=== PATIENT | male | born 1965 | race Caucasian/White ===

== ENCOUNTER 2019-06-10 05:48 | Outpatient (RCR) | payer MEDICAID, SELFPAY | END 2019-07-07 00:01 | LOC: ONCMED 05:48 | PROVIDERS: Family Provider Family Medicine; Visit Provider Internal Medicine Hematology & Oncology | DX: C15.5 Malignant neoplasm of lower third of esophagus (principal); Z45.2 Encounter for adjustment and management of vascular access device; G89.29 Other chronic pain; M54.2 Cervicalgia; B19.20 Unspecified viral hepatitis C without hepatic coma; K74.60 Unspecified cirrhosis of liver; R16.1 Splenomegaly, not elsewhere classified; Z92.21 Personal history of antineoplastic chemotherapy; Z92.3 Personal history of irradiation; Z79.891 Long term (current) use of opiate analgesic; Z79.899 Other long term (current) drug therapy | CPT/HCPCS: 36415; 80053; 85025; 96523; 99214; J1642 ==

== ENCOUNTER → 2019-07-14 10:24 | Outpatient (BNVA) | payer MEDICAID, SELFPAY | PROVIDERS: Family Provider Family Medicine; PCP Family Medicine; Referring Provider Anesthesiology; Visit Provider Anesthesiology | DX: G89.29 Other chronic pain (principal); M51.36 Other intervertebral disc degeneration, lumbar region; M54.2 Cervicalgia; E13.40 Other specified diabetes mellitus with diabetic neuropathy, unspecified; Z79.891 Long term (current) use of opiate analgesic | CPT/HCPCS: 99214 ==

== ENCOUNTER 2019-08-04 05:44 | Outpatient (RCR) | payer MEDICAID, SELFPAY ==
[2019-07-21 18:19] LABS: Basophils % 0.3 %; Eosinophils # 0.1 10^3/uL (0.0-0.8); Eosinophils % 3.3 %; Hematocrit 38.4 % (42.0-52.0); Hemoglobin 12.5 g/dL (11.7-16.6); Lymphocytes # 0.9 10^3/uL (0.8-4.8); Lymphocytes % 22.4 %; Mean Corpuscular HGB Conc 32.6 g/dL (30.0-36.0); Mean Corpuscular Hemoglobin 30.9 pg (28.0-34.0); Mean Platelet Volume 12.9 fL (7.4-10.4); Monocytes # 0.5 10^3/uL (0.2-0.9); Monocytes % 13.3 %; Neutrophils # 2.4 10^3/uL (1.8-7.7); Neutrophils % 60.7 %; Nucleated Red Blood Cells % 0 %; Platelet Count 93 10^3/cmm (130-400); Red Blood Count 4.04 10^6/uL (4.1-5.3); Red Cell Distribution Width 14.3 % (12.1-15.1)
[2019-07-21 18:59] LABS: Alanine Aminotransferase 125 U/L (0-41); Albumin Level 2.9 g/dL (3.5-5.2); Alkaline Phosphatase 280 IU/L (40-130); Anion Gap 17.1 (5-19); Aspartate Amino Transferase 148 U/L (0-40); Blood Urea Nitrogen 9 mg/dL (6-20); Calcium 8.9 mg/Dl (8.6-10.0); Carbon Dioxide 25 mmol/L (22-29); Chloride 97 mmol/L (98-107); Globulin 3.4 g/dL (1.3-4.6); Glomerular Filtration Rate 224.2 mL/min (90-130); Glucose 309 mg/dL (74-109); Potassium 4.1 mmol/L (3.5-5.1); Sodium 135 mmol/L (136-145); Total Bilirubin 0.8 mg/dL (0.15-1.2); Total Protein 6.3 g/dL (6.6-8.7)
== END 2019-08-07 23:59 | disposition home or self-care (01) ==
LOC: ONCMED 05:44
PROVIDERS: Radiology Radiation Oncology; Family Provider Family Medicine; PCP Family Medicine; Visit Provider Internal Medicine Hematology & Oncology
DX: Z08 Encounter for follow-up examination after completed treatment for malignant neoplasm (principal); Z85.01 Personal history of malignant neoplasm of esophagus; Z45.2 Encounter for adjustment and management of vascular access device; D69.6 Thrombocytopenia, unspecified; B19.20 Unspecified viral hepatitis C without hepatic coma; K74.60 Unspecified cirrhosis of liver; R16.1 Splenomegaly, not elsewhere classified; Z79.891 Long term (current) use of opiate analgesic; Z92.3 Personal history of irradiation; Z92.21 Personal history of antineoplastic chemotherapy
CPT/HCPCS: 36415; 80053; 85025; 96523; G0463

== ENCOUNTER 2019-09-04 05:49 | Outpatient (RCR) | payer MEDICAID, SELFPAY | END 2019-09-05 23:59 | disposition home or self-care (01) | LOC: ONCMED 05:49 | PROVIDERS: Family Provider Family Medicine; PCP Family Medicine; Visit Provider Internal Medicine Hematology & Oncology | DX: Z45.2 Encounter for adjustment and management of vascular access device (principal) | CPT/HCPCS: 96523 ==

== ENCOUNTER 2019-10-09 11:09 | Outpatient (CLI) | payer MEDICAID, SELFPAY | END 2019-10-09 11:10 | disposition home or self-care (01) | LOC: ONCMED 11:10 | PROVIDERS: Family Provider Family Medicine; PCP Family Medicine; Visit Provider Internal Medicine Hematology & Oncology | DX: Z45.2 Encounter for adjustment and management of vascular access device (principal) | CPT/HCPCS: 96523 ==

== ENCOUNTER 2019-11-05 09:20 | Outpatient (CLI) | payer MEDICAID, SELFPAY ==
[2019-11-05 15:07] LABS: Eosinophils # 0.1 10^3/uL (0.0-0.8); Eosinophils % 1.8 %; Hematocrit 40.3 % (42.0-52.0); Hemoglobin 13.1 g/dL (11.7-16.6); Lymphocytes # 0.6 10^3/uL (0.8-4.8); Lymphocytes % 20.2 %; Mean Corpuscular HGB Conc 32.5 g/dL (30.0-36.0); Mean Corpuscular Volume 92.4 fL (80-94); Mean Platelet Volume 12.5 fL (7.4-10.4); Monocytes # 0.3 10^3/uL (0.2-0.9); Monocytes % 11.8 %; Neutrophils # 1.8 10^3/uL (1.8-7.7); Neutrophils % 65.8 %; Nucleated Red Blood Cells % 0 %; Platelet Count 88 10^3/cmm (130-400); Red Blood Count 4.36 10^6/uL (4.1-5.3); Red Cell Distribution Width 13.6 % (12.1-15.1); White Blood Count 2.7 10^3/uL (4.0-10.0)
[2019-11-05 16:30] LABS: Alanine Aminotransferase 54 U/L (0-41); Albumin Level 3.1 g/dL (3.5-5.2); Alkaline Phosphatase 224 IU/L (40-130); Anion Gap 12.5 (5-19); Aspartate Amino Transferase 85 U/L (0-40); Blood Urea Nitrogen 11 mg/dL (6-20); Calcium 9.3 mg/dL (8.5-10.5); Carbon Dioxide 27 mmol/L (22-29); Chloride 95 mmol/L (98-107); Globulin 4.5 g/dL (1.3-4.6); Glomerular Filtration Rate 139.9 mL/min (90-130); Glucose 305 mg/dL (65-115); Osmolality Calculated 278 mOsm/kg (285-295); Potassium 4.5 mmol/L (3.5-5.1); Sodium 130 mmol/L (136-145); Total Bilirubin 0.4 mg/dL (0.15-1.2); Total Protein 7.6 g/dL (6.6-8.7)
== END 2019-11-05 09:21 | disposition home or self-care (01) ==
LOC: ONCMED 11-06 09:57
PROVIDERS: Internal Medicine Medical Oncology; Family Provider Family Medicine; PCP Family Medicine; Visit Provider Internal Medicine Hematology & Oncology
DX: C15.5 Malignant neoplasm of lower third of esophagus (principal)
CPT/HCPCS: 80053; 85025

== ENCOUNTER 2019-11-06 08:01 | Outpatient (CLI) | payer MEDICAID, SELFPAY ==
--- NOTE | 2019-11-06 14:16 | ONC FU_ITS ---
Dr. Ocampo follow up note Patient: Loida Juares Unit #: [id number]: [id number] Dicatated By: Pablo Ocampo M.D.Date of Visit:November 06, 2019 Telehealth Progress Note The patient has been informed that the visit may not be secure and acknowledged the information. I have explained the option of participating in a telephone or video visit during the COVID-19 public health emergency to the patient. After being given an opportunity to ask questions about and discuss this type of visit, the patient verbally consented to proceeding with the telephone/video visit. the patient understands that this service replaces an office visit and they may be billed and /or responsible for any applicable copayments History of Present Illness: Mr. Loida Juares is a 54-year-old gentleman with history of abdominal pain recently underwent EGD and colonoscopy on 01/19/2019 which showed in the lower third esophagus, a partially obstructing, large sized, friable, fungating, submucosal, ulcerated mass and there was evidence of gastritis biopsy was obtained and came back moderately differentiated infiltrating adenocarcinoma. Colonoscopy was normal and follow-up CT scan of chest abdomen pelvis done on 01/29/2019 showed indeterminate but numerous celiac axis/upper mesenteric and retroperitoneal shoddy lymph nodes. No metastatic disease to lungs adrenal gland or liver Patient denies any history of weight loss in fact weight gain. No hemoptysis or hematemesis, no nausea or vomiting, no diarrhea constipation, no dysphagia. Or odynophagia. Patient has history of hepatitis C, as per patient he was treated by Dr. Canales about 2-3 years ago and was dormant and now active. History of cirrhosis and splenomegaly. No alcohol use but smoke. CT PET scan done on 02/21/2019 showed 1.3 cm segment of distal esophageal with SUV of 2.9 consistent with a primary esophageal carcinoma there is a no local or distance metastases Started on combined chemoradiation on 03/10/2019 with modified dose of weekly carboplatin and Taxol concurrent with radiation Was referred to bell staff in [place], [place] and he was seen on 04/03/2019. Impression and recommendation was to repeat hepatitis profile including hepatitis B core antigen, if is positive may require prophylaxis. And Dr. Manrique will also do further workup regarding hepatic cirrhosis and with PT/INR less than 1.7, patient has child tracy A and hepatitis C is a low risk for acute liver injury andsuggested to proceed with chemoradiation . May consider radiological transjugular liver biopsy and measurement of portal pressures, if esophageal surgery is under consideration. And medical management of portal hypertension if needed Patient completed combined chemoradiation with weekly carboplatin and Taxol on 05/10/2019patient was referred to Cardiothoracic surgery at [facility] for evaluation for possible esophagectomy patient was seen and admitted on 06/25/2019 and esophagectomy was attempted during procedure, patient is liver appeared severely cirrhotic esophagectomy was canceled but during procedure underwent EGD and biopsy was obtained which showed no evidence of disease. Due to advanced stage hepatic cirrhosis, no further treatment was offered but observation and follow with bell staff. Evaluated via telephone, patient denies any specific complaints except off and on nausea in the morning, responding very well to lorazepam. Patient denies coffee and also cutting down on spicy foods. No dysphagia, no jaundice, no abdominal pain or fullness, denies fever chills, denies any hemoptysis or hematemesis, denies any melena hematochezia, appetite is good. No nosebleed or gum bleed. Medications: CeleXA 1 Tablet (of 10 mg) Oral daily, Dronabinol 1 Capsule (of 10 mg) Oral b.i.d. PRN, Levemir 30 Units (of 100 Units/mL) Subcutaneous daily, LORazepam 0.5 - 1 Tablet (of 1 mg) Oral t.i.d. PRN, oxyCODONE HCl 1 Tablet (of 15 mg) Oral pc (tid), Protonix 1 Tablet (of 20 mg) Tablet, enteric coated Oral daily Allergies: No Known Allergies. Review of Systems: Review of Systems is not available for this patient. Vital Signs: Vitals are not available for this patient. Performance Status: 1 - No physically strenuous activity, but ambulatory and able to carry out light or sedentary work (e.g. office work, light house work). (ECOG) Physical Examination: ENMT - denies any mouth sores, Respiratory - denies any shortness of breath or wheezing, Cardiovascular - denies any palpitation or tachycardia, Abdomen - denies any abdominal pain or fullness, Extremities - denies any visible edema. Lab/Imaging: Test performed on Jul 21, 2019 07:50 Glucose 309 mg/dL BUN 9 mg/dL Creatinine 0.4 mg/dL Cr Clearance (Est) 272.53 mL/min Sodium 135 mmol/L Potassium 4.1 mmol/L Chloride 97 mmol/L CO2 25 mmol/L Calcium 8.9 mg/dL Protein, Total 6.3 g/dL Albumin 2.9 g/dL Globulin 3.4 g/dL Bilirubin, Total 0.8 mg/dL Alkaline Phosphatase 280 IU/L AST (SGOT) 148 IU/L ALT (SGPT) 125 IU/L WBC 4.0 10^9/L RBC 4.04 10^12/L HGB 12.5 g/dL HCT 38.4 % MCV 95.0 fl MCH 30.9 pg MCHC 32.6 g/dL RDW 14.3 % Platelet Count 93 10^9/L MPV 12.9 fL Neutrophils (Gran) 2.4 10^9/L Lymphocytes 0.9 10^9/L Monocytes 0.5 10^9/L Eosinophils 0.1 10^9/L Basophils 0.0 10^9/L Manual Lymphocytes 22.4 % Manual Monocytes 13.3 % Manual Eosinophils 3.3 % Manual Basophils 0.3 % NRBCs 0.0 /100 WBC Test performed on Jun 09, 2019 09:00 Anion Gap 11.9 eGFR 173.3 mL/min Neutrophil % 54.9 % Lymphocyte % 31.6 % Monocyte % 10.8 % Eosinophil % 2.1 % Basophils % 0.3 % Impression: Moderately differentiated adenocarcinoma of distal esophagus per EGD/biopsy done on 01/19/2019 CT scan of chest abdomen pelvis done on 01/29/2019 showed mild thickening of right distal esophagus No metastatic disease to lungs, adrenal glands or liver Moderate cirrhosis with splenomegaly Indeterminate but numerous celiac axis/upper mesenteric and retroperitoneal shoddy lymph nodes CT PET scan done on 02/21/2019 showed there is a 1.3 cm segment of distal esophagus with SUV of 3.9 consistent with a primary esophageal carcinoma. No findings for local or distant metastatic disease seen. ? T1-T2,Nx,Mx Orthopedic fixation of left hip fracture Subacute to acute L5 compression fracture Colonoscopy done on 01/19/2019 showed normal exam. Started on combined chemoradiation with modified weekly carboplatin/Taxol concurrent with radiation therapy on 03/19/2019 last weekly chemotherapy with carbo/Taxol was given on 05/05/2019 Plan: Discussed with patient on telephone, regarding his labs white blood count 2.7 hemoglobin 13.1 crit 40.3 platelets 88,000 CMP within normal limits except glucose 305 and aortic 54 and AST 85 compared to a already 125 and AST 148 on 07/21/2019 Clinically, patient is doing reasonably well except off and on nausea in the morning, could be due to acid reflux, he is on acid reduction therapy, patient said lorazepam does help him, we will give him prescription for that and patient was advised to avoid spicy food or citrus like fruits and if there is worsening of nausea or dysphagia, we will consider EGD. In the meantime we will continue monitor and he will return to clinic in 3 months with CBC CMP and follow-up CT PET scan to assess disease status. In the meantime he will continue monthly port maintenance. Signed By: Pablo Ocampo M.D. <<Signature on File>>
== END 2019-11-06 08:02 | disposition home or self-care (01) ==
LOC: ONCMED 08:04
PROVIDERS: Family Provider Family Medicine; PCP Family Medicine; Visit Provider Internal Medicine Hematology & Oncology
DX: C15.5 Malignant neoplasm of lower third of esophagus (principal); R11.0 Nausea; K21.9 Gastro-esophageal reflux disease without esophagitis

== ENCOUNTER 2019-11-19 15:07 | Outpatient (CLI) | payer MEDICAID, SELFPAY | END 2019-11-19 15:08 | disposition home or self-care (01) | PROVIDERS: PCP Family Medicine; Visit Provider Internal Medicine Hematology & Oncology | DX: Z45.2 Encounter for adjustment and management of vascular access device (principal); C15.5 Malignant neoplasm of lower third of esophagus | CPT/HCPCS: 96523 ==

== ENCOUNTER 2019-12-18 10:51 | Outpatient (CLI) | payer MEDICAID, SELFPAY | END 2019-12-18 10:52 | disposition home or self-care (01) | LOC: ONCMED 10:51 | PROVIDERS: PCP Family Medicine; Visit Provider Internal Medicine Hematology & Oncology | DX: Z45.2 Encounter for adjustment and management of vascular access device (principal); C15.5 Malignant neoplasm of lower third of esophagus | CPT/HCPCS: 96523 ==

== ENCOUNTER 2020-01-12 11:01 | Emergency (ER) | payer MEDICAID, SELFPAY ==
--- NOTE | 2020-01-12 11:13 | ED_ITS ---
HPI - Skin/Abscess/Foreign Bdy General: Chief complaint: Skin/Abscess/Foreign Body Stated complaint: ABSCESS Time Seen by Provider: 01/12/20 11:13 Source: patient Mode of arrival: ambulatory Limitations: no limitations History of Present Illness: HPI narrative: Patient is a 54-year-old male who presents to ED today with an abscess to his rectal region that he began noticing 2 to 3 days ago. Patient tells me area has been draining. He has been putting cornstarch on area to help. Patient states he has not been running fevers. Patient is a known diabetic but states he has not been taking his medications over the past 3 days for unknown reason (he does state he has these medications and is not out). complaint: abscess/boil Onset (ago): day(s) Tetanus up to date: yes Location: buttocks Severity: moderate Relieving factors: none Exacerbating factors: none Context: none Associated symptoms: Deny chills, fever(s), nausea or vomiting Review of Systems Const: Denies: fever(s), chills or body aches GI: Denies: abdominal pain, nausea, vomiting, diarrhea, constipation, change in bowel habits, pain on defecation, rectal swelling, hematochezia or melena : Denies: flank pain, difficulty urinating, dysuria, urinary frequency, urinary urgency or urinary hesitancy Musc: Denies: neck pain or back pain Skin/Breast: Reports: other (abscess) [facility] ED PFSH: Medical History (Updated 01/12/20 @ 12:22 by BEV Ruvalcaba) Chronic neck pain DDD (degenerative disc disease), lumbar Encounter for long-term use of opiate analgesic Lumbar pain Neuropathy due to secondary diabetes Port-A-Cath in place S/p left hip fracture November 2018 Spinal stenosis of lumbar region Spondylosis of lumbar spine with myelopathy Surgical History (Updated 07/14/19 @ 11:09 by Abebe Aj MD) 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 Family History Mother Diabetes Father Diabetes Social History (Updated 07/14/19 @ 11:11 by Ruby Benoit LPN) Smoking and tobacco status: former smoker Quit status (tobacco): has quit using tobacco Year quit tobacco: 06/2019 Alcohol intake: former Physical Exam Const: COMMON NORMALS: no acute distress, patient oriented x3, no limitations and alert Resp: COMMON NORMALS: normal respiratory effort and clear to auscultation bilaterally AUSCULTATION: clear to auscultation bilaterally Cardio: COMMON NORMALS: regular rate and regular rhythm RATE: regular rate RHYTHM: regular rhythm GI: COMMON NORMALS: Normal to inspection, nondistended, normoactive bowel sounds present, Soft to palpation, non-tender, No hepatosplenomegaly present and no masses AUSCULTATION: Yes normoactive bowel sounds PALPATION: Yes Soft to palpation and Yes No hepatosplenomegaly present RECTAL EXAM: Yes other (no LILLY performed; perianal abscess present-see below) OTHER: pt has 1cm opening with purulent material coming from R superior anus; there is no diffuse induration or cellulitis Neuro: COMMON NORMALS: patient oriented x3 SENSORIUM/ORIENTATION: Yes alert Skin: OTHER: see GI assessment Procedures Abscess I/D Site: iván-rectal (perianal) Local Anesthetic: lidocaine 2% Amount of anesthesia used (mL): 3.0 Technique: other (area already draining; broke up loculations with hemostat- fully drained) Amount of fluid expressed (mL): 1.0 Packing used?: plain Complications: pain Course Vital Signs: Vital signs: Vital Signs Temperature 97.6 F 01/12/20 11:16 Pulse Rate 87 01/12/20 11:16 Respiratory Rate 15 01/12/20 11:47 Blood Pressure 123/84 01/12/20 11:16 Pulse Oximetry 97 01/12/20 11:16 MDM - Skin/Abscess/Foreign Bdy MDM Narrative: Medical decision making narrative: Discussed being diligent about diabetes medication regimen for better control of his sugars (he states he is normally controlled when he remembers to take his meds-again pt reports not taking them over the past three days). CM will get patient set up with general surgery this week for evaluation. Return to ED precautions given. Lab Data: Labs: Lab Results 01/12/20 01/12/20 Range/Units 11:30 11:30 WBC 10.6 H (4.0-10.0) 10^3/ uL RBC 4.45 (4.1-5.3) 10^6/u L Hgb 13.4 (11.7-16.6) g/dL Hct 39.8 L (42.0-52.0) % MCV 89.4 (80-94) fL MCH 30.1 (28.0-34.0) pg MCHC 33.7 (30.0-36.0) g/dL RDW 13.2 (12.1-15.1) % Plt Count 105 L (130-400) 10^3/c mm MPV 12.1 H (7.4-10.4) fL Neut % (Auto) 82.7 % Lymph % (Auto) 6.7 % Donley % (Auto) 9.3 % Eos % (Auto) 0.5 % Baso % (Auto) 0.2 % Neut # (Auto) 8.8 H (1.8-7.7) 10^3/u L Lymph # (Auto) 0.7 L (0.8-4.8) 10^3/u L Donley # (Auto) 1.0 H (0.2-0.9) 10^3/u L Eos # (Auto) 0.1 (0.0-0.8) 10^3/u L Baso # (Auto) 0.0 (0.0-0.1) 10^3/u L Nucleated RBC % (a uto) 0 % Nucleated RBCs # 0.0 /100WBC Sodium 125 L (136-145) mmol/L Potassium 4.4 (3.5-5.1) mmol/L Chloride 92 L (98-107) mmol/L Carbon Dioxide 25 (22-29) mmol/L Anion Gap 12.4 (5-19) BUN 12 (6-20) mg/dL Creatinine 0.5 L (0.7-1.2) mg/dL GFR Calculation 172.6 H (90-130) mL/min Glucose 388 H (65-115) mg/dL Calculated Osmolal ity 272 L (285-295) mOsm/k g Calcium 9.3 (8.5-10.5) mg/dL Total Bilirubin 0.7 (0.15-1.2) mg/dL AST 30 (0-40) U/L ALT 33 (0-41) U/L Alkaline Phosphata se 164 H (40-130) IU/L Total Protein 6.7 (6.6-8.7) g/dL Albumin 2.5 L (3.5-5.2) g/dL Globulin 4.2 (1.3-4.6) g/dL Discharge Plan Discharge Patient Disposition: Home, Self-Care Clinical Impression: Abscess, perianal Condition: Stable Prescriptions: New Augmentin 875-125 mg tablet 1 tab PO Q12H 7 Days Qty: 14 RF: 0 hydrocodone-ibuprofen 5-200 mg tablet 1 tab PO Q4H PRN (Reason: pain) Qty: 14 RF: 0 No Action (DME) blood-glucose meter Kit See Rx Instructions .ROUTE .MEDSUPPLY Qty: 1 RF: 0 Levemir U-100 Insulin 100 unit/mL solution 100 unit SUBCUT ONCE RF: 0 (DME) pen needle, diabetic, safety 29 gauge x 1/2 needle See Rx Instructions .ROUTE .MEDSUPPLY Qty: 100 RF: 0 citalopram [Celexa] 20 mg tablet 20 mg PO ONCE RF: 0 dronabinol [Marinol] 10 mg capsule 5 mg PO BID RF: 0 lorazepam 1 mg tablet 1 mg PO TID PRNRF: 0 pantoprazole [Protonix] 40 mg tablet,delayed release (DR/EC) 40 mg PO ONCE RF: 0 loperamide [Anti-Diarrheal (loperamide)] 2 mg capsule 2 mg PO Q4H RF: 0 oxycodone [Roxicodone] 15 mg tablet 15 mg PO QID PRN (Reason: pain) 30 Days Qty: 120 RF: 0 oxycodone 15 mg tablet 15 mg PO QID PRN (Reason: pain) 30 Days Qty: 120 RF: 0 Discharge Orders: Discharge Order (Routine); Ordered 01/12/20 Ordered By: Kourtney Alcazar Referrals: Casimiro Sommers [Primary Care Provider] - Activity Restrictions/Additional Instructions: Leave packing in place until seen by general surgeon. Case management will contact you shortly to set you up with this appointment. It is imperative that you begin taking your diabetes medication as prescribed as an elevation in your sugars will make healing this abscess incredibly difficult. Keep wound clean doing warm sits baths several times a day making sure that you do not accidentally pull the packing out. Return to the emergency department for worsening pain, fevers, inability to hold down your antibiotics, or any other concerns you may have. Coding Level of Care Code ED [employer] for [facility] Fwd Exam Expanded Problem Focused
[2020-01-12 11:14] VITALS: BMI 27.6
[2020-01-12 11:16] VITALS: BP 123/84; PULSE 87; RESP 18; TEMP 36.4; O2SAT 97
[2020-01-12 11:42] LABS: Basophils % 0.2 %; Eosinophils # 0.1 10^3/uL (0.0-0.8); Eosinophils % 0.5 %; Hematocrit 39.8 % (42.0-52.0); Hemoglobin 13.4 g/dL (11.7-16.6); Lymphocytes # 0.7 10^3/uL (0.8-4.8); Lymphocytes % 6.7 %; Mean Corpuscular HGB Conc 33.7 g/dL (30.0-36.0); Mean Corpuscular Hemoglobin 30.1 pg (28.0-34.0); Mean Corpuscular Volume 89.4 fL (80-94); Mean Platelet Volume 12.1 fL (7.4-10.4); Monocytes % 9.3 %; Neutrophils # 8.8 10^3/uL (1.8-7.7); Neutrophils % 82.7 %; Nucleated Red Blood Cells % 0 %; Platelet Count 105 10^3/cmm (130-400); Red Blood Count 4.45 10^6/uL (4.1-5.3); Red Cell Distribution Width 13.2 % (12.1-15.1); White Blood Count 10.6 10^3/uL (4.0-10.0)
[2020-01-12] MEDS: ceFAZolin 1,000 MG in sodium chloride 0.9% (plus) 50 ML 100 MG IV (11:45)
[2020-01-12 11:47] VITALS: RESP 15
[2020-01-12] MEDS: ondansetron 2 mg/ML SDV 2 mL 4 MG IVP (11:47)
[2020-01-12] MEDS: morphine 4 mg/mL SDV 1 mL IVP (11:47)
[2020-01-12 11:56] LABS: Alanine Aminotransferase 33 U/L (0-41); Albumin Level 2.5 g/dL (3.5-5.2); Alkaline Phosphatase 164 IU/L (40-130); Anion Gap 12.4 (5-19); Aspartate Amino Transferase 30 U/L (0-40); Blood Urea Nitrogen 12 mg/dL (6-20); Calcium 9.3 mg/dL (8.5-10.5); Carbon Dioxide 25 mmol/L (22-29); Chloride 92 mmol/L (98-107); Globulin 4.2 g/dL (1.3-4.6); Glomerular Filtration Rate 172.6 mL/min (90-130); Glucose 388 mg/dL (65-115); Osmolality Calculated 272 mOsm/kg (285-295); Potassium 4.4 mmol/L (3.5-5.1); Sodium 125 mmol/L (136-145); Total Bilirubin 0.7 mg/dL (0.15-1.2); Total Protein 6.7 g/dL (6.6-8.7)
[2020-01-12] MEDS: metroNIDAZOLE IV 500 MG/100 ML PREMIX 100 MG IV (12:15)
[2020-01-12 13:11] VITALS: BP 149/88; PULSE 97; RESP 16; O2SAT 98
--- NOTE | 2020-01-12 13:45 | DCPLANNER ---
Patient was asked to schedule a followup appointment for patient with general surgery. deputy manager called [facility], spoke with [facility], gave clinic patients information. deputy manager was told that patients information would be printed and reviewed. Clinic will call patient with appointment information.
--- NOTE | 2020-01-14 08:38 | DCPLANNER ---
Patient has a follow up appointment scheduled for , January 14, 2020 at 9:[address] Bowden. Clinic will call patient with appointment information.
--- NOTE | 2020-01-19 11:42 | DCPLANNER ---
Patient did attend follow up appointment scheduled for 01.14.20 with [facility].
== END 2020-01-12 13:12 | disposition home or self-care (01) ==
PROVIDERS: Emergency Provider Physician Assistant; PCP Family Medicine
DX: K61.0 Anal abscess (principal); Z79.4 Long term (current) use of insulin; Z87.891 Personal history of nicotine dependence
CPT/HCPCS: 12345; 36415; 46040; 80053; 85025; 87070; 87077; 87186; 87205; 96361; 96365; 96375; 99283; J0690; J2270; J2405; S0030

== ENCOUNTER 2020-01-14 10:41 | Emergency (ER) | payer MEDICAID, SELFPAY | END 2020-01-14 12:26 | disposition admitted as inpatient to this hospital (09) | LOC: ER 01-18 16:47 | PROVIDERS: Emergency Provider Family Medicine; PCP Family Medicine | DX: K61.0 Anal abscess (principal); Z86.19 Personal history of other infectious and parasitic diseases; E11.40 Type 2 diabetes mellitus with diabetic neuropathy, unspecified; Z87.891 Personal history of nicotine dependence | CPT/HCPCS: 85025; 96365; 96367; 96375; 96376; 99282; 99285 ==

== ENCOUNTER 2020-01-14 10:41 | Inpatient (IN) | payer MEDICAID, SELFPAY ==
[2020-01-14] VITALS (26 sets, daily range): BP systolic 91–142; BP diastolic 56–83; PULSE 68–102; RESP 12–22; TEMP 36.3–36.9; O2SAT 94–100; BMI 27.6
--- NOTE | 2020-01-14 10:47 | CT_ITS ---
WS: [id number] CT PELVIS WITH CONTRAST HISTORY: Perianal abscess TECHNIQUE: Contiguous imaging is performed of the pelvis with contrast. Coronal and sagittal reformat s are reviewed. All CT scans at [facility] use at least one of these dose optimization te chniques: automated exposure control; mA and/or kV adjustment per patient size (includes targeted exa ms where dose is matched to clinical indication); or iterative reconstruction. DLP: 899.57 mGy.cm Contrast: Omnipaque 300; 95 cc. COMPARISON: 01/29/2019 Significant inflammatory process in the perianal region. There is soft tissue collection containing a ir and extends in a curvilinear manner along the posterior anus and perineal region extending over le ngth of several centimeters. Incompletely visualized on this examination. Transverse diameter of 4.1 cm and anterior posterior by 1.8 cm. Inflammatory process extends into the presacral space and circum ferentially encases the rectum with narrowing of the distal rectum and anus. Thickening of the presac ral soft tissues and mild infiltration of the posterior perirectal fat. Small benign retroperitoneal and RIGHT groin lymph nodes are identified. Urinary bladder is markedly distended. Atherosclerosis aorta. Normal appendix. Prior ORIF LEFT hip. Chronic soft tissue thickening around the LEFT hip. CT/CT pelvis w con* [id number] IMPRESSION: 1. Significant inflammatory process in a perirectal, perianal and perineal dis tribution extending over length of several centimeters. Transverse diameter 4.1 x 1.8 cm. Perianal abscess contains air which could be due to recent instrume ntation or gas producing organisms. 2. Marked distention of the urinary bladder.
--- NOTE | 2020-01-14 11:00 | W.ED.GENADLT ---
HPI - General Adult General: Chief complaint: Urogenital-Male Stated complaint: SORE ON BOTTOM Time Seen by Provider: 01/14/20 10:47 History of Present Illness: HPI narrative: Patient was recently seen in the emergency department and treated for a perianal abscess. Patient followed up with general surgery today and was sent to the ER for admission. Patient has failed outpatient treatment as the size of the abscess and amount of pain the patient is experiencing is increasing. Onset (ago): unknown Location: buttocks Radiation: non-radiation Severity: severe Quality: burning, stabbing, sharp and constant Pain Consistency: constant Relieving factors: none Exacerbating factors: movement Review of Systems General: Reports: 10 or more systems reviewed and unremarkable except in HPI and below PFSH ED PFSH: Medical History Chronic hepatitis C Chronic neck pain DDD (degenerative disc disease), lumbar Diabetes mellitus Encounter for long-term use of opiate analgesic Leukopenia Lumbar pain Neuropathy due to secondary diabetes Port-A-Cath in place S/p left hip fracture November 2018 Spinal stenosis of lumbar region Spondylosis of lumbar spine with myelopathy Surgical History H/O circumcision H/O colonoscopy 2019 H/O esophagogastroduodenoscopy 2019 History of knee surgery 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 Family History Mother Diabetes Father Diabetes Denies family history of Anesthesia complication Bleeding disorder Cancer Social History Smoking and tobacco status: former smoker Quit status (tobacco): has quit using tobacco Year quit tobacco: 06/2019 Alcohol intake: former Lives independently: Yes Marital status: Single Current occupational status: disabled History of recent travel: Yes ([facility]) Out of state: No Out of country: No Physical Exam Const: COMMON NORMALS: no acute distress, healthy appearing and well nourished GENERAL APPEARANCE: cooperative and well developed HENMT: COMMON NORMALS: normocephalic and atraumatic HEAD & SCALP: normal to inspection, normocephalic and atraumatic Eye: GENERAL EYE: appearance normal, both eyes and all related structures Neck/C-Spine: COMMON NORMALS: full ROM, no lymphadenopathy and no meningeal signs GENERAL: Yes normal visual inspection CERVICAL SPINE: Yes cervical ROM normal and Yes normal cervical lordosis Chest: COMMONS NORMALS: normal inspection of the chest and normal palpation of entire chest wall Resp: COMMON NORMALS: normal respiratory effort, clear to auscultation bilaterally and percussion normal AUSCULTATION: clear to auscultation bilaterally PERCUSSION: percussion normal Cardio: COMMON NORMALS: regular rate, regular rhythm, S1 normal heart sound present and S2 normal heart sound present JUGULAR VENOUS DISTENTION: no JVD PALPATION: normal PMI RATE: regular rate RHYTHM: regular rhythm HEART SOUNDS: S1 normal heart sound present and S2 normal heart sound present GI: COMMON NORMALS: Soft to palpation and No hepatosplenomegaly present INSPECTION: Yes normal to inspection PALPATION: Yes Soft to palpation and Yes No hepatosplenomegaly present PERCUSSION: normal to percussion : COMMON NORMALS: Yes no CVA tenderness BLADDER/KIDNEY EXAM: Yes no CVA tenderness Back/Pelvis: COMMON NORMALS: no CVA tenderness, thoracic and lumbar spine normal to inspection and thoraco-lumbar ROM normal Extremity: COMMON NORMALS: normal to inspection, full ROM and capillary refill normal Neuro: MENINGEAL SIGNS: Yes no meningeal signs Skin: COMMON NORMALS: no rashes or lesions noted, no wounds and turgor normal GENERAL SKIN EXAM: no rashes or lesions noted, elasticity normal and turgor normal LESIONS: no lesions RASHES: no rashes TRAUMA: no lacerations or abrasions HAIR: normal NAILS: normal Course Vital Signs: Vital signs: Vital Signs Temperature 97.7 F 01/14/20 10:55 Pulse Rate 81 01/14/20 10:55 Respiratory Rate 18 01/14/20 10:55 Blood Pressure 133/83 01/14/20 10:55 Pulse Oximetry 99 01/14/20 10:55 Discharge Plan Discharge Patient Disposition: Admitted As Inpatient Clinical Impression: Abscess, perianal Condition: Stable Referrals: Casimiro Sommers [Primary Care Provider] - Coding Level of Care Code ED [employer] for [facility] Fwd Exam Comprehensive
[2020-01-14] MEDS: morphine 4 mg/mL SDV 1 mL IVP ×2 (11:24→20:46)
[2020-01-14] MEDS: ondansetron 2 mg/ML SDV 2 mL 4 MG IVP (11:24)
[2020-01-14] MEDS: sodium chloride 0.9% 1,000 ML 100 ML IV ×2 (11:27→18:28)
[2020-01-14 11:39] LABS: Basophils % 0.2 %; Eosinophils % 0.6 %; Hematocrit 37.3 % (42.0-52.0); Hemoglobin 12.6 g/dL (11.7-16.6); Lymphocytes # 0.6 10^3/uL (0.8-4.8); Lymphocytes % 10.1 %; Mean Corpuscular HGB Conc 33.8 g/dL (30.0-36.0); Mean Corpuscular Hemoglobin 30.1 pg (28.0-34.0); Mean Platelet Volume 11.9 fL (7.4-10.4); Monocytes # 0.7 10^3/uL (0.2-0.9); Neutrophils # 4.82 10^3/uL (1.8-7.7); Neutrophils % 77.6 %; Nucleated Red Blood Cells % 0 %; Platelet Count 106 10^3/cmm (130-400); Red Blood Count 4.19 10^6/uL (4.1-5.3); Red Cell Distribution Width 13.4 % (12.1-15.1); White Blood Count 6.2 10^3/uL (4.0-10.0)
[2020-01-14 12:00] LABS: Alanine Aminotransferase 31 U/L (0-41); Albumin Level 2.6 g/dL (3.5-5.2); Alkaline Phosphatase 168 IU/L (40-130); Aspartate Amino Transferase 47 U/L (0-40); Blood Urea Nitrogen 11 mg/dL (6-20); Calcium 8.9 mg/dL (8.5-10.5); Carbon Dioxide 27 mmol/L (22-29); Chloride 95 mmol/L (98-107); Glomerular Filtration Rate 223.3 mL/min (90-130); Glucose 210 mg/dL (65-115); Osmolality Calculated 270 mOsm/kg (285-295); Sodium 129 mmol/L (136-145); Total Bilirubin 0.6 mg/dL (0.15-1.2); Total Protein 6.6 g/dL (6.6-8.7)
[2020-01-14 12:03] LABS: INR 1.31 (0.8-1.2); Partial Thromboplastin Time 31.5 SECONDS (23.9-36.7)
[2020-01-14 12:15] LABS: Anion Gap 11.6 (5-19)
[2020-01-14 12:16] LABS: Potassium 4.6 mmol/L (3.5-5.1)
[2020-01-14] MEDS: piperacillin-tazobactam 3.375 GM in sodium chloride 0.9% (plus) 50 ML IV ×2 (13:41→22:31)
[2020-01-14] MEDS: morphine 4 mg/mL SDV 1 mL 2 MG IVP ×2 (13:43→19:46)
[2020-01-14] MEDS: sodium chloride 0.9% 1,000 ML 125 ML IV (13:44)
[2020-01-14] MEDS: iohexol 300 mg/mL 100 mL Btl IV (14:34)
--- NOTE | 2020-01-14 15:08 | P.CONIM_ITS ---
Providers/Reason For Consult Consulting Physican/Specialty*: Isabelle Castellon MD/Internal Medicine Reason for Consult*: Diabetes management Attending Physician: Marcos Silver MD Primary Care Provider: Casimiro Sommers History of Present Illness History of Present Illness Lodia Juares is a 54 year old male history of hepatitis C, treated, cirrhosis, distal esophageal malignancy s/p combined chemoradiation with carboplatin/Taxol until 05/2019, planned for esophagectomy which was eventually cancelled due to severe cirrhosis. Currently he is PREET. Follows with hepatology in [place]. 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 He presented today as a direct admission from Dr. Silver office for right perianal abscess, for which he had undergone I&D in the ER. Cx showed E.coli treated with Augmentin. On follow up today he complained of perianal pain and was admitted for CT and possible further drainage. pelvis CT has been obtained which shows Significant inflammatory process in a perirectal, perianal and perineal distribution extending over length of several centimeters. Transverse diameter 4.1 x 1.8 cm. Perianal abscess contains air which could be due to recent instrumentation or gas producing organisms. Denies any fever, chills. WBC on 01/11 10.6, today 6.2. Plt 106, stable at baseline. Na 129, baseline appears to be 125-130. T. Bili 0.6, Ast 7, ALT-31, ALP 168 (baseline). Hospitalist services consulted to assist with diabetes management alongside. Review of Systems General: Reports: 10 or more systems reviewed and unremarkable except in HPI and below Const: Denies: fever(s), chills or body aches Eyes: Denies: change in vision, blurry vision or photophobia ENMT: Reports: hoarseness; Denies: throat pain, enlarged tonsils, odynophagia or nasal congestion Card: Denies: chest pain, palpitations, irregular heart rhythm, edema, swelling of feet/ankles, lightheadedness, pre-syncope, dyspnea on exertion or orthopnea Resp: Denies: dyspnea, productive cough, non-productive cough, wheezing, strid or, pain on inspiration, change in phlegm color, hemoptysis or chest congestion GI: Denies: abdominal pain, nausea, vomiting, hematemesis, coffee ground emesis, dysphagia, heartburn, diarrhea, constipation, GI cramping, change in stool character, hematochezia or melena : Denies: flank pain, dysuria, urinary frequency, urinary urgency, urinary hesitancy or hematuria Musc: Denies: neck pain, back pain, extremity pain, joint swelling, joint warmth or deformity Neuro: Denies: headache(s), numbness in extremities, weakness in extremities, sensory changes, difficulty walking, frequent falls, dizziness, vertigo, behavioral changes, Slurred speech present or seizure-like activity Psych: Denies: anxiety, depression, suicidal ideation or homicidal ideation Endo: Denies: polyuria, polydipsia, tired all the time, cold intolerance or hot flashes Huan/Lymph: Denies: easy bruising or easy bleeding Meds/Allergies Home Medications and Allergies Home Medications Medication Instructions Recorded Confirmed Last Taken Type citalopram 20 mg tablet 20 mg PO DAILY 07/03/19 01/14/20 01/13/20 History insulin detemir U-100 100 unit/mL See Rx Instructions .ROUTE .COMPLEX 07/03/19 01/14/20 01/13/20 History subcutaneous solution dronabinol 10 mg capsule 5 mg PO BID PRN cap 07/14/19 01/14/20 Unknown History lorazepam 1 mg tablet 1 mg PO TID PRN 07/14/19 01/14/20 Unknown History pantoprazole 40 mg tablet,delayed 40 mg PO DAILY 07/14/19 01/14/20 01/14/20 History release amoxicillin-pot clavulanate 1 tab PO Q12H 7 Days #14 tab 01/12/20 01/14/20 01/14/20 Rx [Augmentin] oxycodone 5 mg PO Q6H PRN 01/14/20 01/14/20 01/14/20 History Allergies Allergy/AdvReac Type Severity Reaction Status Date / Time No Known Allergies Allergy Verified 01/14/20 10:18 Current Medications Current Medications Generic Name Dose Route Start Last Admin Trade Name Freq PRN Reason Stop Dose Admin Sodium Chloride 1,000 mls @ 100 mls/hr 01/14/20 11:00 01/14/20 13:44 Sodium Chloride 0.9% IV Infused .Q10H MAHNAZ Infusion Sodium Chloride 1,000 mls @ 125 mls/hr 01/14/20 11:15 01/14/20 13:44 Sodium Chloride 0.9% IV 125 mls/hr .Q8H MAHNAZ Administration Morphine Sulfate 2 mg 01/14/20 13:31 01/14/20 13:43 Morphine IVP 2 mg Q2H PRN Administration SEVERE PAIN PFSH Acute PFSH: Medical History Chronic hepatitis C Chronic neck pain DDD (degenerative disc disease), lumbar Diabetes mellitus Encounter for long-term use of opiate analgesic Leukopenia Lumbar pain Neuropathy due to secondary diabetes Port-A-Cath in place S/p left hip fracture November 2018 Spinal stenosis of lumbar region Spondylosis of lumbar spine with myelopathy Surgical History H/O circumcision H/O colonoscopy 2019 H/O esophagogastroduodenoscopy 2018 History of knee surgery 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 Family History Mother Diabetes Father Diabetes Denies family history of Anesthesia complication Bleeding disorder Cancer Social History Smoking and tobacco status: former smoker Quit status (tobacco): has quit using tobacco Year quit tobacco: 06/2019 Alcohol intake: former Lives independently: Yes Marital status: Single Current occupational status: disabled History of recent travel: Yes ([place]) Out of state: No Out of country: No Vitals/I&O/Wt Last Vital Signs Temp 97.4 F L 01/14/20 13:04 Pulse 91 01/14/20 13:38 Resp 17 01/14/20 13:43 BP 126/82 01/14/20 13:04 Pulse Ox 96 01/14/20 13:38 01/14/20 01/14/20 01/14/20 06:59 14:59 22:59 Intake Total 228.333 / 228.333 Balance 228.333 / 228.333 Weight last 48 hrs Weight 92.533 kg Physical Exam Narrative: EXAM NARRATIVE: GEN: Awake, alert and oriented, no acute distress CVS: S1S2 N RS: CTA B/L Abd: Soft, nt/nd , bs+ 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: no focal neuro deficits A&P Assessment and plan (1) Abscess, perianal: Status: Acute (2) Diabetes mellitus: Status: Acute Qualifiers: Diabetes mellitus type: type 2 Diabetes mellitus custodial insulin use: with extermination supervisor use Diabetes mellitus complication status: with other specified complication Qualified Code(s): E11.69 - Type 2 diabetes mellitus with other specified complication; Z79.4 - termite treater helper (current) use of insulin (3) Chronic hepatitis C: Status: Acute Qualifiers: Hepatic coma status: without hepatic coma Qualified Code(s): B18.2 - Chronic viral hepatitis C (4) Cirrhosis of liver: Status: Acute Qualifiers: Hepatic cirrhosis type: other cirrhosis Qualified Code(s): K74.69 - Other cirrhosis of liver (5) Thrombocytopenia: Status: Acute (6) Portal hypertension: Status: Acute Additional A&P Information Patient admitted currently for management of perianal abscess. CT of the pelvis showing inflammatory changes in the perianal area. Management as per surgical/admitting team. Started on piperacillin tazobactam empirically Diabetes mellitus: Start on high-dose insulin sliding scale. Will calculate 24- hour requirements after which he may be started on long and short-acting insulin with meals. Check HbA1c Chronic hepatitis C: Currently liver enzymes are moderately elevated. 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 Has history of being previously treated. No further work-up required at this time for the same. Thrombocytopenia, which appears to be chronic. May be related to underlying cirrhosis and portal hypertension with splenomegaly. Per review of past numbers, he has been in the 80s without any overt signs of bleeding. Esophageal malignancy, status post chemoradiation under May 2019. Per review of oncology notes, this appears to be currently PREET. Patient follows and gets serial Pet scans. Coding Level of Care Code Acute Compensation Consultant for [facility] Fwd Diagnoses Abscess, perianal K61.0 Diabetes mellitus E11.69; Z79.4 Diabetes mellitus type: type 2 Diabetes mellitus custodial insulin use: with custodial use Diabetes mellitus complication status: with other specified complication Chronic hepatitis C B18.2 Hepatic coma status: without hepatic coma Cirrhosis of liver K74.69 Hepatic cirrhosis type: other cirrhosis Thrombocytopenia D69.6 Portal hypertension K76.6
--- NOTE | 2020-01-14 15:52 | ANES.PREANE2 ---
Pre-Anesthetic Assessment Pre-Anesthetic Assessment: Height/Weight: Height 1.83 m Weight 92.533 kg Temp Pulse Resp BP Pulse Ox 97.4 F L 91 17 126/82 96 01/14/20 13:04 01/14/20 13:38 01/14/20 13:43 01/14/20 13:04 01/14/20 13:38 Proposed Procedure: Operation Date: 01/14/20 16:00 Proposed Procedures p Incision And Drainage Perianal Abscess(Not Applicable) - Marcos Silver MD Social: Social History: Tobacco (quit 06/2019) and No alcohol Exam: Pre-Anes Outpt Exam: alert, oriented x 3, clear to auscultation bilaterally and regular rate & rhythm Airway: Submandibular: WNL Cervical ROM: WNL MP: 2 Dentition: False (upper and lower) History/ROS: No significant history except as noted Pulmonary: Pulmonary: None reported CV/HEM: CV/HEM: None reported : : None reported Hepatic: Hepatic: Cirrohsis and Hepatitis (C) GI: GI: GERD Comments: esophageal CA Metabolic: Metabolic: DM Musc/skel: Musc/skel: Lower Back Pain Neuropsych: Neuropsych: Anxiety and Depression Anesthetic Plan: ASA status: 4 Anesthesia: Anesthesia Evaluation, General and MAC Risk of > 500 ml blood loss (7ml/kg in children): No Meds/Allergies Current Medications: Current Medications Generic Name Dose Route Start Last Admin Trade Name Freq PRN Reason Stop Dose Admin Sodium Chloride 1,000 mls @ 100 m ls/hr 01/14/20 11:00 01/14/20 13:44 Sodium Chloride 0.9% IV Infused .Q10H MAHNAZ Infusion Sodium Chloride 1,000 mls @ 125 m ls/hr 01/14/20 11:15 01/14/20 13:44 Sodium Chloride 0.9% IV 125 mls/hr .Q8H MAHNAZ Administration Morphine Sulfate 2 mg 01/14/20 13:31 01/14/20 13:43 Morphine IVP 2 mg Q2H PRN Administration SEVERE PAIN PFSH Anesthesia PFSH: Medical History (Updated 01/14/20 @ 15:29 by Isabelle Castellon MD) Chronic hepatitis C Chronic hepatitis C Chronic neck pain Cirrhosis of liver DDD (degenerative disc disease), lumbar Diabetes mellitus Diabetes mellitus Encounter for long-term use of opiate analgesic Leukopenia Lumbar pain Neuropathy due to secondary diabetes Port-A-Cath in place S/p left hip fracture November 2018 Spinal stenosis of lumbar region Spondylosis of lumbar spine with myelopathy Surgical History H/O circumcision H/O colonoscopy 2018 H/O esophagogastroduodenoscopy 2019 History of knee surgery 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19 Hgb 12.6 Hct 37.3 L MCV 89.0 MCH 30.1 MCHC 33.8 RDW 13.4 Plt Count 106 L MPV 11.9 H Neut % (Auto) 77.6 Lymph % (Auto) 10.1 [place] % (Auto) 11.0 Eos % (Auto) 0.6 Baso % (Auto) 0.2 Neut # (Auto) 4.82 Lymph # (Auto) 0.6 L [place] # (Auto) 0.7 Eos # (Auto) 0.0 Baso # (Auto) 0.0 Nucleated RBC % (auto) 0 Nucleated RBCs # 0.0 PT 16.70 H INR 1.31 H APTT 31.5 Sodium 129 L Potassium 4.6 Chloride 95 L Carbon Dioxide 27 Anion Gap 11.6 BUN 11 Creatinine 0.4 L GFR Calculation 223.3 H Glucose 210 H Calculated Osmolality 270 L Calcium 8.9 Total Bilirubin 0.6 AST 47 H ALT 31 Alkaline Phosphatase 168 H Total Protein 6.6 Albumin 2.6 L Globulin 4.0 Cardiac Studies: No Data to Display
--- NOTE | 2020-01-14 16:13 | PM.PN ---
Subjective Subjective: Interval history: Patient was kept nothing by mouth and he is hungry Seen and evaluated by Dr. Mcallister is a consultation prior to take the patient for surgery CT scan of the pelvis with IV contrast was done and showed: Significant inflammatory process in the perianal region. There is soft tissue collection containing air and extends in a curvilinear manner along the posterior anus and perineal region extending over length of several centimeters. Incompletely visualized on this examination. Transverse diameter of 4.1 cm and anterior posterior by 1.8 cm. Inflammatory process extends into the presacral space and circumferentially encases the rectum with narrowing of the distal rectum and anus. Thickening of the presacral soft tissues and mild infiltration of the posterior perirectal fat. Small benign retroperitoneal and RIGHT groin lymph nodes are identified. Urinary bladder is markedly distended. Atherosclerosis aorta. Normal appendix. Prior ORIF LEFT hip. Chronic soft tissue thickening around the LEFT hip. CT/CT pelvis w con* [id number] IMPRESSION: 1. Significant inflammatory process in a perirectal, perianal and perineal distribution extending over length of several centimeters. Transverse diameter 4.1 x 1.8 cm. Perianal abscess contains air which could be due to recent instrumentation or gas producing organisms. 2. Marked distention of the urinary bladder. Vitals/I&O/Wt Last Vital Signs Temp 97.4 F L 01/14/20 16:05 Pulse 86 01/14/20 16:05 Resp 16 01/14/20 16:05 BP 118/77 01/14/20 16:05 Pulse Ox 96 01/14/20 16:05 01/14/20 01/14/20 01/14/20 06:59 14:59 22:59 Intake Total 228.333 / 228.333 Output Total 300 / 300 Balance 228.333 / 228.333 -300 / -71.667 Weight last 48 hrs Weight 204 lb Physical Exam Narrative: EXAM NARRATIVE: Patient is conscious alert oriented X3 BMI 28 Head and neck examination PERRLA no masses no cervical lymphadenopathy no jaundice Abdomen nontender nondistended soft no organomegaly guarding or rigidity/no signs of peritonitis Perianal examination shows tenderness on the right side and liver towards the right side of the perineum as well as the left perianal area Data : 01/14/20 11:22 07/09/20 11:22 A&P Assessment and plan (1) Abscess, perianal: We will plan to perform examination under anesthesia and drainage of perianal abscess and I did explain for the patient I may need to place Vesseloops for future flossing due to the extent of the swelling. Patient understands that he is at high risk of complications due to his advanced liver condition and his associated thrombocytopenia and history of esophageal malignancy. We will plan to obtain cultures and sensitivities Informed consent per chart I appreciate 'sinput Status: Acute Attestations Medical Necessity Statement*: Medical necessity care is expected to cross 2 midnights Time Spent in Patient Care: (>than 50% of time spent in counselling and/or direct pt care on unit). Coding Level of Care Code Acute Sales Representative [employer] for Alex Robles Diagnoses Abscess, perianal K61.0
[2020-01-14] MEDS: fentaNYL 50 mcg/mL INJ 2mL IVP ×3 (16:16→17:37)
--- NOTE | 2020-01-14 17:13 | PM.OP ---
Operative Report Date of procedure: January 14, 2020 Pre-op Diagnosis: Perianal abscess Post-op diagnosis: other (Bilateral perianal abscesses) Post-op Findings: Right Perianal abscess pre I&D measuremnts 2x3x2 cm Post I&D measurments 3x3x[address] the fatty layer Left Perianal induration measurements after I&D 3 x 3 x 2 indurated subcutaneous layer Procedure Done: Examination under anesthesia Patient and drainage of right and left perianal abscess Implants: Surgicel followed by packing with half inch Nu Gauze impregnated and lidocaine 1% Specimens removed/disposition: Right perianal abscess tissues for cultures Right perianal abscess swabs for cultures Left perianal abscess skin and subcutaneous for pathology Surgeon: Marcos Silver Coal Grader: Surgical luis Waldron Circulating nurse Stella Anesthesia: MAC (Estela Rapp) Estimated blood loss (mL): 15 Urine output (mL): 1,200 Urine output: Patient had urinary retention and after he has been put to sleep he had overflow incontinence and he started dribbling urine and thus a Blake catheter was inserted. Complications: No immediate complication Condition: stable Disposition: floor Brief History: This is a 54 years old gentleman presents to my office as a referral with a draining right perianal abscess, apparently the patient was seen and evaluated in the ER couple of days ago and undergone I&D of right perianal abscess and was placed on antibiotics with the plan to have him follow-up at the surgery office, patient comes today denies any fever chills nausea or vomiting yet he has been hurting at the site of the abscess, does not seem that his diabetes is appropriately controlled, in addition to other medical comorbidities including chronic hepatitis C. Patient feels that he is not getting any better I did senior vice president & general counsel the patient for direct admission to start parenteral antimicrobial therapy and to take him for surgery for examination under anesthesia and I&D of perianal abscesses Informed consent per Procedure: Patient was identified in the holding area and was taken back to the operating room, which was first placed in supine position got propofol infusion by anesthesia, patient was already on theraputic IV antibiotics,Time-out was done verifying the patient's name/date of /planned procedure and destination after the procedure, all were in agreement. Patient was placed in lithotomy position were all pressure points were padded, prep and drape of the perianal area was done after insertion of a Blake catheter that revealed clear urine. Digital rectal examination was done shows no masses or blood,Anoscope was introduced and showed no evidence of fistulae or communication between the perianal abscess and the anal canal. I placed a wet 4 x 4 inside the anal canal to prevent stools from encroaching on the wound site, that was taken out at the end of the procedure. There was already an opening demonstrates the previous I&D of the right perianal abscess that was extended and there were necrotic tissues and pus they were sent for cultures, and the abscess cavity was sharply debrided to the healthier tissues, followed by that there was left perianal induration tissues were excised and sent separately for pathology. After appropriate hemostasis using Bovie cauterization, there was no communication between the abscess cavities and the anal canal, and the external anal sphincter maintained to be intact, large piece of Surgicel was placed and the right perianal abscess cavity as well as the left perianal wound Followed by application and ABD,a surgical pants was then placed to hold the dressing in place. Blake catheter was left in place. Count was completed at the end of the procedure, patient tolerated the procedure well and was taken to the recovery room in stable condition. I was present for the whole entire procedure
[2020-01-14] MEDS: lidocaine 2% INJ 20 mL INJECTION (17:25)
[2020-01-14 18:21] LABS: Glucose Point of Care 88 mg/dL (70-110)
[2020-01-14] MEDS: oxyCODONE 5 mg IR Tab/Cap PO (18:29)
[2020-01-14 20:43] LABS: Estmated Average Glucose 220; Hemoglobin A1C 9.3 % (4.0-6.0)
[2020-01-14] MEDS: LORazepam 2 mg/mL INJ 1 mL 1 MG IVP (20:48)
[2020-01-14 21:26] LABS: Glucose Point of Care 186 mg/dL (70-110)
[2020-01-14] MEDS: sodium chloride 0.9% 1,000 ML 75 ML IV (22:31)
[2020-01-14] MEDS: oxyCODONE 5 mg IR Tab/Cap 10 MG PO (22:39)
[2020-01-15] VITALS (11 sets, daily range): BP systolic 95–108; BP diastolic 62–70; PULSE 76–90; RESP 16–18; TEMP 36.7–37.1; O2SAT 94–97
[2020-01-15] MEDS: morphine 4 mg/mL SDV 1 mL IVP (02:10)
[2020-01-15] MEDS: piperacillin-tazobactam 3.375 GM in sodium chloride 0.9% (plus) 50 ML IV (05:35)
[2020-01-15] MEDS: oxyCODONE 5 mg IR Tab/Cap 10 MG PO ×2 (05:36→09:56)
--- NOTE | 2020-01-15 06:41 | PM.PN ---
Subjective Subjective: Interval history: Patient overall feels better yet is sore Was quite challenging to keep his pain under better control Good urine output Vitals/I&O/Wt Last Vital Signs Temp 98.4 F 01/15/20 05:00 Pulse 82 01/15/20 05:00 Resp 18 01/15/20 05:36 BP 108/70 01/15/20 05:00 Pulse Ox 96 01/15/20 05:36 01/14/20 01/14/20 01/15/20 14:59 22:59 06:59 Intake Total 228.333 / 228.333 50 / 278.333 410 / 688.333 Output Total 4030 / 4030 700 / 4730 Balance 228.333 / 228.333 -3980 / -3751.667 -290 / -4041.667 Weight last 48 hrs Weight 204 lb Physical Exam Narrative: EXAM NARRATIVE: Patient is conscious alert oriented X3 BMI 28 Head and neck examination PERRLA no masses no cervical lymphadenopathy no jaundice Abdomen nontender nondistended soft no organomegaly guarding or rigidity/no signs of peritonitis Extremities no cyanosis no clubbing no edema Perianal examination shows janitor cleaner abscess cavities with no pus or cellulitis, packing and Surgicel were removed Packing was done by me bedside using wet-to-dry half inch Nu Gauze followed by ABDs Mild induration surrounding abscess cavities Soft perineum and no evidence of crepitus Urinary Catheter Management^: Blake: Cath Placed During This Visit: yes, but has since been removed by the nurse Reason for Continuing Indwelling Catheter: Decision to DC Catheter Urinary Catheter Date of Insertion: 01/14/20 Urinary Catheter Time of Insertion: 16:45 Date Urinary Catheter Removed: 01/15/20 Time Urinary Catheter Discontinued: 06:35 Data : 01/15/20 06:44 01/15/20 06:44 Micro: Microbiology 01/14/20 16:48 Gram Stain - Final Anus A&P Assessment and plan (1) Abscess, perianal: Patient will require home health set up Daily dressing change at least once a day using half inch wet-to-dry packing followed by ABDs Sitz bath's 2-3 times a day in warm water adding to it Epsom salt From surgical standpoint of view patient can be discharged home today and Return to surgery office in 1 week. Optimize patient's nutrition to optimize wound healing with respect to diabetes and liver condition Protein shakes in the form of Glucerna with each meal may help initiatly I will provide the patient with some pain medications for pain control postoperatively yet he will need to establish a longer-term plan for his chronic pain management. DC Blake catheter and will Make sure that the patient void urine prior to discharge Will follow on CBC and CMP this morning Will defer antimicrobial therapy and diabetes education to Dr. Castellon Assurance and education All questions have been answered and all concerns have been addressed to patient's satisfaction. Status: Resolved Attestations Medical Necessity Statement*: We will plan to discharge patient home today Time Spent in Patient Care: 16 - 35 minutes (>than 50% of time spent in counselling and/or direct pt care on unit). Coding Level of Care Code Acute Inclusion Manager for Alex Robles Diagnoses Abscess, perianal K61.0
[2020-01-15 07:10] LABS: Glucose Point of Care 248 mg/dL (70-110)
[2020-01-15 07:36] LABS: Basophils % 0.2 %; Eosinophils # 0.1 10^3/uL (0.0-0.8); Hematocrit 36.5 % (42.0-52.0); Lymphocytes # 0.5 10^3/uL (0.8-4.8); Lymphocytes % 9.3 %; Mean Corpuscular HGB Conc 32.9 g/dL (30.0-36.0); Mean Corpuscular Volume 91.3 fL (80-94); Mean Platelet Volume 11.3 fL (7.4-10.4); Monocytes # 0.5 10^3/uL (0.2-0.9); Monocytes % 8.4 %; Neutrophils # 4.68 10^3/uL (1.8-7.7); Neutrophils % 80.6 %; Nucleated Red Blood Cells % 0 %; Platelet Count 111 10^3/cmm (130-400); Red Cell Distribution Width 13.6 % (12.1-15.1); White Blood Count 5.8 10^3/uL (4.0-10.0)
[2020-01-15 07:55] LABS: Alanine Aminotransferase 27 U/L (0-41); Albumin Level 2.3 g/dL (3.5-5.2); Alkaline Phosphatase 148 IU/L (40-130); Anion Gap 9.4 (5-19); Aspartate Amino Transferase 48 U/L (0-40); Blood Urea Nitrogen 8 mg/dL (6-20); Calcium 8.3 mg/dL (8.5-10.5); Carbon Dioxide 27 mmol/L (22-29); Chloride 97 mmol/L (98-107); Globulin 3.5 g/dL (1.3-4.6); Glomerular Filtration Rate 139.9 mL/min (90-130); Glucose 277 mg/dL (65-115); Osmolality Calculated 274 mOsm/kg (285-295); Potassium 4.4 mmol/L (3.5-5.1); Sodium 129 mmol/L (136-145); Total Bilirubin 0.6 mg/dL (0.15-1.2); Total Protein 5.8 g/dL (6.6-8.7)
--- NOTE | 2020-01-15 09:22 | PC.CHAP ---
Pastoral Care Encounter/Spiritual Assessment Type of Contact [] Declined spare fixer visit [] Patient/Family/Request visit [] Outpatient visit [] Follow-up visit [] Physician referral [] Code/Alert [x] Routine visit [] Staff referral [] Actively dying [] Patient sleeping [] Family support [] [] Out of room [] Palliative care [] [] Receiving care in room [] Pre-surgical visit [] Trauma [] Long length of stay [] ICU visit [] Other: Relational/Emotional Strength [] Patient feels connected with others/family/visitors/staff [] Distress [] Loneliness/isolation [] Abandonment Spirituality of Patient [] Person of Ernestine [] Attends Restoration of their Ernestine [] Believes in Prayer [] Reads Bible or Baptism materials [] There are Spiritual issues to be addressed Storekeeper Engineering Interventions [x] Prayer [x] Active listening [x] Non-anxious presence [x] Spiritual/emotional support [] Crisis/trauma care [] Spiritual counseling [] Bereavement support [] Provided bereavement packet [] Provided Bible/devotional materials [] Provided toy/stuffed animal, coloring book to patient or family member [] Provided Communion [] Anointing/[place] [] Salvation [x] Completed spiritual assessment [] Other: Impact on Illness or Injury [] Angry [] Fearful [] Anxious [] Often cries [] Exhaustion [] Unable to work [] Unable to attend hindu [] Unable to walk/stand [] Unable to read [] Unable to drive [] Unable to eat/drink [] Unable to sleep [] Unable to be with family [] Patient intubated [] Other: Summary Patient resting. Prayed over breakfast Time spent with patient 5 min
[2020-01-15] MEDS: citalopram 20 mg Tablet PO (09:56)
[2020-01-15] MEDS: pantoprazole DR 40 mg Tablet PO (09:56)
--- NOTE | 2020-01-15 10:13 | P.DS_ITS ---
Discharge Providers Date of Admission: 01/14/20 11:04 Date of Discharge: January 15, 2020 Attending Provider at Admission: Marcos Silver MD Attending Provider at Discharge: Marcos Silver MD Primary Care Provider: Casimiro Sommers Diagnoses at Discharge Discharge Diagnosis (1) Abscess, perianal: Status: Resolved Reason for Visit Reason for Visit: SORE ON BOTTOM Hospital Course Discharge Summary: This is a pleasant 54 years old gentleman with multiple medical comorbidities including history of esophageal cancer, chronic hepatitis C and advanced liver disease, referred to my office yesterday with history of perianal abscess that undergone I&D in the ER 2 days before, patient's reports worsening symptoms, I did advise the patient that he will need to be hospitalized to start IV antimicrobial therapy and to have surgical intervention in the form of I&D with examination under anesthesia. Patient undergone the procedure yesterday evening and he tolerated it well yet his postoperative pain control was quite challenging finally it was taken care of and had the Blake catheter taken out today on professor of early childhood education rounds and through the day patient was able to void on his own, packing was done by me bedside we will plan to discharge patient home today with coordination with the hospitalist service with regard to his antimicrobial therapy. Patient is tolerating well p.o. intake and having bowel movement Pain is well under control. We will plan to have home health vs outpatient wound care on board to help the patient with daily packing and he will follow-up with me at the surgery office. Physical Exam Narrative: EXAM NARRATIVE: Refer to my progress note earlier Urinary Catheter Management^: Blake: Cath Placed During This Visit: yes, but has since been removed by the nurse Reason for Continuing Indwelling Catheter: Decision to DC Catheter Urinary Catheter Date of Insertion: 01/14/20 Urinary Catheter Time of Insertion: 16:45 Date Urinary Catheter Removed: 01/15/20 Time Urinary Catheter Discontinued: 06:35 Discharge Data Data Completed and Pending: Completed Studies During Hospitalization Category Date Time Status CT pelvis w con* [id number] Urgent Cat Scan 01/14/20 10:47 Completed Pending at discharge Category Date Time Status Abscess Culture R outine Lab 01/14/20 16:48 Received Anaerobic Culture Routine Lab 01/14/20 16:48 Received CBC Auto Diff [Co mplete Blood Count w/Auto] AM LABS Lab 01/16/20 04:00 Ordered CMP [Comprehensiv e Metabolic Panel] AM LABS Lab 01/16/20 04:00 Ordered Tissue [facility]/14/20 16:48 Results Pathology: Surgic al [PTH] Routine Pth 01/14/20 17:55 Received Labs from last 24 hours 01/15/20 01/15/20 01/15/20 06:56 06:44 06:44 WBC 5.8 RBC 4.00 L Hgb 12.0 Hct 36.5 L MCV 91.3 MCH 30.0 MCHC 32.9 RDW 13.6 Plt Count 111 L MPV 11.3 H Neut % (Auto) 80.6 Lymph % (Auto) 9.3 Bartholomew % (Auto) 8.4 Eos % (Auto) 1.0 Baso % (Auto) 0.2 Neut # (Auto) 4.68 Lymph # (Auto) 0.5 L Bartholomew # (Auto) 0.5 Eos # (Auto) 0.1 Baso # (Auto) 0.0 Nucleated RBC % (a uto) 0 Nucleated RBCs # 0.0 PT INR APTT Sodium 129 L Potassium 4.4 Chloride 97 L Carbon Dioxide 27 Anion Gap 9.4 BUN 8 Creatinine 0.6 L GFR Calculation 139.9 H Glucose 277 H POC Glucose 248 Estimat Average Gl ucose Hemoglobin A1c Calculated Osmolal ity 274 L Calcium 8.3 L Total Bilirubin 0.6 AST 48 H ALT 27 Alkaline Phosphata se 148 H Total Protein 5.8 L Albumin 2.3 L Globulin 3.5 01/14/20 01/14/20 01/14/20 21:14 18:17 11:22 WBC RBC Hgb Hct MCV MCH MCHC RDW Plt Count MPV Neut % (Auto) Lymph % (Auto) Bartholomew % (Auto) Eos % (Auto) Baso % (Auto) Neut # (Auto) Lymph # (Auto) Bartholomew # (Auto) Eos # (Auto) Baso # (Auto) Nucleated RBC % (a uto) Nucleated RBCs # PT INR APTT Sodium Potassium Chloride Carbon Dioxide Anion Gap BUN Creatinine GFR Calculation Glucose POC Glucose 186 88 Estimat Average Gl ucose 220 Hemoglobin A1c 9.3 H Calculated Osmolal ity Calcium Total Bilirubin AST ALT Alkaline Phosphata se Total Protein Albumin Globulin 01/14/20 01/14/20 01/14/20 11:22 11:22 11:22 WBC 6.2 RBC 4.19 Hgb 12.6 Hct 37.3 L MCV 89.0 MCH 30.1 MCHC 33.8 RDW 13.4 Plt Count 106 L MPV 11.9 H Neut % (Auto) 77.6 Lymph % (Auto) 10.1 Bartholomew % (Auto) 11.0 Eos % (Auto) 0.6 Baso % (Auto) 0.2 Neut # (Auto) 4.82 Lymph # (Auto) 0.6 L Bartholomew # (Auto) 0.7 Eos # (Auto) 0.0 Baso # (Auto) 0.0 Nucleated RBC % (a uto) 0 Nucleated RBCs # 0.0 PT 16.70 H INR 1.31 H APTT 31.5 Sodium 129 L Potassium 4.6 Chloride 95 L Carbon Dioxide 27 Anion Gap 11.6 BUN 11 Creatinine 0.4 L GFR Calculation 223.3 H Glucose 210 H POC Glucose Estimat Average Gl ucose Hemoglobin A1c Calculated Osmolal ity 270 L Calcium 8.9 Total Bilirubin 0.6 AST 47 H ALT 31 Alkaline Phosphata se 168 H Total Protein 6.6 Albumin 2.6 L Globulin 4.0 Vitals: Last Vital Signs Temp 98.5 F 01/15/20 07:04 Pulse 80 01/15/20 07:04 Resp 18 01/15/20 09:56 BP 104/62 01/15/20 07:04 Pulse Ox 97 01/15/20 07:04 Discharge Plan Discharge Patient Disposition: Home, Self-Care Condition: Stable Prescriptions: New oxycodone 10 mg tablet 10 mg PO Q6H PRN (Reason: pain) Qty: 28 RF: 0 Continued Levemir U-100 Insulin 100 unit/mL solution See Rx Instructions .ROUTE .COMPLEX RF: 0 citalopram [Celexa] 20 mg tablet 20 mg PO DAILY RF: 0 dronabinol [Marinol] 10 mg capsule 5 mg PO BID PRN (Reason: appetite/nausea) RF: 0 lorazepam 1 mg tablet 1 mg PO TID PRN (Reason: Nausea) RF: 0 pantoprazole [Protonix] 40 mg tablet,delayed release (DR/EC) 40 mg PO DAILY RF: 0 amoxicillin-pot clavulanate [Augmentin] 875-125 mg tablet 1 tab PO Q12H 7 Days Qty: 14 RF: 0 oxycodone 5 mg Tablet 5 mg PO Q6H PRN (Reason: Pain) RF: 0 Discharge Orders: Discharge Order (Routine); Ordered 01/15/20 Ordered By: Marcos Silver Referrals: [facility] [Other] (Please arrive daily at 0900 to [facility] for outpatient daily dressing changes. When you arrive tell admissions you were scheduled as outpatient by Med-Surg floor inspector Razia. You will need to do this until Dr Silver gives further orders.) Marcos Silver MD [Physician] - 01/22/20 8:30 am (Return to surgery office in 1 week for wound check. [facility] at 8:30. [phone]) Casimiro Sommers [Primary Care Provider] - (Follow-up with Dr. Sommers first available to maintain diabetes management and control. Office will call you with an appointment. It is closed today.) Discharge Diet: Advance as tolerated Patient Instructions: Anorectal Abscess, Oxycodone/Acetaminophen (By mouth), Sitz Bath (DC) Activity Restrictions/Additional Instructions: 1. Patient can shower after 48 hours from surgery 2. Packing at least once a day using wet-to-dry half inch Nu Gauze followed by ABDs, patient's local wound care can be done as an outpatient setting for the bilateral perianal abscesses cavities. 3. Sitz bath's 2-3 times a day using warm water and Epsom salt 4.Up and walking as tolerated 5. Avoid lifting heavy 5. Do not operate heavy machinery or drive while using pain medications. 6.Contact the office or return to the ER for worsening nausea vomiting fevers or chills, or noticing any redness around incision sites or discharge. 7. Avoid constipation Discharge Date/Time: 01/15/20 12:15 Discharge Attestations Time Spent in Discharge Care*: less than 30 min Status at Discharge: Cognitive status at discharge: cognitively intact , Behavioral status at discharge: cooperative , Functional status at discharge: independent ambulation Overall status at discharge: patient is progressing back to baseline Quality Metrics Clinical Quality Measures During this hospital stay, did patient experience: None Coding Level of Care Code Acute [facility] Machine Operator for [facility] F[facility] Diagnoses Abscess, perianal K61.0
[2020-01-15 11:04] LABS: Glucose Point of Care 292 mg/dL (70-110)
== END 2020-01-15 12:15 | disposition home or self-care (01) | DRG 358 ==
LOC: ER 11:03 → MEDSURG 13:03
PROVIDERS: Family Medicine; Admitting Provider Surgery; Family Provider Student in an Organized Health Care Education/Training Program; PCP Family Medicine; Visit Provider Surgery
PROC: 0JBC0ZZ Excision of Pelvic Region Subcutaneous Tissue and Fascia, Open Approach (ICD-10-PCS; principal; 2020-01-14 16:00)
DX: K61.0 Anal abscess (principal); Z85.01 Personal history of malignant neoplasm of esophagus; B18.2 Chronic viral hepatitis C; K76.9 Liver disease, unspecified
CPT/HCPCS: 12345; 36415; 36416; 72193; 80053; 82962; 83036; 85025; 85610; 85730; 87070; 87075; 87077; 87176; 87186; 87205; 88304; 94762; 96372; 96375; 99282; J1815; J2060; J2250; J2270; J2405; J2543; J2704; J3010; J3490; J7030; Q9967

== ENCOUNTER 2020-01-22 08:14 | Outpatient (CLI) | payer MEDICAID, SELFPAY | END 2020-01-22 08:15 | disposition home or self-care (01) | LOC: WOUND 08:14 | PROVIDERS: PCP Family Medicine; Visit Provider Surgery | DX: L02.31 Cutaneous abscess of buttock (principal) | CPT/HCPCS: 11042; G0463 ==

== ENCOUNTER 2020-01-29 09:20 | Outpatient (CLI) | payer MEDICAID, SELFPAY | END 2020-01-29 09:21 | disposition home or self-care (01) | LOC: WOUND 09:21 | PROVIDERS: PCP Family Medicine; Visit Provider Surgery | DX: T81.89XA Other complications of procedures, not elsewhere classified, initial encounter (principal) | CPT/HCPCS: 11042 ==

== ENCOUNTER 2020-02-05 15:46 | Outpatient (CLI) | payer MEDICAID, SELFPAY | END 2020-02-05 15:47 | disposition home or self-care (01) | LOC: WOUND 15:47 | PROVIDERS: PCP Family Medicine; Visit Provider Surgery | DX: T81.89XA Other complications of procedures, not elsewhere classified, initial encounter (principal) | CPT/HCPCS: 11042 ==

== ENCOUNTER 2020-02-08 10:20 | Outpatient (CLI) | payer MEDICAID, SELFPAY ==
[2020-02-08 11:26] LABS: Basophils % 0.2 %; Eosinophils # 0.1 10^3/uL (0.0-0.8); Eosinophils % 1.2 %; Hematocrit 37.9 % (42.0-52.0); Hemoglobin 12.4 g/dL (11.7-16.6); Lymphocytes # 0.9 10^3/uL (0.8-4.8); Lymphocytes % 19.1 %; Mean Corpuscular HGB Conc 32.7 g/dL (30.0-36.0); Mean Corpuscular Volume 91.5 fL (80-94); Mean Platelet Volume 11.7 fL (7.4-10.4); Monocytes # 0.7 10^3/uL (0.2-0.9); Monocytes % 14.5 %; Neutrophils # 3.16 10^3/uL (1.8-7.7); Neutrophils % 64.8 %; Nucleated Red Blood Cells % 0 %; Platelet Count 128 10^3/cmm (130-400); Red Blood Count 4.14 10^6/uL (4.1-5.3); Red Cell Distribution Width 14.5 % (12.1-15.1); White Blood Count 4.9 10^3/uL (4.0-10.0)
[2020-02-08 11:50] LABS: Alanine Aminotransferase 70 U/L (0-41); Albumin Level 2.9 g/dL (3.5-5.2); Alkaline Phosphatase 278 IU/L (40-130); Anion Gap 11.6 (5-19); Aspartate Amino Transferase 97 U/L (0-40); Blood Urea Nitrogen 10 mg/dL (6-20); Calcium 8.8 mg/dL (8.5-10.5); Carbon Dioxide 26 mmol/L (22-29); Chloride 95 mmol/L (98-107); Globulin 4.5 g/dL (1.3-4.6); Glomerular Filtration Rate 172.6 mL/min (90-130); Glucose 255 mg/dL (65-115); Osmolality Calculated 271 mOsm/kg (285-295); Potassium 4.6 mmol/L (3.5-5.1); Sodium 128 mmol/L (136-145); Total Bilirubin 1.1 mg/dL (0.15-1.2); Total Protein 7.4 g/dL (6.6-8.7)
== END 2020-02-08 10:21 | disposition home or self-care (01) ==
LOC: ONCMED 13:13
PROVIDERS: PCP Family Medicine; Visit Provider Internal Medicine Hematology & Oncology
DX: C15.5 Malignant neoplasm of lower third of esophagus (principal)
CPT/HCPCS: 80053; 85025

== ENCOUNTER 2020-02-09 15:13 | Outpatient (CLI) | payer MEDICAID, SELFPAY | END 2020-02-09 15:14 | disposition home or self-care (01) | LOC: ONCMED 15:16 | PROVIDERS: PCP Family Medicine; Visit Provider Internal Medicine Hematology & Oncology | DX: Z45.2 Encounter for adjustment and management of vascular access device (principal) | CPT/HCPCS: 96523 ==

== ENCOUNTER 2020-02-12 15:17 | Outpatient (CLI) | payer MEDICAID, SELFPAY | END 2020-02-12 15:18 | disposition home or self-care (01) | LOC: WOUND 15:18 | PROVIDERS: PCP Family Medicine; Visit Provider Thoracic Surgery (Cardiothoracic Vascular Surgery) | DX: E11.622 Type 2 diabetes mellitus with other skin ulcer (principal); L98.492 Non-pressure chronic ulcer of skin of other sites with fat layer exposed | CPT/HCPCS: G0463 ==

== ENCOUNTER 2020-02-16 15:33 | Outpatient (CLI) | payer MEDICAID, SELFPAY ==
--- NOTE | 2020-02-16 17:08 | ONC FU_ITS ---
Dr. Ocampo follow up note Patient: Loida Juares Unit #: [id number]: 1965 Dicatated By: Pablo Ocampo M.D.Date of Visit:Feb 16, 2020 Onc Med Follow-up/Prog Note History of Present Illness: Mr. Loida Juares is a 54-year-old gentleman with history of abdominal pain recently underwent EGD and colonoscopy on 01/19/2019 which showed in the lower third esophagus, a partially obstructing, large sized, friable, fungating, submucosal, ulcerated mass and there was evidence of gastritis biopsy was obtained and came back moderately differentiated infiltrating adenocarcinoma. Colonoscopy was normal and follow-up CT scan of chest abdomen pelvis done on 01/29/2019 showed indeterminate but numerous celiac axis/upper mesenteric and retroperitoneal shoddy lymph nodes. No metastatic disease to lungs adrenal gland or liver Patient denies any history of weight loss in fact weight gain. No hemoptysis or hematemesis, no nausea or vomiting, no diarrhea constipation, no dysphagia. Or odynophagia. Patient has history of hepatitis C, as per patient he was treated by Dr. Canales about 2-3 years ago and was dormant and now active. History of cirrhosis and splenomegaly. No alcohol use but smoke. CT PET scan done on 02/21/2019 showed 1.3 cm segment of distal esophageal with SUV of 2.9 consistent with a primary esophageal carcinoma there is a no local or distance metastases Started on combined chemoradiation on 03/10/2019 with modified dose of weekly carboplatin and Taxol concurrent with radiation Was referred to cad designer drafter in [place], [place] and he was seen on 04/03/2019. Impression and recommendation was to repeat hepatitis profile including hepatitis B core antigen, if is positive may require prophylaxis. And Dr. Manrique will also do further workup regarding hepatic cirrhosis and with PT/INR less than 1.7, patient has child tracy A and hepatitis C is a low risk for acute liver injury andsuggested to proceed with chemoradiation . May consider radiological transjugular liver biopsy and measurement of portal pressures, if esophageal surgery is under consideration. And medical management of portal hypertension if needed Patient completed combined chemoradiation with weekly carboplatin and Taxol on 05/10/2019patient was referred to Cardiothoracic surgery at [facility] for evaluation for possible esophagectomy patient was seen and admitted on 06/25/2019 and esophagectomy was attempted during procedure, patient is liver appeared severely cirrhotic esophagectomy was canceled but during procedure underwent EGD and biopsy was obtained which showed no evidence of disease. Due to advanced stage hepatic cirrhosis, no further treatment was offered but observation and follow with cad designer drafter. Follow-up CT PET scan done on February 13, 2020, showed resolution of abnormal esophageal activity, consistent with complete response to the therapy. Negative for local or distant metastatic disease. Came for follow-up, denies any specific complaints, no nausea or vomiting no fever chills, no diarrhea constipation, no dysphagia, no jaundice, no abdominal pain. Appetite is good Medications: CeleXA 1 Tablet (of 10 mg) Oral daily, Dronabinol 1 Capsule (of 10 mg) Oral b.i.d. PRN, Levemir 30 Units (of 100 Units/mL) Subcutaneous daily, LORazepam 0.5 - 1 Tablet (of 1 mg) Oral t.i.d. PRN, oxyCODONE HCl 1 Tablet (of 15 mg) Oral pc (tid), Protonix 1 Tablet (of 20 mg) Tablet, enteric coated Oral daily Allergies: No Known Allergies. Review of Systems: Review of Systems is not available for this patient. Vital Signs: Performed on Feb 16, 2020 15:38 Height - 72.00 in Weight - 198.4 lbs BSA - 2.12 sq.m BMI - 26.91 Temperature - 97.6 F (LOW) Pulse - 72 /min Respiration - 20 /min BP - 140/91 mm(hg) O2 Sat - 98 % Pain - 6 Performance Status: 0 - Fully active, able to carry on all predisease activities without restrictions. (ECOG) Physical Examination: ENMT - No mouth sores, no thrush, no jaundice, Respiratory - Lungs are clear, Cardiovascular - Regular rate and rhythm of heart, Abdomen - Soft, bowel sounds present, Extremities - No visible edema. Lab/Imaging: Test performed on Feb 08, 2020 10:20 Sodium 128 mmol/L Potassium 4.6 mmol/L Chloride 95 mmol/L CO2 26 mmol/L Anion Gap 11.6 BUN 10 mg/dL Creatinine 0.5 mg/dL Cr Clearance (Est) 215.4900 mL/min eGFR 172.6 mL/min Glucose 255 mg/dL Calcium 8.8 mg/dL Protein, Total 7.4 g/dL Albumin 2.9 g/dL Globulin 4.5 g/dL Bilirubin, Total 1.1 mg/dL ALT (SGPT) 70 U/L AST (SGOT) 97 U/L Alkaline Phosphatase 278 IU/L WBC 4.9 10 3/uL RBC 4.14 10 6/uL HGB 12.4 g/dL HCT 37.9 % MCV 91.5 fL MCH 30.0 pg MCHC 32.7 g/dL RDW 14.5 % Platelet Count 128 10 3/cmm MPV 11.7 fL Neutrophils 3.16 10 3/uL Lymphocytes 0.9 10 3/uL Monocytes 0.7 10 3/uL Eosinophils 0.1 10 3/uL Basophils 0.0 10 3/uL Neutrophil % 64.8 % Lymphocyte % 19.1 % Monocyte % 14.5 % Eosinophil % 1.2 % Basophils % 0.2 % NRBC % 0 % Impression: Moderately differentiated adenocarcinoma of distal esophagus per EGD/biopsy done on 01/19/2019 CT scan of chest abdomen pelvis done on 01/29/2019 showed mild thickening of right distal esophagus No metastatic disease to lungs, adrenal glands or liver Moderate cirrhosis with splenomegaly Indeterminate but numerous celiac axis/upper mesenteric and retroperitoneal shoddy lymph nodes CT PET scan done on 02/21/2019 showed there is a 1.3 cm segment of distal esophagus with SUV of 3.9 consistent with a primary esophageal carcinoma. No findings for local or distant metastatic disease seen. ? T1-T2,Nx,Mx Orthopedic fixation of left hip fracture Subacute to acute L5 compression fracture Colonoscopy done on 01/19/2019 showed normal exam. Started on combined chemoradiation with modified weekly carboplatin/Taxol concurrent with radiation therapy on 03/19/2019 last weekly chemotherapy with carbo/Taxol was given on 05/05/2019 Follow-up CT PET scan done on February 13, 2020 showed resolution of abnormal esophageal activity, consistent with complete response to therapy, no evidence of local or distant mets Plan: Discussed with patient regarding his follow-up labs white blood count 4.9 hemoglobin 12.4 hematocrit 37.9 platelets 128,000 CMP within normal limit except glucose 255 and sodium 128 and ALT 70 AST 97 And follow-up CT PET scan done on February 13, 2020 which showed no evidence of recurrence of disease. Clinically, patient is doing well with no signs symptom suggestive of recurrence of disease, follow-up CT PET scan showed no evidence of recurrence of disease lab work-up is stable e.g. mild persistent but improving thrombocytopenia with resolution of leukopenia persistent abnormal LFTs now being followed by cad designer drafter We will continue to monitor patient will continue monthly Port-A-Cath maintenance I will see him back in 3 months with CBC CMP Signed By: Pablo Ocampo M.D. <<Signature on File>>
== END 2020-02-16 15:34 | disposition home or self-care (01) ==
LOC: ONCMED 15:35
PROVIDERS: PCP Family Medicine; Visit Provider Internal Medicine Hematology & Oncology
DX: Z08 Encounter for follow-up examination after completed treatment for malignant neoplasm (principal); Z85.01 Personal history of malignant neoplasm of esophagus; M47.892 Other spondylosis, cervical region; M50.30 Other cervical disc degeneration, unspecified cervical region; Z86.19 Personal history of other infectious and parasitic diseases; B35.1 Tinea unguium; M48.02 Spinal stenosis, cervical region; E11.9 Type 2 diabetes mellitus without complications; D69.6 Thrombocytopenia, unspecified
CPT/HCPCS: G0463

== ENCOUNTER 2020-02-19 15:24 | Outpatient (CLI) | payer MEDICAID, SELFPAY | END 2020-02-19 15:25 | disposition home or self-care (01) | LOC: WOUND 15:24 | PROVIDERS: PCP Family Medicine; Visit Provider Surgery | DX: T81.89XA Other complications of procedures, not elsewhere classified, initial encounter (principal) | CPT/HCPCS: 11042 ==

== ENCOUNTER 2020-02-26 15:52 | Outpatient (CLI) | payer MEDICAID, SELFPAY | END 2020-02-26 15:53 | disposition home or self-care (01) | LOC: WOUND 15:53 | PROVIDERS: PCP Family Medicine; Visit Provider Surgery | DX: T81.89XA Other complications of procedures, not elsewhere classified, initial encounter (principal) | CPT/HCPCS: 11042 ==

== ENCOUNTER 2020-03-04 15:03 | Outpatient (CLI) | payer MEDICAID, SELFPAY | END 2020-03-04 15:04 | disposition home or self-care (01) | LOC: WOUND 15:04 | PROVIDERS: PCP Family Medicine; Visit Provider Surgery | DX: T81.89XA Other complications of procedures, not elsewhere classified, initial encounter (principal) | CPT/HCPCS: 11042 ==

== ENCOUNTER 2020-03-25 13:48 | Outpatient (RCR) | payer MEDICAID, SELFPAY | END 2020-04-06 23:59 | disposition home or self-care (01) | LOC: WOUND 13:48 | PROVIDERS: PCP Family Medicine; Visit Provider Nurse Practitioner Family | DX: T81.89XA Other complications of procedures, not elsewhere classified, initial encounter (principal) | CPT/HCPCS: 11042 ==

== ENCOUNTER 2020-04-01 14:55 | Outpatient (CLI) | payer MEDICAID, SELFPAY | END 2020-04-01 14:56 | disposition home or self-care (01) | LOC: WOUND 14:56 | PROVIDERS: PCP Family Medicine; Visit Provider Surgery | DX: T81.89XA Other complications of procedures, not elsewhere classified, initial encounter (principal) | CPT/HCPCS: 11042 ==

== ENCOUNTER 2020-04-08 14:51 | Outpatient (CLI) | payer MEDICAID, SELFPAY | END 2020-04-08 14:52 | disposition home or self-care (01) | LOC: WOUND 14:52 | PROVIDERS: PCP Family Medicine; Visit Provider Surgery | DX: L98.412 Non-pressure chronic ulcer of buttock with fat layer exposed (principal) | CPT/HCPCS: 11042 ==

== ENCOUNTER 2020-04-11 15:09 | Outpatient (CLI) | payer MEDICAID, SELFPAY | END 2020-04-11 15:10 | disposition home or self-care (01) | LOC: ONCMED 15:13 | PROVIDERS: PCP Family Medicine; Visit Provider Internal Medicine Hematology & Oncology | DX: Z45.2 Encounter for adjustment and management of vascular access device (principal) | CPT/HCPCS: 96523 ==

== ENCOUNTER 2020-04-15 15:02 | Outpatient (CLI) | payer MEDICAID, SELFPAY | END 2020-04-15 15:03 | disposition home or self-care (01) | LOC: WOUND 15:02 | PROVIDERS: PCP Family Medicine; Visit Provider Surgery | DX: E11.622 Type 2 diabetes mellitus with other skin ulcer (principal); L98.412 Non-pressure chronic ulcer of buttock with fat layer exposed | CPT/HCPCS: 11042 ==

== ENCOUNTER 2020-04-22 14:57 | Outpatient (CLI) | payer MEDICAID, SELFPAY | END 2020-04-22 14:58 | disposition home or self-care (01) | LOC: WOUND 14:57 | PROVIDERS: PCP Family Medicine; Visit Provider Surgery | DX: E11.622 Type 2 diabetes mellitus with other skin ulcer (principal); L98.412 Non-pressure chronic ulcer of buttock with fat layer exposed | CPT/HCPCS: 97597 ==

== ENCOUNTER 2020-04-29 15:04 | Outpatient (CLI) | payer MEDICAID, SELFPAY | END 2020-04-29 15:05 | disposition home or self-care (01) | LOC: WOUND 15:04 | PROVIDERS: PCP Family Medicine; Visit Provider Surgery | DX: L98.412 Non-pressure chronic ulcer of buttock with fat layer exposed (principal) | CPT/HCPCS: 99212 ==

== ENCOUNTER 2020-05-11 07:45 | Outpatient (CLI) | payer MEDICAID, SELFPAY ==
[2020-05-11 14:04] LABS: Basophils % 0.3 %; Eosinophils # 0.1 10^3/uL (0.0-0.8); Eosinophils % 3.1 %; Hematocrit 37.2 % (42.0-52.0); Hemoglobin 11.9 g/dL (11.7-16.6); Lymphocytes # 0.7 10^3/uL (0.8-4.8); Lymphocytes % 25.1 %; Mean Corpuscular Hemoglobin 29.1 pg (28.0-34.0); Mean Platelet Volume 13.4 fL (7.4-10.4); Monocytes # 0.4 10^3/uL (0.2-0.9); Monocytes % 11.9 %; Neutrophils # 1.76 10^3/uL (1.8-7.7); Neutrophils % 59.6 %; Nucleated Red Blood Cells % 0 %; Platelet Count 80 10^3/cmm (130-400); Red Blood Count 4.09 10^6/uL (4.1-5.3); Red Cell Distribution Width 14.5 % (12.1-15.1)
[2020-05-11 14:12] LABS: Alanine Aminotransferase 36 U/L (0-41); Albumin Level 2.8 g/dL (3.5-5.2); Alkaline Phosphatase 212 IU/L (40-130); Anion Gap 11.9 (5-19); Aspartate Amino Transferase 38 U/L (0-40); Blood Urea Nitrogen 10 mg/dL (6-20); Calcium 8.9 mg/dL (8.5-10.5); Carbon Dioxide 27 mmol/L (22-29); Chloride 102 mmol/L (98-107); Globulin 4.2 g/dL (1.3-4.6); Glomerular Filtration Rate 223.3 mL/min (90-130); Glucose 162 mg/dL (65-115); Osmolality Calculated 287 mOsm/kg (285-295); Potassium 3.9 mmol/L (3.5-5.1); Sodium 137 mmol/L (136-145); Total Bilirubin 0.5 mg/dL (0.15-1.2)
[2020-05-11 15:43] LABS: Slide Review Slide Review Perform
== END 2020-05-11 07:46 | disposition home or self-care (01) ==
LOC: ONCMED 16:50
PROVIDERS: PCP Family Medicine; Visit Provider Internal Medicine Hematology & Oncology
DX: C15.5 Malignant neoplasm of lower third of esophagus (principal)
CPT/HCPCS: 80053; 85025

== ENCOUNTER 2020-05-12 05:46 | Outpatient (CLI) | payer MEDICAID, SELFPAY ==
--- NOTE | 2020-05-12 16:11 | ONC FU_ITS ---
Dr. Ocampo follow up note Patient: Loida Juares Unit #: [id number]: 1965 Dicatated By: Pablo Ocampo M.D.Date of Visit:May 12, 2020 Onc Med Follow-up/Prog Note History of Present Illness: Mr. Loida Juares is a 54-year-old gentleman with history of abdominal pain recently underwent EGD and colonoscopy on 01/19/2019 which showed in the lower third esophagus, a partially obstructing, large sized, friable, fungating, submucosal, ulcerated mass and there was evidence of gastritis biopsy was obtained and came back moderately differentiated infiltrating adenocarcinoma. Colonoscopy was normal and follow-up CT scan of chest abdomen pelvis done on 01/29/2019 showed indeterminate but numerous celiac axis/upper mesenteric and retroperitoneal shoddy lymph nodes. No metastatic disease to lungs adrenal gland or liver Patient denies any history of weight loss in fact weight gain. No hemoptysis or hematemesis, no nausea or vomiting, no diarrhea constipation, no dysphagia. Or odynophagia. Patient has history of hepatitis C, as per patient he was treated by Dr. Canales about 2-3 years ago and was dormant and now active. History of cirrhosis and splenomegaly. No alcohol use but smoke. CT PET scan done on 02/21/2019 showed 1.3 cm segment of distal esophageal with SUV of 2.9 consistent with a primary esophageal carcinoma there is a no local or distance metastases Started on combined chemoradiation on 03/10/2019 with modified dose of weekly carboplatin and Taxol concurrent with radiation Was referred to store mgr in [place], [place] and he was seen on 04/03/2019. Impression and recommendation was to repeat hepatitis profile including hepatitis B core antigen, if is positive may require prophylaxis. And Dr. Manrique will also do further workup regarding hepatic cirrhosis and with PT/INR less than 1.7, patient has child tracy A and hepatitis C is a low risk for acute liver injury andsuggested to proceed with chemoradiation . May consider radiological transjugular liver biopsy and measurement of portal pressures, if esophageal surgery is under consideration. And medical management of portal hypertension if needed Patient completed combined chemoradiation with weekly carboplatin and Taxol on 05/10/2019patient was referred to Cardiothoracic surgery at [facility] for evaluation for possible esophagectomy patient was seen and admitted on 06/25/2019 and esophagectomy was attempted during procedure, patient is liver appeared severely cirrhotic esophagectomy was canceled but during procedure underwent EGD and biopsy was obtained which showed no evidence of disease. Due to advanced stage hepatic cirrhosis, no further treatment was offered but observation and follow with store mgr. Follow-up CT PET scan done on February 13, 2020, showed resolution of abnormal esophageal activity, consistent with complete response to the therapy. Negative for local or distant metastatic disease. As per patient he underwent hemorrhoid surgery for infected hemorrhoids on January 15, 2020 and did develop postop complication requiring wound care till last week of April 2020. As Per patient he has seen store mgr in [place] and in December 2019 he was given prescription for Mavyret but patient said he got sick with his hemorrhoid so he did not get his prescription refilled until last week when he started taking his Mavyret for hepatitis C, now tolerating reasonably well. Came for follow-up, denies any specific complaint except off and on progressive dysphagia and nausea but no vomiting, no hematemesis or hemoptysis, no jaundice, no abdominal pain, no weight loss. Medications: CeleXA 1 Tablet (of 10 mg) Oral daily, Dronabinol 1 Capsule (of 10 mg) Oral b.i.d. PRN, Levemir 30 Units (of 100 Units/mL) Subcutaneous daily, LORazepam 0.5 - 1 Tablet (of 1 mg) Oral t.i.d. PRN, oxyCODONE HCl 1 Tablet (of 15 mg) Oral pc (tid), Protonix 1 Tablet (of 20 mg) Tablet, enteric coated Oral daily Allergies: No Known Allergies. Review of Systems: Constitutional - Appetite is fair and weight is stable. No fever, chills, hot flashes, or night sweats. Energy level is poor, ENMT - Positive for sinus congestion/drainage. No mouth sores. No sore throat or difficulty swallowing, Hematologic/Lymphatic - No abnormal bruising or bleeding, Respiratory - No shortness of breath. No cough. No pleuritic pain or hemoptysis, Cardiovascular - No angina pain. No palpitations, Gastrointestinal - No nausea, vomiting, heartburn, acid reflux, diarrhea. No constipation. No blood in the stool or black stools, Genitourinary (M) - No dysuria or hematuria. No urinary frequency. No urgency or incontinence, Musculoskeletal - Positive for generalized joint pain, Neurologic - Positive for headache and dizziness. Positive for numbness/tingling in both hands and feet, Psychiatric - Positive for anxiety and depression, and occasional insomnia. Vital Signs: Performed on May 12, 2020 15:38 Height - 72.00 in Weight - 202.4 lbs (HIGH) BSA - 2.14 sq.m BMI - 27.45 Temperature - 98.2 F (LOW) Pulse - 74 /min Respiration - 18 /min BP - 148/91 mm(hg) (HIGH) O2 Sat - 98 % Pain - 8 Performance Status: 1 - No physically strenuous activity, but ambulatory and able to carry out light or sedentary work (e.g. office work, light house work). (ECOG) Physical Examination: ENMT - No mouth sores, no thrush, no jaundice, Respiratory - Lungs are clear to auscultation, Cardiovascular - Regular rate and rhythm of heart, Abdomen - Soft, bowel sounds present, Extremities - No visible edema. Lab/Imaging: Test performed on May 11, 2020 07:45 Sodium 137 mmol/L Potassium 3.9 mmol/L Chloride 102 mmol/L CO2 27 mmol/L Anion Gap 11.9 BUN 10 mg/dL Creatinine 0.4 mg/dL Cr Clearance (Est) 269.3600 mL/min eGFR 223.3 mL/min Glucose 162 mg/dL Osmolality - Calculated 287 mOsm/kg Calcium 8.9 mg/dL Protein, Total 7.0 g/dL Albumin 2.8 g/dL Globulin 4.2 g/dL Bilirubin, Total 0.5 mg/dL ALT (SGPT) 36 U/L AST (SGOT) 38 U/L Alkaline Phosphatase 212 IU/L WBC 3.0 10 3/uL RBC 4.09 10 6/uL HGB 11.9 g/dL HCT 37.2 % MCV 91.0 fL MCH 29.1 pg MCHC 32.0 g/dL RDW 14.5 % Platelet Count 80 10 3/cmm MPV 13.4 fL Neutrophils 1.76 10 3/uL Lymphocytes 0.7 10 3/uL Monocytes 0.4 10 3/uL Eosinophils 0.1 10 3/uL Basophils 0.0 10 3/uL Neutrophil % 59.6 % Lymphocyte % 25.1 % Monocyte % 11.9 % Eosinophil % 3.1 % Basophils % 0.3 % NRBC % 0 % CBC Slide Review Slide Review Perform SLIDE REVIEW AGREES WITH AUTOMATED RESULTS Impression: Moderately differentiated adenocarcinoma of distal esophagus per EGD/biopsy done on 01/19/2019 CT scan of chest abdomen pelvis done on 01/29/2019 showed mild thickening of right distal esophagus No metastatic disease to lungs, adrenal glands or liver Moderate cirrhosis with splenomegaly Indeterminate but numerous celiac axis/upper mesenteric and retroperitoneal shoddy lymph nodes CT PET scan done on 02/21/2019 showed there is a 1.3 cm segment of distal esophagus with SUV of 3.9 consistent with a primary esophageal carcinoma. No findings for local or distant metastatic disease seen. ? T1-T2,Nx,Mx Orthopedic fixation of left hip fracture Subacute to acute L5 compression fracture Colonoscopy done on 01/19/2019 showed normal exam. Started on combined chemoradiation with modified weekly carboplatin/Taxol concurrent with radiation therapy on 03/19/2019 last weekly chemotherapy with carbo/Taxol was given on 05/05/2019 Follow-up CT PET scan done on February 13, 2020 showed resolution of abnormal esophageal activity, consistent with complete response to therapy, no evidence of local or distant mets Plan: Discussed with patient regarding his labs white blood count 3 hemoglobin 11.9 hematocrit 37.2 platelets 80,000 CMP within normal limit except glucose 162 and alk phos 212 Clinically, patient is doing reasonably well now with off and on progressive dysphagia etiology unclear but could be due to post chemoradiation esophageal stricture or recurrence of disease, we will refer him to Dr. Canales for EGD and also consider CT scan of chest with special attention to esophagus. Pancytopenia, multifactorial including due to splenomegaly and hepatitis C and related treatment Mavyret, will monitor his blood counts. Return to clinic in 1 month with CBC CMP and follow-up CT scan of chest Signed By: Pablo Ocampo M.D. <<Signature on File>>
== END 2020-05-12 05:47 | disposition home or self-care (01) ==
LOC: ONCMED 05:46
PROVIDERS: PCP Family Medicine; Visit Provider Internal Medicine Hematology & Oncology
DX: C15.5 Malignant neoplasm of lower third of esophagus (principal); D61.818 Other pancytopenia; R13.10 Dysphagia, unspecified; K74.60 Unspecified cirrhosis of liver; B19.20 Unspecified viral hepatitis C without hepatic coma; R16.1 Splenomegaly, not elsewhere classified; Z92.21 Personal history of antineoplastic chemotherapy; Z92.3 Personal history of irradiation
CPT/HCPCS: 96523; 99214

== ENCOUNTER 2020-05-15 16:05 | Inpatient (IN) | payer MEDICAID, SELFPAY ==
[2020-05-15] VITALS (29 sets, daily range): BP systolic 63–161; BP diastolic 42–136; PULSE 99–117; RESP 12–24; TEMP 35.7–36.7; O2SAT 96–100; BMI 27.2
--- NOTE | 2020-05-15 16:11 | W.ED.GIBLEED ---
HPI - GI Bleed General: Chief complaint: GI Bleed Stated complaint: VOMITING BLOOD Time Seen by Provider: 05/15/20 16:07 Source: patient and EMS Mode of arrival: EMS Limitations: no limitations History of Present Illness: HPI Narrative: 54-year-old male who had a history of esophageal cancer 1 year ago. He states that today he started vomiting and had episodes of hematemesis was mainly coffee-ground. He states he also has had diarrhea with blood in the stool. Patient per EMS is hypotensive and his blood pressure here is 80/48 as well. Patient does look pale. He denies any abdominal pain. He denies any worsening or improving factors. Associated symptoms: Reports abdominal pain, nausea and vomiting; Denies chills, easy bruising, fever(s), headache(s) or rash Review of Systems Const: Denies: fever(s), chills, body aches or change in appetite Eyes: Denies: blurry vision or eye discomfort ENMT: Denies: throat pain or dental pain Card: Denies: chest pain Resp: Denies: dyspnea GI: Reports: abdominal pain, nausea, vomiting and hematemesis : Denies: dysuria Musc: Denies: neck pain or back pain Skin/Breast: Denies: rash Neuro: Denies: headache(s) Psych: Denies: depression Huan/Lymph: Denies: easy bruising All/Imm: Denies: urticaria PFSH ED PFSH: Medical History (Updated 05/15/20 @ 17:34 by Devon Pena MD) Chronic hepatitis C Chronic hepatitis C Chronic neck pain Cirrhosis of liver DDD (degenerative disc disease), lumbar Diabetes mellitus Diabetes mellitus Encounter for long-term use of opiate analgesic Leukopenia Lumbar pain Neuropathy due to secondary diabetes Port-A-Cath in place S/p left hip fracture November 2018 Spinal stenosis of lumbar region Spondylosis of lumbar spine with myelopathy Surgical History H/O circumcision H/O colonoscopy 2019 H/O esophagogastroduodenoscopy 2018 History of knee surgery 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 Family History Mother Diabetes Father Diabetes Denies family history of Anesthesia complication Bleeding disorder Cancer Social History Smoking and tobacco status: former smoker Quit status (tobacco): has quit using tobacco Year quit tobacco: 06/2019 Alcohol intake: former Lives independently: Yes Marital status: Single Current occupational status: disabled History of recent travel: Yes ([place]) Out of state: No Out of country: No Physical Exam Const: COMMON NORMALS: patient oriented x3 GENERAL APPEARANCE: in distress and ill appearing OTHER: Patient is very ill-appearing and hypotensive HENMT: COMMON NORMALS: normocephalic and atraumatic HEAD & SCALP: normocephalic and atraumatic Eye: COMMON NORMALS: Equal, round and reactive pupils present and EOMs intact bilaterally PUPIL: Yes Equal, round and reactive pupils present Neck/C-Spine: COMMON NORMALS: full ROM and supple Chest: COMMONS NORMALS: normal inspection of the chest and normal palpation of entire chest wall Resp: COMMON NORMALS: normal respiratory effort, No retractions, No use of accessory muscles and clear to auscultation bilaterally AUSCULTATION: clear to auscultation bilaterally Cardio: COMMON NORMALS: regular rhythm and No murmurs present (Cardio) RATE: tachycardic RHYTHM: regular rhythm GI: COMMON NORMALS: Normal to inspection, nondistended, normoactive bowel sounds present, Soft to palpation, non-tender and no masses PALPATION: Yes Soft to palpation OTHER: Coffee-ground emesis along with Hemoccult positive stool Extremity: COMMON NORMALS: normal to inspection and full ROM Neuro: COMMON NORMALS: patient oriented x3, moves all extremities and no focal motor deficits Psych: COMMON NORMALS: mental status grossly normal, Normal thought process present and cooperative THOUGHT PROCESS: Normal thought process present Skin: COMMON NORMALS: no rashes or lesions noted and no wounds NARRATIVE SKIN EXAM: Pale skin GENERAL SKIN EXAM: no rashes or lesions noted Course Vital Signs: Vital signs: Vital Signs Temperature 97.6 F 05/15/20 16:12 Pulse Rate 99 05/15/20 17:40 Respiratory Rate 19 H 05/15/20 17:40 Blood Pressure 86/46 05/15/20 17:40 Pulse Oximetry 100 05/15/20 17:40 MDM - GI Bleed MDM Narrative: Medical decision making narrative: Patient presents here with an upper GI bleed. He had coffee-ground emesis and is anemic. Did give him 2 units of uncrossed blood as he was quite hypotensive. Patient also has 2 units of uncrossed blood pending. Patient was also found to be hyperglycemic and in slight DKA with an anion gap. Patient started on insulin drip and given IV fluids as well. Patient's blood pressure is improving. I spoke to the hospitalist and will admit to the ICU. Also spoke to general surgeon on-call Dr. Christensen who is consulted. Lab Data: Labs: Lab Results 05/15/20 05/15/20 05/15/20 Range/Units 16:18 16:30 16:38 WBC 7.3 (4.0-10.0) 10^3/ uL RBC 2.42 L (4.1-5.3) 10^6/u L Hgb 7.1 L (11.7-16.6) g/dL Hct 23.4 L (42.0-52.0) % MCV 96.7 H (80-94) fL MCH 29.3 (28.0-34.0) pg MCHC 30.3 (30.0-36.0) g/dL RDW 14.6 (12.1-15.1) % Plt Count 92 L (130-400) 10^3/c mm MPV 14.5 H (7.4-10.4) fL Neut % (Auto) 84.7 % Lymph % (Auto) 9.2 % Orange % (Auto) 5.6 % Eos % (Auto) 0.0 % Baso % (Auto) 0.1 % Neut # (Auto) 6.19 (1.8-7.7) 10^3/u L Lymph # (Auto) 0.7 L (0.8-4.8) 10^3/u L Orange # (Auto) 0.4 (0.2-0.9) 10^3/u L Eos # (Auto) 0.0 (0.0-0.8) 10^3/u L Baso # (Auto) 0.0 (0.0-0.1) 10^3/u L Nucleated RBC % (a uto) 0 % Nucleated RBCs # 0.0 /100WBC PT (12.1-14.9) SECO NDS INR (0.8-1.2) Specimen Type Sample Site ABG pH (7.35-7.45) ABG pCO2 (35-45) mmHg ABG pO2 (80.0-100.0) mmH g ABG HCO3 (22-26) mmol/L ABG Base Excess (-2.0-2.0) mmol/ L Blaise Test Hematocrit (42-52) % O2 Delivery Device Eligibility Technician ID Sodium (136-145) mmol/L Potassium (3.5-5.1) mmol/L Chloride (98-107) mmol/L Carbon Dioxide (22-29) mmol/L Anion Gap (5-19) BUN (6-20) mg/dL Creatinine (0.7-1.2) mg/dL GFR Calculation (90-130) mL/min Glucose (65-115) mg/dL POC Glucose 514 (70-110) mg/dL Calculated Osmolal ity (285-295) mOsm/k g Calcium (8.5-10.5) mg/dL Total Bilirubin (0.15-1.2) mg/dL AST (0-40) U/L ALT (0-41) U/L Alkaline Phosphata se (40-130) IU/L Total Protein (6.6-8.7) g/dL Albumin (3.5-5.2) g/dL Globulin (1.3-4.6) g/dL Lipase (13-60) U/L Serum Ketones (Negative) Blood Type O Positive Rho(D) Type Positive Antibody Screen Negative Crossmatch See Detail 05/15/20 05/15/20 05/15/20 Range/Units 16:38 16:38 16:38 WBC (4.0-10.0) 10^3/ uL RBC (4.1-5.3) 10^6/u L Hgb (11.7-16.6) g/dL Hct (42.0-52.0) % MCV (80-94) fL MCH (28.0-34.0) pg MCHC (30.0-36.0) g/dL RDW (12.1-15.1) % Plt Count (130-400) 10^3/c mm MPV (7.4-10.4) fL Neut % (Auto) % Lymph % (Auto) % Orange % (Auto) % Eos % (Auto) % Baso % (Auto) % Neut # (Auto) (1.8-7.7) 10^3/u L Lymph # (Auto) (0.8-4.8) 10^3/u L Orange # (Auto) (0.2-0.9) 10^3/u L Eos # (Auto) (0.0-0.8) 10^3/u L Baso # (Auto) (0.0-0.1) 10^3/u L Nucleated RBC % (a uto) % Nucleated RBCs # /100WBC PT 22.90 H (12.1-14.9) SECO NDS INR 1.94 H (0.8-1.2) Specimen Type Sample Site ABG pH (7.35-7.45) ABG pCO2 (35-45) mmHg ABG pO2 (80.0-100.0) mmH g ABG HCO3 (22-26) mmol/L ABG Base Excess (-2.0-2.0) mmol/ L Blaise Test Hematocrit (42-52) % O2 Delivery Device Eligibility Technician ID Sodium 140 (136-145) mmol/L Potassium 4.2 (3.5-5.1) mmol/L Chloride 97 L (98-107) mmol/L Carbon Dioxide 13 L (22-29) mmol/L Anion Gap 34.2 H (5-19) BUN 55 H (6-20) mg/dL Creatinine 1.2 (0.7-1.2) mg/dL GFR Calculation 62.9 L (90-130) mL/min Glucose 522 H* (65-115) mg/dL POC Glucose (70-110) mg/dL Calculated Osmolal ity 329 H (285-295) mOsm/k g Calcium 8.4 L (8.5-10.5) mg/dL Total Bilirubin 0.7 (0.15-1.2) mg/dL AST 29 (0-40) U/L ALT 27 (0-41) U/L Alkaline Phosphata se 121 (40-130) IU/L Total Protein 5.4 L (6.6-8.7) g/dL Albumin 2.4 L (3.5-5.2) g/dL Globulin 3.0 (1.3-4.6) g/dL Lipase 8 L (13-60) U/L Serum Ketones Negative (Negative) Blood Type Rho(D) Type Antibody Screen Crossmatch 05/15/20 Range/Units 17:11 WBC (4.0-10.0) 10^3/ uL RBC (4.1-5.3) 10^6/u L Hgb (11.7-16.6) g/dL Hct (42.0-52.0) % MCV (80-94) fL MCH (28.0-34.0) pg MCHC (30.0-36.0) g/dL RDW (12.1-15.1) % Plt Count (130-400) 10^3/c mm MPV (7.4-10.4) fL Neut % (Auto) % Lymph % (Auto) % Orange % (Auto) % Eos % (Auto) % Baso % (Auto) % Neut # (Auto) (1.8-7.7) 10^3/u L Lymph # (Auto) (0.8-4.8) 10^3/u L Orange # (Auto) (0.2-0.9) 10^3/u L Eos # (Auto) (0.0-0.8) 10^3/u L Baso # (Auto) (0.0-0.1) 10^3/u L Nucleated RBC % (a uto) % Nucleated RBCs # /100WBC PT (12.1-14.9) SECO NDS INR (0.8-1.2) Specimen Type Arterial Sample Site Radial, left ABG pH 7.31 L (7.35-7.45) ABG pCO2 20.5 L (35-45) mmHg ABG pO2 121.0 H (80.0-100.0) mmH g ABG HCO3 10.2 L (22-26) mmol/L ABG Base Excess -14.7 L (-2.0-2.0) mmol/ L Blaise Test Pos Hematocrit 22.5 L (42-52) % O2 Delivery Device Room air Eligibility Technician ID Gd Sodium (136-145) mmol/L Potassium (3.5-5.1) mmol/L Chloride (98-107) mmol/L Carbon Dioxide (22-29) mmol/L Anion Gap (5-19) BUN (6-20) mg/dL Creatinine (0.7-1.2) mg/dL GFR Calculation (90-130) mL/min Glucose (65-115) mg/dL POC Glucose (70-110) mg/dL Calculated Osmolal ity (285-295) mOsm/k g Calcium (8.5-10.5) mg/dL Total Bilirubin (0.15-1.2) mg/dL AST (0-40) U/L ALT (0-41) U/L Alkaline Phosphata se (40-130) IU/L Total Protein (6.6-8.7) g/dL Albumin (3.5-5.2) g/dL Globulin (1.3-4.6) g/dL Lipase (13-60) U/L Serum Ketones (Negative) Blood Type Rho(D) Type Antibody Screen Crossmatch EKG Data^: EKG 1: Attestation: I personally reviewed and interpreted this EKG as follows: EKG interpretation date: 05/15/20 EKG interpretation time: 16:34 Interpretation: sinus tach hr [address] or t wave abnormalities qrs 86 qtc 439 Critical Care Time Critical Care Time: Critical Care Time: Yes Total Critical Care Time: 36 Attestation: This case had a high probability of a clinically significant, sudden, or life threatening deterioration of this patient's condition which required my full and direct attention, intervention and personal management. Discharge Plan Discharge Patient Disposition: Admitted As Inpatient Clinical Impression: Acute upper GI bleed, Hemorrhagic shock, DKA (diabetic ketoacidoses) Condition: Stable Referrals: Casimiro Sommers [Primary Care Provider] - Coding Level of Care Code ED Lunchroom Food Service Supervisor for Chg Fwd Exam Comprehensive
[2020-05-15 16:27] LABS: Glucose Point of Care 514 mg/dL (70-110)
[2020-05-15] MEDS: sodium chloride 0.9% 1,000 ML 999 ML IV (16:36)
[2020-05-15] MEDS: pantoprazole 40 mg SDV 80 MG IVP (16:37)
[2020-05-15 16:42] LABS: Basophils % 0.1 %; Hematocrit 23.4 % (42.0-52.0); Hemoglobin 7.1 g/dL (11.7-16.6); Lymphocytes # 0.7 10^3/uL (0.8-4.8); Lymphocytes % 9.2 %; Mean Corpuscular HGB Conc 30.3 g/dL (30.0-36.0); Mean Corpuscular Hemoglobin 29.3 pg (28.0-34.0); Mean Corpuscular Volume 96.7 fL (80-94); Mean Platelet Volume 14.5 fL (7.4-10.4); Monocytes # 0.4 10^3/uL (0.2-0.9); Monocytes % 5.6 %; Neutrophils # 6.19 10^3/uL (1.8-7.7); Neutrophils % 84.7 %; Nucleated Red Blood Cells % 0 %; Platelet Count 92 10^3/cmm (130-400); Red Blood Count 2.42 10^6/uL (4.1-5.3); Red Cell Distribution Width 14.6 % (12.1-15.1); White Blood Count 7.3 10^3/uL (4.0-10.0)
[2020-05-15 16:55] LABS: INR 1.94 (0.8-1.2)
[2020-05-15] MEDS: ondansetron 2 mg/ML SDV 2 mL 4 MG IVP ×2 (16:58→21:05)
[2020-05-15] MEDS: pantoprazole 40 MG in sodium chloride 0.9% (plus) 100 ML 20 MG IV ×2 (16:58→20:53)
[2020-05-15 17:03] LABS: Alanine Aminotransferase 27 U/L (0-41); Albumin Level 2.4 g/dL (3.5-5.2); Alkaline Phosphatase 121 IU/L (40-130); Anion Gap 34.2 (5-19); Aspartate Amino Transferase 29 U/L (0-40); Blood Urea Nitrogen 55 mg/dL (6-20); Calcium 8.4 mg/dL (8.5-10.5); Carbon Dioxide 13 mmol/L (22-29); Chloride 97 mmol/L (98-107); Glomerular Filtration Rate 62.9 mL/min (90-130); Lipase 8 U/L (13-60); Osmolality Calculated 329 mOsm/kg (285-295); Potassium 4.2 mmol/L (3.5-5.1); Sodium 140 mmol/L (136-145); Total Bilirubin 0.7 mg/dL (0.15-1.2); Total Protein 5.4 g/dL (6.6-8.7)
[2020-05-15 17:07] LABS: Slide Review Slide Review Perform
[2020-05-15 17:08] LABS: Glucose 522 mg/dL (65-115)
[2020-05-15] MEDS: insulin regular-human 100 units/1 mL 10 UNIT IVP (17:08)
[2020-05-15 17:13] LABS: Ketone (Acetest) Serum Negative (Negative)
[2020-05-15 17:28] LABS: ABG PCO2 20.5 mmHg (35-45); ABG PH Result 7.31 (7.35-7.45); Arterial Blood Gas Hematocrit 22.5 % (42-52); Base Excess ABG -14.7 mmol/L (-2.0-2.0); Blood Gas Allen Test Pos; Blood Gas Operator Identificat GD; Blood Gas Sample Site Radial, left; Blood Gas Sample Type Arterial; HCO3 ABG 10.2 mmol/L (22-26)
[2020-05-15 17:29] LABS: Oxygen Device ROOM AIR
[2020-05-15] MEDS: insulin regular-human 250 UNIT in sodium chloride 0.9% 250 ML IV (17:33)
--- NOTE | 2020-05-15 17:52 | PM.HP ---
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 He is status post combined chemoradiation with modified carboplatin Taxol with concurrent radiation therapy, completed in April 2019. Follow-up PET from February 2020 showed resolution of abnormal esophageal activity consistent with complete response to therapy, no evidence of local or distant mets. Patient has been complaining of progressive dysphagia, as noted on his last oncology note etiology of which was unclear but thought could be related to post chemoradiation esophageal stricture. He was scheduled to have a CT of the chest as an outpatient, however it does not appear that this has been performed. He was also being considered for referral for repeat EGD.. He also is noted to have multifactorial pancytopenia thought to be related to splenomegaly and hepatitis C, treated with Mavyret. He presents today to the ER complaining of multiple episodes of hematemesis which appeared to be coffee-ground emesis per description since yesterday. Last bowel movement was yesterday, states it may have been melanotic but he cannot be sure. On presentation to the ER he was noted to be extremely pale, hypotensive with systolic blood pressure of 75, improved somewhat after fluid resuscitation. He is running 2 units of packed red blood cell transfusion at this present time. Blood pressure is currently improved to 86 systolic. He is mildly tachycardic with heart rate between 100-1 20. Labs are additionally notable for hemoglobin of 7.41, last check on May for this was at 11.9. Platelets at 92. He has missed his insulin over the last several days due to feeling ill and blood sugar today is at 522 with an anion gap of 34. Denies any current chest pain dyspnea or palpitations. Review of Systems General: Reports: 10 or more systems reviewed and unremarkable except in HPI and below Const: Denies: fever(s), chills or body aches Eyes: Denies: change in vision, blurry vision or photophobia ENMT: Reports: hoarseness; Denies: throat pain, enlarged tonsils, odynophagia or nasal congestion Card: Denies: chest pain, palpitations, irregular heart rhythm, edema, swelling of feet/ankles, lightheadedness, pre-syncope, dyspnea on exertion or orthopnea Resp: Denies: dyspnea, productive cough, non-productive cough, wheezing, stridor, pain on inspiration, change in phlegm color, hemoptysis or chest congestion GI: Denies: abdominal pain, nausea, vomiting, hematemesis, coffee ground emesis, dysphagia, heartburn, diarrhea, constipation, GI cramping, change in stool character, hematochezia or melena : Denies: flank pain, dysuria, urinary frequency, urinary urgency, urinary hesitancy or hematuria Musc: Denies: neck pain, back pain, extremity pain, joint swelling, joint warmth or deformity Neuro: Denies: headache(s), numbness in extremities, weakness in extremities, sensory changes, difficulty walking, frequent falls, dizziness, vertigo, behavioral changes, Slurred speech present or seizure-like activity Psych: Denies: anxiety, depression, suicidal ideation or homicidal ideation Endo: Denies: polyuria, polydipsia, tired all the time, cold intolerance or hot flashes Huan/Lymph: Denies: easy bruising or easy bleeding Medications/Allergies Home Medications Medication Instructions Recorded Confirmed Last Taken Type citalopram 20 mg tablet 20 mg PO DAILY 07/03/19 05/15/20 05/14/20 History insulin detemir U-100 100 unit/mL See Rx Instructions .ROUTE .COMPLEX 07/03/19 05/15/20 05/14/20 History subcutaneous solution dronabinol 10 mg capsule 5 mg PO BID PRN cap 07/14/19 05/15/20 Unknown History pantoprazole 40 mg tablet,delayed 40 mg PO DAILY 07/14/19 05/15/20 05/14/20 History release oxycodone 10 mg PO Q6H PRN #28 tab 01/15/20 05/15/20 05/14/20 Rx glecaprevir-pibrentasvir [Mavyret] 1 tab PO DAILY 05/15/20 05/15/20 05/15/20 History Allergies Allergy/AdvReac Type Severity Reaction Status Date / Time No Known Allergies Allergy Verified 01/14/20 10:18 PFSH Acute PFSH: Medical History Chronic hepatitis C Chronic hepatitis C Chronic neck pain Cirrhosis of liver DDD (degenerative disc disease), lumbar Diabetes mellitus Diabetes mellitus Encounter for long-term use of opiate analgesic Leukopenia Lumbar pain Neuropathy due to secondary diabetes Port-A-Cath in place S/p left hip fracture November 2018 Spinal stenosis of lumbar region Spondylosis of lumbar spine with myelopathy Surgical History H/O circumcision H/O colonoscopy 2019 H/O esophagogastroduodenoscopy 2019 History of knee surgery 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 Family History Mother Diabetes Father Diabetes Denies family history of Anesthesia complication Bleeding disorder Cancer Social History Smoking and tobacco status: former smoker Quit status (tobacco): has quit using tobacco Year quit tobacco: 06/2019 Alcohol intake: former Lives independently: Yes Marital status: Single Current occupational status: disabled History of recent travel: Yes ([place]) Out of state: No Out of country: No Vitals/I&O/Wt Last Vital Signs Temp 97.6 F 05/15/20 16:12 Pulse 99 05/15/20 17:40 Resp 19 H 05/15/20 17:40 BP 86/46 05/15/20 17:40 Pulse Ox 100 05/15/20 17:40 05/15/20 05/15/20 05/15/20 06:59 14:59 22:59 Intake Total 0 / 0 Balance 0 / 0 Weight last 48 hrs Weight 91.172 kg Physical Exam Narrative: EXAM NARRATIVE: GENERAL: Awake, alert, extremely pale appearing, in mild distress, coated blood over lips internally. Ill-appearing [] HEENT: Normocephalic, atraumatic, PERRLA. [] CHEST: Clear to auscultation bilaterally. [] CVS: S1, S2 normal. No murmur, rubs, gallops. Peripheral pulses palpable. [] ABDOMEN: Soft, nontender. Nondistended. Bowel sounds heard. [] NEUROVASCULAR: Awake, alert. Power 5/5 all extremities. DTR+ [] EXTREMITIES: No edema. [] Data : 05/15/20 16:38 05/15/20 16:38 A&P Assessment and plan (1) Acute upper GI bleed: Status: Acute (2) Hemorrhagic shock: Status: Acute (3) DKA (diabetic ketoacidoses): Status: Acute Qualifiers: Diabetes mellitus type: type 2 Diabetes mellitus complication detail: without coma Qualified Code(s): E11.10 - Type 2 diabetes mellitus with ketoacidosis without coma (4) Adenocarcinoma of esophagus: Status: Acute (5) Dysphagia: Status: Acute Qualifiers: Dysphagia type: unspecified Qualified Code(s): R13.10 - Dysphagia, unspecified Additional A&P Information Admit to ICU in view of acute upper GI bleed and hemorrhagic shock #Acute upper GI bleed Hemoglobin today at 7.1, dropped from 11 on May 11. Associated with concomitant hemodynamic instability as evidenced by hypotension, he has received 1 L fluid bolus thus far and is currently getting 2 units of packed red blood cell transfusion. Will recheck hemoglobin after 2 units. Cause of upper GI bleed may be related to possible recurrence of malignancy versus esophageal strictures or erosions given past history of chemoradiation. Has a history of hepatitis C and splenomegaly noted, however no past history of variceal bleeding. Dr. Christensen has been consulted from the ER for endoscopy. We will start Levophed if blood pressure fails to improve with fluid resuscitation and blood transfusion. Monitor H&H every 4 hours. #Diabetic ketoacidosis: Blood sugar elevated to greater than 500, anion gap of 34, start insulin drip for now per DKA protocol. Patient to remain n.p.o. for now. #Adenocarcinoma of esophagus, last known to be PREET, however has been complaining of progressive dysphagia for which she was planning to get CT chest and endoscopy. Full code DVt ppx: scds only Attestations Medical Necessity Statement*: Greater than 2 midnight admission anticipated for GI bleeding, endoscopy,hemorrhagic shock Coding Level of Care Code Acute Business Objects Consultant for [facility] Fwd Diagnoses Acute upper GI bleed K92.2 Hemorrhagic shock R57.8 DKA (diabetic ketoacidoses) E11.10 Diabetes mellitus type: type 2 Diabetes mellitus complication detail: without coma Adenocarcinoma of esophagus C15.9 Dysphagia R13.10 Dysphagia type: unspecified
[2020-05-15 18:20] LABS: Glucose Point of Care 422 mg/dL (70-110)
--- NOTE | 2020-05-15 18:21 | ECG_ITS ---
[facility] Test Date: 2020-05-15 Pat Name: Loida Juares Department: Room: [facility] Gender: Male Body Maker: : [id number] Requested By: Devon Pena Order Number: [id number] Molina MD: Faye Ya M.D. Measurements Intervals [place] Rate: 103 P: 52 MI: 124 QRS: 54 QRSD: 86 T: 57 QT: 379 QTc: 498 Interpretive Statements SINUS TACHYCARDIA LOW QRS VOLTAGE IN PRECORDIAL LEADS [QRS DEFLECTION < 1.0 mV IN CHEST LEADS] Compared to ECG 05/14/2019 10:53:38 Low QRS voltage now present Sinus rhythm no longer present Electronically Signed On 05-16-2020 8:02:26 ELECTRONIC ENGRAVER by Faye Ya M.D. https://[employer].[facility].Cuídate/store/NU/[id number] f
--- NOTE | 2020-05-15 19:15 | PC.NURSE ---
Pt received from ED at 1835. Pt c/o of pain in his back my sciatic is killing me . He is rolling around in the bed asking for pain meds. He has Protonix infusing into right wrist without difficulty.Insulin gtt off, per ED nurse pump turned it's self off on the way over. Per Ed nurse , blood sugar just checked prior to transport, 422mg/dl. Insulin gtt restarted on fresh pump at 5unit/hour, per ED nurse the appropriate rate. He has blood infusing into left AC. This nurse noted 2 units of PRBC hanging on the blood tubing, one completed ([id number]) and one infusing ([id number]). Switched out emptied PRBC bag with 100ml of NS. Pt hypotensive SBP 75, the rate was increased to 200ml/hr. Giving report to [place] nurse, upon reviewing TAR noted that the PRBC infusing had not been verified and the unit completed infusing had not been completed on TAR. Called ED and spoke with Razia,as pt's previous nurse unable to come to phone, she stated the blood had been kept in a cooler until spiking and it was ordered and started as emergent. So this nurse completed off [id number] and verified and began [id number]. No s/s of transfusion reaction at this time.
--- NOTE | 2020-05-15 19:44 | PC.NURSE ---
FIRST BAG OF BLOOD STARTED AT 1650. MADE MULTIPLE ATTEMPTS TO SCAN BLOOD, HAD ANOTHER NURSE ATTEMPT TO SCAN WELL, WOULD NOT SCAN. BLOOD WAS ADMINISTERED USING BLOOD TUBING, INITIALLY HAD ON PUMP AT 125ML/HR. WAS PIGGYBACKED TO NORMAL SALINE. AFTER APPROX 1/2 OF BAG BEING ADMINISTERED, REMOVED FROM THE PUMP PER DOCTOR MARVA SO THAT BLOOD WOULD GO IN FASTER DUE TO PATIENTS 70/40 BLOOD PRESSURE. SECOND UNIT STARTED RIGHT AFTER FIRST ONE FINISHED, APPROX 15 MINUTES PRIOR TO GOING TO ICU, STILL PIGGYBACKED TO NORMAL SALINE.
[2020-05-15] MEDS: octreotide 500 MCG in sodium chloride 0.9% (100 ml) 100 ML 10.1 MCG IV (20:56)
[2020-05-15] MEDS: HYDROmorphone 1 mg/mL INJ 1 mL IVP (21:04)
[2020-05-15 21:35] LABS: Hemoglobin 9.1 g/dL (11.7-16.6)
[2020-05-15 21:48] LABS: Anion Gap 21.1 (5-19); Blood Urea Nitrogen 59 mg/dL (6-20); Calcium 8.2 mg/dL (8.5-10.5); Carbon Dioxide 20 mmol/L (22-29); Chloride 102 mmol/L (98-107); Glomerular Filtration Rate 57.3 mL/min (90-130); Glucose 360 mg/dL (65-115); Osmolality Calculated 319 mOsm/kg (285-295); Potassium 4.1 mmol/L (3.5-5.1); Sodium 139 mmol/L (136-145)
[2020-05-16] VITALS (92 sets, daily range): BP systolic 82–150; BP diastolic 49–90; PULSE 98–119; RESP 1–28; TEMP 36.6–36.9; O2SAT 94–100; BMI 27.3
[2020-05-16] MEDS: dextrose 5%-sod chloride 0.45% 1,000 ML 100 ML IV (00:35)
[2020-05-16 00:42] LABS: Glucose Point of Care 212 mg/dL (70-110)
[2020-05-16] MEDS: metoclopramide 5 mg/mL SDV 2 mL 10 MG IVP ×4 (00:49→20:46)
[2020-05-16] MEDS: HYDROmorphone 1 mg/mL INJ 1 mL IVP ×6 (01:22→23:05)
[2020-05-16] MEDS: pantoprazole 40 MG in sodium chloride 0.9% (plus) 100 ML 20 MG IV ×4 (01:23→17:33)
[2020-05-16 01:38] LABS: Glucose Point of Care 150 mg/dL (70-110)
[2020-05-16 02:31] LABS: Hemoglobin 8.1 g/dL (11.7-16.6)
--- NOTE | 2020-05-16 02:41 | PC.NURSE ---
CHANGE OF SHIFT Patient brought to unit and settled by day shift RN. Patient on 5 units/hour of insulin upon arriving from ER with reported blood sugar of 422 from ER. Insulin drip titrated according to blood sugar and protocol. Patient also had 2nd unit of PRBC still running from ER, see previous note from CYNTHIA Camarena. Patient in pain and requesting pain medication. Patient educated on low blood pressure and that we would get him pain medication as soon as his BP increased. See hypotension note.
--- NOTE | 2020-05-16 02:45 | PC.NURSE ---
HYPOTENSION After 2nd unit of PRBC patient continued to stay hypotensive. Levophed started at 2 mcg/min when MAP decreased below 65. Levophed currently paused at this time for BP trend of 100s over 60s. Will continue to monitor.
--- NOTE | 2020-05-16 02:47 | PC.NURSE ---
PAIN GOAL Patient stated that he was in pain. Dilaudid given twice tonight so far per patient request. Patient stated that goal for him is a 7 because that is what he lives at. Upon pain medication administration patient stated pain at a 9.
--- NOTE | 2020-05-16 02:48 | PC.NURSE ---
GTTS Day shift RN called physician to discuss BP. Physician gave order to start levophed (currently on hold, see previous note) and octreotide at 50 mcg/hour. Patient also has protonix at 8 mg/hour. Titrating insulin drip per protocol.
[2020-05-16 02:49] LABS: Alanine Aminotransferase 29 U/L (0-41); Albumin Level 2.4 g/dL (3.5-5.2); Alkaline Phosphatase 104 IU/L (40-130); Anion Gap 10.8 (5-19); Aspartate Amino Transferase 37 U/L (0-40); Blood Urea Nitrogen 68 mg/dL (6-20); Calcium 7.7 mg/dL (8.5-10.5); Carbon Dioxide 26 mmol/L (22-29); Chloride 106 mmol/L (98-107); Globulin 2.6 g/dL (1.3-4.6); Glomerular Filtration Rate 48.6 mL/min (90-130); Glucose 117 mg/dL (65-115); Osmolality Calculated 309 mOsm/kg (285-295); Potassium 3.8 mmol/L (3.5-5.1); Sodium 139 mmol/L (136-145); Total Bilirubin 0.6 mg/dL (0.15-1.2)
--- NOTE | 2020-05-16 02:51 | PC.NURSE ---
BLOOD SUGAR Patients blood sugar was 326 at 2230 and dropped to 210 at 2330. Physician called to notify of large decrease. Physician ordered D5 1/2 NS at 100 mL/hour. Once started, BP has began to improve so levophed is paused at this time.
[2020-05-16] MEDS: ondansetron 2 mg/ML SDV 2 mL 4 MG IVP ×4 (04:35→22:56)
[2020-05-16 04:45] LABS: Glucose Point of Care 120 mg/dL (70-110)
[2020-05-16 04:45] LABS: Glucose Point of Care 120 mg/dL (70-110)
[2020-05-16 04:45] LABS: Glucose Point of Care 121 mg/dL (70-110)
[2020-05-16 05:29] LABS: Glucose Point of Care 126 mg/dL (70-110)
[2020-05-16] MEDS: octreotide 500 MCG in sodium chloride 0.9% (100 ml) 100 ML 10.1 MCG IV (06:35)
[2020-05-16 06:46] LABS: Hemoglobin 7.5 g/dL (11.7-16.6)
[2020-05-16 07:01] LABS: Glucose Point of Care 210 mg/dL (70-110)
[2020-05-16 07:01] LABS: Glucose Point of Care 326 mg/dL (70-110)
[2020-05-16 07:01] LABS: Glucose Point of Care 371 mg/dL (70-110)
--- NOTE | 2020-05-16 07:05 | PC.NURSE ---
INSULIN/LEVO GTT Patients insulin gtt shut off around [address] Whyte and anion gap closing. Levophed drip shut off around 0045 due to steady trend in patients BP with MAP above 65.
[2020-05-16 08:14] LABS: Glucose Point of Care 213 mg/dL (70-110)
--- NOTE | 2020-05-16 08:56 | P.PN_ITS ---
Subjective Subjective: Interval history: Overnight patient's blood pressure dropped to 60/40 for which Levophed was started and then discontinued at midnight after improvement in blood pressure. This morning he is back on 2 mics of Levophed since 8 AM. Overnight he has had 2 episodes of tarry stools and 4 episodes of coffee-ground emesis. Currently running octreotide and Protonix infusion. Remains NPO. Plan for EGD this morning. Hemoglobin this morning at 7.5, received total 2 units of packed red blood cells. Anion gap closed, titrated off insulin drip this morning and now on sliding scale. 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: no focal neuro deficits Data : 05/16/20 06:30 05/16/20 02:20 A&P Assessment and plan (1) Acute upper GI bleed: Status: Acute (2) Hemorrhagic shock: Status: Acute (3) DKA (diabetic ketoacidoses): Status: Acute Qualifiers: Diabetes mellitus complication detail: without coma Diabetes mellitus type: type 2 Qualified Code(s): E11.10 - Type 2 diabetes mellitus with k etoacidosis without coma (4) Adenocarcinoma of esophagus: Status: Acute (5) Dysphagia: Status: Acute Qualifiers: Dysphagia type: unspecified Qualified Code(s): R13.10 - Dysphagia, unspecified Additional A&P Information Continued monitoring in ICU #Acute upper GI bleed Hemoglobin this morning at 7.5. Overnight Levophed was able to be titrated off, needs to be resumed again this morning. Blood pressure 88/50. Ordered an additional unit of transfusion now. Cause of upper GI bleed may be related to possible recurrence of malignancy versus esophageal strictures or erosions given past history of chemoradiation. Has a history of hepatitis C and splenomegaly noted, however no past history of variceal bleeding. EGD is planned for this morning. In the interim continue Protonix and octreotide infusions. Monitor H&H every 4 hours. #hemorrhagic shock due to above #Diabetic ketoacidosis: Blood sugar elevated to greater than 500, anion gap of 34 upon admission. Anion gap is now closed. Titrated off insulin drip, on subacute insulin at this present time. Low-dose insulin regimen for now given that patient is still n.p.o. for his planned EGD and GI bleed #Acute kidney injury: Likely as a result of volume loss and dehydration #Adenocarcinoma of esophagus, last known to be PREET, however has been complaining of progressive dysphagia for which she was planning to get CT chest and endoscopy. Full code DVt ppx: scds only Attestations Medical Necessity Statement*: Needs ongoing admission and monitoring for GI bleed with hemorrhagic shock, close monitoring of hemoglobin, EGD today Coding Level of Care Code Acute Flower Planter for Chg Fwd Diagnoses Acute upper GI bleed K92.2 Hemorrhagic shock R57.8 DKA (diabetic ketoacidoses) E11.10 Diabetes mellitus complication detail: without coma Diabetes mellitus type: type 2 Adenocarcinoma of esophagus C15.9 Dysphagia R13.10 Dysphagia type: unspecified
[2020-05-16] MEDS: sodium chloride 0.9% 1,000 ML 125 ML IV ×2 (09:21→18:06)
[2020-05-16 09:44] LABS: Basophils % 0.1 %; Hematocrit 23.7 % (42.0-52.0); Lymphocytes # 0.9 10^3/uL (0.8-4.8); Lymphocytes % 6.1 %; Mean Corpuscular HGB Conc 33.8 g/dL (30.0-36.0); Mean Corpuscular Hemoglobin 29.9 pg (28.0-34.0); Mean Corpuscular Volume 88.4 fL (80-94); Mean Platelet Volume 13.5 fL (7.4-10.4); Monocytes # 0.8 10^3/uL (0.2-0.9); Monocytes % 5.2 %; Neutrophils # 13.38 10^3/uL (1.8-7.7); Neutrophils % 88.1 %; Nucleated Red Blood Cells % 0 %; Platelet Count 90 10^3/cmm (130-400); Red Blood Count 2.68 10^6/uL (4.1-5.3); Red Cell Distribution Width 14.7 % (12.1-15.1); White Blood Count 15.2 10^3/uL (4.0-10.0)
--- NOTE | 2020-05-16 10:11 | PM.CONSULT ---
Providers/Reason For Consult Consulting Physican/Specialty*: Isabelle Castellon, Reason for Consult*: Gi bleed Attending Physician: Isabelle Castellon MD Primary Care Provider: Casimiro Sommers History of Present Illness History of Present Illness Loida Juares is a 54 year old male who presented to the ER hypotensive with pressure in the systolic after he had coffee-ground emesis since the day before. Patient is status post chemoradiation for distal esophageal cancer with complete resolution with no evidence of metastatic disease. Since admission patient has been hemodynamically stable, no evidence of peritonitis. He denies any abdominal pain, had 1 small dark bowel movement with blood. No nausea or vomiting Review of Systems General: Reports: 10 or more systems reviewed and unremarkable except in HPI and below Meds/Allergies Home Medications and Allergies Home Medications Medication Instructions Recorded Confirmed Last Taken Type citalopram 20 mg tablet 20 mg PO DAILY 07/03/19 05/15/20 05/14/20 History insulin detemir U-100 100 unit/mL See Rx Instructions .ROUTE .COMPLEX 07/03/19 05/15/20 05/14/20 History subcutaneous solution dronabinol 10 mg capsule 5 mg PO BID PRN cap 07/14/19 05/15/20 Unknown History pantoprazole 40 mg tablet,delayed 40 mg PO DAILY 07/14/19 05/15/20 05/14/20 History release oxycodone 10 mg PO Q6H PRN #28 tab 01/15/20 05/15/20 05/14/20 Rx glecaprevir-pibrentasvir [Mavyret] 1 tab PO DAILY 05/15/20 05/15/20 05/15/20 History Allergies Allergy/AdvReac Type Severity Reaction Status Date / Time No Known Allergies Allergy Verified 01/14/20 10:18 Current Medications Current Medications Generic Name Dose Route Start Last Admin Trade Name Freq PRN Reason Stop Dose Admin Hydromorphone HCl 1 mg 05/15/20 18:47 05/16/20 06:02 Hydromorphone 1 Mg/Ml Inj 1 Ml IVP 1 mg Q4H PRN Administration pain Pantoprazole Sodium 40 mg/ 100 mls @ 20 mls/hr 05/15/20 18:15 05/16/20 06:35 Sodium Chloride IV 8 mg/hr .Q5H MAHNAZ 20 mls/hr Administration 8 MG/HR Norepinephrine Bitartrate 4 mg 254 mls @ 0 mls/hr 05/15/20 20:00 05/16/20 07:10 / Dextrose IV 2 mcg/min .Q0M MAHNAZ 7.6 mls/hr Titration Protocol Per Protocol Octreotide Acetate 500 mcg/ 101 mls @ 10.1 mls/hr 05/15/20 20:00 05/16/20 06:35 Sodium Chloride IV 50 mcg/hr .Q10H MAHNAZ 10.1 mls/hr Administration 50 MCG/HR Sodium Chloride 1,000 mls @ 125 mls/hr 05/16/20 09:15 05/16/20 09:21 Sodium Chloride 0.9% IV 125 mls/hr .Q8H MAHNAZ Administration Insulin Aspart 0 unit 05/16/20 08:00 05/16/20 08:17 Insulin Aspart 100 Unit/1 Ml SUBCUT 4 unit WM&BEDTIME MAHNAZ Administration Protocol Ondansetron HCl 4 mg 05/15/20 18:08 05/16/20 04:35 Zofran IVP 4 mg Q6H PRN Administration NAUSEA AND VOMITING PFSH Acute PFSH: Medical History Chronic hepatitis C Cirrhosis of liver DDD (degenerative disc disease), lumbar Diabetes mellitus Neuropathy due to secondary diabetes S/p left hip fracture November 2018 Spinal stenosis of lumbar region Spondylosis of lumbar spine with myelopathy Surgical History H/O circumcision H/O colonoscopy 2018 H/O esophagogastroduodenoscopy 2018 History of knee surgery Port-A-Cath in place 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 Family History Mother Diabetes Father Diabetes Denies family history of Anesthesia complication Bleeding disorder Cancer Social History Smoking and tobacco status: former smoker Quit status (tobacco): has quit using tobacco Year quit tobacco: 06/2019 Alcohol intake: former Lives independently: Yes Marital status: Single Current occupational status: disabled History of recent travel: Yes ([place]) Out of state: No Out of country: No Vitals/I&O/Wt Last Vital Signs Temp 98.0 F 05/16/20 07:11 Pulse 104 H 05/16/20 07:15 Resp 15 05/16/20 07:15 BP 88/50 05/16/20 07:15 Pulse Ox 98 05/16/20 07:15 05/15/20 05/16/20 05/16/20 22:59 06:59 14:59 Intake Total 738.993 / 1095.791 356.798 / 1095.791 876.667 / 876.667 Output Total 300 / 300 Balance 738.993 / 795.791 56.798 / 795.791 876.667 / 876.667 Weight last 48 hrs Weight 201 lb 14.4 oz Weight 201 lb Physical Exam Narrative: EXAM NARRATIVE: HEENT: Normocephalic Eye: Sclera /conjunctiva normal Cardiovascular: Normal S1 and S2 heart sounds Abdomen: Soft to palpation Neurological: Oriented to place person and time Skin: Intact, no lesions appreciated on gross exam A&P Assessment and plan (1) Acute upper GI bleed: 53-year-old gentleman status post chemoradiation for distal esophageal cancer diagnosed in January 2019. Recent imaging from February 2020 showed complete resolution. Patient now presents with anemia secondary to upper GI bleed Plan for EGD under MAC Procedure, risks, benefits and alternatives have been discussed with the patient who wishes to proceed with surgery. Status: Acute Coding Level of Care Code Acute Principal Data Architect for g Fwd Diagnoses Acute upper GI bleed K92.2
--- NOTE | 2020-05-16 11:33 | P.ANESASSM_ITS ---
Pre-Anesthetic Assessment Pre-Anesthetic Assessment: Height/Weight: Height 1.83 m Weight 91.58 kg Temp Pulse Resp BP Pulse Ox 97.9 F 108 H 13 138/79 99 05/16/20 11:30 05/16/20 11:30 05/16/20 11:30 05/16/20 11:30 05/16/20 11:30 Preop Diagnosis: Upper GI bleed Proposed Procedure: Operation Date: 05/16/20 11:45 Proposed Procedures p EGD(Not Applicable) - Kostas Christensen MD Was Beta Lexie taken within 24 hours: N/A Social: Social History: Tobacco (quit in ) Exam: Pre-Anes Outpt Exam: alert, oriented x 3, clear to auscultation neno aterally and regular rate & rhythm Airway: Submandibular: WNL Cervical ROM: WNL MP: 1 Dentition: False Pulmonary: Pulmonary: COPD CV/HEM: CV/HEM: None reported Comments: denies cp/sob : : None reported Hepatic: Hepatic: Cirrohsis and Hepatitis GI: Comments: hx esophageal cancer, undergone chemo/radiation GI bleed. hgb 8. getting 1 unit PRBC at time of exam Metabolic: Metabolic: DM and Morbid obesity Musc/skel: Musc/skel: Lower Back Pain (back and neck pain) Neuropsych: Neuropsych: Anxiety and Depression Anesthetic Plan: ASA status: 4 Anesthesia: MAC Other: on norepi 2mcg/min. SBP 134. Meds/Allergies Current Medications: Current Medications Generic Name Dose Route Start Last Admin Trade Name Freq PRN Reason Stop Dose Admin Hydromorphone HCl 1 mg 05/15/20 18:47 05/16/20 10:40 Hydromorphone 1 Mg/Ml Inj 1 Ml IVP 1 mg Q4H PRN Administration pain Pantoprazole Sodiu m 40 mg/ 100 mls @ 20 mls/ hr 05/15/20 18:15 05/16/20 06:35 Sodium Chloride IV 8 mg/hr .Q5H MAHNAZ 20 mls/hr Administration 8 MG/HR Norepinephrine Bit artrate 4 mg 254 mls @ 0 mls/h r 05/15/20 20:00 05/16/20 10:52 / Dextrose IV 0 mcg/min .Q0M MAHNAZ 0 mls/hr Titration Protocol Per Protocol Octreotide Acetate 500 mcg/ 101 mls @ 10.1 ml s/hr 05/15/20 20:00 05/16/20 06:35 Sodium Chloride IV 50 mcg/hr .Q10H MAHNAZ 10.1 mls/hr Administration 50 MCG/HR Sodium Chloride 1,000 mls @ 125 m ls/hr 05/16/20 09:15 05/16/20 09:21 Sodium Chloride 0.9% IV 125 mls/hr .Q8H MAHNAZ Administration Insulin Aspart 0 unit 05/16/20 08:00 05/16/20 08:17 Insulin Aspart 1 00 Unit/1 Ml SUBCUT 4 unit WM&BEDTIME MAHNAZ Administration Protocol Ondansetron HCl 4 mg 05/15/20 18:08 05/16/20 10:41 Zofran IVP 4 mg Q6H PRN Administration NAUSEA AND VOMITI NG PFSH Anesthesia PFSH: Medical History (Updated 05/16/20 @ 07:22 by Kostas Christensen MD) Chronic hepatitis C Chronic neck pain Cirrhosis of liver DDD (degenerative disc disease), lumbar Diabetes mellitus Diabetes mellitus Encounter for long-term use of opiate analgesic Leukopenia Lumbar pain Neuropathy due to secondary diabetes Port-A-Cath in place S/p left hip fracture November 2018 Spinal stenosis of lumbar region Spondylosis of lumbar spine with myelopathy Surgical History H/O circumcision H/O colonoscopy 2019 H/O esophagogastroduodenoscopy 2018 History of knee surgery 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 Family History Mother Diabetes Father Diabetes Denies family history of Anesthesia complication Bleeding disorder Cancer Social History Smoking and tobacco status: former smoker Quit status (tobacco): has quit using tobacco Year quit tobacco: 06/2019 Alcohol intake: former Lives independently: Yes Marital status: Single Current occupational status: disabled History of recent travel: Yes ([place]) Out of state: No Out of country: No Data Anesthesia CBC & Chem 7: 05/16/20 09:27 05/16/20 02:20 Other Labs: Laboratory Results - last 48 hr 11/08/20 11/08/20 11/08/20 16:18 16:30 16:38 WBC 7.3 RBC 2.42 L Hgb 7.1 L Hct 23.4 L MCV 96.7 H MCH 29.3 MCHC 30.3 RDW 14.6 Plt Count 92 L MPV 14.5 H Neut % (Auto) 84.7 Lymph % (Auto) 9.2 Armstrong % (Auto) 5.6 Eos % (Auto) 0.0 Baso % (Auto) 0.1 Neut # (Auto) 6.19 Lymph # (Auto) 0.7 L Armstrong # (Auto) 0.4 Eos # (Auto) 0.0 Baso # (Auto) 0.0 Nucleated RBC % (auto) 0 Nucleated RBCs # 0.0 PT INR Specimen Type Sample Site ABG pH ABG pCO2 ABG pO2 ABG HCO3 ABG Base Excess Blaise Test Hematocrit O2 Delivery Device Buffing Wheel Presser ID Sodium Potassium Chloride Carbon Dioxide Anion Gap BUN Creatinine GFR Calculation Glucose POC Glucose 514 Calculated Osmolality Calcium Total Bilirubin AST ALT Alkaline Phosphatase Total Protein Albumin Globulin Lipase Serum Ketones Blood Type O Positive Rho(D) Type Positive Antibody Screen Negative Crossmatch See Detail 05/15/20 05/15/20 05/15/20 16:38 16:38 16:38 WBC RBC Hgb Hct MCV MCH MCHC RDW Plt Count MPV Neut % (Auto) Lymph % (Auto) Armstrong % (Auto) Eos % (Auto) Baso % (Auto) Neut # (Auto) Lymph # (Auto) Armstrong # (Auto) Eos # (Auto) Baso # (Auto) Nucleated RBC % (auto) Nucleated RBCs # PT 22.90 H INR 1.94 H Specimen Type Sample Site ABG pH ABG pCO2 ABG pO2 ABG HCO3 ABG Base Excess Blaise Test Hematocrit O2 Delivery Device Buffing Wheel Presser ID Sodium 140 Potassium 4.2 Chloride 97 L Carbon Dioxide 13 L Anion Gap 34.2 H BUN 55 H Creatinine 1.2 GFR Calculation 62.9 L Glucose 522 H* POC Glucose Calculated Osmolality 329 H Calcium 8.4 L Total Bilirubin 0.7 AST 29 ALT 27 Alkaline Phosphatase 121 Total Protein 5.4 L Albumin 2.4 L Globulin 3.0 Lipase 8 L Serum Ketones Negative Blood Type Rho(D) Type Antibody Screen Crossmatch 05/15/20 05/15/20 05/15/20 17:11 18:16 20:45 WBC RBC Hgb Hct MCV MCH MCHC RDW Plt Count MPV Neut % (Auto) Lymph % (Auto) Armstrong % (Auto) Eos % (Auto) Baso % (Auto) Neut # (Auto) Lymph # (Auto) Armstrong # (Auto) Eos # (Auto) Baso # (Auto) Nucleated RBC % (auto) Nucleated RBCs # PT INR Specimen Type Arterial Sample Site Radial, left ABG pH 7.31 L ABG pCO2 20.5 L ABG pO2 121.0 H ABG HCO3 10.2 L ABG Base Excess -14.7 L Blaise Test Pos Hematocrit 22.5 L O2 Delivery Device Room air Buffing Wheel Presser ID Gd Sodium Potassium Chloride Carbon Dioxide Anion Gap BUN Creatinine GFR Calculation Glucose POC Glucose 422 371 Calculated Osmolality Calcium Total Bilirubin AST ALT Alkaline Phosphatase Total Protein Albumin Globulin Lipase Serum Ketones Blood Type Rho(D) Type Antibody Screen Crossmatch 05/15/20 05/15/20 05/15/20 21:26 21:26 22:09 WBC RBC Hgb 9.1 L Hct 28.0 L MCV MCH MCHC RDW Plt Count MPV Neut % (Auto) Lymph % (Auto) Armstrong % (Auto) Eos % (Auto) Baso % (Auto) Neut # (Auto) Lymph # (Auto) Armstrong # (Auto) Eos # (Auto) Baso # (Auto) Nucleated RBC % (auto) Nucleated RBCs # PT INR Specimen Type Sample Site ABG pH ABG pCO2 ABG pO2 ABG HCO3 ABG Base Excess Blaise Test Hematocrit O2 Delivery Device Buffing Wheel Presser ID Sodium 139 Potassium 4.1 Chloride 102 Carbon Dioxide 20 L Anion Gap 21.1 H BUN 59 H Creatinine 1.3 H GFR Calculation 57.3 L Glucose 360 H POC Glucose 326 Calculated Osmolality 319 H Calcium 8.2 L Total Bilirubin AST ALT Alkaline Phosphatase Total Protein Albumin Globulin Lipase Serum Ketones Blood Type Rho(D) Type Antibody Screen Crossmatch 05/16/20 05/16/20 05/16/20 00:01 00:40 01:30 WBC RBC Hgb Hct MCV MCH MCHC RDW Plt Count MPV Neut % (Auto) Lymph % (Auto) Armstrong % (Auto) Eos % (Auto) Baso % (Auto) Neut # (Auto) Lymph # (Auto) Armstrong # (Auto) Eos # (Auto) Baso # (Auto) Nucleated RBC % (auto) Nucleated RBCs # PT INR Specimen Type Sample Site ABG pH ABG pCO2 ABG pO2 ABG HCO3 ABG Base Excess Blaise Test Hematocrit O2 Delivery Device Buffing Wheel Presser ID Sodium Potassium Chloride Carbon Dioxide Anion Gap BUN Creatinine GFR Calculation Glucose POC Glucose 210 212 150 Calculated Osmolality Calcium Total Bilirubin AST ALT Alkaline Phosphatase Total Protein Albumin Globulin Lipase Serum Ketones Blood Type Rho(D) Type Antibody Screen Crossmatch 05/16/20 05/16/20 05/16/20 02:20 02:20 03:04 WBC RBC Hgb 8.1 L Hct 24.0 L MCV MCH MCHC RDW Plt Count MPV Neut % (Auto) Lymph % (Auto) Armstrong % (Auto) Eos % (Auto) Baso % (Auto) Neut # (Auto) Lymph # (Auto) Armstrong # (Auto) Eos # (Auto) Baso # (Auto) Nucleated RBC % (auto) Nucleated RBCs # PT INR Specimen Type Sample Site ABG pH ABG pCO2 ABG pO2 ABG HCO3 ABG Base Excess Blaise Test Hematocrit O2 Delivery Device Buffing Wheel Presser ID Sodium 139 Potassium 3.8 Chloride 106 Carbon Dioxide 26 Anion Gap 10.8 BUN 68 H Creatinine 1.5 H GFR Calculation 48.6 L Glucose 117 H POC Glucose 121 Calculated Osmolality 309 H Calcium 7.7 L Total Bilirubin 0.6 AST 37 ALT 29 Alkaline Phosphatase 104 Total Protein 5.0 L Albumin 2.4 L Globulin 2.6 Lipase Serum Ketones Blood Type Rho(D) Type Antibody Screen Crossmatch 05/16/20 05/16/20 05/16/20 03:38 04:39 05:22 WBC RBC Hgb Hct MCV MCH MCHC RDW Plt Count MPV Neut % (Auto) Lymph % (Auto) Armstrong % (Auto) Eos % (Auto) Baso % (Auto) Neut # (Auto) Lymph # (Auto) Armstrong # (Auto) Eos # (Auto) Baso # (Auto) Nucleated RBC % (auto) Nucleated RBCs # PT INR Specimen Type Sample Site ABG pH ABG pCO2 ABG pO2 ABG HCO3 ABG Base Excess Blaise Test Hematocrit O2 Delivery Device Buffing Wheel Presser ID Sodium Potassium Chloride Carbon Dioxide Anion Gap BUN Creatinine GFR Calculation Glucose POC Glucose 120 120 126 Calculated Osmolality Calcium Total Bilirubin AST ALT Alkaline Phosphatase Total Protein Albumin Globulin Lipase Serum Ketones Blood Type Rho(D) Type Antibody Screen Crossmatch 05/16/20 05/16/20 05/16/20 06:30 08:11 09:27 WBC 15.2 H RBC 2.68 L Hgb 7.5 L 8.0 L Hct 23.0 L 23.7 L MCV 88.4 D MCH 29.9 MCHC 33.8 D RDW 14.7 Plt Count 90 L MPV 13.5 H Neut % (Auto) 88.1 Lymph % (Auto) 6.1 Armstrong % (Auto) 5.2 Eos % (Auto) 0.0 Baso % (Auto) 0.1 Neut # (Auto) 13.38 H Lymph # (Auto) 0.9 Armstrong # (Auto) 0.8 Eos # (Auto) 0.0 Baso # (Auto) 0.0 Nucleated RBC % (auto) 0 Nucleated RBCs # 0.0 PT INR Specimen Type Sample Site ABG pH ABG pCO2 ABG pO2 ABG HCO3 ABG Base Excess Blaise Test Hematocrit O2 Delivery Device Buffing Wheel Presser ID Sodium Potassium Chloride Carbon Dioxide Anion Gap BUN Creatinine GFR Calculation Glucose POC Glucose 213 Calculated Osmolality Calcium Total Bilirubin AST ALT Alkaline Phosphatase Total Protein Albumin Globulin Lipase Serum Ketones Blood Type Rho(D) Type Antibody Screen Crossmatch Cardiac Studies: No Data to Display
[2020-05-16 12:02] LABS: Glucose Point of Care 256 mg/dL (70-110)
[2020-05-16] MEDS: sodium chloride 0.9% (100 ml) 100 ML 240 ML (12:18)
[2020-05-16 14:07] LABS: Hematocrit 24.5 % (42.0-52.0); Hemoglobin 8.2 g/dL (11.7-16.6)
--- NOTE | 2020-05-16 14:11 | ANE.PACU2 ---
Inpatient post-anesthesia follow up: Airway intact: Yes Vital signs: Temperature 98.1 F Pulse Rate [Monito r] 101 Pulse Rate 100 Respiratory Rate 12 Blood Pressure [Ri ght Arm] 80/48 Blood Pressure 100/73 Pulse Oximetry 98 Oxygen Delivery Me thod [ Room Air Current Rate & Del lashawn] Oxygen Delivery Me thod BiPAP Oxygen Flow Rate 2 Fraction of Inspir ed Oxygen 30 Hydration adequate: Yes Nausea and vomiting: No Pain level: 1 Mental status: Baseline
[2020-05-16 16:53] LABS: Hematocrit 24.2 % (42.0-52.0); Hemoglobin 8.1 g/dL (11.7-16.6)
--- NOTE | 2020-05-16 18:08 | CTR_ITS ---
PROCEDURE INFORMATION: Exam: CT Chest Without Contrast Exam date and time: 05/16/2020 3:00 PM Age: 54 years old Clinical indication: Other: Vomiting blood; Additional info: Concern for recurrent esophageal cancer, vomiting blood TECHNIQUE: Imaging protocol: Computed tomography of the chest without contrast. Radiation optimization: All CT scans at this facility use at least one of these dose optimization techniques: automated exposure control; mA and/or kV adjustment per patient size (includes targeted exams where dose is matched to clinical indication); or iterative reconstruction. COMPARISON: CT pelvis w con* [id number] 01/14/2020 2:17 PM RADIATION DOSE METRICS: Total DLP (mGy-cm): 2025.96 FINDINGS: Tubes, catheters and devices: Right Infusaport catheter. Lungs: No visible active interstitial or alveolar airspace disease. Pleural space: Unremarkable. No pneumothorax. No pleural effusion. Heart: Advanced coronary artery disease. No visible pericardial effusion. No cardiomegaly. Mediastinal space: Diffuse mucosal thickening of the distal 1/3 of the esophagus without visible mass. Aorta: The thoracic aorta is nonaneurysmal. Arteriosclerosis. Lymph nodes: No visible active mediastinal or hilar lymphadenopathy. Bones/joints: Degenerative disease and degenerative disc disease of the spine. Old mild compression deformity T9. Spondylosis deformans. No visible osteolytic or osteoblastic destructive process. Soft tissues: Anasarca. IMPRESSION: 1. Diffuse mucosal thickening of the distal 1/3 of the esophagus without visible focal mass. 2. Advanced coronary artery disease. 3. Other nonurgent, nonemergent, chronic, and age related findings as detailed in text above. PROCEDURE INFORMATION: Exam: CT Abdomen And Pelvis Without Contrast Exam date and time: 05/16/2020 3:00 PM Age: 54 years old Clinical indication: Other: Vomiting blood; Additional info: Concern for recurrent esophageal cancer, vomiting blood TECHNIQUE: Imaging protocol: Computed tomography of the abdomen and pelvis without contrast. Radiation optimization: All CT scans at this facility use at least one of these dose optimization techniques: automated exposure control; mA and/or kV adjustment per patient size (includes targeted exams where dose is matched to clinical indication); or iterative reconstruction. COMPARISON: CT pelvis w con* [id number] 01/14/2020 2:17 PM RADIATION DOSE METRICS: Total DLP (mGy-cm): FINDINGS: Liver: Cirrhosis of the liver. Gallbladder and bile ducts: Cholelithiasis. Findings raising suspicion for acute calculus cholecystitis. No visible intra or extrahepatic biliary ectasia. No visible choledocholithiasis. Pancreas: Advanced atrophy of the pancreas. No visible pancreatic ductal ectasia. Partial fatty replacement of pancreas. Spleen: Splenomegaly. Adrenal glands: Normal. No mass. Kidneys and ureters: Normal. No hydronephrosis. Stomach and bowel: Nonobstructive bowel pattern. No visible evidence for diverticulitis or significant diverticulosis coli. No visible evidence of significant adynamic or reactive ileus. Appendix: The appendix is visualized and appears noninflamed. Intraperitoneal space: No visible intraperitoneal ascites. Evidence of mild diffuse mesenteric edema. Vasculature: The abdominal aorta is nonaneurysmal. Mild arteriosclerosis. Evidence of portal venous hypertension. Lymph nodes: Few marginally prominent periaortic and pericaval retroperitoneal lymph nodes that appear to remain stable since 01/29/2019. Few prominent cori hepatis lymph nodes also stable since last evaluation. Urinary bladder: Unremarkable as visualized. Reproductive: Mild prostate hypertrophy. Bones/joints: Compression screw and intramedullary sree fixation left hip. No visible osteolytic or osteoblastic destructive process. Degenerative disease and degenerative disc disease of the spine most advanced L1/L2, L2/L3, and L5/S1 with vacuum disc phenomenon. Spondylosis deformans. Facet arthrosis. Old mild superior endplate deformity L5. Soft tissues: Bilateral small inguinal hernias containing fat only. Anasarca. CT/CT chest abd pel wo con IMPRESSION: 1. Cholelithiasis. Findings raising suspicion for acute calculus cholecystitis. 2. Cirrhosis of the liver. 3. Splenomegaly. 4. Evidence of portal venous hypertension. 5. Few marginally prominent periaortic and pericaval retroperitoneal as well as cori hepatis lymph nodes that appear reasonably stable since 01/29/2019. 6. Other nonurgent, nonemergent, chronic, and age related findings as detailed in text above. Radiation Dose CTDIVOL = (mGy): DLP = 2025.~ (mGy-cm)
[2020-05-16 18:13] LABS: Glucose Point of Care 238 mg/dL (70-110)
[2020-05-16 20:40] LABS: Glucose Point of Care 237 mg/dL (70-110)
[2020-05-16 21:07] LABS: Hematocrit 22.1 % (42.0-52.0); Hemoglobin 7.4 g/dL (11.7-16.6)
[2020-05-16 23:18] LABS: Hematocrit 21.6 % (42.0-52.0); Hemoglobin 7.1 g/dL (11.7-16.6)
[2020-05-17] VITALS (54 sets, daily range): BP systolic 73–136; BP diastolic 44–77; PULSE 86–105; RESP 8–26; TEMP 36.4–36.9; O2SAT 94–99
[2020-05-17] MEDS: sodium chloride 0.9% (100 ml) 100 ML 50 ML (00:39)
--- NOTE | 2020-05-17 01:47 | PC.NURSE ---
BLOOD Patients hemoglobin came back at 7.1 and hematocrit at 21.6. Per Dr. Hutchinson, transfuse with one unit or PRBC. Patient currently infusing with no issues at this time.
[2020-05-17] MEDS: pantoprazole 40 MG in sodium chloride 0.9% (plus) 100 ML 20 MG IV ×2 (03:15→09:19)
[2020-05-17] MEDS: HYDROmorphone 1 mg/mL INJ 1 mL IVP ×5 (04:08→20:59)
[2020-05-17] MEDS: ondansetron 2 mg/ML SDV 2 mL 4 MG IVP ×3 (04:08→19:11)
[2020-05-17 05:52] LABS: Hematocrit 25.1 % (42.0-52.0); Hemoglobin 8.2 g/dL (11.7-16.6)
[2020-05-17 06:13] LABS: Alanine Aminotransferase 32 U/L (0-41); Albumin Level 2.4 g/dL (3.5-5.2); Alkaline Phosphatase 100 IU/L (40-130); Anion Gap 14.3 (5-19); Aspartate Amino Transferase 49 U/L (0-40); Calcium 7.5 mg/dL (8.5-10.5); Carbon Dioxide 23 mmol/L (22-29); Chloride 101 mmol/L (98-107); Globulin 2.8 g/dL (1.3-4.6); Glucose 117 mg/dL (65-115); Osmolality Calculated 304 mOsm/kg (285-295); Potassium 4.3 mmol/L (3.5-5.1); Sodium 134 mmol/L (136-145); Total Bilirubin 0.9 mg/dL (0.15-1.2); Total Protein 5.2 g/dL (6.6-8.7)
[2020-05-17 06:19] LABS: Blood Urea Nitrogen 83 mg/dL (6-20)
--- NOTE | 2020-05-17 06:37 | PC.NURSE ---
SHIFT SUMMARY Patient has had uneventful night this shift. Patient had 1 unit of PRBC for a hemoglobin of 7.1, now 8.2 post infusion. Patient has had 550 mL urine output. Dilaudid, reglan and zofran given intermittently throughout the night. Patient has slept well most of night. Patient had 1 tarry stool and 4 instances of clear emesis.
[2020-05-17 07:38] LABS: Glucose Point of Care 150 mg/dL (70-110)
[2020-05-17] MEDS: sodium chloride 0.9% 1,000 ML 125 ML IV ×2 (09:16→16:52)
[2020-05-17] MEDS: metoclopramide 5 mg/mL SDV 2 mL 10 MG IVP ×2 (09:19→20:30)
[2020-05-17] MEDS: prochlorperazine 10 mg Tablet PO ×3 (09:27→22:31)
--- NOTE | 2020-05-17 10:00 | PM.PN ---
Subjective Subjective: Interval history: overnight received one unit transfusion, Hb stable at 7.4, remains off levophed. CT CAP done last evening, non specific thickening lower esophagus, incidental cholecytistis, patient denies pain RUQ but with significant nausea and ry heaves Medications: Reviewed: Yes Vitals/I&O/Wt Last Vital Signs Temp 98.1 F 05/17/20 07:00 Pulse 89 05/17/20 14:00 Resp 16 05/17/20 14:00 BP 108/61 05/17/20 14:00 Pulse Ox 97 05/17/20 14:00 05/17/20 05/17/20 05/17/20 06:59 14:59 22:59 Intake Total 810 / 3965.787 2680 / 2680 Output Total 550 / 700 800 / 800 Balance 260 / 3265.787 1880 / 1880 Weight last 48 hrs Weight 91.308 kg Weight 91.58 kg Physical Exam Narrative: EXAM NARRATIVE: GEN: Awake, alert and oriented, no acute distress CVS: S1S2 N RS: CTA B/L Abd: Soft, nt/nd , bs+ 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 Data : 05/17/20 15:07 05/17/20 04:00 A&P Assessment and plan (1) Acute upper GI bleed: Status: Acute (2) Hemorrhagic shock: Status: Acute (3) DKA (diabetic ketoacidoses): Status: Acute Qualifiers: Diabetes mellitus complication detail: without coma Diabetes mellitus type: type 2 Qualified Code(s): E11.10 - Type 2 diabetes mellitus with ketoacidosis without coma (4) Adenocarcinoma of esophagus: Status: Acute (5) Dysphagia: Status: Acute Qualifiers: Dysphagia type: unspecified Qualified Code(s): R13.10 - Dysphagia, unspecified Additional A&P Information #Acute upper GI bleed Hemoglobin stable at 7.4. One unit transfused overnight, overall 4 since admission remains off levophed UGIE with esophagitis, no overt bleeding hematemesis resolved, but continues with nausea and vomiting, however wishes to try liquid diet today Octreotide discontinued, change protonix to 40 iv q12h # Incidental cholecytitis, NO RUQ pain, ordered HIDA scan for further eval #hemorrhagic shock due to above #Diabetic ketoacidosis: resolved, currently FS well controlled #Acute kidney injury: Likely as a result of volume loss and dehydration, Cr increasing to 1.9, however urine output 1.3L, continue to monitor #Adenocarcinoma of esophagus, last known to be PREET Full code DVt ppx: scds only Attestations Medical Necessity Statement*: close monitoring HB, rising cr, cholecystitis on CT, needs HIDA for further eval Coding Level of Care Code Acute Phd Internship for Chg Fwd Diagnoses Acute upper GI bleed K92.2 Hemorrhagic shock R57.8 DKA (diabetic ketoacidoses) E11.10 Diabetes mellitus complication detail: without coma Diabetes mellitus type: type 2 Adenocarcinoma of esophagus C15.9 Dysphagia R13.10 Dysphagia type: unspecified
[2020-05-17 10:36] LABS: Basophils % 0.2 %; Hemoglobin 7.8 g/dL (11.7-16.6); Lymphocytes # 0.6 10^3/uL (0.8-4.8); Lymphocytes % 11.9 %; Mean Corpuscular HGB Conc 32.5 g/dL (30.0-36.0); Mean Corpuscular Hemoglobin 29.1 pg (28.0-34.0); Mean Corpuscular Volume 89.6 fL (80-94); Mean Platelet Volume 12.9 fL (7.4-10.4); Monocytes # 0.4 10^3/uL (0.2-0.9); Neutrophils # 3.76 10^3/uL (1.8-7.7); Neutrophils % 78.7 %; Nucleated Red Blood Cells % 0 %; Platelet Count 57 10^3/cmm (130-400); Red Blood Count 2.68 10^6/uL (4.1-5.3); Red Cell Distribution Width 15.8 % (12.1-15.1); White Blood Count 4.8 10^3/uL (4.0-10.0)
[2020-05-17 12:48] LABS: Glucose Point of Care 157 mg/dL (70-110)
--- NOTE | 2020-05-17 13:47 | ANE.PACU2 ---
Inpatient post-anesthesia follow up: Airway intact: Yes Vital signs: Temperature 98.1 F Pulse Rate [Monito r] 101 Pulse Rate 100 Respiratory Rate 22 Blood Pressure [Ri ght Arm] 80/48 Blood Pressure 100/73 Pulse Oximetry 98 Oxygen Delivery Me thod [ Room Air Current Rate & Del lashawn] Oxygen Delivery Me thod BiPAP Oxygen Flow Rate 2 Fraction of Inspir ed Oxygen 30 Hydration adequate: Yes Nausea and vomiting: No Pain level: 2 Mental status: Baseline
[2020-05-17 15:32] LABS: Hematocrit 22.8 % (42.0-52.0); Hemoglobin 7.4 g/dL (11.7-16.6)
[2020-05-17] MEDS: pantoprazole 40 mg SDV IVP (17:02)
[2020-05-17 19:20] LABS: Hematocrit 23.6 % (42.0-52.0); Hemoglobin 7.7 g/dL (11.7-16.6)
[2020-05-17 20:19] LABS: Glucose Point of Care 156 mg/dL (70-110)
[2020-05-17 20:53] LABS: Glucose Point of Care 134 mg/dL (70-110)
[2020-05-17 23:16] LABS: Hematocrit 22.1 % (42.0-52.0); Hemoglobin 7.3 g/dL (11.7-16.6)
[2020-05-18] VITALS (30 sets, daily range): BP systolic 82–149; BP diastolic 60–94; PULSE 77–93; RESP 12–24; TEMP 36.4–37.1; O2SAT 96–100
--- NOTE | 2020-05-18 | PC.NURSE ---
NPO pt made NPO at this time. Educated on status, verbalized understanding.
[2020-05-18] MEDS: sodium chloride 0.9% 1,000 ML 125 ML IV ×2 (00:45→13:46)
[2020-05-18] MEDS: ondansetron 2 mg/ML SDV 2 mL 4 MG IVP ×3 (01:15→15:21)
[2020-05-18 03:44] LABS: Eosinophils % 0.9 %; Hematocrit 21.9 % (42.0-52.0); Hemoglobin 7.1 g/dL (11.7-16.6); Lymphocytes # 0.5 10^3/uL (0.8-4.8); Lymphocytes % 23.3 %; Mean Corpuscular HGB Conc 32.4 g/dL (30.0-36.0); Mean Corpuscular Hemoglobin 28.9 pg (28.0-34.0); Mean Platelet Volume 12.7 fL (7.4-10.4); Monocytes # 0.3 10^3/uL (0.2-0.9); Monocytes % 14.3 %; Neutrophils # 1.36 10^3/uL (1.8-7.7); Neutrophils % 61.1 %; Nucleated Red Blood Cells % 0 %; Platelet Count 56 10^3/cmm (130-400); Red Blood Count 2.46 10^6/uL (4.1-5.3); Red Cell Distribution Width 15.4 % (12.1-15.1); White Blood Count 2.2 10^3/uL (4.0-10.0)
[2020-05-18 04:07] LABS: Alanine Aminotransferase 29 U/L (0-41); Albumin Level 2.3 g/dL (3.5-5.2); Alkaline Phosphatase 98 IU/L (40-130); Anion Gap 9.2 (5-19); Aspartate Amino Transferase 51 U/L (0-40); Blood Urea Nitrogen 45 mg/dL (6-20); Calcium 7.4 mg/dL (8.5-10.5); Carbon Dioxide 26 mmol/L (22-29); Chloride 107 mmol/L (98-107); Globulin 2.4 g/dL (1.3-4.6); Glomerular Filtration Rate 62.9 mL/min (90-130); Glucose 176 mg/dL (65-115); Osmolality Calculated 302 mOsm/kg (285-295); Potassium 4.2 mmol/L (3.5-5.1); Sodium 138 mmol/L (136-145); Total Bilirubin 0.6 mg/dL (0.15-1.2); Total Protein 4.7 g/dL (6.6-8.7)
[2020-05-18] MEDS: pantoprazole 40 mg SDV IVP ×2 (04:48→17:32)
--- NOTE | 2020-05-18 06:53 | PC.NURSE ---
Pt transported to [facility] by wheelchair at this time.
--- NOTE | 2020-05-18 07:00 | NM_ITS ---
WS: [id number] NUCLEAR MEDICINE HIDA SCAN CLINICAL INFORMATION: cholecystitis TECHNIQUE: Following intravenous administration of 8.3 mCi of technetium 99m mebrofenin, images of th e abdomen were obtained over the course of 60 minutes. Next, gallbladder ejection fraction was determ ined by obtaining preprandial and one-hour postprandial images of the gallbladder following oral barbara stion of Ensure. COMPARISON: None. FINDINGS: Hepatomegaly. Cirrhosis. Normal hepatic uptake at 5 minutes. Delayed hepatic excretion likely due to hepatocellular disease. H epatic retention at 60 minutes. Hepatic excretion 120 minutes with common bile duct visualization. Ga llbladder is visualized by approximately 60 minutes. No evidence of acute cholecystitis. Gallbladder ejection fraction 90% within normal limits. No evidence of chronic cholecystitis. Normal small bowel activity. NM/NM hepatobiliary w phar* [id number] IMPRESSION: 1. No evidence of acute or chronic cholecystitis. 2. Normal gallbladder ejection fraction 90% within normal limits. 3. Hepatic retention with delayed excretion presumably due to hepatocellular d isease. Hepatic excretion is normal at 2 hours. 4. Normal small bowel and common bile duct activity visualized.
[2020-05-18 09:13] LABS: Glucose Point of Care 179 mg/dL (70-110)
[2020-05-18] MEDS: metoclopramide 5 mg/mL SDV 2 mL 10 MG IVP ×2 (11:02→17:33)
[2020-05-18] MEDS: HYDROmorphone 1 mg/mL INJ 1 mL IVP ×3 (11:02→19:59)
[2020-05-18] MEDS: citalopram 20 mg Tablet PO (11:05)
[2020-05-18 11:40] LABS: Glucose Point of Care 318 mg/dL (70-110)
--- NOTE | 2020-05-18 13:27 | P.PN_ITS ---
Subjective Subjective: Interval history: Today he is having multiple episodes of diarrhea. Denies abdominal pain at rest. No vomiting. Denies any shortness of breath. No chest pain. Vitals/I&O/Wt Last Vital Signs Temp 97.8 F 05/18/20 08:57 Pulse 90 05/18/20 12:02 Resp 17 05/18/20 12:02 BP 102/70 05/18/20 10:00 Pulse Ox 98 05/18/20 12:02 05/17/20 05/18/20 05/18/20 22:59 06:59 14:59 Intake Total 2050 / 4730 1225.417 / 5955.417 1000 / 1000 Output Total 750 / 1550 1575 / 3125 Balance 1300 / 3180 -349.583 / 2830.417 1000 / 1000 Weight last 48 hrs Weight 91.308 kg Physical Exam Const: COMMON NORMALS: no acute distress, patient oriented x3 and alert GENERAL APPEARANCE: cooperative ORIENTATION/CONSCIOUSNESS: Yes awake HENMT: COMMON NORMALS: oropharynx normal Neck/C-Spine: COMMON NORMALS: no JVD Resp: COMMON NORMALS: normal respiratory effort and clear to auscultation bilaterally AUSCULTATION: clear to auscultation bilaterally Cardio: COMMON NORMALS: no JVD, regular rhythm, S1 normal heart sound present, S2 normal heart sound present and No murmurs present (Cardio) RHYTHM: regular rhythm HEART SOUNDS: S1 normal heart sound present and S2 normal heart sound present GI: COMMON NORMALS: Normal to inspection, nondistended, normoactive bowel sounds present and Soft to palpation PALPATION: Yes Soft to palpation and Yes Tenderness to palpation present (GI) (Mild tenderness upper abdomen) Extremity: COMMON NORMALS: no joint enlargement GENERAL: Yes edema (Minimal edema, 1+) Neuro: COMMON NORMALS: patient oriented x3 and moves all extremities SENSORIUM/ORIENTATION: Yes alert Skin: COMMON NORMALS: no rashes or lesions noted GENERAL SKIN EXAM: no rashes or lesions noted Data : 05/18/20 03:20 05/18/20 03:20 A&P Assessment and plan (1) Acute upper GI bleed: This appears to of subsided. Hemoglobin fairly stable, but with slow downtrend. Today down to 7.1. Discussed with surgery. Requested for additional 2 units PRBC. Per discussion appears did not respond optimally previously been given only 1 unit. Monitor cell counts. Cont PPI. Add sucralfate. Severe esophagitis on EGD. Status: Acute (2) Hemorrhagic shock: Resolved. He has not been needing any further pressor support. Has been pending transfer to general medical floor, staying in ICU for now as overflow. Status: Acute (3) Pancytopenia: Noted pancytopenia, platelet down to 56,000. Absolute neutrophil count 1360. Not on any heparin products. Today is having diarrhea. Stool studies requested. Peripheral smear. Discussed with pharmacy, will review medication list for any obvious culprits. Status: Acute (4) DKA (diabetic ketoacidoses): Resolved. BG coulf be better. Will confirm how much detemir he takes. Start Lantus. Monitor glucose. Cont sliding scale. Start Lantus. At home takes detemir 60 units twice daily. Will decrease for no w, Lantus 40 units twice a day. Status: Acute Qualifiers: Diabetes mellitus complication detail: without coma Diabetes mellitus type: type 2 Qualified Code(s): E11.10 - Type 2 diabetes mellitus with ketoacid osis without coma (5) Adenocarcinoma of esophagus: Status: Acute (6) Dysphagia: Status: Acute Qualifiers: Dysphagia type: unspecified Qualified Code(s): R13.10 - Dysphagia, unspecified (7) Diarrhea: Multiple bowel meds today. Check C. difficile, check bacterial culture. Parasites less likely, but will check as well. With thrombocytopenia/pancytopenia. Will check peripheral smear. Status: Acute Additional A&P Information # Incidental cholecytitis on CT. No cholecystitis on HIDA scan. Trial of diet. Low-cholesterol. #Acute kidney injury: Better. Cr 1.2. Likely as a result of volume loss and dehydration. #Adenocarcinoma of esophagus, last known to be PREET Full code DVt ppx: scds only Attestations Medical Necessity Statement*: Continue admission for assessment and management of acute blood loss anemia, GI bleeding, pancytopenia, diarrhea, optimization of management diabetes. 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
[2020-05-18] MEDS: sodium chloride 0.9% (100 ml) 100 ML 10 ML (16:14)
[2020-05-18 17:18] LABS: Glucose Point of Care 293 mg/dL (70-110)
[2020-05-18 17:18] LABS: Glucose Point of Care 159 mg/dL (70-110)
[2020-05-18] MEDS: sucralfate 1 gm/10 mL Oral Liq UDC PO ×2 (17:32→22:15)
[2020-05-18 18:13] LABS: LAB Peripheral Smear Sent for Review
[2020-05-18 21:30] LABS: Glucose Point of Care 122 mg/dL (70-110)
[2020-05-18] MEDS: insulin glargine 100 units/1 mL 40 UNIT SUBCUT (22:16)
[2020-05-18] MEDS: ondansetron 4 MG Tablet 2 MG PO (22:38)
[2020-05-19] VITALS (13 sets, daily range): BP systolic 97–122; BP diastolic 58–76; PULSE 77–89; RESP 16–20; TEMP 36.3–36.7; O2SAT 98–100
[2020-05-19] MEDS: HYDROmorphone 1 mg/mL INJ 1 mL IVP ×6 (00:15→21:45)
[2020-05-19] MEDS: sodium chloride 0.9% (100 ml) 100 ML (00:16)
[2020-05-19] MEDS: ondansetron 2 mg/ML SDV 2 mL 4 MG IVP ×4 (02:16→21:46)
[2020-05-19] MEDS: sodium chloride 0.9% 1,000 ML 125 ML IV ×2 (03:11→08:25)
[2020-05-19] MEDS: pantoprazole 40 mg SDV IVP ×2 (05:06→17:29)
[2020-05-19 05:24] LABS: Basophils % 0.4 %; Eosinophils % 1.5 %; Hematocrit 27.6 % (42.0-52.0); Hemoglobin 8.9 g/dL (11.7-16.6); Lymphocytes # 0.5 10^3/uL (0.8-4.8); Lymphocytes % 20.1 %; Mean Corpuscular HGB Conc 32.2 g/dL (30.0-36.0); Mean Corpuscular Volume 89.9 fL (80-94); Mean Platelet Volume 12.4 fL (7.4-10.4); Monocytes # 0.4 10^3/uL (0.2-0.9); Monocytes % 14.1 %; Neutrophils # 1.71 10^3/uL (1.8-7.7); Neutrophils % 63.5 %; Nucleated Red Blood Cells % 0 %; Platelet Count 62 10^3/cmm (130-400); Red Blood Count 3.07 10^6/uL (4.1-5.3); Red Cell Distribution Width 15.4 % (12.1-15.1); White Blood Count 2.7 10^3/uL (4.0-10.0)
[2020-05-19 05:55] LABS: Alanine Aminotransferase 31 U/L (0-41); Albumin Level 2.4 g/dL (3.5-5.2); Alkaline Phosphatase 114 IU/L (40-130); Aspartate Amino Transferase 44 U/L (0-40); Blood Urea Nitrogen 28 mg/dL (6-20); Calcium 7.6 mg/dL (8.5-10.5); Carbon Dioxide 24 mmol/L (22-29); Chloride 109 mmol/L (98-107); Globulin 2.5 g/dL (1.3-4.6); Glomerular Filtration Rate 87.6 mL/min (90-130); Glucose 85 mg/dL (65-115); Osmolality Calculated 289 mOsm/kg (285-295); Sodium 137 mmol/L (136-145); Total Bilirubin 1.3 mg/dL (0.15-1.2); Total Protein 4.9 g/dL (6.6-8.7)
[2020-05-19 07:09] LABS: Glucose Point of Care 123 mg/dL (70-110)
[2020-05-19] MEDS: sucralfate 1 gm/10 mL Oral Liq UDC PO ×4 (08:20→21:16)
[2020-05-19] MEDS: citalopram 20 mg Tablet PO (08:23)
[2020-05-19 10:53] LABS: Glucose Point of Care 159 mg/dL (70-110)
--- NOTE | 2020-05-19 14:24 | PM.DCS ---
Discharge Providers Date of Admission: 05/15/20 17:33 Date of Discharge: May 20, 2020 Attending Provider at Admission: Iasbelle Castellon MD Attending Provider at Discharge: Sandy Shannon MD Consults: General surgery Primary Care Provider: Casimiro Sommers Diagnoses at Discharge Discharge Diagnosis (1) Acute upper GI bleed: Status: Acute Permanent problem details: -s/p 4 units PRBCs -no active bleeding currently -Hg appears to be stable -s/p endoscopy with noted severe esophagitis -on PPI and carafate (2) Hemorrhagic shock: Status: Resolved Permanent problem details: -VSS -off pressor support, IVF (3) Pancytopenia: Status: Chronic Permanent problem details: -has been noted in the past -peripheral smear pending (4) DKA (diabetic ketoacidoses): Status: Resolved Permanent problem details: -A1c-9.3 (01/2020) -off insulin drip, on SC insulin -BG appropriate Qualifiers: Diabetes mellitus complication detail: without coma Diabetes mellitus type: type 2 Qualified Code(s): E11.10 - Type 2 diabetes mellitus with ketoacidosis without coma (5) Adenocarcinoma of esophagus: Status: Chronic Permanent problem details: -s/p chemoradiation (04/2019) -continue to follow up with oncology Dr. 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 No evidence of disease occurrence on endoscopy and no focal mass on CT Qualifiers: Dysphagia type: unspecified Qualified Code(s): R13.10 - Dysphagia, unspecified (7) Diarrhea: Status: Acute Permanent problem details: -negative stool studies -tolerating oral intake without difficulty Qualifiers: Diarrhea type: unspecified type Qualified Code(s): R19.7 - Diarrhea, unspecified Other Information Additional DC diagnoses/information: -concern for cholecystitis on CT, no acute or chronic cholecystitis per HIDA scan. Tolerating diet without difficulty -LISA resolved; Cr wnl Reason for Visit Reason for Visit: VOMITING BLOOD Hospital Course Hospital Course Patient was initially admitted to ICU due to noted hematemesis and concern for further acute upper GI bleeding as well as hypotension indicating hemorrhagic shock requiring close monitoring of hemodynamic status and aggressive IV fluid hydration. He received 2 units of PRBCs initially and general surgery was consulted for endoscopic evaluation. He was also found to have DKA with close monitoring of his blood glucose and insulin drip was initiated. He was noted to have severe esophagitis on endoscopy and did require transfusion of further blood products due to noted acutely worsening anemia. Hemoglobin seems to be at his current baseline between 8-9. He is pancytopenic, with need for continued monitoring of platelet count as well as hemoglobin is already mentioned. He did require Levophed support though this was quickly weaned off. Following closure of his anion gap he was bridged to subcutaneous insulin and blood glucose has remained stable. His insulin regimen has been titrated accordingly by his blood glucose levels. He was noted to have diffuse mucosal thickening of the distal one third of his esophagus though no focal mass. He follows up with Dr. Ocampo and is currently off chemotherapy and radiation as of April 2019. He does have noted moderate cirrhosis and splenomegaly. He did have a HIDA scan done due to some concern for possible cholecystitis; this was negative for acute or chronic cholecystitis. He is tolerating oral intake without difficulty, hemodynamically stable even following discontinuation of IV fluids. He has been on Protonix and Carafate was added following endoscopic evaluation; both of which he will need to continue on discharge. He has had multiple episodes of loose stool, stool studies have been negative. He will require close follow-up with his primary care provider including continued monitoring of his cell lines. He is to continue to monitor himself for further bleeding episodes and counseled on need to seek medical attention immediately. Given his underlying comorbidities he is at risk for further bleeding episodes and may require readmission in the future. He will need continued appropriate follow-up with oncology. Physical Exam Const: COMMON NORMALS: no acute distress and patient oriented x3 GENERAL APPEARANCE: cooperative and comfortable ORIENTATION/CONSCIOUSNESS: Yes awake HENMT: COMMON NORMALS: normocephalic, atraumatic, hearing grossly normal bilaterally and moist oral mucous membranes HEAD & SCALP: normocephalic and atraumatic Eye: COMMON NORMALS: Equal, round and reactive pupils present, EOMs intact bilaterally and conjunctivae normal CONJUNCTIVA: Yes conjunctivae normal PUPIL: Yes Equal, round and reactive pupils present Neck/C-Spine: COMMON NORMALS: full ROM GENERAL: Yes normal visual inspection and Yes trachea midline Resp: COMMON NORMALS: normal respiratory effort, No retractions, No use of accessory muscles and clear to auscultation bilaterally EFFORT & INSPECTION: Yes able to speak in complete sentences, Yes symmetric chest movement and No tachypneic AUSCULTATION: clear to auscultation bilaterally Cardio: COMMON NORMALS: regular rate, regular rhythm, S1 normal heart sound present, S2 normal heart sound present and No murmurs present (Cardio) RATE: regular rate RHYTHM: regular rhythm HEART SOUNDS: S1 normal heart sound present and S2 normal heart sound present GI: COMMON NORMALS: Normal to inspection, nondistended, normoactive bowel sounds present, Soft to palpation and non-tender PALPATION: Yes Soft to palpation Extremity: COMMON NORMALS: normal to inspection, full ROM and no clubbing, cyanosis or edema; negative for no pedal edema Neuro: COMMON NORMALS: patient oriented x3, moves all extremities, no focal motor deficits, no sensory deficits noted and gait normal Psych: COMMON NORMALS: mental status grossly normal, Normal thought process present, cooperative, normal affect and speech normal SPEECH: Yes normal speech THOUGHT PROCESS: Normal thought process present Skin: COMMON NORMALS: no rashes or lesions noted, no jaundice, no petechiae and no mottling GENERAL SKIN EXAM: no rashes or lesions noted Discharge Data Data Completed and Pending: Completed Studies During Hospitalization Category Date Time Status CT chest abd pel wo con Routine Cat Scan 05/16/20 18:08 Completed NM hepatobiliary w phar* [id number] Urge nt Nuc Med 05/18/20 07:00 Completed Pending at discharge Category Date Time Status Complete Blood Co unt w/Auto AM LABS Lab 05/20/20 04:00 Ordered Complete Blood Co unt w/Auto AM LABS Lab 05/21/20 04:00 Ordered Comprehensive Met abolic Panel AM LA BS Lab 05/20/20 04:00 Ordered Comprehensive Met abolic Panel AM LA BS Lab 05/21/20 04:00 Ordered Labs from last 24 hours 05/19/20 05/19/20 05/19/20 10:43 06:53 04:59 WBC RBC Hgb Hct MCV MCH MCHC RDW Plt Count MPV Neut % (Auto) Lymph % (Auto) Rowan % (Auto) Eos % (Auto) Baso % (Auto) Neut # (Auto) Lymph # (Auto) Rowan # (Auto) Eos # (Auto) Baso # (Auto) Nucleated RBC % (a uto) Nucleated RBCs # Sodium 137 Potassium 4.0 Chloride 109 H Carbon Dioxide 24 Anion Gap 8.0 BUN 28 H Creatinine 0.9 GFR Calculation 87.6 L Glucose 85 POC Glucose 159 123 Calculated Osmolal ity 289 Calcium 7.6 L Total Bilirubin 1.3 H AST 44 H ALT 31 Alkaline Phosphata se 114 Total Protein 4.9 L Albumin 2.4 L Globulin 2.5 Blood Type Rho(D) Type Antibody Screen Crossmatch 05/19/20 05/18/20 05/18/20 04:59 21:14 17:13 WBC 2.7 L RBC 3.07 L Hgb 8.9 L Hct 27.6 L MCV 89.9 MCH 29.0 MCHC 32.2 RDW 15.4 H Plt Count 62 L MPV 12.4 H Neut % (Auto) 63.5 Lymph % (Auto) 20.1 Rowan % (Auto) 14.1 Eos % (Auto) 1.5 Baso % (Auto) 0.4 Neut # (Auto) 1.71 L Lymph # (Auto) 0.5 L Rowan # (Auto) 0.4 Eos # (Auto) 0.0 Baso # (Auto) 0.0 Nucleated RBC % (a uto) 0 Nucleated RBCs # 0.0 Sodium Potassium Chloride Carbon Dioxide Anion Gap BUN Creatinine GFR Calculation Glucose POC Glucose 122 159 Calculated Osmolal ity Calcium Total Bilirubin AST ALT Alkaline Phosphata se Total Protein Albumin Globulin Blood Type Rho(D) Type Antibody Screen Crossmatch 05/18/20 05/15/20 12:33 16:30 WBC RBC Hgb Hct MCV MCH MCHC RDW Plt Count MPV Neut % (Auto) Lymph % (Auto) Rowan % (Auto) Eos % (Auto) Baso % (Auto) Neut # (Auto) Lymph # (Auto) Rowan # (Auto) Eos # (Auto) Baso # (Auto) Nucleated RBC % (a uto) Nucleated RBCs # Sodium Potassium Chloride Carbon Dioxide Anion Gap BUN Creatinine GFR Calculation Glucose POC Glucose 293 Calculated Osmolal ity Calcium Total Bilirubin AST ALT Alkaline Phosphata se Total Protein Albumin Globulin Blood Type O Positive Rho(D) Type Positive Antibody Screen Negative Crossmatch See Detail Vitals: Last Vital Signs Temp 97.6 F 05/19/20 11:17 Pulse 77 05/19/20 11:17 Resp 16 05/19/20 13:00 BP 106/67 05/19/20 11:17 Pulse Ox 99 05/19/20 11:17 Discharge Plan Discharge Patient Disposition: Home Condition: Stable Prescriptions: New Carafate 1 gram tablet 1 g PO BID 28 Days Qty: 56 RF: 0 Zofran 4 mg tablet 4 mg PO Q8H PRN (Reason: nausea and vomiting) 5 Days Qty: 15 RF: 0 Anti-Diarrheal (loperamide) 2 mg tablet 2 mg PO Q4H PRN (Reason: loose stool) Qty: 30 RF: 0 Continued citalopram [Celexa] 20 mg tablet 20 mg PO DAILY RF: 0 dronabinol [Marinol] 10 mg capsule 5 mg PO BID PRN (Reason: appetite/nausea) RF: 0 Mavyret 100-40 mg Tablet 1 tab PO DAILY RF: 0 oxycodone 10 mg tablet 10 mg PO Q6H PRN (Reason: pain) Qty: 28 RF: 0 Changed Protonix 40 mg tablet,delayed release (DR/EC) 40 mg PO BID Qty: 60 RF: 0 Levemir U-100 Insulin 100 unit/mL solution 40 unit SUBCUT BID Qty: 10 RF: 0 Discharge Orders: Discharge Order (Routine); Ordered 05/20/20 Ordered By: Sandy Shannon Referrals: Casimiro Sommers [Primary Care Provider] - 4-7 days (Will need follow up labs to continue to monitor cell lines with noted pancytopenia) Discharge Diet: Diabetic Discharge Activity: Increase activity as tolerated Patient Instructions: Diarrhea - Adult, Sucralfate (By mouth), Gastrointestinal Bleeding (DC) Activity Restrictions/Additional Instructions: -Please continue to follow up with Dr. Ocampo as scheduled For information on in-home services for a caregiver, please contact [facility] at [phone]/ Discharge Attestations Time Spent in Discharge Care*: greater than 30 min Specific Discharge Activities: educating patient, discussing with clinical case manager/social workers/dc planners, documenting/other paperwork and evaluating patient/reviewing data Status at Discharge: Cognitive status at discharge: cognitively intact, Behavioral status at discharge: cooperative, Overall status at discharge: patient is progressing back to baseline Quality Metrics Clinical Quality Measures During this hospital stay, did patient experience: None Coding Level of Care Code 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
--- NOTE | 2020-05-19 14:52 | PM.PN ---
Subjective Subjective: Interval history: Patient seen in the hallway, seems to be in good spirits, no complaints, states that he continues to have multiple bowel movements still seem to be softer and not quite as loose as yesterday. Is tolerating oral intake without difficulty. Has had some dizziness particularly when changing position but was able to take a shower earlier this afternoon. Vital signs stable. Hemoglobin stable as well and noted improvement in renal function. Discussed possibility of discharge home tomorrow which he is agreeable to. Medications: Reviewed: Yes Medication Review Details: Active Medications Generic Name Dose Route Start Last Admin Trade Name Freq PRN Reason Stop Dose Admin Citalopram Hydrobr omide 20 mg 05/18/20 09:00 05/19/20 08:23 Citalopram 20 Mg Tablet PO 20 mg DAILY MAHNZA Administration Dextrose 25 ml 05/15/20 17:17 D50w IVP ONCE PRN hypoglycemia prot ocol Protocol Dextrose 50 ml 05/15/20 17:17 D50w IVP PRN PRN hypoglycemia prot ocol Protocol Dextrose 25 ml 05/16/20 05:54 Dextrose 50% Syr barbara 50 Ml IVP ONCE PRN hypoglycemia prot ocol Protocol Dextrose 50 ml 05/16/20 05:54 Dextrose 50% Syr barbara 50 Ml IVP PRN PRN hypoglycemia prot ocol Protocol Glucagon 1 mg 05/15/20 17:17 Glucagen IM ONCE PRN Adult Acute Hypog lycemia Prot Protocol Glucagon 1 mg 05/16/20 05:54 Glucagon 1 Mg/Ml Inj 1 Ml IM ONCE PRN Adult Acute Hypog lycemia Prot. Protocol Hydromorphone HCl 1 mg 05/15/20 18:47 05/19/20 13:00 Hydromorphone 1 Mg/Ml Inj 1 Ml IVP 1 mg Q4H PRN Administration pain Dextrose 500 mls @ 100 mls /hr 05/15/20 17:17 D5w IV ONCE PRN Adult Acute Hypog lycemia Prot Protocol Dextrose 500 mls @ 100 mls /hr 05/16/20 05:54 D5w IV ONCE PRN Adult Acute Hypog lycemia Prot Protocol Sodium Chloride 1,000 mls @ 125 m ls/hr 05/16/20 09:15 05/19/20 08:25 Sodium Chloride 0.9% IV 125 mls/hr .Q8H MAHNAZ Administration Insulin Aspart 0 unit 05/16/20 08:00 05/19/20 11:05 Insulin Aspart 1 00 Unit/1 Ml SUBCUT 2 unit WM&BEDTIME MAHNAZ Administration Protocol Insulin Glargine 40 unit 05/18/20 21:00 05/19/20 08:23 Insulin Glargine 100 Units/1 Ml SUBCUT Not Given Q12H MAHNAZ Metoclopramide HCl 10 mg 05/16/20 08:47 05/18/20 17:33 Metoclopramide 5 Mg/Ml Sdv 2 Ml IVP 10 mg Q6H PRN Administration NAUSEA AND VOMITI NG Ondansetron HCl 4 mg 05/15/20 18:08 05/19/20 09:29 Zofran IVP 4 mg Q6H PRN Administration NAUSEA AND VOMITI NG Pantoprazole Sodiu m 40 mg 05/17/20 17:00 05/19/20 05:06 Pantoprazole 40 Mg Sdv IVP 40 mg Q12H MAHNAZ Administration Sucralfate 1 gm 05/18/20 17:00 05/19/20 10:59 Sucralfate 1 Gm/ 10 Ml Oral Liq Udc PO 1 gm AC&BEDTIME MAHNAZ Administration No Known Allergies Allergy (Verified 01/14/20 10:18) Vitals/I&O/Wt Last Vital Signs Temp 97.6 F 05/19/20 11:17 Pulse 77 05/19/20 11:17 Resp 16 05/19/20 13:00 BP 106/67 05/19/20 11:17 Pulse Ox 99 05/19/20 11:17 05/18/20 05/19/20 05/19/20 22:59 06:59 14:59 Intake Total 1590 / 2590 350 / 2940 1014.167 / 1014.167 Output Total 550 / 550 Balance 1590 / 2387 350 / 2737 464.167 / 464.167 Weight last 48 hrs Weight 97.239 kg Physical Exam Const: COMMON NORMALS: no acute distress and patient oriented x3 GENERAL APPEARANCE: cooperative and comfortable ORIENTATION/CONSCIOUSNESS: Yes awake HENMT: COMMON NORMALS: normocephalic, atraumatic, hearing grossly normal bilaterally and moist oral mucous membranes HEAD & SCALP: normocephalic and atraumatic Eye: COMMON NORMALS: Equal, round and reactive pupils present, EOMs intact bilaterally and conjunctivae normal CONJUNCTIVA: Yes conjunctivae normal PUPIL: Yes Equal, round and reactive pupils present Neck/C-Spine: COMMON NORMALS: full ROM GENERAL: Yes normal visual inspection and Yes trachea midline Chest: CHEST: Yes Vascular access present (Port-A-Cath in place) Resp: COMMON NORMALS: normal respiratory effort, No retractions, No use of accessory muscles and clear to auscultation bilaterally EFFORT & INSPECTION: Yes able to speak in complete sentences, Yes symmetric chest movement and No tachypneic AUSCULTATION: clear to auscultation bilaterally OTHER: -on RA Cardio: COMMON NORMALS: regular rate, regular rhythm, S1 normal heart sound present, S2 normal heart sound present and No murmurs present (Cardio) RATE: regular rate RHYTHM: regular rhythm HEART SOUNDS: S1 normal heart sound present and S2 normal heart sound present GI: COMMON NORMALS: Normal to inspection, nondistended, normoactive bowel sounds present, Soft to palpation and non-tender INSPECTION: Yes central obesity PALPATION: Yes Soft to palpation Extremity: COMMON NORMALS: normal to inspection, full ROM and no clubbing, cyanosis or edema; negative for no pedal edema Neuro: COMMON NORMALS: patient oriented x3, moves all extremities, no focal motor deficits, no sensory deficits noted and gait normal Psych: COMMON NORMALS: mental status grossly normal, Normal thought process present, cooperative, normal affect and speech normal SPEECH: Yes normal speech THOUGHT PROCESS: Normal thought process present Skin: COMMON NORMALS: no rashes or lesions noted, no jaundice, no petechiae and no mottling GENERAL SKIN EXAM: no rashes or lesions noted Data : 05/19/20 04:59 05/19/20 04:59 Micro: Microbiology 05/18/20 11:10 Parasite Antigen Panel - Final Stool - Stool Aspirate 05/18/20 11:10 Enteric Pathogens (PCR) - Final Stool 05/18/20 11:10 C.difficile Toxin B Gene (PCR) - Final Stool A&P Assessment and plan (1) Esophagitis determined by endoscopy: -Severe by endoscopic evaluation -On Carafate and PPI Status: Acute (2) Diarrhea: -negative stool studies -tolerating oral intake without difficulty -stool seems to be solidifying Status: Acute Qualifiers: Diarrhea type: unspecified type Qualified Code(s): R19.7 - Diarrhea, unspecified (3) Pancytopenia: -has been noted in the past; likely multifactorial given liver cirrhosis, splenomegaly, chronic hepatitis C -peripheral smear pending Status: Chronic (4) Dysphagia: -appears to be an intermittent issue 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 No evidence of disease occurrence on endoscopy and no focal mass on CT Status: Acute Qualifiers: Dysphagia type: unspecified Qualified Code(s): R13.10 - Dysphagia, unspecified (5) Adenocarcinoma of esophagus: -s/p chemoradiation (04/2019) -continue to follow up with oncology Dr. Ocampo Status: Chronic (6) Acute upper GI bleed: -s/p 4 units PRBCs -no active bleeding currently -Hg appears to be stable -s/p endoscopy with noted severe esophagitis -on PPI and carafate Status: Acute (7) Hemorrhagic shock: -VSS -off pressor support, IVF Status: Resolved (8) DKA (diabetic ketoacidoses): -A1c-9.3 (01/2020) -off insulin drip, on SC insulin -BG appropriate Status: Resolved Qualifiers: Diabetes mellitus complication detail: without coma Diabetes mellitus type: type 2 Qualified Code(s): E11.10 - Type 2 diabetes mellitus with ketoacidosis without coma (9) Portal hypertension: -noted evidence of this on imaging Status: Acute (10) Cirrhosis of liver: Status: Chronic Qualifiers: Hepatic cirrhosis type: other cirrhosis Qualified Code(s): K74.69 - Other cirrhosis of liver (11) Chronic hepatitis C: -on treatment Status: Chronic Qualifiers: Hepatic coma status: without hepatic coma Qualified Code(s): B18.2 - Chronic viral hepatitis C Additional A&P Information -LISA resolved; Cr wnl -GI soft diet as tolerated -GI ppx with PPI -DVT ppx with SCDs, no AC due to bleeding risk -Dispo: home -Code status: FULL code -Anticipate discharge home tomorrow if continued stability in cell lines particularly hemoglobin, hemodynamic stability, no further bleeding Attestations Medical Necessity Statement*: Patient requires hospitalization for continued hemodynamic status monitoring, monitoring of cell lines particularly hemoglobin and monitoring for any further bleeding episodes in light of acute upper GI bleed. Time Spent in Patient Care: 16 - 35 minutes (>than 50% of time spent in counselling and/or direct pt care on unit). Coding Level of Care Code Acute Administrative And Program Specialist for [facility] Diagnoses Esophagitis determined by endoscopy K20.90 Diarrhea R19.7 Diarrhea type: unspecified type Pancytopenia D61.818 Dysphagia R13.10 Dysphagia type: unspecified Adenocarcinoma of esophagus C15.9 Acute upper GI bleed K92.2 Hemorrhagic shock R57.8 DKA (diabetic ketoacidoses) E11.10 Diabetes mellitus complication detail: without coma Diabetes mellitus type: type 2 Portal hypertension K76.6 Cirrhosis of liver K74.69 Hepatic cirrhosis type: other cirrhosis Chronic hepatitis C B18.2 Hepatic coma status: without hepatic coma
[2020-05-19 16:55] LABS: Glucose Point of Care 113 mg/dL (70-110)
--- NOTE | 2020-05-19 17:35 | PC.NURSE ---
Patient refusing IVF at this time due to having to use the restroom for diarrhea frequently. physician notified.
[2020-05-19 20:40] LABS: Glucose Point of Care 109 mg/dL (70-110)
[2020-05-19] MEDS: loperamide 2 mg Capsule 4 MG PO (21:16)
[2020-05-20] VITALS (8 sets, daily range): BP systolic 91–110; BP diastolic 52–72; PULSE 79–88; RESP 16–20; TEMP 36.6–36.8; O2SAT 97–99
[2020-05-20] MEDS: HYDROmorphone 1 mg/mL INJ 1 mL IVP ×2 (03:54→08:39)
[2020-05-20] MEDS: ondansetron 2 mg/ML SDV 2 mL 4 MG IVP ×2 (03:58→08:39)
[2020-05-20 05:23] LABS: Basophils % 0.4 %; Eosinophils # 0.1 10^3/uL (0.0-0.8); Hemoglobin 9.7 g/dL (11.7-16.6); Lymphocytes # 0.6 10^3/uL (0.8-4.8); Lymphocytes % 20.7 %; Mean Corpuscular HGB Conc 32.3 g/dL (30.0-36.0); Mean Corpuscular Hemoglobin 29.6 pg (28.0-34.0); Mean Corpuscular Volume 91.5 fL (80-94); Mean Platelet Volume 12.9 fL (7.4-10.4); Monocytes # 0.4 10^3/uL (0.2-0.9); Monocytes % 14.3 %; Neutrophils # 1.63 10^3/uL (1.8-7.7); Neutrophils % 61.2 %; Nucleated Red Blood Cells % 0 %; Platelet Count 67 10^3/cmm (130-400); Red Blood Count 3.28 10^6/uL (4.1-5.3); Red Cell Distribution Width 15.6 % (12.1-15.1); White Blood Count 2.7 10^3/uL (4.0-10.0)
[2020-05-20 06:05] LABS: Alanine Aminotransferase 34 U/L (0-41); Albumin Level 2.7 g/dL (3.5-5.2); Alkaline Phosphatase 143 IU/L (40-130); Anion Gap 8.8 (5-19); Aspartate Amino Transferase 46 U/L (0-40); Blood Urea Nitrogen 21 mg/dL (6-20); Calcium 7.8 mg/dL (8.5-10.5); Carbon Dioxide 24 mmol/L (22-29); Chloride 108 mmol/L (98-107); Globulin 2.5 g/dL (1.3-4.6); Glomerular Filtration Rate 100.4 mL/min (90-130); Glucose 108 mg/dL (65-115); Osmolality Calculated 288 mOsm/kg (285-295); Potassium 3.8 mmol/L (3.5-5.1); Sodium 137 mmol/L (136-145); Total Protein 5.2 g/dL (6.6-8.7)
[2020-05-20 06:25] LABS: Glucose Point of Care 129 mg/dL (70-110)
[2020-05-20] MEDS: sucralfate 1 gm/10 mL Oral Liq UDC PO ×2 (07:28→10:26)
--- NOTE | 2020-05-20 07:35 | PC.NURSE ---
Patient continues to refuse IV fluids, Lantus scheduled dose this morning and use the urinal for accurate I&O measurement, states, I am going home today and I am ready. Reports stools do not have further blood noted per patient, and reports they are more formed than previously.
[2020-05-20] MEDS: citalopram 20 mg Tablet PO (08:39)
--- NOTE | 2020-05-20 09:51 | PC.NURSE ---
patient reports large diarrhea episode and requesting something to stop the diarrhea, Dr. Shannon notified.
--- NOTE | 2020-05-20 10:19 | PM.PN ---
Subjective Subjective: Interval history: No acute overnight events reported, has had some additional bowel movements though seem to be solidifying. Hemodynamically stable, afebrile and has remained on room air. CBC shows stability today with hemoglobin of 9.7, platelet count of 67. Feels ready to go home today. Medications: Reviewed: Yes Medication Review Details: Active Medications Generic Name Dose Route Start Last Admin Trade Name Carlos Manuelq PRN Reason Stop Dose Admin Citalopram Hydrobr omide 20 mg 05/18/20 09:00 05/20/20 08:39 Citalopram 20 Mg Tablet PO 20 mg DAILY MAHNAZ Administration Dextrose 25 ml 05/15/20 17:17 D50w IVP ONCE PRN hypoglycemia prot ocol Protocol Dextrose 50 ml 05/15/20 17:17 D50w IVP PRN PRN hypoglycemia prot ocol Protocol Dextrose 25 ml 05/16/20 05:54 Dextrose 50% Syr barbara 50 Ml IVP ONCE PRN hypoglycemia prot ocol Protocol Dextrose 50 ml 05/16/20 05:54 Dextrose 50% Syr barbara 50 Ml IVP PRN PRN hypoglycemia prot ocol Protocol Glucagon 1 mg 05/15/20 17:17 Glucagen IM ONCE PRN Adult Acute Hypog lycemia Prot Protocol Glucagon 1 mg 05/16/20 05:54 Glucagon 1 Mg/Ml Inj 1 Ml IM ONCE PRN Adult Acute Hypog lycemia Prot. Protocol Hydromorphone HCl 1 mg 05/15/20 18:47 05/20/20 08:39 Hydromorphone 1 Mg/Ml Inj 1 Ml IVP 1 mg Q4H PRN Administration pain Dextrose 500 mls @ 100 mls /hr 05/15/20 17:17 D5w IV ONCE PRN Adult Acute Hypog lycemia Prot Protocol Dextrose 500 mls @ 100 mls /hr 05/16/20 05:54 D5w IV ONCE PRN Adult Acute Hypog lycemia Prot Protocol Insulin Aspart 0 unit 05/16/20 08:00 05/20/20 07:17 Insulin Aspart 1 00 Unit/1 Ml SUBCUT Not Given WM&BEDTIME MAHNAZ Protocol Insulin Glargine 40 unit 05/18/20 21:00 05/20/20 07:28 Insulin Glargine 100 Units/1 Ml SUBCUT Not Given Q12H [facility] Loperamide HCl 2 mg 05/20/20 10:15 Loperamide 2 Mg Capsule PO QID PRN DIARRHEA Metoclopramide HCl 10 mg 05/16/20 08:47 05/18/20 17:33 Metoclopramide 5 Mg/Ml Sdv 2 Ml IVP 10 mg Q6H PRN Administration NAUSEA AND VOMITI NG Ondansetron HCl 4 mg 05/15/20 18:08 05/20/20 08:39 Zofran IVP 4 mg Q6H PRN Administration NAUSEA AND VOMITI NG Pantoprazole Sodiu m 40 mg 05/17/20 17:00 05/20/20 06:07 Pantoprazole 40 Mg Sdv IVP Not Given Q12H MAHNAZ Sucralfate 1 gm 05/18/20 17:00 05/20/20 07:28 Sucralfate 1 Gm/ 10 Ml Oral Liq Udc PO 1 gm AC&BEDTIME MAHNAZ Administration No Known Allergies Allergy (Verified 01/14/20 10:18) Vitals/I&O/Wt Last Vital Signs Temp 98.1 F 05/20/20 07:22 Pulse 83 05/20/20 07:22 Resp 16 05/20/20 08:39 BP 99/64 05/20/20 07:22 Pulse Ox 98 05/20/20 07:22 05/19/20 05/20/20 05/20/20 22:59 06:59 14:59 Intake Total 120 / 1134.167 120 / 120 Balance 120 / 1134.167 120 / 120 Weight last 48 hrs Weight 105.324 kg Physical Exam Const: COMMON NORMALS: no acute distress and patient oriented x3 GENERAL APPEARANCE: cooperative and comfortable ORIENTATION/CONSCIOUSNESS: Yes awake HENMT: COMMON NORMALS: normocephalic, atraumatic, hearing grossly normal bilaterally and moist oral mucous membranes HEAD & SCALP: normocephalic and atraumatic Eye: COMMON NORMALS: Equal, round and reactive pupils present, EOMs intact bilaterally and conjunctivae normal CONJUNCTIVA: Yes conjunctivae normal PUPIL: Yes Equal, round and reactive pupils present Neck/C-Spine: COMMON NORMALS: full ROM GENERAL: Yes normal visual inspection and Yes trachea midline Chest: CHEST: Yes Vascular access present (Port-A-Cath in place) Resp: COMMON NORMALS: normal respiratory effort, No retractions, No use of accessory muscles and clear to auscultation bilaterally EFFORT & INSPECTION: Yes able to speak in complete sentences, Yes symmetric chest movement and No tachypneic AUSCULTATION: clear to auscultation bilaterally OTHER: -on RA Cardio: COMMON NORMALS: regular rate, regular rhythm, S1 normal heart sound present, S2 normal heart sound present and No murmurs present (Cardio) RATE: regular rate RHYTHM: regular rhythm HEART SOUNDS: S1 normal heart sound present and S2 normal heart sound present GI: COMMON NORMALS: Normal to inspection, nondistended, normoactive bowel sounds present, Soft to palpation and non-tender INSPECTION: Yes central obesity PALPATION: Yes Soft to palpation Extremity: COMMON NORMALS: normal to inspection, full ROM and no clubbing, cyanosis or edema; negative for no pedal edema Neuro: COMMON NORMALS: patient oriented x3, moves all extremities, no focal motor deficits, no sensory deficits noted and gait normal Psych: COMMON NORMALS: mental status grossly normal, Normal thought process present, cooperative, normal affect and speech normal SPEECH: Yes normal speech THOUGHT PROCESS: Normal thought process present Skin: COMMON NORMALS: no rashes or lesions noted, no jaundice, no petechiae and no mottling GENERAL SKIN EXAM: no rashes or lesions noted Data : 05/20/20 04:20 05/20/20 04:20 Micro: Microbiology 05/18/20 11:10 Parasite Antigen Panel - Final Stool - Stool Aspirate 05/18/20 11:10 Enteric Pathogens (PCR) - Final Stool A&P Assessment and plan (1) Acute upper GI bleed: -s/p 4 units PRBCs -no active bleeding currently -Hg appears to be stable -s/p endoscopy with noted severe esophagitis -on PPI and carafate Status: Acute (2) Hemorrhagic shock: -VSS -off pressor support, IVF Status: Resolved (3) Pancytopenia: -has been noted in the past; likely multifactorial given liver cirrhosis, splenomegaly, chronic hepatitis C -peripheral smear pending Status: Chronic (4) DKA (diabetic ketoacidoses): -A1c-9.3 (01/2020) -off insulin drip, on SC insulin -BG appropriate Status: Resolved Qualifiers: Diabetes mellitus complication detail: without coma Diabetes mellitus type: type 2 Qualified Code(s): E11.10 - Type 2 diabetes mellitus with ketoacidosis without coma (5) Adenocarcinoma of esophagus: -s/p chemoradiation (04/2019) -continue to follow up with oncology Dr. 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 No evidence of disease occurrence on endoscopy and no focal mass on CT Status: Acute Qualifiers: Dysphagia type: unspecified Qualified Code(s): R13.10 - Dysphagia, unspecified (7) Diarrhea: -negative stool studies -tolerating oral intake without difficulty -stool seems to be solidifying Status: Acute Qualifiers: Diarrhea type: unspecified type Qualified Code(s): R19.7 - Diarrhea, unspecified Additional A&P Information -LISA resolved; Cr wnl -GI soft diet as tolerated -GI ppx with PPI -DVT ppx with SCDs, no AC due to bleeding risk -Dispo: home -Code status: FULL code Attestations Medical Necessity Statement*: Discharge home today Time Spent in Patient Care: 16 - 35 minutes (>than 50% of time spent in counselling and/or direct pt care on unit). Coding Level of Care Code Acute Draw Bench Operator Helper for [facility] Fwd Exam Comprehensive Diagnoses Acute upper GI bleed K92.2 Hemorrhagic shock R57.8 Pancytopenia D61.818 DKA (diabetic ketoacidoses) E11.10 Diabetes mellitus complication detail: without coma Diabetes mellitus type: type 2 Adenocarcinoma of esophagus C15.9 Dysphagia R13.10 Dysphagia type: unspecified Diarrhea R19.7 Diarrhea type: unspecified type
[2020-05-20] MEDS: loperamide 2 mg Capsule PO (10:26)
--- NOTE | 2020-05-20 10:42 | PC.NURSE ---
Deaccessed port to right upper chest, no bleeding noted, tolerated well.
[2020-05-20 11:04] LABS: Glucose Point of Care 174 mg/dL (70-110)
--- NOTE | 2020-05-20 11:56 | PC.NURSE ---
discharge instructions reviewed denies further questions or concerns. patient belongings sent with patient including a cell phone and clothes.
== END 2020-05-20 11:57 | disposition home or self-care (01) | DRG 377 ==
LOC: ER 17:34 → ICU 17:52 → MEDSURG 05-18 18:01
PROVIDERS: Family Medicine; Internal Medicine; Surgery; Admitting Provider Student in an Organized Health Care Education/Training Program; Emergency Provider Emergency Medicine; PCP Family Medicine; Visit Provider Family Medicine
PROC: 0DJ08ZZ Inspection of Upper Intestinal Tract, Via Natural or Artificial Opening Endoscopic (ICD-10-PCS; CPT 43235; principal; 2020-05-16 11:45)
DX: K92.2 Gastrointestinal hemorrhage, unspecified (principal); E11.10 Type 2 diabetes mellitus with ketoacidosis without coma; R57.8 Other shock; C15.5 Malignant neoplasm of lower third of esophagus; D61.818 Other pancytopenia; Z92.21 Personal history of antineoplastic chemotherapy; Z92.3 Personal history of irradiation; R16.1 Splenomegaly, not elsewhere classified; B18.2 Chronic viral hepatitis C; M54.2 Cervicalgia; K70.30 Alcoholic cirrhosis of liver without ascites; M48.061 Spinal stenosis, lumbar region without neurogenic claudication; E11.42 Type 2 diabetes mellitus with diabetic polyneuropathy; Z79.891 Long term (current) use of opiate analgesic; Z87.891 Personal history of nicotine dependence; F10.21 Alcohol dependence, in remission; R13.10 Dysphagia, unspecified; I95.9 Hypotension, unspecified; E66.01 Morbid (severe) obesity due to excess calories; Z68.31 Body mass index [BMI] 31.0-31.9, adult; F41.8 Other specified anxiety disorders; R19.7 Diarrhea, unspecified; K20.90 Esophagitis, unspecified without bleeding
CPT/HCPCS: 12345; 36416; 36430; 36591; 36592; 36600; 43235; 71250; 74176; 78227; 80048; 80053; 80500; 82009; 82803; 82962; 83690; 85014; 85018; 85025; 85610; 86850; 86900; 86920; 87493; 87506; 93005; 96372; 96375; 99283; A9537; C9113; J1170; J1815 ×2; J2354; J2405; J2704; J2765; J3490; J7030; J7050; J7799; P9016; Q0162; Q0164

== ENCOUNTER 2020-06-14 10:48 | Outpatient (CLI) | payer MEDICAID, SELFPAY ==
[2020-06-14 14:55] LABS: Basophils % 0.3 %; Eosinophils # 0.1 10^3/uL (0.0-0.8); Hematocrit 30.5 % (42.0-52.0); Hemoglobin 9.6 g/dL (11.7-16.6); Lymphocytes # 0.7 10^3/uL (0.8-4.8); Lymphocytes % 23.7 %; Mean Corpuscular HGB Conc 31.5 g/dL (30.0-36.0); Mean Corpuscular Hemoglobin 27.7 pg (28.0-34.0); Mean Corpuscular Volume 87.9 fL (80-94); Mean Platelet Volume 12.6 fL (7.4-10.4); Monocytes # 0.4 10^3/uL (0.2-0.9); Neutrophils # 1.78 10^3/uL (1.8-7.7); Neutrophils % 59.7 %; Nucleated Red Blood Cells % 0 %; Platelet Count 116 10^3/cmm (130-400); Red Blood Count 3.47 10^6/uL (4.1-5.3); Red Cell Distribution Width 14.2 % (12.1-15.1)
[2020-06-14 16:03] LABS: Alanine Aminotransferase 25 U/L (0-41); Albumin Level 2.9 g/dL (3.5-5.2); Alkaline Phosphatase 185 IU/L (40-130); Aspartate Amino Transferase 41 U/L (0-40); Blood Urea Nitrogen 14 mg/dL (6-20); Calcium 8.6 mg/dL (8.5-10.5); Carbon Dioxide 28 mmol/L (22-29); Chloride 104 mmol/L (98-107); Globulin 3.4 g/dL (1.3-4.6); Glomerular Filtration Rate 139.9 mL/min (90-130); Glucose 104 mg/dL (65-115); Osmolality Calculated 289 mOsm/kg (285-295); Sodium 139 mmol/L (136-145); Total Bilirubin 0.3 mg/dL (0.15-1.2); Total Protein 6.3 g/dL (6.6-8.7)
== END 2020-06-14 10:49 | disposition home or self-care (01) ==
LOC: ONCMED 16:22
PROVIDERS: PCP Family Medicine; Visit Provider Internal Medicine Hematology & Oncology
DX: C15.5 Malignant neoplasm of lower third of esophagus (principal)
CPT/HCPCS: 80053; 85025

== ENCOUNTER 2020-06-20 05:41 | Outpatient (CLI) | payer MEDICAID, SELFPAY ==
--- NOTE | 2020-06-20 14:34 | ONC FU_ITS ---
Dr. Ocampo follow up note Patient: Lodia Juares Unit #: [id number]: 1965 Dicatated By: Pablo Ocampo M.D.Date of Visit:Jun 20, 2020 Onc Med Follow-up/Prog Note History of Present Illness: Mr. Loida Juares is a 54-year-old gentleman with history of abdominal pain recently underwent EGD and colonoscopy on 01/19/2019 which showed in the lower third esophagus, a partially obstructing, large sized, friable, fungating, submucosal, ulcerated mass and there was evidence of gastritis biopsy was obtained and came back moderately differentiated infiltrating adenocarcinoma. Colonoscopy was normal and follow-up CT scan of chest abdomen pelvis done on 01/29/2019 showed indeterminate but numerous celiac axis/upper mesenteric and retroperitoneal shoddy lymph nodes. No metastatic disease to lungs adrenal gland or liver Patient denies any history of weight loss in fact weight gain. No hemoptysis or hematemesis, no nausea or vomiting, no diarrhea constipation, no dysphagia. Or odynophagia. Patient has history of hepatitis C, as per patient he was treated by Dr. Canales about 2-3 years ago and was dormant and now active. History of cirrhosis and splenomegaly. No alcohol use but smoke. CT PET scan done on 02/21/2019 showed 1.3 cm segment of distal esophageal with SUV of 2.9 consistent with a primary esophageal carcinoma there is a no local or distance metastases Started on combined chemoradiation on 03/10/2019 with modified dose of weekly carboplatin and Taxol concurrent with radiation Was referred to extrusion process operator in [place], [place] and he was seen on 04/03/2019. Impression and recommendation was to repeat hepatitis profile including hepatitis B core antigen, if is positive may require prophylaxis. And Dr. Manrique will also do further workup regarding hepatic cirrhosis and with PT/INR less than 1.7, patient has child tracy A and hepatitis C is a low risk for acute liver injury andsuggested to proceed with chemoradiation . May consider radiological transjugular liver biopsy and measurement of portal pressures, if esophageal surgery is under consideration. And medical management of portal hypertension if needed Patient completed combined chemoradiation with weekly carboplatin and Taxol on 05/10/2019patient was referred to Cardiothoracic surgery at [facility] for evaluation for possible esophagectomy patient was seen and admitted on 06/25/2019 and esophagectomy was attempted during procedure, patient is liver appeared severely cirrhotic esophagectomy was canceled but during procedure underwent EGD and biopsy was obtained which showed no evidence of disease. Due to advanced stage hepatic cirrhosis, no further treatment was offered but observation and follow with extrusion process operator. Follow-up CT PET scan done on February 13, 2020, showed resolution of abnormal esophageal activity, consistent with complete response to the therapy. Negative for local or distant metastatic disease. As per patient he underwent hemorrhoid surgery for infected hemorrhoids on January 15, 2020 and did develop postop complication requiring wound care till last week of April 2020. As Per patient he has seen extrusion process operator in [place] and in December 2019 he was given prescription for Mavyret but patient said he got sick with his hemorrhoid so he did not get his prescription refilled until last week when he started taking his Mavyret for hepatitis C, now tolerating reasonably well. As per patient he was admitted to hospital on May 15, 2020 with hematemesis and melena hematochezia he was treated with supportive care and received blood transfusion and also underwent EGD which showed severe gastritis/esophagitis and also had CT scan chest done on May 15, 2020 which showed diffuse mucosal thickening of distal one third of esophagus without visible focal mass. And splenomegaly and cirrhosis of the liver Patient was discharged home on May 20, 2020 Came for follow-up, denies any specific complaints except persistent mild to moderate dysphagia and nausea especially in the morning and responsive to Zofran. No more hematemesis or melena or hematochezia, no jaundice. No abdominal pain. Medications: CeleXA 1 Tablet (of 10 mg) Oral daily, Dronabinol 1 Capsule (of 10 mg) Oral b.i.d. PRN, Levemir 30 Units (of 100 Units/mL) Subcutaneous daily, LORazepam 0.5 - 1 Tablet (of 1 mg) Oral t.i.d. PRN, oxyCODONE HCl 1 Tablet (of 15 mg) Oral pc (tid), Protonix 1 Tablet (of 20 mg) Tablet, enteric coated Oral b.i.d., Zofran ODT 1 Tablet (of 8 mg) Tablet Dispersable Oral q 8 hours PRN Allergies: No Known Allergies. Review of Systems: Constitutional - Appetite is fair and weight is stable. No fever, chills, hot flashes, or night sweats. Energy level is poor, ENMT - Positive for sinus congestion/drainage. No mouth sores. No sore throat or difficulty swallowing, Hematologic/Lymphatic - Posivite for abnormal bruising or bleeding, Respiratory - No shortness of breath. No cough. No pleuritic pain or hemoptysis, Cardiovascular - No angina pain. No palpitations, Gastrointestinal - Positive for nausea, vomiting, heartburn, acid reflux, diarrhea. No constipation. No blood in the stool or black stools, Genitourinary (M) - No dysuria or hematuria. No urinary frequency. No urgency or incontinence, Musculoskeletal - Positive for generalized joint pain, Neurologic - Positive for headache and dizziness. Positive for numbness/tingling in both hands and feet, Psychiatric - Positive for anxiety and depression, and occasional insomnia. Vital Signs: Performed on Jun 20, 2020 13:54 Height - 72.00 in Weight - 190.6 lbs (LOW) BSA - 2.09 sq.m BMI - 25.85 Temperature - 97.6 F (LOW) Pulse - 85 /min Respiration - 16 /min BP - 109/72 mm(hg) O2 Sat - 100 % Pain - 7 Performance Status: 2 - Ambulatory/capable of all self-care, unable to perform any work activities. Up and about more than 50% of waking hours. (ECOG) Physical Examination: ENMT - No mouth sores, no thrush, no jaundice, Respiratory - Lungs are clear to auscultation, Cardiovascular - Regular rate and rhythm of heart, Abdomen - Soft, bowel sounds present, Extremities - No visible edema. Lab/Imaging: Test performed on Jun 14, 2020 10:48 Sodium 139 mmol/L Potassium 4.0 mmol/L Chloride 104 mmol/L CO2 28 mmol/L Anion Gap 11.0 BUN 14 mg/dL Creatinine 0.6 mg/dL Cr Clearance (Est) 179.5700 mL/min eGFR 139.9 mL/min Glucose 104 mg/dL Osmolality - Calculated 289 mOsm/kg Calcium 8.6 mg/dL Protein, Total 6.3 g/dL Albumin 2.9 g/dL Globulin 3.4 g/dL Bilirubin, Total 0.3 mg/dL ALT (SGPT) 25 U/L AST (SGOT) 41 U/L Alkaline Phosphatase 185 IU/L WBC 3.0 10 3/uL RBC 3.47 10 6/uL HGB 9.6 g/dL HCT 30.5 % MCV 87.9 fL MCH 27.7 pg MCHC 31.5 g/dL RDW 14.2 % Platelet Count 116 10 3/cmm MPV 12.6 fL Neutrophils 1.78 10 3/uL Lymphocytes 0.7 10 3/uL Monocytes 0.4 10 3/uL Eosinophils 0.1 10 3/uL Basophils 0.0 10 3/uL Neutrophil % 59.7 % Lymphocyte % 23.7 % Monocyte % 13.0 % Eosinophil % 3.0 % Basophils % 0.3 % NRBC % 0 % Test performed on May 11, 2020 07:45 CBC Slide Review Slide Review Perform SLIDE REVIEW AGREES WITH AUTOMATED RESULTS Impression: Moderately differentiated adenocarcinoma of distal esophagus per EGD/biopsy done on 01/19/2019 CT scan of chest abdomen pelvis done on 01/29/2019 showed mild thickening of right distal esophagus No metastatic disease to lungs, adrenal glands or liver Moderate cirrhosis with splenomegaly Indeterminate but numerous celiac axis/upper mesenteric and retroperitoneal shoddy lymph nodes CT PET scan done on 02/21/2019 showed there is a 1.3 cm segment of distal esophagus with SUV of 3.9 consistent with a primary esophageal carcinoma. No findings for local or distant metastatic disease seen. ? T1-T2,Nx,Mx Orthopedic fixation of left hip fracture Subacute to acute L5 compression fracture Colonoscopy done on 01/19/2019 showed normal exam. Started on combined chemoradiation with modified weekly carboplatin/Taxol concurrent with radiation therapy on 03/19/2019 last weekly chemotherapy with carbo/Taxol was given on 05/05/2019 Follow-up CT PET scan done on February 13, 2020 showed resolution of abnormal esophageal activity, consistent with complete response to therapy, no evidence of local or distant mets Plan: Discussed with patient regarding his labs white blood count 3 hemoglobin 9.6 hematocrit 30.5 platelets 116,000 CMP within normal limits Clinically, patient is doing reasonably well, he was recently admitted to hospital with with severe anemia due to hematemesis/melena/hematochezia and underwent EGD which confirmed esophagitis/gastritis, also had CT scan of chest done which shows diffuse mucosal thickening involving distal one third of esophagus where he had his primary esophageal cancer. And patient is symptomatic due to this thickening, which is causing moderate dysphagia and, may benefit from esophageal dilatation but will consider CT PET scan to rule out local recurrence in that case we will consider biopsy and if it confirm disease then will plan accordingly. As far as pancytopenia is concerned, patient has splenomegaly, which may be causing leukopenia and thrombocytopenia but his anemia could be multifactorial, will consider iron studies, B12 folic acid reticulocyte count now and then patient return to clinic after CT PET scan for further discussion and if anemia work-up shows iron deficiency, will consider supplement. Signed By: Pablo Ocampo M.D. <<Signature on File>>
== END 2020-06-20 05:42 | disposition home or self-care (01) ==
LOC: ONCMED 05:43
PROVIDERS: PCP Family Medicine; Visit Provider Internal Medicine Hematology & Oncology
DX: Z08 Encounter for follow-up examination after completed treatment for malignant neoplasm (principal); Z85.01 Personal history of malignant neoplasm of esophagus; D64.9 Anemia, unspecified; D61.818 Other pancytopenia; R16.1 Splenomegaly, not elsewhere classified; K74.60 Unspecified cirrhosis of liver; K29.60 Other gastritis without bleeding; Z92.21 Personal history of antineoplastic chemotherapy; Z92.3 Personal history of irradiation; Z86.19 Personal history of other infectious and parasitic diseases
CPT/HCPCS: 96523; 99214

== ENCOUNTER 2020-07-14 08:48 | Outpatient (CLI) | payer MEDICAID, SELFPAY ==
[2020-07-14 12:20] LABS: Basophils % 0.4 %; Eosinophils # 0.1 10^3/uL (0.0-0.8); Eosinophils % 1.8 %; Hematocrit 31.6 % (42.0-52.0); Lymphocytes # 0.6 10^3/uL (0.8-4.8); Lymphocytes % 21.8 %; Mean Corpuscular HGB Conc 31.6 g/dL (30.0-36.0); Mean Corpuscular Volume 85.2 fL (80-94); Monocytes # 0.5 10^3/uL (0.2-0.9); Monocytes % 15.8 %; Neutrophils # 1.72 10^3/uL (1.8-7.7); Neutrophils % 60.2 %; Nucleated Red Blood Cells % 0 %; Platelet Count 61 10^3/cmm (130-400); Red Blood Count 3.71 10^6/uL (4.1-5.3); Red Cell Distribution Width 14.3 % (12.1-15.1); White Blood Count 2.9 10^3/uL (4.0-10.0)
[2020-07-14 12:45] LABS: Iron 34 ug/dL (59-158); Percent Saturation 10.6 % (20-50); Total Iron Binding Capacity 319 mcg/dl; Unsaturated Iron Binding 285 ug/dL (112-347)
[2020-07-14 12:50] LABS: Slide Review Slide Review Perform
== END 2020-07-14 08:49 | disposition home or self-care (01) ==
LOC: ONCMED 16:38
PROVIDERS: PCP Family Medicine; Visit Provider Internal Medicine Hematology & Oncology
DX: C15.5 Malignant neoplasm of lower third of esophagus (principal)
CPT/HCPCS: 83540; 83550; 85025

== ENCOUNTER 2020-07-20 05:37 | Outpatient (CLI) | payer MEDICAID, SELFPAY ==
--- NOTE | 2020-07-20 09:14 | ONC FU_ITS ---
Dr. Ocampo follow up note Patient: Loida Juares Unit #: [id number]: 1965 Dicatated By: Pablo Ocampo M.D.Date of Visit:Jul 20, 2020 Onc Med Follow-up/Prog Note History of Present Illness: Mr. Loida Juares is a 54-year-old gentleman with history of abdominal pain recently underwent EGD and colonoscopy on 01/19/2019 which showed in the lower third esophagus, a partially obstructing, large sized, friable, fungating, submucosal, ulcerated mass and there was evidence of gastritis biopsy was obtained and came back moderately differentiated infiltrating adenocarcinoma. Colonoscopy was normal and follow-up CT scan of chest abdomen pelvis done on 01/29/2019 showed indeterminate but numerous celiac axis/upper mesenteric and retroperitoneal shoddy lymph nodes. No metastatic disease to lungs adrenal gland or liver Patient denies any history of weight loss in fact weight gain. No hemoptysis or hematemesis, no nausea or vomiting, no diarrhea constipation, no dysphagia. Or odynophagia. Patient has history of hepatitis C, as per patient he was treated by Dr. Canales about 2-3 years ago and was dormant and now active. History of cirrhosis and splenomegaly. No alcohol use but smoke. CT PET scan done on 02/21/2019 showed 1.3 cm segment of distal esophageal with SUV of 2.9 consistent with a primary esophageal carcinoma there is a no local or distance metastases Started on combined chemoradiation on 03/10/2019 with modified dose of weekly carboplatin and Taxol concurrent with radiation Was referred to motor driver in [place], [place] and he was seen on 04/03/2019. Impression and recommendation was to repeat hepatitis profile including hepatitis B core antigen, if is positive may require prophylaxis. And Dr. Manrique will also do further workup regarding hepatic cirrhosis and with PT/INR less than 1.7, patient has child tracy A and hepatitis C is a low risk for acute liver injury andsuggested to proceed with chemoradiation . May consider radiological transjugular liver biopsy and measurement of portal pressures, if esophageal surgery is under consideration. And medical management of portal hypertension if needed Patient completed combined chemoradiation with weekly carboplatin and Taxol on 05/10/2019patient was referred to Cardiothoracic surgery at [facility] for evaluation for possible esophagectomy patient was seen and admitted on 06/25/2019 and esophagectomy was attempted during procedure, patient is liver appeared severely cirrhotic esophagectomy was canceled but during procedure underwent EGD and biopsy was obtained which showed no evidence of disease. Due to advanced stage hepatic cirrhosis, no further treatment was offered but observation and follow with motor driver. Follow-up CT PET scan done on February 13, 2020, showed resolution of abnormal esophageal activity, consistent with complete response to the therapy. Negative for local or distant metastatic disease. As per patient he underwent hemorrhoid surgery for infected hemorrhoids on January 15, 2020 and did develop postop complication requiring wound care till last week of April 2020. As Per patient he has seen motor driver in [place] and in December 2019 he was given prescription for Mavyret but patient said he got sick with his hemorrhoid so he did not get his prescription refilled until last week when he started taking his Mavyret for hepatitis C, now tolerating reasonably well. As per patient he was admitted to hospital on May 15, 2020 with hematemesis and melena hematochezia he was treated with supportive care and received blood transfusion and also underwent EGD which showed severe gastritis/esophagitis and also had CT scan chest done on May 15, 2020 which showed diffuse mucosal thickening of distal one third of esophagus without visible focal mass. And splenomegaly and cirrhosis of the liver Patient was discharged home on May 20, 2020 Follow-up CT PET scan done on July 16, 2020 showed no evidence of recurrent malignancy Came for follow-up, complaining of generalized weakness and fatigue but no nausea or vomiting, no diarrhea constipation, no dysphagia, no melena or hematochezia, no shortness of breath or palpitation at rest but dyspnea on exertion. Medications: CeleXA 1 Tablet (of 10 mg) Oral daily, Dronabinol 1 Capsule (of 10 mg) Oral b.i.d. PRN, Levemir 30 Units (of 100 Units/mL) Subcutaneous daily, LORazepam 0.5 - 1 Tablet (of 1 mg) Oral t.i.d. PRN, oxyCODONE HCl 1 Tablet (of 15 mg) Oral pc (tid), Protonix 1 Tablet (of 20 mg) Tablet, enteric coated Oral b.i.d., Zofran ODT 1 Tablet (of 8 mg) Tablet Dispersable Oral q 8 hours PRN Allergies: No Known Allergies. Review of Systems: Review of Systems is not available for this patient. Vital Signs: Performed on Jul 20, 2020 08:41 Height - 72.00 in Weight - 199.0 lbs (HIGH) BSA - 2.13 sq.m BMI - 26.99 Temperature - 97.4 F (LOW) Pulse - 96 /min Respiration - 16 /min BP - 117/74 mm(hg) O2 Sat - 99 % Pain - 8 Performance Status: 1 - No physically strenuous activity, but ambulatory and able to carry out light or sedentary work (e.g. office work, light house work). (ECOG) Physical Examination: ENMT - No mouth sores, no thrush, no jaundice, Respiratory - Lungs are clear to auscultation, Cardiovascular - Regular rate and rhythm of heart, Abdomen - Soft, bowel sounds present, Extremities - No visible edema. Lab/Imaging: Test performed on Jun 14, 2020 10:48 Sodium 139 mmol/L Potassium 4.0 mmol/L Chloride 104 mmol/L CO2 28 mmol/L Anion Gap 11.0 BUN 14 mg/dL Creatinine 0.6 mg/dL Cr Clearance (Est) 179.5700 mL/min eGFR 139.9 mL/min Glucose 104 mg/dL Osmolality - Calculated 289 mOsm/kg Calcium 8.6 mg/dL Protein, Total 6.3 g/dL Albumin 2.9 g/dL Globulin 3.4 g/dL Bilirubin, Total 0.3 mg/dL ALT (SGPT) 25 U/L AST (SGOT) 41 U/L Alkaline Phosphatase 185 IU/L WBC 3.0 10 3/uL RBC 3.47 10 6/uL HGB 9.6 g/dL HCT 30.5 % MCV 87.9 fL MCH 27.7 pg MCHC 31.5 g/dL RDW 14.2 % Platelet Count 116 10 3/cmm MPV 12.6 fL Neutrophils 1.78 10 3/uL Lymphocytes 0.7 10 3/uL Monocytes 0.4 10 3/uL Eosinophils 0.1 10 3/uL Basophils 0.0 10 3/uL Neutrophil % 59.7 % Lymphocyte % 23.7 % Monocyte % 13.0 % Eosinophil % 3.0 % Basophils % 0.3 % NRBC % 0 % Test performed on May 11, 2020 07:45 CBC Slide Review Slide Review Perform SLIDE REVIEW AGREES WITH AUTOMATED RESULTS Impression: Moderately differentiated adenocarcinoma of distal esophagus per EGD/biopsy done on 01/19/2019 CT scan of chest abdomen pelvis done on 01/29/2019 showed mild thickening of right distal esophagus No metastatic disease to lungs, adrenal glands or liver Moderate cirrhosis with splenomegaly Indeterminate but numerous celiac axis/upper mesenteric and retroperitoneal shoddy lymph nodes CT PET scan done on 02/21/2019 showed there is a 1.3 cm segment of distal esophagus with SUV of 3.9 consistent with a primary esophageal carcinoma. No findings for local or distant metastatic disease seen. ? T1-T2,Nx,Mx Orthopedic fixation of left hip fracture Subacute to acute L5 compression fracture Colonoscopy done on 01/19/2019 showed normal exam. Started on combined chemoradiation with modified weekly carboplatin/Taxol concurrent with radiation therapy on 03/19/2019 last weekly chemotherapy with carbo/Taxol was given on 05/05/2019 Follow-up CT PET scan done on February 13, 2020 showed resolution of abnormal esophageal activity, consistent with complete response to therapy, no evidence of local or distant mets Follow-up CT PET scan done on July 16, 2020 showed no evidence of recurrence of disease Pancytopenia, etiology unclear but appears multifactorial including splenic sequestration as patient has hepatic cirrhosis and splenomegaly and his anemia could be due to chronic GI blood loss or malabsorption Plan: Discussed with patient regarding his labs white blood count 2.9 hemoglobin 10 hematocrit 31.6 platelets 61,000 iron studies shows iron saturation 10.6% iron 34 TIBC 319 Clinically, patient doing well with no new signs symptom suggestive of disease recurrence and his follow-up CT PET scan done recently showed no evidence of disease. As far as anemia is concerned, iron studies shows iron deficiency, which could be due to chronic GI blood loss or malabsorption. So we will try oral iron supplement, ferrous sulfate 1 tablet p.o. daily twice a day and then repeat his CBC and iron studies in 1 month, if tolerated and improve then will continue same otherwise may consider parenteral iron. As far as leukopenia/thrombocytopenia is concerned, probably due to his splenic sequestration as patient has splenomegaly, we will continue to monitor patient was advised to avoid any kind of trauma to minimize risk of bleeding. As far as cirrhosis of the liver is concerned, patient is being followed by motor driver in [place], patient said he missed the last couple of appointments, he will call and reschedule. We will proceed with port flush and then he will return to clinic in 1 month for monthly port maintenance and also with CBC and iron studies. Signed By: Pablo Ocampo M.D. <<Signature on File>>
== END 2020-07-20 05:38 | disposition home or self-care (01) ==
LOC: ONCMED 05:39
PROVIDERS: PCP Family Medicine; Visit Provider Internal Medicine Hematology & Oncology
DX: C15.5 Malignant neoplasm of lower third of esophagus (principal); K74.60 Unspecified cirrhosis of liver; R16.1 Splenomegaly, not elsewhere classified; D61.818 Other pancytopenia; S72.002A Fracture of unspecified part of neck of left femur, initial encounter for closed fracture; M48.56XA Collapsed vertebra, not elsewhere classified, lumbar region, initial encounter for fracture; Z45.2 Encounter for adjustment and management of vascular access device; Z79.899 Other long term (current) drug therapy
CPT/HCPCS: 96523; 99214

== ENCOUNTER 2020-08-25 14:23 | Emergency (ER) | payer MEDICAID, SELFPAY ==
[2020-08-25 14:49] VITALS: BP 92/60; PULSE 72; RESP 14; TEMP 36.6; O2SAT 100; BMI 26.8
--- NOTE | 2020-08-25 16:07 | XRR_ITS ---
PROCEDURE INFORMATION: Exam: XR Left Hip with Pelvis when Performed Exam date and time: 08/25/2020 4:13 PM Age: 55 years old Clinical indication: Pain and injury or trauma; Blunt trauma (contusions or hematomas); Hip pain; Left hip; Injury details: Fall on ice; Prior surgery; Additional info: Fall, left hip pain TECHNIQUE: Imaging protocol: XR Left hip with pelvis when performed. Views: 2 or 3 views. COMPARISON: CT chest abd pel wo con 05/16/2020 3:19 PM FINDINGS: Bones/joints: Compression screw and intramedullary sree fixation of the left hip. No acute fracture or dislocation. Soft tissues: Unremarkable. XR/XR hip LT 2-3V wo/w pel* [id number] IMPRESSION: No acute fracture or dislocation.
--- NOTE | 2020-08-25 16:07 | XRR_ITS ---
PROCEDURE INFORMATION: Exam: XR Left Elbow Exam date and time: 08/25/2020 4:13 PM Age: 55 years old Clinical indication: Pain and injury or trauma; Blunt trauma (contusions or hematomas); Elbow; Left; Injury details: Fall on ice; Additional info: Fall elbow pain TECHNIQUE: Imaging protocol: XR Left elbow. Views: 3 or more views. COMPARISON: None. FINDINGS: Bones/joints: Mild degenerative changes noted. No dislocation. Well corticated osteophytic density seen on the lateral view probably represents an area of degenerative change rather than fracture. Soft tissues: Minimal medial elbow soft tissue edema. XR/XR elbow LT min 3V* [id number] IMPRESSION: Well corticated osteophytic density seen on the lateral view probably represents an area of degenerative change rather than fracture. Correlation with prior elbow radiographs may be helpful if available. If symptoms persist follow-up evaluation with CT of the elbow, as clinically warranted.
--- NOTE | 2020-08-25 16:14 | ED_ITS ---
Documented by User: HAILEY Hopson 08/25/20 16:20 HPI - Fall General: Chief Complaint: Fall Stated Complaint: fall, injury to left leg and elbow Time Seen by Provider: 08/25/20 15:27 History of Present Illness: HPI Narrative: Pleasant 55-year-old male patient presents to the emergency department with complaints of left elbow pain and left hip pain. He has history of left hip fracture with ORIF 2 years ago. He states today at approximately 1 PM, he slipped on the ice fell on his left elbow and left hip. States was able to stand but not apply pressure or weight to the left hip. He also complains of pain and swelling to the left elbow. Denies further injury such as head injury, neck pain, rib pain or worsening back pain. He does suffer from chronic low back pain. MD complaint: fall Fall from: standing Fall witnessed: yes, by family Place fall occurred: home Loss of consciousness: None Prolonged down time: no Symptoms prior to fall: none Context: tripped/slipped Location of injury - extremities: Left: elbow Severity: moderate Severity scale (1-10): 7 Quality: sharp and dull Associated symptoms-after fall: Reports no associated symptoms; Denies abdominal pain, chest pain or headache(s) Review of Systems General: Reports: 10 or more systems reviewed and unremarkable except in HPI and below Const: Denies: fever(s), chills or diaphoresis Eyes: Denies: blurry vision or eye redness ENMT: Denies: throat pain, dental pain or disequilibrium Card: Denies: chest pain, palpitations or irregular heart rhythm Resp: Denies: dyspnea, productive cough, non-productive cough or wheezing GI: Denies: abdominal pain, nausea or vomiting : Denies: flank pain, dysuria or urinary urgency Musc: Reports: back pain (chronic lower back), extremity swelling (left elbow) and joint pain (left elbow and left hip) Skin/Breast: Denies: rash or pruritus Neuro: Denies: headache(s), weakness in extremities or behavioral changes Psych: Denies: anxiety or depression Huan/Lymph: Denies: easy bruising PFS ED PFSH: Medical History Acute upper GI bleed -s/p 4 units PRBCs -no active bleeding currently -Hg appears to be stable -s/p endoscopy with noted severe esophagitis -on PPI and carafate Adenocarcinoma of esophagus -s/p chemoradiation (04/2019) -continue to follow up with oncology Dr. 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 No evidence of disease occurrence on endoscopy and no focal mass on CT Esophagitis determined by endoscopy Neuropathy due to secondary diabetes Portal hypertension S/p left hip fracture November 2018 Spinal stenosis of lumbar region Spondylosis of lumbar spine with myelopathy Surgical History H/O circumcision H/O colonoscopy 2018 H/O esophagogastroduodenoscopy 2018 History of knee surgery Port-A-Cath in place 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 Family History Mother Diabetes Father Diabetes Denies family history of Anesthesia complication Bleeding disorder Cancer Social History Smoking and tobacco status: former smoker Quit status (tobacco): has quit using tobacco Year quit tobacco: 06/2019 Alcohol intake: former Substance/Drug Use: never Lives independently: Yes Marital status: Single Current occupational status: disabled History of recent travel: Yes ([place]) Out of state: No Out of country: No Physical Exam Const: COMMON NORMALS: no acute distress, average body habitus, patient oriented x3, healthy appearing, alert and well nourished GENERAL APPEARANCE: cooperative, well kempt, well developed and well hydrated ORIENTATION/CONSCIOUSNESS: Yes awake, Yes oriented to person, Yes oriented to place and Yes oriented to time HENMT: COMMON NORMALS: normocephalic, atraumatic, Normal external nose present and moist oral mucous membranes HEAD & SCALP: normal to inspection, normocephalic and atraumatic FACE & SINUS: normal facial exam and face symmetric NOSE: Normal external nose present MOUTH: Normal oral and palatal mucosa present and lip normal Eye: COMMON NORMALS: Equal, round and reactive pupils present and EOMs intact bilaterally GENERAL EYE: appearance normal, both eyes and all related structures PUPIL: Yes Equal, round and reactive pupils present Neck/C-Spine: COMMON NORMALS: full ROM and no lymphadenopathy GENERAL: Yes normal visual inspection and Yes trachea midline CERVICAL SPINE: Yes cervical ROM normal, No pain with cervical ROM, No Cervical spine tenderness and No Paracervical muscle tenderness Lymph: LYMPHATIC: no lymphadenopathy noted Chest: COMMONS NORMALS: normal inspection of the chest and normal palpation of entire chest wall CHEST: No localized rib tenderness with anteroposterior compression Resp: COMMON NORMALS: normal respiratory effort, No retractions, No use of accessory muscles and clear to auscultation bilaterally EFFORT & INSPECTION: Yes able to speak in complete sentences, No abnormal respiratory pattern and No audible wheezes AUSCULTATION: clear to auscultation bilaterally Cardio: COMMON NORMALS: regular rate, regular rhythm, S1 normal heart sound present, S2 normal heart sound present and Peripheral pulses 2+ throughout RATE: regular rate RHYTHM: regular rhythm HEART SOUNDS: S1 normal heart sound present and S2 normal heart sound present PERIPHERAL PULSES: Peripheral pulses 2+ throughout GI: COMMON NORMALS: Normal to inspection, nondistended, normoactive bowel sounds present, Soft to palpation and non-tender INSPECTION: Yes normal to inspection, No abdominal wall ecchymosis, No abdominal distension, No central obesity and No visible herniation PALPATION: Yes Soft to palpation : COMMON NORMALS: Yes no CVA tenderness BLADDER/KIDNEY EXAM: Yes no CVA tenderness Back/Pelvis: COMMON NORMALS: no CVA tenderness and thoracic and lumbar spine normal to inspection Extremity: COMMON NORMALS: normal to inspection, capillary refill normal, no clubbing, cyanosis or edema, no calf tenderness and no pedal edema NARRATIVE EXTREMITY EXAM: all extremities were examined for abnormalities, none appreciated GENERAL: Yes normal exam except as noted LEFT LOWER EXTREMITY: Yes hip joint (normal) Left hip: Yes inspection, Yes palpation (pain with palpation lateral, posterior and anterior), Yes ROM (limited secondary to pain) and Yes neurovascular exam (distally intact) Neuro: COMMON NORMALS: patient oriented x3 and no focal motor deficits SENSORIUM/ORIENTATION: Yes alert, Yes oriented to person, Yes oriented to place and Yes oriented to time Psych: COMMON NORMALS: mental status grossly normal, Normal thought process present and cooperative APPEARANCE: Yes well kempt ACTIVITY/MOTOR BEHAVIOR: Yes appropriate eye contact THOUGHT PROCESS: Normal thought process present Skin: COMMON NORMALS: no rashes or lesions noted and turgor normal GENERAL SKIN EXAM: no rashes or lesions noted and turgor normal Course Vital Signs: Vital signs: Vital Signs Temperature 98 F 08/25/20 14:49 Pulse Rate 82 08/25/20 16:56 Respiratory Rate 16 08/25/20 16:56 Blood Pressure 127/93 08/25/20 16:56 Pulse Oximetry 100 08/25/20 16:56 Discharge Plan Discharge Patient Disposition: Home Clinical Impression: Contusion Qualifiers: Encounter type: initial encounter Contusion area: hip Laterality: left Qualified Code(s): S70.02XA - Contusion of left hip, initial encounter Contusion of elbow, left Qualifiers: Encounter type: initial encounter Qualified Code(s): S50.02XA - Contusion of left elbow, initial encounter Fall Qualifiers: Encounter type: initial encounter Qualified Code(s): W19.XXXA - Unspecified fall, initial encounter Condition: Stable Prescriptions: No Action dronabinol [Marinol] 10 mg capsule 5 mg PO BID PRN (Reason: appetite/nausea) RF: 0 lorazepam 0.5 mg tablet 0.5 mg PO TID PRNRF: 0 oxycodone 15 mg tablet 15 mg PO TID PRNRF: 0 Mavyret 100-40 mg Tablet 1 tab PO DAILY RF: 0 Protonix 40 mg tablet,delayed release (DR/EC) 40 mg PO BID Qty: 60 RF: 0 Levemir U-100 Insulin 100 unit/mL solution 40 unit SUBCUT BID Qty: 10 RF: 0 Anti-Diarrheal (loperamide) 2 mg tablet 2 mg PO Q4H PRN (Reason: loose stool) Qty: 30 RF: 0 oxycodone 10 mg tablet 10 mg PO Q6H PRN (Reason: pain) Qty: 28 RF: 0 Discharge Orders: Discharge ED (Routine); Ordered 08/25/20 Ordered By: Chriss iSmon Referrals: Casimiro Sommers [Primary Care Provider] - Discharge Diet: Usual diet Discharge Activity: Increase activity as tolerated Patient Instructions: Contusion in Adults (ED), Opioid Safety Activity Restrictions/Additional Instructions: Apply ice to areas that are tender. Take home medication as directed. He also over read the x-rays tomorrow if there is any change in report we will notify you. Follow-up your family medical provider in next few days if no significant provement. Coding Level of Care Code ED Customer Account Coordinator for Chg Fwd Exam Comprehensive Documented by User: VLAD Back 08/25/20 17:20 HPI - Fall General: Chief Complaint: Fall Stated Complaint: fall, injury to left leg and elbow Time Seen by Provider: 08/25/20 15:27 PFSH ED PFSH: Medical History Acute upper GI bleed -s/p 4 units PRBCs -no active bleeding currently -Hg appears to be stable -s/p endoscopy with noted severe esophagitis -on PPI and carafate Adenocarcinoma of esophagus -s/p chemoradiation (04/2019) -continue to follow up with oncology Dr. 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 No evidence of disease occurrence on endoscopy and no focal mass on CT Esophagitis determined by endoscopy Neuropathy due to secondary diabetes Portal hypertension S/p left hip fracture November 2018 Spinal stenosis of lumbar region Spondylosis of lumbar spine with myelopathy Surgical History H/O circumcision H/O colonoscopy 2018 H/O esophagogastroduodenoscopy 2018 History of knee surgery Port-A-Cath in place 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 Family History Mother Diabetes Father Diabetes Denies family history of Anesthesia complication Bleeding disorder Cancer Social History Smoking and tobacco status: former smoker Quit status (tobacco): has quit using tobacco Year quit tobacco: 06/2019 Alcohol intake: former Substance/Drug Use: never Lives independently: Yes Marital status: Single Current occupational status: disabled History of recent travel: Yes ([place]) Out of state: No Out of country: No Course Vital Signs: Vital signs: Vital Signs Temperature 98 F 08/25/20 14:49 Pulse Rate 82 08/25/20 16:56 Respiratory Rate 16 08/25/20 16:56 Blood Pressure 127/93 08/25/20 16:56 Pulse Oximetry 100 08/25/20 16:56 MDM - Fall MDM Narrative: Medical decision making narrative: Reviewed x-ray images with Dr. Ferreira. Patient states he is out of pain medication he is unable to get it today due to the weather. Patient is on pain contract with In [place]. Discharge Plan Discharge Patient Disposition: Home Clinical Impression: Contusion Qualifiers: Encounter type: initial encounter Contusion area: hip Laterality: left Qualified Code(s): S70.02XA - Contusion of left hip, initial encounter Contusion of elbow, left Qualifiers: Encounter type: initial encounter Qualified Code(s): S50.02XA - Contusion of left elbow, initial encounter Fall Qualifiers: Encounter type: initial encounter Qualified Code(s): W19.XXXA - Unspecified fall, initial encounter Condition: Stable Prescriptions: No Action dronabinol [Marinol] 10 mg capsule 5 mg PO BID PRN (Reason: appetite/nausea) RF: 0 lorazepam 0.5 mg tablet 0.5 mg PO TID PRNRF: 0 oxycodone 15 mg tablet 15 mg PO TID PRNRF: 0 Mavyret 100-40 mg Tablet 1 tab PO DAILY RF: 0 Protonix 40 mg tablet,delayed release (DR/EC) 40 mg PO BID Qty: 60 RF: 0 Levemir U-100 Insulin 100 unit/mL solution 40 unit SUBCUT BID Qty: 10 RF: 0 Anti-Diarrheal (loperamide) 2 mg tablet 2 mg PO Q4H PRN (Reason: loose stool) Qty: 30 RF: 0 oxycodone 10 mg tablet 10 mg PO Q6H PRN (Reason: pain) Qty: 28 RF: 0 Discharge Orders: Discharge ED (Routine); Ordered 08/25/20 Ordered By: Chriss Simon Referrals: Casimiro Sommers [Primary Care Provider] - Discharge Diet: Usual diet Discharge Activity: Increase activity as tolerated Patient Instructions: Contusion in Adults (ED), Opioid Safety Activity Restrictions/Additional Instructions: Apply ice to areas that are tender. Take home medication as directed. He also over read the x-rays tomorrow if there is any change in report we will notify you. Follow-up your family medical provider in next few days if no significant provement. Coding Level of Care Code ED Customer Account Coordinator for Alex Fwd Exam Comprehensive
[2020-08-25 16:54] VITALS: BP 145/81; PULSE 83; RESP 16; O2SAT 98
[2020-08-25 16:56] VITALS: BP 127/93; PULSE 82; RESP 16; O2SAT 100
== END 2020-08-25 17:29 | disposition home or self-care (01) ==
PROVIDERS: Emergency Provider Nurse Practitioner Family; PCP Family Medicine
DX: S50.02XA Contusion of left elbow, initial encounter (principal); S70.02XA Contusion of left hip, initial encounter; Z79.4 Long term (current) use of insulin; Z86.19 Personal history of other infectious and parasitic diseases; Z85.01 Personal history of malignant neoplasm of esophagus; E11.40 Type 2 diabetes mellitus with diabetic neuropathy, unspecified; Z87.891 Personal history of nicotine dependence; W00.0XXA Fall on same level due to ice and snow, initial encounter
CPT/HCPCS: 73080; 73502; 99283

== ENCOUNTER 2020-08-30 13:32 | Outpatient (CLI) | payer MEDICAID, SELFPAY ==
[2020-08-30 19:00] LABS: Basophils % 0.4 %; Eosinophils # 0.1 10^3/uL (0.0-0.8); Eosinophils % 2.9 %; Hematocrit 36.7 % (42.0-52.0); Hemoglobin 11.3 g/dL (11.7-16.6); Lymphocytes # 0.6 10^3/uL (0.8-4.8); Lymphocytes % 12.3 %; Mean Corpuscular HGB Conc 30.8 g/dL (30.0-36.0); Mean Corpuscular Hemoglobin 27.4 pg (28.0-34.0); Mean Corpuscular Volume 88.9 fL (80-94); Monocytes # 0.4 10^3/uL (0.2-0.9); Monocytes % 9.8 %; Neutrophils # 3.32 10^3/uL (1.8-7.7); Neutrophils % 74.4 %; Nucleated Red Blood Cells % 0 %; Platelet Count 95 10^3/cmm (130-400); Red Blood Count 4.13 10^6/uL (4.1-5.3); White Blood Count 4.5 10^3/uL (4.0-10.0)
[2020-08-30 20:36] LABS: Ferritin 68 ng/mL (30-400); Iron 65 ug/dL (59-158); Percent Saturation 20.8 % (20-50); Total Iron Binding Capacity 312 mcg/dl; Unsaturated Iron Binding 247 ug/dL (112-347)
== END 2020-08-30 23:59 | disposition home or self-care (01) ==
LOC: ONCMED 08-31 07:24
PROVIDERS: PCP Family Medicine; Visit Provider Internal Medicine Hematology & Oncology
DX: C15.5 Malignant neoplasm of lower third of esophagus (principal); D50.9 Iron deficiency anemia, unspecified
CPT/HCPCS: 82728; 83540; 83550; 85025

== ENCOUNTER 2020-09-01 05:46 | Outpatient (CLI) | payer MEDICAID, SELFPAY ==
--- NOTE | 2020-09-01 11:02 | ONC FU_ITS ---
Dr. Ocampo follow up note Patient: Loida Juares Unit #: [id number]: 1965 Dicatated By: Pablo Ocampo M.D.Date of Visit:Sep 01, 2020 Onc Med Follow-up/Prog Note History of Present Illness: Mr. Loida Juares is a 54-year-old gentleman with history of abdominal pain recently underwent EGD and colonoscopy on 01/19/2019 which showed in the lower third esophagus, a partially obstructing, large sized, friable, fungating, submucosal, ulcerated mass and there was evidence of gastritis biopsy was obtained and came back moderately differentiated infiltrating adenocarcinoma. Colonoscopy was normal and follow-up CT scan of chest abdomen pelvis done on 01/29/2019 showed indeterminate but numerous celiac axis/upper mesenteric and retroperitoneal shoddy lymph nodes. No metastatic disease to lungs adrenal gland or liver Patient denies any history of weight loss in fact weight gain. No hemoptysis or hematemesis, no nausea or vomiting, no diarrhea constipation, no dysphagia. Or odynophagia. Patient has history of hepatitis C, as per patient he was treated by Dr. Canales about 2-3 years ago and was dormant and now active. History of cirrhosis and splenomegaly. No alcohol use but smoke. CT PET scan done on 02/21/2019 showed 1.3 cm segment of distal esophageal with SUV of 2.9 consistent with a primary esophageal carcinoma there is a no local or distance metastases Started on combined chemoradiation on 03/10/2019 with modified dose of weekly carboplatin and Taxol concurrent with radiation Patient completed combined chemoradiation with weekly carboplatin and Taxol on 05/10/2019 Was referred to [facility] chopper hand in [place], [place] and he was seen on 04/03/2019. Impression and recommendation was to repeat hepatitis profile including hepatitis B core antigen, if is positive may require prophylaxis. And Dr. Manrique will also do further workup regarding hepatic cirrhosis and with PT/INR less than 1.7, patient has child tracy A and hepatitis C is a low risk for acute liver injury andsuggested to proceed with chemoradiation . May consider radiological transjugular liver biopsy and measurement of portal pressures, if esophageal surgery is under consideration. And medical management of portal hypertension if needed patient was referred to Cardiothoracic surgery at [facility] for evaluation for possible esophagectomy patient was seen and admitted on 06/25/2019 and esophagectomy was attempted during procedure, patient is liver appeared severely cirrhotic esophagectomy was canceled but during procedure underwent EGD and biopsy was obtained which showed no evidence of disease. Due to advanced stage hepatic cirrhosis, no further treatment was offered but observation and follow with block chopper hand. Follow-up CT PET scan done on February 13, 2020, showed resolution of abnormal esophageal activity, consistent with complete response to the therapy. Negative for local or distant metastatic disease. As per patient he underwent hemorrhoid surgery for infected hemorrhoids on January 15, 2020 and did develop postop complication requiring wound care till last week of April 2020. As Per patient he has seen block chopper hand in [place] and in December 2019 he was given prescription for Mavyret but patient said he got sick with his hemorrhoid so he did not get his prescription refilled until last week when he started taking his Mavyret for hepatitis C, now tolerating reasonably well. As per patient he was admitted to hospital on May 15, 2020 with hematemesis and melena hematochezia he was treated with supportive care and received blood transfusion and also underwent EGD which showed severe gastritis/esophagitis and also had CT scan chest done on May 15, 2020 which showed diffuse mucosal thickening of distal one third of esophagus without visible focal mass. And splenomegaly and cirrhosis of the liver Patient was discharged home on May 20, 2020 Follow-up CT PET scan done on July 16, 2020 showed no evidence of recurrent malignancy Came for follow-up, denies any specific complaint except episode of fall on ice on last and injured his left arm/left body, patient was evaluated by his PMD and now improving with the left arm in the sling. No fever chills, no nausea or vomiting, no diarrhea constipation, no dysphagia, no jaundice, no melena or hematochezia or hemoptysis or hematemesis or nosebleed. Medications: CeleXA 1 Tablet (of 10 mg) Oral daily, Dronabinol 1 Capsule (of 10 mg) Oral b.i.d. PRN, Levemir 30 Units (of 100 Units/mL) Subcutaneous daily, LORazepam 0.5 - 1 Tablet (of 1 mg) Oral t.i.d. PRN, oxyCODONE HCl 1 Tablet (of 15 mg) Oral pc (tid), Protonix 1 Tablet (of 20 mg) Tablet, enteric coated Oral b.i.d., Zofran ODT 1 Tablet (of 8 mg) Tablet Dispersable Oral q 8 hours PRN Allergies: This patient has no documented allergies. Review of Systems: Review of Systems is not available for this patient. Vital Signs: Performed on Sep 01, 2020 10:06 Height - 72.00 in Weight - 198 lbs (LOW) BSA - 2.12 sq.m BMI - 26.85 Temperature - 96.8 F (LOW) Pulse - 87 /min Respiration - 18 /min BP - 99/64 mm(hg) O2 Sat - 99 % Pain - 9 Fatigue - 0 Performance Status: 2 - Ambulatory/capable of all self-care, unable to perform any work activities. Up and about more than 50% of waking hours. (ECOG) Physical Examination: ENMT - No mouth sores, no thrush, no jaundice, Respiratory - Lungs are clear to auscultation, Cardiovascular - Regular rate and rhythm of heart, Abdomen - Soft, bowel sounds present, Extremities - Mild ecchymosis and swelling involving left upper arm due to recent injury due to fall on ice. Lab/Imaging: Test performed on Jul 14, 2020 08:48 Iron 34 mcg/dL Iron Binding Capacity (TIBC) 319 mcg/dl % Iron Saturation 10.6 % UIBC 285 mcg/dL WBC 2.9 10 3/uL RBC 3.71 10 6/uL HGB 10.0 g/dL HCT 31.6 % MCV 85.2 fL MCH 27.0 pg MCHC 31.6 g/dL RDW 14.3 % Platelet Count 61 10 3/cmm Neutrophils 1.72 10 3/uL Lymphocytes 0.6 10 3/uL Monocytes 0.5 10 3/uL Eosinophils 0.1 10 3/uL Basophils 0.0 10 3/uL Neutrophil % 60.2 % Lymphocyte % 21.8 % Monocyte % 15.8 % Eosinophil % 1.8 % Basophils % 0.4 % NRBC % 0 % CBC Slide Review Slide Review Perform SLIDE REVIEW AGREES WITH AUTOMATED RESULT Test performed on Jun 14, 2020 10:48 Sodium 139 mmol/L Potassium 4.0 mmol/L Chloride 104 mmol/L CO2 28 mmol/L Anion Gap 11.0 BUN 14 mg/dL Creatinine 0.6 mg/dL Cr Clearance (Est) 179.5700 mL/min eGFR 139.9 mL/min Glucose 104 mg/dL Osmolality - Calculated 289 mOsm/kg Calcium 8.6 mg/dL Protein, Total 6.3 g/dL Albumin 2.9 g/dL Globulin 3.4 g/dL Bilirubin, Total 0.3 mg/dL ALT (SGPT) 25 U/L AST (SGOT) 41 U/L Alkaline Phosphatase 185 IU/L MPV 12.6 fL Impression: Moderately differentiated adenocarcinoma of distal esophagus per EGD/biopsy done on 01/19/2019 CT scan of chest abdomen pelvis done on 01/29/2019 showed mild thickening of right distal esophagus No metastatic disease to lungs, adrenal glands or liver Moderate cirrhosis with splenomegaly Indeterminate but numerous celiac axis/upper mesenteric and retroperitoneal shoddy lymph nodes CT PET scan done on 02/21/2019 showed there is a 1.3 cm segment of distal esophagus with SUV of 3.9 consistent with a primary esophageal carcinoma. No findings for local or distant metastatic disease seen. ? T1-T2,Nx,Mx Orthopedic fixation of left hip fracture Subacute to acute L5 compression fracture Colonoscopy done on 01/19/2019 showed normal exam. Started on combined chemoradiation with modified weekly carboplatin/Taxol concurrent with radiation therapy on 03/19/2019 last weekly chemotherapy with carbo/Taxol was given on 05/05/2019 Follow-up CT PET scan done on February 13, 2020 showed resolution of abnormal esophageal activity, consistent with complete response to therapy, no evidence of local or distant mets Follow-up CT PET scan done on July 16, 2020 showed no evidence of recurrence of disease Pancytopenia, etiology unclear but appears multifactorial including splenic sequestration as patient has hepatic cirrhosis and splenomegaly and his anemia could be due to chronic GI blood loss or malabsorption Plan: Discussed with patient regarding his labs white blood count 4.5 hemoglobin 11.3 hematocrit 36.7 platelets 95,000 compared to 61,000 on July 14, 2020 iron studies shows iron saturation 20.8% compared to 10.6% in July 2020 ferritin 68, iron 65 Clinically, patient doing well, tolerating oral iron well, his follow-up labs shows improvement in his hemoglobin as well as iron stores,As a follow-up labs shows his hemoglobin and iron stores is improving on oral iron will continue with oral iron and monthly port maintenance and then patient return to clinic in 3 months with CBC CMP and follow-up CT scan of chest and upper abdomen Signed By: Pablo Ocampo M.D. <<Signature on File>>
== END 2020-09-01 05:47 | disposition home or self-care (01) ==
LOC: ONCMED 05:47
PROVIDERS: PCP Family Medicine; Visit Provider Internal Medicine Hematology & Oncology
DX: Z08 Encounter for follow-up examination after completed treatment for malignant neoplasm (principal); Z85.01 Personal history of malignant neoplasm of esophagus; D50.9 Iron deficiency anemia, unspecified; K74.60 Unspecified cirrhosis of liver; R16.1 Splenomegaly, not elsewhere classified; Z92.21 Personal history of antineoplastic chemotherapy; Z92.3 Personal history of irradiation
CPT/HCPCS: 96523; 99214

== ENCOUNTER 2020-10-31 13:05 | Outpatient (CLI) | payer MEDICAID, SELFPAY | END 2020-10-31 13:06 | disposition home or self-care (01) | LOC: ONCMED 13:06 | PROVIDERS: PCP Family Medicine; Visit Provider Internal Medicine Hematology & Oncology | DX: Z45.2 Encounter for adjustment and management of vascular access device (principal) | CPT/HCPCS: 96523 ==

== ENCOUNTER 2020-11-17 13:33 | Outpatient (CLI) | payer MEDICAID, SELFPAY ==
--- NOTE | 2020-11-17 13:45 | CT_ITS ---
WS: [id number] CT ABDOMEN PELVIS TECHNIQUE: Contrast-enhanced CT of the abdomen and pelvis with coronal and sagittal reformatted image s. CLINICAL INFORMATION: ESOPHAGEAL CANCER COMPARISON: CT chest abdomen pelvis May 16, 2020. PET/CT July 16, 2020 DLP: 1271.[address] scans at [facility] use at least one of these dose optimization techniques: automat ed exposure control; mA and/or kV adjustment per patient size (includes targeted exams where dose is matched to clinical indication); or iterative reconstruction. FINDINGS: Cirrhotic liver. Cholelithiasis. Splenomegaly with evidence of portal venous hypertension. Fatty atrophy of the pancreas. Lung bases are well aerated. Mild thickening of the distal esophagus u nchanged. A few prominent upper abdominal lymph nodes and cori hepatis lymph nodes unchanged. A few prominent periaortic, aortocaval, and retroperitoneal lymph nodes are unchanged. Air-fluid levels in the stomach. No evidence of high-grade small or large bowel obstruction. Diffuse bladder wall thickening. Enlarged prostate. Small fat-containing inguinal hernias. No inguina l lymphadenopathy. Normal caliber abdominal aorta. Adrenal glands are normal. Normal renal parenchyma l enhancement. No hydronephrosis. Prior intramedullary sree and screw fixation left hip. Compression of the L4 and L5 vertebral bodies. L4 compression is new compared to prior PET/CT 2020 wi th loss of approximately 25% vertebral body height. Minimal retropulsion posterior superior cortex wi th mild central canal stenosis. Stable compression fracture L5 vertebral body. Chronic compression of the inferior endplate at T9 is unchanged. CT/CT abdomen pelvis w con* [id number] IMPRESSION: 1. Cholelithiasis. 2. Cirrhotic liver with splenomegaly and evidence of portal venous hypertensio n. 3. A few prominent periaortic, aortocaval, and retroperitoneal lymph nodes sim ilar to previous. A few prominent cori hepatis lymph nodes unchanged. 4. New compression fracture involving the L4 superior endplate with minimal re tropulsion and mild central canal stenosis. Loss of approximately 25% vertebral body height. This is new since the PET/CT July 16, 2020. Recommend correlat ion for low back pain. 5. Chronic unchanged L5 compression fracture. 6. No other significant changes from previous.
[2020-11-17] MEDS: iohexol 300 mg/mL 50 mL Btl PO (14:30)
[2020-11-17] MEDS: iohexol 300 mg/mL 100 mL Btl IV (15:37)
== END 2020-11-17 13:34 | disposition home or self-care (01) ==
LOC: RADWPI 13:34
PROVIDERS: PCP Family Medicine; Visit Provider Internal Medicine Hematology & Oncology
DX: C15.5 Malignant neoplasm of lower third of esophagus (principal); K80.20 Calculus of gallbladder without cholecystitis without obstruction; K74.60 Unspecified cirrhosis of liver; R16.1 Splenomegaly, not elsewhere classified; S32.048A Other fracture of fourth lumbar vertebra, initial encounter for closed fracture; X58.XXXA Exposure to other specified factors, initial encounter
CPT/HCPCS: 74177; Q9967

== ENCOUNTER 2020-11-29 10:44 | Outpatient (CLI) | payer MEDICAID, SELFPAY ==
[2020-11-29 15:50] LABS: Basophils % 0.2 %; Eosinophils # 0.1 10^3/uL (0.0-0.8); Eosinophils % 1.2 %; Hematocrit 37.3 % (42.0-52.0); Hemoglobin 12.2 g/dL (11.7-16.6); Lymphocytes # 0.8 10^3/uL (0.8-4.8); Lymphocytes % 16.3 %; Mean Corpuscular HGB Conc 32.7 g/dL (30.0-36.0); Mean Corpuscular Hemoglobin 29.6 pg (28.0-34.0); Mean Corpuscular Volume 90.5 fL (80-94); Mean Platelet Volume 12.1 fL (7.4-10.4); Monocytes # 0.7 10^3/uL (0.2-0.9); Monocytes % 12.8 %; Neutrophils # 3.53 10^3/uL (1.8-7.7); Neutrophils % 69.3 %; Nucleated Red Blood Cells % 0 %; Platelet Count 108 10^3/cmm (130-400); Red Blood Count 4.12 10^6/uL (4.1-5.3); Red Cell Distribution Width 15.1 % (12.1-15.1); White Blood Count 5.1 10^3/uL (4.0-10.0)
[2020-11-29 16:28] LABS: Ferritin 56 ng/mL (30-400); Iron 65 ug/dL (59-158); Percent Saturation 19.4 % (20-50); Total Iron Binding Capacity 335 mcg/dl; Unsaturated Iron Binding 270 ug/dL (112-347)
== END 2020-11-29 10:45 | disposition home or self-care (01) ==
LOC: ONCMED 11-30 09:38
PROVIDERS: PCP Family Medicine; Visit Provider Internal Medicine Hematology & Oncology
DX: C15.5 Malignant neoplasm of lower third of esophagus (principal); D50.9 Iron deficiency anemia, unspecified
CPT/HCPCS: 82728; 83540; 83550; 85025

== ENCOUNTER 2020-12-01 05:55 | Outpatient (CLI) | payer MEDICAID, SELFPAY ==
--- NOTE | 2020-12-02 12:45 | ONC FU_ITS ---
Dr. Ocampo follow up note Patient: Loida Juares Unit #: [id number]: [id number] Dicatated By: Pablo Ocampo M.D.Date of Visit:December 01, 2020 Onc Med Follow-up/Prog Note History of Present Illness: Mr. Loida Juares is a 54-year-old gentleman with history of abdominal pain recently underwent EGD and colonoscopy on 01/19/2019 which showed in the lower third esophagus, a partially obstructing, large sized, friable, fungating, submucosal, ulcerated mass and there was evidence of gastritis biopsy was obtained and came back moderately differentiated infiltrating adenocarcinoma. Colonoscopy was normal and follow-up CT scan of chest abdomen pelvis done on 01/29/2019 showed indeterminate but numerous celiac axis/upper mesenteric and retroperitoneal shoddy lymph nodes. No metastatic disease to lungs adrenal gland or liver Patient denies any history of weight loss in fact weight gain. No hemoptysis or hematemesis, no nausea or vomiting, no diarrhea constipation, no dysphagia. Or odynophagia. Patient has history of hepatitis C, as per patient he was treated by Dr. Canales about 2-3 years ago and was dormant and now active. History of cirrhosis and splenomegaly. No alcohol use but smoke. CT PET scan done on 02/21/2019 showed 1.3 cm segment of distal esophageal with SUV of 2.9 consistent with a primary esophageal carcinoma there is a no local or distance metastases Started on combined chemoradiation on 03/10/2019 with modified dose of weekly carboplatin and Taxol concurrent with radiation Patient completed combined chemoradiation with weekly carboplatin and Taxol on 05/10/2019 Was referred to imaging scheduler in [place], [place] and he was seen on 04/03/2019. Impression and recommendation was to repeat hepatitis profile including hepatitis B core antigen, if is positive may require prophylaxis. And Dr. Manrique will also do further workup regarding hepatic cirrhosis and with PT/INR less than 1.7, patient has child tracy A and hepatitis C is a low risk for acute liver injury andsuggested to proceed with chemoradiation . May consider radiological transjugular liver biopsy and measurement of portal pressures, if esophageal surgery is under consideration. And medical management of portal hypertension if needed patient was referred to Cardiothoracic surgery at [facility] for evaluation for possible esophagectomy patient was seen and admitted on 06/25/2019 and esophagectomy was attempted during procedure, patient is liver appeared severely cirrhotic esophagectomy was canceled but during procedure underwent EGD and biopsy was obtained which showed no evidence of disease. Due to advanced stage hepatic cirrhosis, no further treatment was offered but observation and follow with imaging scheduler. Follow-up CT PET scan done on February 13, 2020, showed resolution of abnormal esophageal activity, consistent with complete response to the therapy. Negative for local or distant metastatic disease. As per patient he underwent hemorrhoid surgery for infected hemorrhoids on January 15, 2020 and did develop postop complication requiring wound care till last week of April 2020. As Per patient he has seen imaging scheduler in [place] and in December 2019 he was given prescription for Mavyret but patient said he got sick with his hemorrhoid so he did not get his prescription refilled until last week when he started taking his Mavyret for hepatitis C, now tolerating reasonably well. As per patient he was admitted to hospital on May 15, 2020 with hematemesis and melena hematochezia he was treated with supportive care and received blood transfusion and also underwent EGD which showed severe gastritis/esophagitis and also had CT scan chest done on May 15, 2020 which showed diffuse mucosal thickening of distal one third of esophagus without visible focal mass. And splenomegaly and cirrhosis of the liver Patient was discharged home on May 20, 2020 Follow-up CT PET scan done on July 16, 2020 showed no evidence of recurrent malignancy Follow-up CT scan of abdomen pelvis done on November 17, 2020 showed cirrhotic liver with splenomegaly and evidence of portal venous hypertension, few prominent para-aortic, aortocaval, retroperitoneal lymph node similar to previous, few prominent cori hepatis lymph nodes unchanged. New compression fracture involving L4 superior endplate with minimal retropulsion loss of approximately 25% vertebral body height. Chronic unchanged L5 compression fracture. Came for follow-up, denies any specific complaint except chronic lower back pain, as per patient he had recent history of fall, injuring lower back otherwise no new pain or discomfort, no lower extremity weakness or numbness, patient recently went to [place] and drove all the way, without any problem. Patient go to pain clinic for pain management and his pain is under control denies any hemoptysis or hematemesis denies any nausea or vomiting occasionally mild dysphagia but tolerating orally well maintaining good nutrition and hydration. Denies any hemoptysis or hematemesis, denies any jaundice, denies any nausea or vomiting. Medications: CeleXA 1 Tablet (of 10 mg) Oral daily, Dronabinol 1 Capsule (of 10 mg) Oral b.i.d. PRN, Levemir 30 Units (of 100 Units/mL) Subcutaneous daily, LORazepam 0.5 - 1 Tablet (of 1 mg) Oral t.i.d. PRN, oxyCODONE HCl 1 Tablet (of 15 mg) Oral pc (tid), Protonix 1 Tablet (of 20 mg) Tablet, enteric coated Oral b.i.d., Zofran ODT 1 Tablet (of 8 mg) Tablet Dispersable Oral q 8 hours PRN Allergies: No Known Allergies. Review of Systems: Review of Systems is not available for this patient. Vital Signs: Performed on December 01, 2020 10:52 Height - 72.00 in Weight - 196.4 lbs (LOW) BSA - 2.11 sq.m BMI - 26.64 Temperature - 97.4 F (LOW) Pulse - 95 /min Respiration - 18 /min BP - 128/75 mm(hg) O2 Sat - 97 % Pain - 6 Performance Status: 0 - Fully active, able to carry on all predisease activities without restrictions. (ECOG) Physical Examination: ENMT - No mouth sores, no thrush, no jaundice, Respiratory - Lungs are clear to auscultation, Cardiovascular - Regular rate and rhythm of heart, Abdomen - Soft, bowel sounds present, Extremities - No visible edema. Lab/Imaging: Test performed on Jul 14, 2020 08:48 Iron 34 mcg/dL Iron Binding Capacity (TIBC) 319 mcg/dl % Iron Saturation 10.6 % UIBC 285 mcg/dL WBC 2.9 10 3/uL RBC 3.71 10 6/uL HGB 10.0 g/dL HCT 31.6 % MCV 85.2 fL MCH 27.0 pg MCHC 31.6 g/dL RDW 14.3 % Platelet Count 61 10 3/cmm Neutrophils 1.72 10 3/uL Lymphocytes 0.6 10 3/uL Monocytes 0.5 10 3/uL Eosinophils 0.1 10 3/uL Basophils 0.0 10 3/uL Neutrophil % 60.2 % Lymphocyte % 21.8 % Monocyte % 15.8 % Eosinophil % 1.8 % Basophils % 0.4 % NRBC % 0 % CBC Slide Review Slide Review Perform SLIDE REVIEW AGREES WITH AUTOMATED RESULT Test performed on Jun 14, 2020 10:48 Sodium 139 mmol/L Potassium 4.0 mmol/L Chloride 104 mmol/L CO2 28 mmol/L Anion Gap 11.0 BUN 14 mg/dL Creatinine 0.6 mg/dL Cr Clearance (Est) 179.5700 mL/min eGFR 139.9 mL/min Glucose 104 mg/dL Osmolality - Calculated 289 mOsm/kg Calcium 8.6 mg/dL Protein, Total 6.3 g/dL Albumin 2.9 g/dL Globulin 3.4 g/dL Bilirubin, Total 0.3 mg/dL ALT (SGPT) 25 U/L AST (SGOT) 41 U/L Alkaline Phosphatase 185 IU/L MPV 12.6 fL Impression: Moderately differentiated adenocarcinoma of distal esophagus per EGD/biopsy done on 01/19/2019 CT scan of chest abdomen pelvis done on 01/29/2019 showed mild thickening of right distal esophagus No metastatic disease to lungs, adrenal glands or liver Moderate cirrhosis with splenomegaly Indeterminate but numerous celiac axis/upper mesenteric and retroperitoneal shoddy lymph nodes CT PET scan done on 02/21/2019 showed there is a 1.3 cm segment of distal esophagus with SUV of 3.9 consistent with a primary esophageal carcinoma. No findings for local or distant metastatic disease seen. ? T1-T2,Nx,Mx Orthopedic fixation of left hip fracture Subacute to acute L5 compression fracture Colonoscopy done on 01/19/2019 showed normal exam. Started on combined chemoradiation with modified weekly carboplatin/Taxol concurrent with radiation therapy on 03/19/2019 last weekly chemotherapy with carbo/Taxol was given on 05/05/2019 Follow-up CT PET scan done on February 13, 2020 showed resolution of abnormal esophageal activity, consistent with complete response to therapy, no evidence of local or distant mets Follow-up CT PET scan done on July 16, 2020 showed no evidence of recurrence of disease Pancytopenia, etiology unclear but appears multifactorial including splenic sequestration as patient has hepatic cirrhosis and splenomegaly and his anemia could be due to chronic GI blood loss or malabsorption, Anemia resolved with oral iron, also resolution of mild leukopenia Follow-up CT scan of abdomen pelvis done on December 04, 2020 showed no evidence of recurrence of disease, persistent upper abdominal lymphadenopathy of unknown significance and cirrhotic liver with splenomegaly, New L4 compression fracture due to recent fall Plan: Discussed with patient regarding his labs white blood count 5.1 hemoglobin 12.2 hematocrit 37.3 platelets 108,000 compared to 95,000 iron studies shows iron saturation 19.4, ferritin 56, iron 65, TIBC 335 Clinically, patient doing well with no new signs symptom, his follow-up CT scan of chest abdomen pelvis, somehow CT chest was not done but CT scan of abdomen pelvis showed no abnormality suggestive of recurrence of disease persistent mild upper abdominal lymphadenopathy of unknown significance. And again noted cirrhotic liver and splenomegaly. And new L4 compression fracture probably due to recent fall,, orthopedic evaluation was recommended but patient has no new signs symptom and being followed in pain clinic so patient declined. As far as mild dysphagia is concerned, patient was suggested EGD but patient declined. His hemoglobin is improving on oral iron, now in normal range, will continue same as he is tolerating it well. Persistent mild thrombocytopenia also improving. Patient return to clinic in 4 months with CBC CMP and CT scan of chest and abdomen in the meantime continue with monthly port maintenance Signed By: Pablo Ocampo M.D. <<Signature on File>>
== END 2020-12-01 05:56 | disposition home or self-care (01) ==
LOC: ONCMED 05:57
PROVIDERS: PCP Family Medicine; Visit Provider Internal Medicine Hematology & Oncology
DX: Z45.2 Encounter for adjustment and management of vascular access device (principal)
CPT/HCPCS: 96523; 99214

== ENCOUNTER 2020-12-23 14:42 | Outpatient (CLI) | payer MEDICAID, SELFPAY | END 2020-12-23 14:43 | disposition home or self-care (01) | LOC: WOUND 14:42 | PROVIDERS: PCP Family Medicine; Visit Provider Surgery | DX: E11.621 Type 2 diabetes mellitus with foot ulcer (principal); L97.422 Non-pressure chronic ulcer of left heel and midfoot with fat layer exposed; E11.622 Type 2 diabetes mellitus with other skin ulcer; L97.322 Non-pressure chronic ulcer of left ankle with fat layer exposed | CPT/HCPCS: 11043; 87070; 87077; 87176; 87186; 87205; G0463 ==

== ENCOUNTER 2020-12-24 12:17 | Inpatient (IN) | payer MEDICAID, SELFPAY ==
[2020-12-24 12:21] VITALS: BP 124/74; PULSE 98; RESP 18; TEMP 36.8; O2SAT 99; BMI 24.9
--- NOTE | 2020-12-24 12:31 | XRR_ITS ---
PROCEDURE INFORMATION: Exam: XR Left Foot Exam date and time: 12/24/2020 12:31 PM Age: 55 years old Clinical indication: Other: Ulcer; Additional info: Diabetic ulcer TECHNIQUE: Imaging protocol: XR Left foot. Views: 3 or more views. COMPARISON: No relevant prior studies available. FINDINGS: Bones/joints: Multi-articular joint space narrowing and small marginal osteophyte formations. Chronic appearing contour abnormality of the 1st digit proximal phalanx with adjacent soft tissue calcifications. Soft tissues: There is edema and emphysema in the subcutaneous soft tissues plantar to the hindfoot and midfoot consistent with infection. No large single air-fluid level is seen. Vasculature: There are peripheral vascular calcifications. XR/XR foot LT min 3V* [id number] IMPRESSION: There is edema and emphysema in the subcutaneous soft tissues plantar to the hindfoot and midfoot consistent with infection.
[2020-12-24 12:58] LABS: Basophils % 0.3 %; Eosinophils % 0.2 %; Hematocrit 33.5 % (42.0-52.0); Hemoglobin 11.2 g/dL (11.7-16.6); Lymphocytes # 0.6 10^3/uL (0.8-4.8); Mean Corpuscular HGB Conc 33.4 g/dL (30.0-36.0); Mean Corpuscular Hemoglobin 29.2 pg (28.0-34.0); Mean Corpuscular Volume 87.2 fL (80-94); Mean Platelet Volume 11.8 fL (7.4-10.4); Monocytes # 0.8 10^3/uL (0.2-0.9); Monocytes % 6.3 %; Neutrophils # 10.95 10^3/uL (1.8-7.7); Neutrophils % 87.5 %; Nucleated Red Blood Cells % 0 %; Platelet Count 116 10^3/cmm (130-400); Red Blood Count 3.84 10^6/uL (4.1-5.3); Red Cell Distribution Width 14.1 % (12.1-15.1); White Blood Count 12.5 10^3/uL (4.0-10.0)
[2020-12-24 13:26] LABS: Alanine Aminotransferase 18 U/L (0-41); Albumin Level 2.5 g/dL (3.5-5.2); Alkaline Phosphatase 225 IU/L (40-130); Anion Gap 14.5 (5-19); Aspartate Amino Transferase 38 U/L (0-40); Blood Urea Nitrogen 14 mg/dL (6-20); C Reactive Protein 119.4 mg/L (0.0-4.9); Calcium 7.8 mg/dL (8.5-10.5); Carbon Dioxide 22 mmol/L (22-29); Chloride 95 mmol/L (98-107); Globulin 4.4 g/dL (1.3-4.6); Glucose 300 mg/dL (65-115); Osmolality Calculated 276 mOsm/kg (285-295); Potassium 4.5 mmol/L (3.5-5.1); Sodium 127 mmol/L (136-145); Total Bilirubin 1.2 mg/dL (0.15-1.2); Total Protein 6.9 g/dL (6.6-8.7)
[2020-12-24] MEDS: morphine 4 mg/mL SDV 1 mL IVP (14:11)
[2020-12-24] MEDS: ondansetron 2 mg/ML SDV 2 mL 4 MG IVP (14:11)
[2020-12-24] MEDS: vancomycin 1,250 MG/250 ML PIGGYBACK 250 MG IV ×2 (14:15→22:54)
--- NOTE | 2020-12-24 14:23 | ED_ITS ---
HPI - Wound/Laceration General: Chief Complaint: Wound/Laceration Stated Complaint: Left foot pain, laceration, oozing Time Seen by Provider: 12/24/20 12:25 Source: patient and old records reviewed Mode of arrival: ambulatory Limitations: no limitations History of Present Illness: HPI narrative: This 55-year-old male has a history of diabetes mellitus and has a diabetic foot ulcer to his left heel. He is being seen at the wound care clinic and was seen by one of the wound care providers yesterday. At the clinic he had a debridement done. However there are concerns that he had developed a cellulitis with further concerns of possible osteomyelitis. He was therefore asked to come to the emergency department for evaluation and possible hospital admission. Associated symptoms: Denies chills, fever(s), foreign body sensation, inability to move, nausea, numbness, pain, syncope or vomiting Review of Systems General: Reports: 10 or more systems reviewed and unremarkable except in HPI and below Const: Denies: fever(s) or chills Card: Denies: syncope GI: Denies: nausea or vomiting [facility] ED PFSH: Medical History Acute upper GI bleed -s/p 4 units PRBCs -no active bleeding currently -Hg appears to be stable -s/p endoscopy with noted severe esophagitis -on PPI and carafate Adenocarcinoma of esophagus -s/p chemoradiation (04/2019) -continue to follow up with oncology Dr. 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 No evidence of disease occurrence on endoscopy and no focal mass on CT Esophagitis determined by endoscopy Neuropathy due to secondary diabetes Portal hypertension S/p left hip fracture November 2018 Spinal stenosis of lumbar region Spondylosis of lumbar spine with myelopathy Surgical History H/O circumcision H/O colonoscopy 2018 H/O esophagogastroduodenoscopy 2018 History of knee surgery Port-A-Cath in place 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 Family History Mother Diabetes Father Diabetes Denies family history of Anesthesia complication Bleeding disorder Cancer Social History Smoking and tobacco status: former smoker Quit status (tobacco): has quit using tobacco Year quit tobacco: 06/2019 Alcohol intake: former Lives independently: Yes Marital status: Single Current occupational status: disabled History of recent travel: Yes ([place]) Out of state: No Out of country: No Physical Exam Const: COMMON NORMALS: no acute distress, average body habitus, patient oriented x3, no limitations, healthy appearing, alert and well nourished HENMT: COMMON NORMALS: normocephalic, atraumatic and moist oral mucous membranes HEAD & SCALP: normocephalic and atraumatic Neck/C-Spine: COMMON NORMALS: no meningeal signs and no JVD Resp: COMMON NORMALS: normal respiratory effort, No retractions, No use of accessory muscles, clear to auscultation bilaterally and percussion normal AUSCULTATION: clear to auscultation bilaterally PERCUSSION: percussion normal Cardio: COMMON NORMALS: no JVD, regular rate, regular rhythm, S1 normal heart sound present, S2 normal heart sound present, No gallops present (Cardio), No clicks present (Cardio), No murmurs present (Cardio), No rub (Cardio) and Peripheral pulses 2+ throughout RATE: regular rate RHYTHM: regular rhythm HEART SOUNDS: S1 normal heart sound present and S2 normal heart sound present PERIPHERAL PULSES: Peripheral pulses 2+ throughout GI: COMMON NORMALS: Normal to inspection, nondistended, normoactive bowel sounds present, Soft to palpation, non-tender, No hepatosplenomegaly present, no masses and no bruits PALPATION: Yes Soft to palpation and Yes No hepatosplenomegaly present Extremity: COMMON NORMALS: normal to inspection, full ROM, capillary refill normal, no calf tenderness and no pedal edema NARRATIVE EXTREMITY EXAM: Left heel wound dressing. There is wanting 2.5 cm wound around the left heel with some purulent drainage. There is mild erythema surrounding the wound. Neuro: COMMON NORMALS: patient oriented x3 SENSORIUM/ORIENTATION: Yes alert MENINGEAL SIGNS: Yes no meningeal signs Skin: COMMON NORMALS: no rashes or lesions noted, no wounds, turgor normal, no jaundice, no petechiae and no mottling GENERAL SKIN EXAM: no rashes or lesions noted and turgor normal Course ED course: 141: Called maritza Charlesist admit the patient. He states that he will call back Consultations: Consultation #1: Discussed the patient with maritza Charlesist and he kindly accepted patient to his service Time: 14:21 Vital Signs: Vital signs: Vital Signs Temperature 97.9 F 12/24/20 23:23 Pulse Rate 86 12/24/20 23:23 Respiratory Rate 18 12/24/20 23:23 Blood Pressure 118/73 12/24/20 23:23 Pulse Oximetry 98 12/24/20 23:23 MDM - Wound/Laceration MDM Narrative: Medical decision making narrative: 55-year-old male with a diabetic foot ulcer with surrounding cellulitis. He will require surgical debridement as well as intravenous antibiotics. He is admitted to the hospital for further evaluation and management by the hospitalist and surgeon. Medical Records: Attestation: I reviewed the patient's medical records. Lab Data: Attestation: I reviewed the patient's lab results. Labs: Lab Results 12/24/20 12/24/20 12/24/20 Range/Units 12:42 12:42 12:42 WBC 12.5 H (4.0-10.0) 10^3/ uL RBC 3.84 L (4.1-5.3) 10^6/u L Hgb 11.2 L (11.7-16.6) g/dL Hct 33.5 L (42.0-52.0) % MCV 87.2 (80-94) fL MCH 29.2 (28.0-34.0) pg MCHC 33.4 (30.0-36.0) g/dL RDW 14.1 (12.1-15.1) % Plt Count 116 L (130-400) 10^3/c mm MPV 11.8 H (7.4-10.4) fL Neut % (Auto) 87.5 % Lymph % (Auto) 5.0 % Warrick % (Auto) 6.3 % Eos % (Auto) 0.2 % Baso % (Auto) 0.3 % Neut # (Auto) 10.95 H (1.8-7.7) 10^3/u L Lymph # (Auto) 0.6 L (0.8-4.8) 10^3/u L Warrick # (Auto) 0.8 (0.2-0.9) 10^3/u L Eos # (Auto) 0.0 (0.0-0.8) 10^3/u L Baso # (Auto) 0.0 (0.0-0.1) 10^3/u L Nucleated RBC % (a uto) 0 % Nucleated RBCs # 0.0 /100WBC ESR (0-10) mm/hr Sodium 127 L (136-145) mmol/L Potassium 4.5 (3.5-5.1) mmol/L Chloride 95 L (98-107) mmol/L Carbon Dioxide 22 (22-29) mmol/L Anion Gap 14.5 (5-19) BUN 14 (6-20) mg/dL Creatinine 0.8 (0.7-1.2) mg/dL GFR Calculation 100.0 (90-130) mL/min Glucose 300 H (65-115) mg/dL Calculated Osmolal ity 276 L (285-295) mOsm/k g Lactate 3.0 H (0.5-2.2) mmol/L Calcium 7.8 L (8.5-10.5) mg/dL Total Bilirubin 1.2 (0.15-1.2) mg/dL AST 38 (0-40) U/L ALT 18 (0-41) U/L Alkaline Phosphata se 225 H (40-130) IU/L C-Reactive Protein 119.4 H (0.0-4.9) mg/L Total Protein 6.9 (6.6-8.7) g/dL Albumin 2.5 L (3.5-5.2) g/dL Globulin 4.4 (1.3-4.6) g/dL Procalcitonin (0-0.5) ng/mL 12/24/20 12/24/20 Range/Units 12:42 12:42 WBC (4.0-10.0) 10^3/ uL RBC (4.1-5.3) 10^6/u L Hgb (11.7-16.6) g/dL Hct (42.0-52.0) % MCV (80-94) fL MCH (28.0-34.0) pg MCHC (30.0-36.0) g/dL RDW (12.1-15.1) % Plt Count (130-400) 10^3/c mm MPV (7.4-10.4) fL Neut % (Auto) % Lymph % (Auto) % Warrick % (Auto) % Eos % (Auto) % Baso % (Auto) % Neut # (Auto) (1.8-7.7) 10^3/u L Lymph # (Auto) (0.8-4.8) 10^3/u L Warrick # (Auto) (0.2-0.9) 10^3/u L Eos # (Auto) (0.0-0.8) 10^3/u L Baso # (Auto) (0.0-0.1) 10^3/u L Nucleated RBC % (a uto) % Nucleated RBCs # /100WBC ESR 99 H (0-10) mm/hr Sodium (136-145) mmol/L Potassium (3.5-5.1) mmol/L Chloride (98-107) mmol/L Carbon Dioxide (22-29) mmol/L Anion Gap (5-19) BUN (6-20) mg/dL Creatinine (0.7-1.2) mg/dL GFR Calculation (90-130) mL/min Glucose (65-115) mg/dL Calculated Osmolal ity (285-295) mOsm/k g Lactate (0.5-2.2) mmol/L Calcium (8.5-10.5) mg/dL Total Bilirubin (0.15-1.2) mg/dL AST (0-40) U/L ALT (0-41) U/L Alkaline Phosphata se (40-130) IU/L C-Reactive Protein (0.0-4.9) mg/L Total Protein (6.6-8.7) g/dL Albumin (3.5-5.2) g/dL Globulin (1.3-4.6) g/dL Procalcitonin 0.76 H (0-0.5) ng/mL Imaging Data^: Other Xray: Attestation: I personally reviewed and interpreted this imaging study as follows: Radiologist's impression: [address], [place] [address]OAes ReportSigned Patient: Dannielle Juares #: [id number]: [id number]#:[id number]/Sex: 55 / MADM Date: 12/24/20Loc: ERRoom/Bed:Attending Dr: Ordering Provider/Ordering MD: Dashawn Olea MD, [facility] [place] Date of Service: 12/24/20 Procedure(s): XR foot LT min 3V* [id number] Accession Number(s): [id number] Report Number: [id number] PROCEDURE INFORMATION: Exam: XR Left Foot Exam date and time: 12/24/2020 12:31 PM Age: 55 years old Clinical indication: Other: Ulcer; Additional info: Diabetic ulcer TECHNIQUE: Imaging protocol: XR Left foot. Views: 3 or more views. COMPARISON: No relevant prior studies available. FINDINGS: Bones/joints: Multi-articular joint space narrowing and small marginal osteophyte formations. Chronic appearing contour abnormality of the 1st digit proximal phalanx with adjacent soft tissue calcifications. Soft tissues: There is edema and emphysema in the subcutaneous soft tissues plantar to the hindfoot and midfoot consistent with infection. No large single air-fluid level is seen. Vasculature: There are peripheral vascular calcifications. XR/XR foot LT min 3V* [id number] IMPRESSION: There is edema and emphysema in the subcutaneous soft tissues plantar to the hindfoot and midfoot consistent with infection. Dictated By:Lisbet Vasquez MDSigned By:Lisbet Vasquez MDSigned Date/Time:12/24/20 1405DD/ 1404 Discharge Plan Discharge Patient Disposition: Admitted As Inpatient Admit Provider: Yuri Whyte Clinical Impression: Diabetic ulcer of left foot, Insulin dependent type 2 diabetes mellitus Condition: Stable Coding Level of Care Code ED Returns Supervisor for Alex Robles
[2020-12-24 15:00] LABS: Procalcitonin 0.76 ng/mL (0-0.5)
[2020-12-24 15:20] LABS: Erythrocyte Sedimentation Rate 99 mm/hr (0-10)
--- NOTE | 2020-12-24 15:31 | PM.CONSULT ---
Providers/Reason For Consult Consulting Physician/Specialty*: Marcos Silver MD Reason for Consult*: Left heel ulcer in a diabetic patient Attending Physician: Yuri Whyte MD Primary Care Provider: Casimiro Sommers History of Present Illness History of Present Illness Chief Complaint: I have a spot on my left ankle History of present illness: Mr. Loida Juares is a 55 year old male patient well-known to me from previous clinical encounters, presented yesterday to the wound care center as a referral as he did stepped on hot charcoal about 2 weeks ago and sustained an injury to his left heel that eventually developed into necrotic tissues and abscess formation that required debridement yesterday at the wound care center and tissues were sent for cultures. The depth of the ulcer went all the way to the musculofascial layer without bone exposure clinically detected. Patient did not have previous x-rays prior to referral to the wound care center and I did encourage the patient for direct admission to the hospital yesterday for further work-up and to be placed on antimicrobial therapy and potential surgical debridement in the OR at some point, but unfortunately he did have some errands to run and he mentioned that he would come today to the hospital, patient reported before that he did not have any fevers or nausea or vomiting. He was placed on oral antimicrobial therapy per his primary care provider. He is well-known with history of hepatitis C, liver cirrhosis, diabetes mellitus type 2 and distal esophageal malignancy as he had history of chemoradiation. Patient was supposed to get an esophagectomy at some point but because of his severe cirrhosis, surgery never took place. Patient presented to the ER today was admitted on the hospitalist service for medical management of his diabetes mellitus type 2 and medical optimization. General surgery was consulted for further evaluation and care Review of Systems General: Reports: 10 or more systems reviewed and unremarkable except in HPI and below Meds/Allergies Home Medications and Allergies Home Medications Medication Instructions Recorded Confirmed Last Taken Type dronabinol 10 mg capsule 5 mg PO BID PRN cap 07/14/19 05/26/20 Unknown History oxycodone 10 mg PO Q6H PRN #28 tab 01/15/20 05/26/20 05/14/20 Rx Mavyret 1 tab PO DAILY 05/15/20 05/26/20 05/15/20 History Levemir U-100 Insulin 40 unit SUBCUT BID #10 ml 05/19/20 05/26/20 05/14/20 Rx pantoprazole [Protonix] 40 mg PO BID #60 tab 05/19/20 05/26/20 Unknown Rx loperamide [Anti-Diarrheal 2 mg PO Q4H PRN #30 tab 05/20/20 05/26/20 Unknown Rx (loperamide)] lorazepam 0.5 mg tablet 0.5 mg PO TID PRN 05/23/20 05/23/20 Unknown History oxycodone 15 mg tablet 15 mg PO TID PRN 05/23/20 05/23/20 Unknown History Allergies Allergy/AdvReac Type Severity Reaction Status Date / Time acetaminophen [From Tylenol] Allergy Unknown Verified 08/25/20 16:59 NSAIDS (Non-Steroidal Allergy ALGY-Joint Verified 12/24/20 12:27 Anti-Inflamma Pain PFSH Acute PFSH: Medical History (Reviewed 12/25/20 @ 01:00 by Dashawn Olea MD, [facility] [place]) Acute upper GI bleed -s/p 4 units PRBCs -no active bleeding currently -Hg appears to be stable -s/p endoscopy with noted severe esophagitis -on PPI and carafate Adenocarcinoma of esophagus -s/p chemoradiation (04/2019) -continue to follow up with oncology Dr. 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 No evidence of disease occurrence on endoscopy and no focal mass on CT Esophagitis determined by endoscopy Neuropathy due to secondary diabetes Portal hypertension S/p left hip fracture November 2018 Spinal stenosis of lumbar region Spondylosis of lumbar spine with myelopathy Surgical History (Reviewed 12/25/20 @ 01:00 by Dashawn Olea MD, [facility] [place]) H/O circumcision H/O colonoscopy 2018 H/O esophagogastroduodenoscopy 2019 History of knee surgery Port-A-Cath in place 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 Family History (Reviewed 12/25/20 @ 01:00 by Dashawn Olea MD, [facility] [place]) Mother Diabetes Father Diabetes Denies family history of Anesthesia complication Bleeding disorder Cancer Social History (Reviewed 12/25/20 @ 01:00 by Dashawn Olea MD, [facility] [place]) Smoking and tobacco status: former smoker Quit status (tobacco): has quit using tobacco Year quit tobacco: 06/2019 Alcohol intake: former Lives independently: Yes Marital status: Single Current occupational status: disabled History of recent travel: Yes ([place]) Out of state: No Out of country: No Vitals/I&O/Wt Last Vital Signs Temp 98.3 F 12/24/20 12:21 Pulse 98 12/24/20 12:21 Resp 18 12/24/20 12:21 BP 124/74 12/24/20 12:21 Pulse Ox 99 12/24/20 12:21 Weight last 48 hrs Weight 184 lb Physical Exam Narrative: EXAM NARRATIVE: Patient is conscious alert oriented X3 BMI 25 Head and neck examination PERRLA no masses no cervical lymphadenopathy no jaundice Cardiac examination audible S1-S2 no murmurs no gallops no arrhythmias Chest is clear bilateral,abscence of Rhonchi or wheezes,no surgical emphysema Abdomen nontender nondistended soft no organomegaly guarding or rigidity/no signs of peritonitis Left foot shows swelling and the wound is about 2.5 x 2.5 with [address] all the way to the musculofascial layer with residual necrotic tissues and purulent discharge Capillary refill less than 2 sec Data Micro: Micro: Microbiology 12/24/20 12:42 Blood Culture - Pr eliminary Blood [facility] 12/24/20 12:46 Blood Culture - Pr eliminary Blood [facility] Other Data: Attestation for Other Data: I personally reviewed and interpreted the following: (No evidence of osteomyelitis, pockets of gas are appreciated due to recent I&D and element of infection) Other data: X-ray left foot there is edema and emphysema in the subcutaneous soft tissues plantar to the hindfoot and midfoot consistent with infection. A&P Assessment and plan (1) Ulcer of left heel: After history taking physical examination and reviewing the chart and x-rays of the left foot with my personal interpretation, I would recommend to obtain a CT scan of the left foot with IV contrast to evaluate the underlying bony structures and to rule out additional pockets of abscess formation. We will schedule the patient for surgery tomorrow for I&D of left heel wound Meanwhile we will plan for packing the wound with half inch Nu Gauze wet-to-dry using quarter strength Dakin solution Nonweightbearing left hindfoot Management of medical comorbidities including broad-spectrum parenteral antimicrobial therapy per hospitalist service as I do appreciate the input. N.p.o. after midnight Assurance and education All questions have been answered and all concerns have been addressed to patient's satisfaction. Status: Acute Consult Attestations Medical Necessity Statement: Patient will require inpatient patient will require inpatient hospitalization passing 2 midnights for medical optimization and surgical debridement of the left heel ulcer Time Spent in Patient Care: 16 - 35 minutes (>than 50% of time spent in counselling and/or direct pt care on unit). 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
--- NOTE | 2020-12-24 15:58 | PM.HP ---
Providers/Chief Complaint Admitting Physician: Yuri Whyte MD Primary Care Provider: Casimiro Sommers Chief Complaint: Left foot pain, laceration, oozing History of Present Illness Loida Juares is a 55 year old male with past medical history of insulin-dependent type 2 diabetes mellitus, diabetic peripheral neuropathy, history of left foot diabetic ulcer managed with wound care, history of GI bleed, history of hepatitis C, status post treatment, according to patient he was cured of it, history of liver cirrhosis, history of portal hypertension, history of adenocarcinoma of the esophagus status post radiation therapy, who presents to [facility] due to concerns for worsening infection of patient's left foot diabetic ulcer. Patient tells me that he is 1 allergic to wound care, his left foot diabetic ulcer has had increased drainage, increasing over erythema surrounding, a foul order. Patient tells me that he does not have any peripheral vascular disease, no history of CAD, he is a smoker, no known history of COPD, no history of diabetic nephropathy, no history of diabetic retinopathy Review of Systems Const: Denies: fever(s), fatigue or malaise Resp: Denies: dyspnea or wheezing GI: Denies: abdominal pain, nausea or vomiting : Denies: dysuria Neuro: Denies: dizziness Endo: Denies: polyuria or polydipsia Medications/Allergies Home Medications Medication Instructions Recorded Confirmed Last Taken Type dronabinol 10 mg capsule 5 mg PO BID PRN cap 07/14/19 05/26/20 Unknown History oxycodone 10 mg PO Q6H PRN #28 tab 01/15/20 05/26/20 05/14/20 Rx Mavyret 1 tab PO DAILY 05/15/20 05/26/20 05/15/20 History Levemir U-100 Insulin 40 unit SUBCUT BID #10 ml 05/19/20 05/26/20 05/14/20 Rx pantoprazole [Protonix] 40 mg PO BID #60 tab 05/19/20 05/26/20 Unknown Rx loperamide [Anti-Diarrheal 2 mg PO Q4H PRN #30 tab 05/20/20 05/26/20 Unknown Rx (loperamide)] lorazepam 0.5 mg tablet 0.5 mg PO TID PRN 05/23/20 05/23/20 Unknown History oxycodone 15 mg tablet 15 mg PO TID PRN 05/23/20 05/23/20 Unknown History Allergies Allergy/AdvReac Type Severity Reaction Status Date / Time acetaminophen [From Tylenol] Allergy Unknown Verified 08/25/20 16:59 NSAIDS (Non-Steroidal Allergy ALGY-Joint Verified 12/24/20 12:27 Anti-Inflamma Pain PFSH Acute PFSH: Medical History Acute upper GI bleed -s/p 4 units PRBCs -no active bleeding currently -Hg appears to be stable -s/p endoscopy with noted severe esophagitis -on PPI and carafate Adenocarcinoma of esophagus -s/p chemoradiation (04/2019) -continue to follow up with oncology Dr. 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 No evidence of disease occurrence on endoscopy and no focal mass on CT Esophagitis determined by endoscopy Neuropathy due to secondary diabetes Portal hypertension S/p left hip fracture November 2018 Spinal stenosis of lumbar region Spondylosis of lumbar spine with myelopathy Surgical History H/O circumcision H/O colonoscopy 2018 H/O esophagogastroduodenoscopy 2018 History of knee surgery Port-A-Cath in place 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 Family History Mother Diabetes Father Diabetes Denies family history of Anesthesia complication Bleeding disorder Cancer Social History Smoking and tobacco status: former smoker Quit status (tobacco): has quit using tobacco Year quit tobacco: 06/2019 Alcohol intake: former Lives independently: Yes Marital status: Single Current occupational status: disabled History of recent travel: Yes ([place]) Out of state: No Out of country: No Vitals/I&O/Wt Last Vital Signs Temp 98.3 F 12/24/20 12:21 Pulse 98 12/24/20 12:21 Resp 18 12/24/20 12:21 BP 124/74 12/24/20 12:21 Pulse Ox 99 12/24/20 12:21 Weight last 48 hrs Weight 83.461 kg Physical Exam Const: COMMON NORMALS: no acute distress and patient oriented x3 HENMT: COMMON NORMALS: normocephalic HEAD & SCALP: normocephalic Eye: COMMON NORMALS: Equal, round and reactive pupils present and EOMs intact bilaterally PUPIL: Yes Equal, round and reactive pupils present Neck/C-Spine: THYROID: Thyroid normal Lymph: LYMPHATIC: no lymphadenopathy noted Resp: COMMON NORMALS: normal respiratory effort, No retractions, No use of accessory muscles and clear to auscultation bilaterally AUSCULTATION: clear to auscultation bilaterally Cardio: COMMON NORMALS: regular rate, regular rhythm, S1 normal heart sound present, S2 normal heart sound present, No gallops present (Cardio), No clicks present (Cardio) and No murmurs present (Cardio) RATE: regular rate RHYTHM: regular rhythm HEART SOUNDS: S1 normal heart sound present and S2 normal heart sound present GI: COMMON NORMALS: Normal to inspection, nondistended, normoactive bowel sounds present, Soft to palpation, non-tender and No hepatosplenomegaly present PALPATION: Yes Soft to palpation and Yes No hepatosplenomegaly present Extremity: NARRATIVE EXTREMITY EXAM: Left foot, calcaneum, 3 x 4 diabetic ulcer, with active draining, with surrounding erythema, foul smell, currently packed Neuro: COMMON NORMALS: patient oriented x3, CN's II-XII intact bilaterally, moves all extremities and no focal motor deficits Data : 12/24/20 12:42 12/24/20 12:42 Micro: Microbiology 12/24/20 12:42 Blood Culture - Preliminary Blood SPECIMEN COLLECTED 12/24/20 12:46 Blood Culture - Preliminary Blood SPECIMEN COLLECTED A&P Assessment and plan (1) Diabetic ulcer of left foot: -Perform CT scan of the of the left foot -We will do arterial ultrasound to assess vascular status -ESR elevated 99, white blood cell count 12.5, CRP 119, pro-Iain 0.76 -A1c pending -Obtain INR given history of liver cirrhosis -Started on broad-spectrum antibiotic therapy vancomycin and Zosyn -Follow blood cultures, wound cultures -Diabetic diet, n.p.o. midnight -Moderate dose sliding scale -We will have surgical intervention by Dr. Silver tomorrow morning -Full code -DVT prophylaxis SCDs, anticoagulation contraindicated given history of GI bleeds, thrombocytopenia Status: Acute (2) Insulin dependent type 2 diabetes mellitus: Status: Acute Additional A&P Information History of liver cirrhosis with portal hypertension secondary to hep C which has been cured Thrombocytopenia secondary to liver cirrhosis Pseudohyponatremia secondary to elevated blood sugar 300 Anemia secondary to liver cirrhosis Attestations Medical Necessity Statement*: Patient requires hospitalization and due to diabetic ulcer of left foot, inpatient, greater than 2 midnights Coding Level of Care Code Acute [facility] Specialist for [facility] Mayelind Diagnoses Diabetic ulcer of left foot E11.621; L97.529 Insulin dependent type 2 diabetes mellitus E11.9; Z79.4
[2020-12-24 17:27] VITALS: BP 122/74; PULSE 84; RESP 17; TEMP 36.7; O2SAT 98
[2020-12-24 18:40] VITALS: RESP 18
[2020-12-24] MEDS: famotidine 20 mg Tablet PO (18:40)
[2020-12-24] MEDS: morphine 4 mg/mL SDV 1 mL 2 MG IVP ×2 (18:40→22:51)
[2020-12-24 19:28] VITALS: BP 120/81; PULSE 79; RESP 18; TEMP 36.3; O2SAT 98
[2020-12-24] MEDS: piperacillin-tazobactam 3.375 GM in sodium chloride 0.9% (plus) 50 ML IV (20:30)
[2020-12-24] MEDS: sodium hypochlorite 0.25% Btl 473 mL 1 APPLIC TOPICAL (20:31)
[2020-12-24 20:58] LABS: Glucose Point of Care 197 mg/dL (70-110)
[2020-12-24 20:58] LABS: Glucose Point of Care 226 mg/dL (70-110)
[2020-12-24] MEDS: bacitracin ointment Pkt 1 EACH TOPICAL (22:18)
[2020-12-24 22:51] VITALS: RESP 18
[2020-12-24] MEDS: dextrose 5%-sod chloride 0.9% 1,000 ML 75 ML IV (22:53)
[2020-12-24 23:23] VITALS: BP 118/73; PULSE 86; RESP 18; TEMP 36.6; O2SAT 98
[2020-12-25] VITALS (21 sets, daily range): BP systolic 87–123; BP diastolic 51–78; PULSE 67–88; RESP 16–18; TEMP 36.2–37.6; O2SAT 96–99
[2020-12-25] MEDS: piperacillin-tazobactam 3.375 GM in sodium chloride 0.9% (plus) 50 ML IV ×3 (03:08→18:34)
[2020-12-25] MEDS: morphine 4 mg/mL SDV 1 mL 2 MG IVP ×4 (04:38→23:17)
[2020-12-25 05:15] LABS: Basophils % 0.4 %; Eosinophils # 0.1 10^3/uL (0.0-0.8); Eosinophils % 0.9 %; Hematocrit 32.8 % (42.0-52.0); Hemoglobin 10.6 g/dL (11.7-16.6); Lymphocytes # 0.9 10^3/uL (0.8-4.8); Lymphocytes % 9.4 %; Mean Corpuscular HGB Conc 32.3 g/dL (30.0-36.0); Mean Corpuscular Volume 89.9 fL (80-94); Mean Platelet Volume 12.2 fL (7.4-10.4); Monocytes # 0.8 10^3/uL (0.2-0.9); Monocytes % 7.8 %; Neutrophils # 7.86 10^3/uL (1.8-7.7); Neutrophils % 81.1 %; Nucleated Red Blood Cells % 0 %; Platelet Count 108 10^3/cmm (130-400); Red Blood Count 3.65 10^6/uL (4.1-5.3); Red Cell Distribution Width 14.2 % (12.1-15.1); White Blood Count 9.7 10^3/uL (4.0-10.0)
[2020-12-25 05:32] LABS: INR 1.46 (0.8-1.2)
[2020-12-25 05:40] LABS: Alanine Aminotransferase 22 U/L (0-41); Albumin Level 2.2 g/dL (3.5-5.2); Alkaline Phosphatase 262 IU/L (40-130); Anion Gap 14.2 (5-19); Aspartate Amino Transferase 49 U/L (0-40); Blood Urea Nitrogen 12 mg/dL (6-20); Calcium 7.4 mg/dL (8.5-10.5); Carbon Dioxide 21 mmol/L (22-29); Chloride 97 mmol/L (98-107); Creatine Phosphokinase 22 U/L (39-308); Glomerular Filtration Rate 116.7 mL/min (90-130); Glucose 161 mg/dL (65-115); Magnesium 1.8 mg/dL (1.7-2.3); Osmolality Calculated 269 mOsm/kg (285-295); Phosphorus 3.2 mg/dL (2.5-4.5); Potassium 4.2 mmol/L (3.5-5.1); Sodium 128 mmol/L (136-145); Total Bilirubin 1.1 mg/dL (0.15-1.2); Total Protein 6.2 g/dL (6.6-8.7)
[2020-12-25 05:41] LABS: Lactate (Lactic Acid level) 1.2 mmol/L (0.5-2.2)
[2020-12-25 05:46] LABS: Vancomycin Trough 18.2 ug/mL (10-15)
[2020-12-25 05:56] LABS: Estmated Average Glucose 157; Hemoglobin A1C 7.1 % (4.0-6.0)
[2020-12-25] MEDS: vancomycin 1,250 MG/250 ML PIGGYBACK 250 MG IV ×3 (06:25→21:15)
--- NOTE | 2020-12-25 06:45 | CTR_ITS ---
PROCEDURE INFORMATION: Exam: CT Left Lower Extremity With Contrast Exam date and time: 12/25/2020 6:45 AM Age: 55 years old Clinical indication: Pain; Ankle and foot; Patient HX: Ulcer on left heel; Additional info: Left foot celulitis, please have the study with iv contrast. TECHNIQUE: Imaging protocol: CT of the Left lower extremity with intravenous contrast was performed. Radiation optimization: All CT scans at this facility use at least one of these dose optimization techniques: automated exposure control; mA and/or kV adjustment per patient size (includes targeted exams where dose is matched to clinical indication); or iterative reconstruction. Contrast material: OMNI 300; Contrast volume: 95 ml; Contrast route: INTRAVENOUS (IV); COMPARISON: XR LEFT FOOT 12/24/2020 12:38:43 PM RADIATION DOSE METRICS: Total DLP (mGy-cm): 870.95 FINDINGS: Bones/joints: There is focal loss of cortex with subcortical osteopenia involving the posteromedial calcaneus, deep to the soft tissue ulceration, compatible with osteomyelitis (4:95). No fracture. No dislocation. Soft tissues: There is a superficial soft tissue ulceration involving the medial hindfoot. Bubbles of gas are present in the plantar soft tissue of the hindfoot and midfoot along with increased attenuation and stranding in the subcutaneous tissue, and thickening of the skin of the medial and posterior hindfoot, all compatible with infection. A walled-off abscess is not however identified. CT/CT lower leg LT w con [id number] IMPRESSION: 1. Focal calcaneal osteomyelitis deep to the hindfoot soft tissue ulceration. 2. Plantar hindfoot and midfoot superficial soft tissue infection without abscess formation. Radiation Dose CTDIVOL = (mGy): DLP = 870.95 (mGy-cm)
[2020-12-25 06:55] LABS: Glucose Point of Care 235 mg/dL (70-110)
[2020-12-25] MEDS: iohexol 300 mg/mL 100 mL Btl IV (07:26)
[2020-12-25] MEDS: sodium chloride 0.9% 1,000 ML 30 ML IV (07:45)
--- NOTE | 2020-12-25 08:10 | ANES.PREANE2 ---
Pre-Anesthetic Assessment Pre-Anesthetic Assessment: Height/Weight: Height 1.83 m Weight 83.461 kg Temp Pulse Resp BP Pulse Ox 97.8 F 81 18 117/72 96 12/25/20 07:51 12/25/20 07:51 12/25/20 07:51 12/25/20 07:51 12/25/20 07:51 Preop Diagnosis: Left heel abscess Proposed Procedure: Operation Date: 12/25/20 08:10 Proposed Procedures p Incision And Drainage left heel ulcer(Left) - Marcos Silver MD Was Beta Lexie taken within 24 hours: N/A Was Clonidine taken within 24 hours: N/A Social: Social History: Tobacco and No alcohol Exam: Pre-Anes Outpt Exam: alert, oriented x 3 and regular rate & rhythm Airway: Submandibular: WNL Cervical ROM: WNL MP: 2 Dentition: False Additional comments: h/o head and neck radiation, supple Pulmonary: Pulmonary: COPD Hepatic: Hepatic: Hepatitis (C) GI: GI: GERD Metabolic: Metabolic: DM (poorly controlled) Musc/skel: Musc/skel: Lower Back Pain Comments: Chronic pain/opioid Neuropsych: Neuropsych: Anxiety and Neuropathy Anesthetic Plan: ASA status: 3 Anesthesia: MAC Risk of > 500 ml blood loss (7ml/kg in children): No Meds/Allergies Current Medications: Current Medications Generic Name Dose Route Start Last Admin Trade Name Freq PRN Reason Stop Dose Admin Famotidine 20 mg 12/24/20 18:02 12/24/20 18:40 Famotidine 20 Mg Tablet PO 20 mg BID MAHNAZ Administration Piperacillin Sod/T azobactam 50 mls @ 12.5 mls /hr 12/24/20 19:30 12/25/20 07:34 Sod 3.375 gm/ So dium Chloride IV Infused Q8H MAHNAZ Infusion Protocol Dextrose/Sodium Ch loride 1,000 mls @ 75 ml s/hr 12/24/20 23:55 12/24/20 22:53 Dextrose 5%-Sod Chloride 0.9% IV 75 mls/hr .[id number] MAHNAZ Administration Vancomycin/PEG/NAD A/Lysine/Water 1,250 mg in 250 m ls @ 250 mls/hr 12/24/20 22:00 12/25/20 07:34 Vancocin IV Infused Q8H MAHNAZ Infusion Sodium Chloride 1,000 mls @ 30 ml s/hr 12/25/20 07:45 12/25/20 07:45 Sodium Chloride 0.9% IV 12/26/20 07:44 30 mls/hr .Q24H MAHNAZ Administration Insulin Aspart 0 unit 12/24/20 18:02 12/24/20 21:39 Insulin Aspart 1 00 Unit/1 Ml SUBCUT 8 unit WM&BEDTIME MAHNAZ Administration Protocol Morphine Sulfate 2 mg 12/24/20 18:02 12/25/20 04:38 Morphine 4 Mg/Ml Sdv 1 Ml IVP 2 mg Q4H PRN Administration SEVERE PAIN Sodium Hypochlorit e 1 applic 12/24/20 19:30 12/24/20 20:31 Sodium Hypochlor ite 0.25% Btl 473 Ml TOPICAL 1 applic Q24H MAHNAZ Administration PFSH Anesthesia PFSH: Medical History Acute upper GI bleed -s/p 4 units PRBCs -no active bleeding currently -Hg appears to be stable -s/p endoscopy with noted severe esophagitis -on PPI and carafate Adenocarcinoma of esophagus -s/p chemoradiation (04/2019) -continue to follow up with oncology Dr. 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 No evidence of disease occurrence on endoscopy and no focal mass on CT Esophagitis determined by endoscopy Neuropathy due to secondary diabetes Portal hypertension S/p left hip fracture November 2018 Spinal stenosis of lumbar region Spondylosis of lumbar spine with myelopathy Surgical History H/O circumcision H/O colonoscopy 2018 H/O esophagogastroduodenoscopy 2018 History of knee surgery Port-A-Cath in place 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 Family History Mother Diabetes Father Diabetes Denies family history of Anesthesia complication Bleeding disorder Cancer Social History Smoking and tobacco status: former smoker Quit status (tobacco): has quit using tobacco Year quit tobacco: 06/2019 Alcohol intake: former Lives independently: Yes Marital status: Single Current occupational status: disabled History of recent travel: Yes ([employer]) Out of state: No Out of country: No Data Anesthesia CBC & Chem 7: 12/25/20 04:50 12/25/20 04:50 Other Labs: Laboratory Results - last 48 hr 12/24/20 12/24/20 12/24/20 12:42 12:42 12:42 WBC 12.5 H RBC 3.84 L Hgb 11.2 L Hct 33.5 L MCV 87.2 MCH 29.2 MCHC 33.4 RDW 14.1 Plt Count 116 L MPV 11.8 H Neut % (Auto) 87.5 Lymph % (Auto) 5.0 [place] % (Auto) 6.3 Eos % (Auto) 0.2 Baso % (Auto) 0.3 Neut # (Auto) 10.95 H Lymph # (Auto) 0.6 L [place] # (Auto) 0.8 Eos # (Auto) 0.0 Baso # (Auto) 0.0 Nucleated RBC % (auto) 0 Nucleated RBCs # 0.0 ESR PT INR Sodium 127 L Potassium 4.5 Chloride 95 L Carbon Dioxide 22 Anion Gap 14.5 BUN 14 Creatinine 0.8 GFR Calculation 100.0 Glucose 300 H POC Glucose Estimat Average Glucose Hemoglobin A1c Calculated Osmolality 276 L Lactate 3.0 H Calcium 7.8 L Phosphorus Magnesium Total Bilirubin 1.2 AST 38 ALT 18 Alkaline Phosphatase 225 H Creatine Kinase C-Reactive Protein 119.4 H Total Protein 6.9 Albumin 2.5 L Globulin 4.4 Procalcitonin Vancomycin Trough 12/24/20 12/24/20 12/24/20 12:42 12:42 18:38 WBC RBC Hgb Hct MCV MCH MCHC RDW Plt Count MPV Neut % (Auto) Lymph % (Auto) [place] % (Auto) Eos % (Auto) Baso % (Auto) Neut # (Auto) Lymph # (Auto) [place] # (Auto) Eos # (Auto) Baso # (Auto) Nucleated RBC % (auto) Nucleated RBCs # ESR 99 H PT INR Sodium Potassium Chloride Carbon Dioxide Anion Gap BUN Creatinine GFR Calculation Glucose POC Glucose 197 H Estimat Average Glucose Hemoglobin A1c Calculated Osmolality Lactate Calcium Phosphorus Magnesium Total Bilirubin AST ALT Alkaline Phosphatase Creatine Kinase C-Reactive Protein Total Protein Albumin Globulin Procalcitonin 0.76 H Vancomycin Trough 12/24/20 12/25/20 12/25/20 19:25 04:50 04:50 WBC 9.7 RBC 3.65 L Hgb 10.6 L Hct 32.8 L MCV 89.9 MCH 29.0 MCHC 32.3 RDW 14.2 Plt Count 108 L MPV 12.2 H Neut % (Auto) 81.1 Lymph % (Auto) 9.4 [place] % (Auto) 7.8 Eos % (Auto) 0.9 Baso % (Auto) 0.4 Neut # (Auto) 7.86 H Lymph # (Auto) 0.9 [place] # (Auto) 0.8 Eos # (Auto) 0.1 Baso # (Auto) 0.0 Nucleated RBC % (auto) 0 Nucleated RBCs # 0.0 ESR PT 18.10 H INR 1.46 H Sodium Potassium Chloride Carbon Dioxide Anion Gap BUN Creatinine GFR Calculation Glucose POC Glucose 226 H Estimat Average Glucose Hemoglobin A1c Calculated Osmolality Lactate Calcium Phosphorus Magnesium Total Bilirubin AST ALT Alkaline Phosphatase Creatine Kinase C-Reactive Protein Total Protein Albumin Globulin Procalcitonin Vancomycin Trough 12/25/20 12/25/20 12/25/20 04:50 04:50 04:50 WBC RBC Hgb Hct MCV MCH MCHC RDW Plt Count MPV Neut % (Auto) Lymph % (Auto) [place] % (Auto) Eos % (Auto) Baso % (Auto) Neut # (Auto) Lymph # (Auto) [place] # (Auto) Eos # (Auto) Baso # (Auto) Nucleated RBC % (auto) Nucleated RBCs # ESR PT INR Sodium 128 L Potassium 4.2 Chloride 97 L Carbon Dioxide 21 L Anion Gap 14.2 BUN 12 Creatinine 0.7 GFR Calculation 116.7 Glucose 161 H POC Glucose Estimat Average Glucose 157 Hemoglobin A1c 7.1 H Calculated Osmolality 269 L Lactate 1.2 Calcium 7.4 L Phosphorus 3.2 Magnesium 1.8 Total Bilirubin 1.1 AST 49 H ALT 22 Alkaline Phosphatase 262 H Creatine Kinase 22 L C-Reactive Protein Total Protein 6.2 L Albumin 2.2 L Globulin 4.0 Procalcitonin Vancomycin Trough 12/25/20 12/25/20 04:50 06:41 WBC RBC Hgb Hct MCV MCH MCHC RDW Plt Count MPV Neut % (Auto) Lymph % (Auto) [place] % (Auto) Eos % (Auto) Baso % (Auto) Neut # (Auto) Lymph # (Auto) [place] # (Auto) Eos # (Auto) Baso # (Auto) Nucleated RBC % (auto) Nucleated RBCs # ESR PT INR Sodium Potassium Chloride Carbon Dioxide Anion Gap BUN Creatinine GFR Calculation Glucose POC Glucose 235 H Estimat Average Glucose Hemoglobin A1c Calculated Osmolality Lactate Calcium Phosphorus Magnesium Total Bilirubin AST ALT Alkaline Phosphatase Creatine Kinase C-Reactive Protein Total Protein Albumin Globulin Procalcitonin Vancomycin Trough 18.2 H Micro: Microbiology 12/24/20 12:42 Blood Culture - Preliminary Blood SPECIMEN COLLECTED 12/24/20 12:46 Blood Culture - Preliminary Blood SPECIMEN COLLECTED Cardiac Studies: No Data to Display
[2020-12-25] MEDS: lidocaine 2% INJ 20 mL (08:23)
--- NOTE | 2020-12-25 08:50 | P.OP_ITS ---
Operative Report Date of procedure: December 25, 2020 Pre-op Diagnosis: Left heel abscess Post-op diagnosis: other (Concerning for necrotizing soft tissue infection of the left heel and plantar aspect of the foot) Post-op Findings: Soft tissue infection including skin subcutaneous all the way to the musculofascial layer without bone exposure Procedure Done: 1-Incision and drainage of left heel abscess 2-Sharp debridement of abscess cavity Implants: 2 pieces of Surgicel followed by packing with Kerlix impregnated the lidocaine 2% followed by ABDs Kerlix and Cl wrap Specimens removed/disposition: Tissues for cultures and sensitivities Surgeon: Marcos Silver Video Production Specialist: Surgical luis Aragon LG Circulating nurse Geeta Anesthesia: MAC (Estela Bender) Estimated blood loss (mL): 10 IV fluids (mL): 500 Condition: stable Disposition: floor Brief History: Left heel abscess diabetic foot infection. Full H&P informed consent per chart Procedure: Patient after being identified in the holding area and his left lower extremity was marked by me, an informed consent per chart ,patient was then taken back to the OR placed in left lateral position and all pressure points were padded. Time-out was done verifying the patient's name/date of /planned procedure and destination after the procedure, all were in agreement.preoperative antibiotics administered per protocol, and beta deedee protocol was confirmed. prep and drape of the left lower extremity was done under the usual sterile technique. Started by incising and draining pockets of pus located at the left heel ulcer and tissues were obtained for cultures and sensitivities, following that there were necrotic soft tissue infection appreciated cephalad and caudad were I had to sharply debride more and excise the unhealthy skin subcutaneous all the way to the musculofascial layers involving more soft tissue infection and pockets of pus that were well drained. There was no clinical involvement of the calcaneal bone. Predebridement measurements 3.3 x 2 x 0.8 cm Post debridement measurements 11.6 x 8.4 x [address] to the musculofascial layer Copious and thorough irrigation using Pulsavac 3 L of warm saline was achieved followed by appropriate hemostasis then 2 pieces of Surgicel large in size were placed to the wound bed. Followed by packing with Kerlix impregnated and lidocaine 2%, followed by ABDs Kerlix and Cl wrap. Count was completed at the end of the procedure I was present for the whole entire procedure Patient was then taken to the recovery in stable condition
--- NOTE | 2020-12-25 09:05 | ANE.PACU2 ---
Inpatient post-anesthesia follow up: Airway intact: Yes Vital signs: Temperature 97.2 F Pulse Rate [Monito r] 98 Pulse Rate 74 Respiratory Rate 18 Blood Pressure [Ri ght Arm] 124/74 Blood Pressure 91/60 Pulse Oximetry 97 Oxygen Delivery Me thod Room Air Oxygen Flow Rate Fraction of Inspir ed Oxygen Hydration adequate: Yes Nausea and vomiting: No Pain level: 1 Mental status: Baseline
--- NOTE | 2020-12-25 12:08 | PC.CHAP ---
Pastoral Care Encounter/Spiritual Assessment Type of Contact [] Declined powder monkey visit [] Patient/Family/Request visit [] Outpatient visit [] Follow-up visit [] Physician referral [] Code/Alert [XX] Routine visit [] Staff referral [] Actively dying [XX] Patient sleeping [] Family support [] [] Out of room [] Palliative care [] [] Receiving care in room [] Pre-surgical visit [] Trauma [] Long length of stay [] ICU visit [] Other: Relational/Emotional Strength [] Patient feels connected with others/family/visitors/staff [] Distress [] Loneliness/isolation [] Abandonment Spirituality of Patient [] Person of Ernestine [] Attends Christian of their Ernestine [] Believes in Prayer [] Reads Bible or Yazidism materials [] There are Spiritual issues to be addressed Occupational Therapy Assistant Interventions [] Prayer [] Active listening [] Non-anxious presence [] Spiritual/emotional support [] Crisis/trauma care [] Spiritual counseling [] Bereavement support [] Provided bereavement packet [] Provided Bible/devotional materials [] Provided toy/stuffed animal, coloring book to patient or family member [] Provided Communion [] Anointing/[place] [] Salvation [] Completed spiritual assessment [] Other: Impact on Illness or Injury [] Angry [] Fearful [] Anxious [] Often cries [] Exhaustion [] Unable to work [] Unable to attend nondenominational [] Unable to walk/stand [] Unable to read [] Unable to drive [] Unable to eat/drink [] Unable to sleep [] Unable to be with family [] Patient intubated [] Other: Summary Time spent with patient
[2020-12-25 12:22] LABS: Glucose Point of Care 332 mg/dL (70-110)
--- NOTE | 2020-12-25 13:03 | PC.PHAR ---
PHARMACY TO DOSE VANCOMYCIN: nursing contacted pharmacy at 1300 to relay that the 0600 admin for vancomycin was still hanging clamped and appeared completely full. Dose needs to be considered not given. Pt was due for scan and procedure and must have been stopped shortly after leaving floor. This alters pharmacokinetics and will be readjusted based on this delay. 0600 dose admin cannot be undone by current nursing, filter press supervisor, or pharmacy.
--- NOTE | 2020-12-25 13:58 | P.PN_ITS ---
Subjective Subjective: Interval history: States he is doing all right but is bothered by quite a bit of pain in his left foot. Being visited by his mother. Vitals/I&O/Wt Last Vital Signs Temp 97.4 F L 12/25/20 12:00 Pulse 76 12/25/20 12:00 Resp 18 12/25/20 13:10 BP 112/78 12/25/20 12:00 Pulse Ox 98 12/25/20 13:10 12/24/20 12/25/20 12/25/20 22:59 06:59 14:59 Intake Total 500 / 500 300 / 800 685 / 685 Output Total 450 / 450 5 / 5 Balance 500 / 500 -150 / 350 680 / 680 Weight last 48 hrs Weight 83.461 kg Physical Exam Const: COMMON NORMALS: no acute distress and patient oriented x3 HENMT: COMMON NORMALS: oropharynx normal Neck/C-Spine: COMMON NORMALS: no JVD Resp: COMMON NORMALS: normal respiratory effort and clear to auscultation bilaterally AUSCULTATION: clear to auscultation bilaterally Cardio: COMMON NORMALS: no JVD, regular rhythm, S1 normal heart sound present, S2 normal heart sound present and No murmurs present (Cardio) RHYTHM: regular rhythm HEART SOUNDS: S1 normal heart sound present and S2 normal heart sound present GI: COMMON NORMALS: Normal to inspection, nondistended, normoactive bowel sounds present, Soft to palpation and non-tender PALPATION: Yes Soft to palpation Extremity: COMMON NORMALS: no joint enlargement GENERAL: Yes edema (2+ LLE) OTHER: Foot/ankle in dressing Neuro: COMMON NORMALS: patient oriented x3 and moves all extremities Skin: COMMON NORMALS: no rashes or lesions noted GENERAL SKIN EXAM: no rashes or lesions noted OTHER: Chronic stasis dermatitis/hemosiderosis LE BL Data : 12/25/20 04:50 12/25/20 04:50 Micro: Microbiology 12/24/20 12:46 Blood Culture - Preliminary Blood NEGATIVE TO DATE 12/24/20 12:42 Blood Culture - Preliminary Blood NEGATIVE TO DATE 12/25/20 08:15 Gram Stain - Final Other Source A&P Assessment and plan (1) Diabetic ulcer of left foot: Focal osteomyelitis of calcaneus deep to the hindfoot soft tissue ulceration. Discussed with him and his mother. He reports has had osteomyelitis previously for which required 6 weeks of antibiotics. Discussed with him we will need to r epeat a course of therapy. He states he will not require PICC line as he has a port. Continue IV antibiotic at this time with Zosyn and vancomycin. Continue wound care. Follow-up cultures to help guide antibiotic course. Will need home health. States that his mother will be there to help him/supervise with infusions. Follow-up arterial duplex. -ESR elevated 99, CRP 119 -A1c 7.1 Okay per surgery to resume DVT prophylaxis. He declined SCDs. Pain control. He stated IV morphine was not enough/too short acting. Added oral morphine, but he states also did nothing but taste terrible. Requests to restart his oxycodone which he states works very well for him at home. Status: Acute Qualifiers: Diabetes mellitus type: type 2 Diabetic foot ulcer location: heel Non- pressure ulcer stage: with other severity Qualified Code(s): E11.621 - Type 2 diabetes mellitus with foot ulcer; L97.428 - Non-pressure chronic ulcer of left heel and midfoot with other specified severity (2) Insulin dependent type 2 diabetes mellitus: Resume Lantus at lower dose of 5 units. Glucose is low as 161 this morning. 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
[2020-12-25] MEDS: oxyCODONE 5 mg IR Tab/Cap 10 MG PO ×2 (14:23→20:40)
[2020-12-25] MEDS: dextrose 5%-sod chloride 0.9% 1,000 ML 75 ML IV (14:35)
[2020-12-25] MEDS: heparin 5,000 unit/mL INJ 1 mL 5000 UNIT SUBCUT ×2 (14:36→21:16)
--- NOTE | 2020-12-25 15:17 | PC.OT ---
OT Note: Patient in surgery in am. Will attempt OT evaluation tomorrow, 12/26/20.
--- NOTE | 2020-12-25 16:58 | PC.NURSE ---
patient was informed that orders were put in for SCD's and cardiac telemetry to be put on and the patient refused both, he declined the SCD's and stated that he didn't want the telemetry because as patient stated my heart's fine
[2020-12-25 17:20] LABS: Glucose Point of Care 133 mg/dL (70-110)
[2020-12-25] MEDS: famotidine 20 mg Tablet PO (17:43)
--- NOTE | 2020-12-25 18:02 | USCV_ITS ---
Mor Loida Age: 55 Gender: M : 1965 Exam Date: 12/25/2020 10:56 Ordering Phys: Yuri Whyte MD Technologist: Leatha Suggs Exam Location: [facility] [place] Indication: Blood flow. Left foot pain Risk Factors: Smoker Previous Vascular Surgery: RIGHT LEFT BP: 90.00 / BP: 75.00/ Waveform Velocity (cm/s) Velocity (cm/s) Waveform Triphasic 141.4 Iliac Mid 138.5 Triphasic Triphasic 110.3 Iliac Distal 146.0 Triphasic Triphasic 110.3 CHANGE MANAGER 85.5 Triphasic Triphasic 121.2 SFA Prox 110.1 Triphasic Triphasic 111.9 SFA Mid 129.7 Triphasic Triphasic 90.1 SFA Dist 99.5 Triphasic Triphasic POP Triphasic 63.9 116.1 Triphasic 77.2 DIRECTOR OF MEDIA 92.1 Monophasic Triphasic 81.6 DPA 1.3 MARTINEZ FINDINGS Prior exam on 09-04-2017. Moderate dense irregular plaques at the iliac arteries bilaterally Mild to moderate plaques in the femoral arteries Normal resting MARTINEZ on the right side Could not obtain the left MARTINEZ because of the bandages CONCLUSIONS 1. Mild to moderate scattered plaques bilaterally in the iliac and femoral arteries, bilaterally 2. Possibly no significant arterial obstruction, based on the above findings. Dr Azeb Martinez MD [facility] (Electronically Signed) Final Date: 25 December 2020 18:54 S
[2020-12-25 20:58] LABS: Glucose Point of Care 234 mg/dL (70-110)
[2020-12-25] MEDS: insulin glargine 100 units/1 mL 5 UNIT SUBCUT (21:14)
[2020-12-26] VITALS (12 sets, daily range): BP systolic 101–122; BP diastolic 64–81; PULSE 73–85; RESP 14–18; TEMP 36.4–36.6; O2SAT 94–100
--- NOTE | 2020-12-26 01:07 | PC.NURSE ---
Patient refused Telly on this shift
[2020-12-26] MEDS: calcium carbonate 500 mg Chew Tablet 1000 MG PO (01:50)
[2020-12-26] MEDS: oxyCODONE 5 mg IR Tab/Cap 10 MG PO ×4 (02:49→22:52)
[2020-12-26] MEDS: piperacillin-tazobactam 3.375 GM in sodium chloride 0.9% (plus) 50 ML IV ×3 (02:50→18:46)
[2020-12-26] MEDS: dextrose 5%-sod chloride 0.9% 1,000 ML 75 ML IV ×2 (04:18→17:05)
[2020-12-26 05:02] LABS: Basophils % 0.5 %; Eosinophils # 0.1 10^3/uL (0.0-0.8); Eosinophils % 1.9 %; Hematocrit 29.7 % (42.0-52.0); Hemoglobin 9.7 g/dL (11.7-16.6); Lymphocytes # 0.7 10^3/uL (0.8-4.8); Lymphocytes % 11.7 %; Mean Corpuscular HGB Conc 32.7 g/dL (30.0-36.0); Mean Corpuscular Hemoglobin 29.3 pg (28.0-34.0); Mean Corpuscular Volume 89.7 fL (80-94); Monocytes # 0.5 10^3/uL (0.2-0.9); Monocytes % 8.8 %; Neutrophils # 4.44 10^3/uL (1.8-7.7); Neutrophils % 76.4 %; Nucleated Red Blood Cells % 0 %; Platelet Count 96 10^3/cmm (130-400); Red Blood Count 3.31 10^6/uL (4.1-5.3); Red Cell Distribution Width 14.3 % (12.1-15.1); White Blood Count 5.8 10^3/uL (4.0-10.0)
[2020-12-26 05:22] LABS: Alanine Aminotransferase 19 U/L (0-41); Albumin Level 2.1 g/dL (3.5-5.2); Alkaline Phosphatase 217 IU/L (40-130); Anion Gap 12.3 (5-19); Aspartate Amino Transferase 34 U/L (0-40); Blood Urea Nitrogen 12 mg/dL (6-20); Calcium 7.4 mg/dL (8.5-10.5); Carbon Dioxide 20 mmol/L (22-29); Chloride 100 mmol/L (98-107); Creatine Phosphokinase 24 U/L (39-308); Globulin 3.5 g/dL (1.3-4.6); Glomerular Filtration Rate 139.4 mL/min (90-130); Glucose 177 mg/dL (65-115); Magnesium 1.7 mg/dL (1.7-2.3); Osmolality Calculated 270 mOsm/kg (285-295); Potassium 4.3 mmol/L (3.5-5.1); Sodium 128 mmol/L (136-145); Total Bilirubin 0.9 mg/dL (0.15-1.2); Total Protein 5.6 g/dL (6.6-8.7)
[2020-12-26 05:28] LABS: Lactate (Lactic Acid level) 1.1 mmol/L (0.5-2.2); Vancomycin Trough 22.4 ug/mL (10-15)
[2020-12-26] MEDS: ondansetron 2 mg/ML SDV 2 mL 4 MG IVP (06:29)
[2020-12-26 06:45] LABS: Glucose Point of Care 211 mg/dL (70-110)
--- NOTE | 2020-12-26 07:04 | P.PN_ITS ---
Subjective Subjective: Interval history: Patient overall feels better, no acute events overnight. Arterial duplex studies did show 1. Mild to moderate scattered plaques bilaterally in the iliac and femoral arteries, bilaterally 2. Possibly no significant arterial obstruction, based on the above findings. CT scan of the left lower extremity did show 1. Focal calcaneal osteomyelitis deep to the hindfoot soft tissue ulceration. 2. Plantar hindfoot and midfoot superficial soft tissue infection without abscess formation. Medications: Reviewed: Yes Vitals/I&O/Wt Last Vital Signs Temp 97.7 F 12/26/20 04:00 Pulse 85 12/26/20 04:00 Resp 18 12/26/20 04:00 BP 115/72 12/26/20 04:00 Pulse Ox 99 12/26/20 04:00 12/25/20 12/26/20 12/26/20 22:59 06:59 14:59 Intake Total 1030 / 2715 1000 / 3715 Output Total 0 / 5 550 / 555 Balance 1030 / 2710 450 / 3160 Weight last 48 hrs Weight 184 lb Physical Exam Narrative: EXAM NARRATIVE: Patient is conscious alert oriented X3 BMI 25 Left foot ulcer dressing was taken down mild erythema surrounding the wound bed and induration, no evidence of pus, evidence of charring of some of the tissues due to Bovie cauterization. Otherwise healthcare wound bed. Packing was done bedside using 4 x 4 wet-to-dry quarter strength Dakin's followed by ABDs Kerlix and Cl wrap. Noticed left lower extremity swelling has been consistent since patient was seen at the wound care center Data : 12/26/20 04:53 12/26/20 04:53 Micro: Microbiology 12/24/20 12:46 Blood Culture - Preliminary Blood NEGATIVE TO DATE 12/24/20 12:42 Blood Culture - Preliminary Blood NEGATIVE TO DATE 12/25/20 08:15 Gram Stain - Final Other Source A&P Assessment and plan (1) Ulcer of left heel: I&D of left heel ulcer with debridement of soft tissue infection 12/25/2020 From surgical standpoint of view ; 1-nutrition consultation for nutrition optimization to promote and help wound healing 2-wound care in the form of twice daily packing the wound with 4 x 4 using Dakin's quarter strength solution followed by ABDs Kerlix and Cl wrap 3-management of medical comorbidities per hospitalist service 4-physical therapy consultation in place to help the patient for nonweigh tbearing left hindfoot 5-assurance and education 6-focal osteomyelitis of the calcaneal bone on the CT scan likely the patient would benefit from PICC line and IV antibiotic for 6 to 8-week, will continue coordination with Dr. Fernando. 7-social media community manager to start working on home health for dressing changes 8-weekly follow-up at the wound care center. Patient already has an establishment to follow-up with me on Fridays at the wound care center. 9-we will consider the patient for hyperbaric oxygen therapy at the wound care due to the component of abscess formation and osteomyelitis and being a Melton III diabetic foot infection. 10-will order an ultrasound left venous duplex to rule out DVT. 11-we will follow on cultures and sensitivities Assurance and education All questions have been answered and all concerns have been addressed to patient's satisfaction. Status: Acute Attestations Medical Necessity Statement*: Patient will require inpatient hospitalization passing 2 midnights for medical optimization and local wound care due to the complexity of the wound Time Spent in Patient Care: (>than 50% of time spent in counselling and/or direct pt care on unit) . Coding Level of Care Code Acute Stone Processing Machine Operator for [facility] Diagnoses Ulcer of left heel L97.429
--- NOTE | 2020-12-26 07:47 | USCV_ITS ---
Loida Juares Age: 55 Gender: M : 1965 Exam Date: 12/26/2020 13:29 Ordering Phys: Marcos Silver MD Technologist: Martha Mancia Exam Location: [facility] [place] Indication: LEFT LEG SWELLING HISTORY: Lower extremity swelling. PROCEDURES: Venous duplex imaging was performed in only the left lower extremity. The following venous structures were evaluated: common femoral vein, profunda vein, proximal portion of the greater saphenous vein, superficial femoral vein, and the popliteal vein. In addition, the posterior tibial and peroneal trunk were evaluated. FINDINGS: Normal 2-D Doppler and augmentation and compressibility throughout the lower extremity venous structures. Additional imaging through the proximal calf veins also reveals no thrombus. Limited evaluation of the greater saphenous vein, beginning at the left calf due to bandage at ankle, is patent with no thrombus. CONCLUSIONS No DVT left lower extremity. Dr. Wanda Salas DO (Electronically Signed) Final Date: 26 December 2020 13:51 S
[2020-12-26] MEDS: morphine 4 mg/mL SDV 1 mL 2 MG IVP ×3 (07:48→20:43)
[2020-12-26] MEDS: famotidine 20 mg Tablet PO ×2 (09:13→18:46)
[2020-12-26] MEDS: vancomycin 1,250 MG/250 ML PIGGYBACK 250 MG IV ×2 (10:23→22:02)
--- NOTE | 2020-12-26 11:12 | PC.OT ---
OT SCREEN COMPLETED. PATIENT ABLE TO DEMONSTRATE INDEPENDENCE WITH ADL PERFORMANCE. NO FURTHER SKILLED OT REQUIRED AT THIS TIME.
[2020-12-26 11:13] LABS: Glucose Point of Care 163 mg/dL (70-110)
[2020-12-26] MEDS: heparin 5,000 unit/mL INJ 1 mL 5000 UNIT SUBCUT ×2 (14:28→22:02)
[2020-12-26 17:11] LABS: Glucose Point of Care 198 mg/dL (70-110)
[2020-12-26 20:34] LABS: Glucose Point of Care 254 mg/dL (70-110)
[2020-12-26] MEDS: sodium hypochlorite 0.25% Btl 473 mL 1 APPLIC TOPICAL (20:40)
--- NOTE | 2020-12-26 21:30 | PM.PN ---
Subjective Subjective: Interval history: States he is doing all right. Denies new symptoms today. Vitals/I&O/Wt Last Vital Signs Temp 97.8 F 12/26/20 19:22 Pulse 76 12/26/20 19:22 Resp 18 12/26/20 20:43 BP 122/81 12/26/20 19:22 Pulse Ox 98 12/26/20 19:22 12/26/20 12/26/20 12/26/20 06:59 14:59 22:59 Intake Total 1050 / 3765 970 / 970 1248.75 / 2218.75 Output Total 550 / 555 200 / 200 Balance 500 / 3210 770 / 770 1248.75 / 75 Physical Exam Const: COMMON NORMALS: no acute distress and patient oriented x3 HENMT: COMMON NORMALS: oropharynx normal Neck/C-Spine: COMMON NORMALS: no JVD Resp: COMMON NORMALS: normal respiratory effort and clear to auscultation bilaterally AUSCULTATION: clear to auscultation bilaterally Cardio: COMMON NORMALS: no JVD, regular rhythm, S1 normal heart sound present, S2 normal heart sound present and No murmurs present (Cardio) RHYTHM: regular rhythm HEART SOUNDS: S1 normal heart sound present and S2 normal heart sound present GI: COMMON NORMALS: Normal to inspection, nondistended, normoactive bowel sounds present, Soft to palpation and non-tender PALPATION: Yes Soft to palpation Extremity: COMMON NORMALS: no joint enlargement GENERAL: Yes edema (2+ LLE) OTHER: Foot/ankle in dressing Neuro: COMMON NORMALS: patient oriented x3 and moves all extremities Skin: COMMON NORMALS: no rashes or lesions noted GENERAL SKIN EXAM: no rashes or lesions noted OTHER: Chronic stasis dermatitis/hemosiderosis LE BL Data : 12/26/20 04:53 12/26/20 04:53 Micro: Microbiology 12/25/20 08:15 Gram Stain - Final Other Source Wound Culture - Preliminary Gram Negative Rods A&P Assessment and plan (1) Diabetic ulcer of left foot: Discussed with surgery, with him, regarding antibiotic choices. We do not have bone samples, cultures from the wound appear mixed with gram-negative rods, but also some gram-positive's in there. 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 Unfortunate this point we will have no choice but to give coverage for both MRSA and gram-negative's. Most likely this will be with Rocephin 1 g once daily, vancomycin 1250 twice daily as currently, at least 6 weeks. He will follow up with wound care in office. Consideration may be given on reevaluation of the wound regarding obtaining additional samples including bone biopsy which may help guide therapy and reduce the number of required agents. ERIKA brian is working on home IV antibiotics which she would be receiving via right chest port. Focal osteomyelitis of calcaneus deep to the hindfoot soft tissue ulceration. Discussed with him and his mother. He reports has had osteomyelitis previously for which required 6 weeks of antibiotics. Discussed with him we will need to repeat a course of therapy. He states he will not require PICC line as he has a port. Continue IV antibiotic at this time with Zosyn and vancomycin. Continue wound care. Follow-up cultures to help guide antibiotic course. Will need home health. States that his mother will be there to help him/supervise with infusions. Sporadic plaques but no significant stenosis noted on arterial duplex. Venous duplex negative for DVT. -ESR elevated 99, CRP 119 -A1c 7.1 Okay per surgery to resume DVT prophylaxis. He declined SCDs. Pain control. He stated IV morphine was not enough/too short acting. Added oral morphine, but he states also did nothing but taste terrible. Requests to restart his oxycodone which he states works very well for him at home. Status: Acute Qualifiers: Diabetes mellitus type: type 2 Diabetic foot ulcer location: heel Non-pressure ulcer stage: with other severity Qualified Code(s): E11.621 - Type 2 diabetes mellitus with foot ulcer; L97.428 - Non-pressure chronic ulcer of left heel and midfoot with other specified severity (2) Insulin dependent type 2 diabetes mellitus: Increase Lantus to 7 units. SSI Status: Acute Additional A&P Information History of liver cirrhosis with portal hypertension secondary to hep C which has been cured Thrombocytopenia secondary to liver cirrhosis Hyponatremia: liberal salt intake Anemia secondary to liver cirrhosis Attestations Medical Necessity Statement*: Continue IV antibiotics, arrangements for home IV infusions for complicated diabetic wound of left foot, osteomyelitis. 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
[2020-12-26] MEDS: insulin glargine 100 units/1 mL 7 UNIT SUBCUT (22:53)
[2020-12-27] VITALS (12 sets, daily range): BP systolic 112–155; BP diastolic 70–88; PULSE 78–98; RESP 16–22; TEMP 36.6–37.1; O2SAT 97–99
[2020-12-27] MEDS: morphine 4 mg/mL SDV 1 mL 2 MG IVP ×3 (02:26→21:11)
[2020-12-27] MEDS: piperacillin-tazobactam 3.375 GM in sodium chloride 0.9% (plus) 50 ML IV ×2 (03:21→18:31)
[2020-12-27] MEDS: ondansetron 2 mg/ML SDV 2 mL 4 MG IVP (03:32)
[2020-12-27] MEDS: oxyCODONE 5 mg IR Tab/Cap 10 MG PO ×3 (05:00→18:30)
[2020-12-27 05:44] LABS: Basophils % 0.2 %; Eosinophils # 0.1 10^3/uL (0.0-0.8); Eosinophils % 0.8 %; Hematocrit 29.4 % (42.0-52.0); Hemoglobin 9.6 g/dL (11.7-16.6); Lymphocytes # 0.5 10^3/uL (0.8-4.8); Lymphocytes % 8.1 %; Mean Corpuscular HGB Conc 32.7 g/dL (30.0-36.0); Mean Corpuscular Hemoglobin 28.9 pg (28.0-34.0); Mean Corpuscular Volume 88.6 fL (80-94); Mean Platelet Volume 12.2 fL (7.4-10.4); Monocytes # 0.4 10^3/uL (0.2-0.9); Monocytes % 7.2 %; Neutrophils # 5.04 10^3/uL (1.8-7.7); Nucleated Red Blood Cells % 0 %; Platelet Count 112 10^3/cmm (130-400); Red Blood Count 3.32 10^6/uL (4.1-5.3); Red Cell Distribution Width 14.5 % (12.1-15.1); White Blood Count 6.1 10^3/uL (4.0-10.0)
[2020-12-27] MEDS: heparin 5,000 unit/mL INJ 1 mL 5000 UNIT SUBCUT ×3 (05:51→21:17)
[2020-12-27 05:52] LABS: Lactate (Lactic Acid level) 1.1 mmol/L (0.5-2.2)
[2020-12-27 05:56] LABS: Alanine Aminotransferase 19 U/L (0-41); Albumin Level 2.2 g/dL (3.5-5.2); Alkaline Phosphatase 215 IU/L (40-130); Anion Gap 11.5 (5-19); Aspartate Amino Transferase 31 U/L (0-40); Blood Urea Nitrogen 10 mg/dL (6-20); Calcium 7.8 mg/dL (8.5-10.5); Carbon Dioxide 21 mmol/L (22-29); Chloride 100 mmol/L (98-107); Globulin 3.7 g/dL (1.3-4.6); Glomerular Filtration Rate 139.4 mL/min (90-130); Glucose 260 mg/dL (65-115); Magnesium 1.7 mg/dL (1.7-2.3); Osmolality Calculated 274 mOsm/kg (285-295); Phosphorus 3.4 mg/dL (2.5-4.5); Potassium 4.5 mmol/L (3.5-5.1); Sodium 128 mmol/L (136-145); Total Bilirubin 0.8 mg/dL (0.15-1.2); Total Protein 5.9 g/dL (6.6-8.7)
[2020-12-27 05:57] LABS: Creatine Phosphokinase 26 U/L (39-308)
[2020-12-27 06:55] LABS: Glucose Point of Care 272 mg/dL (70-110)
--- NOTE | 2020-12-27 06:55 | PC.NURSE ---
SHIFT SUMMARY Has not slept tonight. Has c/o pain in left foot and has received both po Oxyir and IV Morphine tonight. Dressing change with wound packing with wet Dakins solution gauze and covered with ABD, wrapped with Kerlex & Cl wrap. IV infusing without difficulty and receiving IV antibiotics. Is anxious to go home today
[2020-12-27] MEDS: famotidine 20 mg Tablet PO ×2 (08:09→17:54)
[2020-12-27 11:47] LABS: Glucose Point of Care 100 mg/dL (70-110)
[2020-12-27] MEDS: vancomycin 1,250 MG/250 ML PIGGYBACK 250 MG IV ×2 (11:49→22:15)
[2020-12-27] MEDS: dextrose 5%-sod chloride 0.9% 1,000 ML 75 ML IV (11:58)
[2020-12-27] MEDS: sodium hypochlorite 0.25% Btl 473 mL 1 APPLIC TOPICAL ×2 (11:59→21:59)
--- NOTE | 2020-12-27 12:39 | PM.DCS ---
Discharge Providers Date of Admission: 12/24/20 14:28 Date of Discharge: December 27, 2020 Attending Provider at Admission: Yuri Whyte MD Attending Provider at Discharge: Ernesto Fernando Primary Care Provider: Casimiro Sommers Diagnoses at Discharge Discharge Diagnosis (1) Diabetic ulcer of left foot: Status: Acute Qualifiers: Diabetes mellitus type: type 2 Diabetic foot ulcer location: heel Non-pressure ulcer stage: with other severity Qualified Code(s): E11.621 - Type 2 diabetes mellitus with foot ulcer; L97.428 - Non-pressure chronic ulcer of left heel and midfoot with other specified severity (2) Insulin dependent type 2 diabetes mellitus: Status: Acute Reason for Visit Reason for Visit: Left foot pain, laceration, oozing Hospital Course Hospital Course Pleasant 55-year-old gentleman with history of DM 2, diabetic neuropathy, history of left foot diabetic ulcer following with wound care, other history including GI bleed, GERD hepatitis C, liver cirrhosis, history of adenocarcinoma of esophagus status post radiation therapy and others was admitted for assessment management of diabetic foot ulcer on his left foot. Was treated with broad-spectrum antibiotics here with Zosyn, vancomycin. Underwent left heel abscess incision and drainage, debridement with surgery on 12/25. Underwent additional imaging by CT of the foot with finding of focal calcaneal osteomyelitis deep to the hindfoot soft tissue ulceration. Arterial duplex studies were obtained with finding of mild to moderate scattered plaques bilaterally in iliac and femoral arteries, possibly no significant obstruction. MARTINEZ 90 on the right, 75 in the left. Persistent left lower extremity swelling below the knee also evaluated by venous duplex which was negative for DVT. 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 coli he is discharging to group home facility for IV antibiotics with coverage for both gram-negative's with the E. coli, and concern regarding MRSA with Rocephin and vancomycin via chest Port-A-Cath for at least 6 weeks duration. He will follow up with wound care clinic for reassessment of progress of healing, consideration of additional bone biopsy to subsequently once infection control achieved in the wound perhaps allow de-escalate antibiotic therapy to single agent. Wound care to be continued per instructions below. Subsequently please resume follow-up regarding chronic conditions including liver cirrhosis, anemia, low platelets, and continued optimization of control diabetes. Physical Exam Const: COMMON NORMALS: no acute distress and patient oriented x3 HENMT: COMMON NORMALS: oropharynx normal Neck/C-Spine: COMMON NORMALS: no JVD Resp: COMMON NORMALS: normal respiratory effort and clear to auscultation bilaterally AUSCULTATION: clear to auscultation bilaterally Cardio: COMMON NORMALS: no JVD, regular rhythm, S1 normal heart sound present, S2 normal heart sound present and No murmurs present (Cardio) RHYTHM: regular rhythm HEART SOUNDS: S1 normal heart sound present and S2 normal heart sound present GI: COMMON NORMALS: Normal to inspection, nondistended, normoactive bowel sounds present, Soft to palpation and non-tender PALPATION: Yes Soft to palpation Extremity: COMMON NORMALS: no joint enlargement GENERAL: Yes edema (2+ LLE) OTHER: Foot/ankle in dressing Neuro: COMMON NORMALS: patient oriented x3 and moves all extremities Skin: COMMON NORMALS: no rashes or lesions noted GENERAL SKIN EXAM: no rashes or lesions noted OTHER: Chronic stasis dermatitis/hemosiderosis LE BL Discharge Data Data Completed and Pending: Completed Studies During Hospitalization Category Date Time Status CT lower leg LT w con [id number] Routine Cat Scan 12/25/20 06:45 Completed XR foot LT min 3V * [id number] Stat Exams 12/24/20 12:31 [place] [id number] Rout ine Ultrasound 12/25/20 18:02 [place] [id number] Routin e Ultrasound 12/26/20 07:47 Completed Pending at discharge Category Date Time Status Blood Culture Sta t Lab 12/24/20 12:42 Results MRSA by PCR Routi ne Lab 12/26/20 14:35 Received Wound Culture and Gram Stain Routin e Lab 12/25/20 08:15 Results Labs from last 24 hours 12/27/20 12/27/20 12/27/20 11:38 06:28 05:18 WBC RBC Hgb Hct MCV MCH MCHC RDW Plt Count MPV Neut % (Auto) Lymph % (Auto) [place] % (Auto) Eos % (Auto) Baso % (Auto) Neut # (Auto) Lymph # (Auto) [place] # (Auto) Eos # (Auto) Baso # (Auto) Nucleated RBC % (a uto) Nucleated RBCs # Sodium Potassium Chloride Carbon Dioxide Anion Gap BUN Creatinine GFR Calculation Glucose POC Glucose 100 272 H Calculated Osmolal ity Lactate Calcium Phosphorus Magnesium Total Bilirubin AST ALT Alkaline Phosphata se Creatine Kinase 26 L Total Protein Albumin Globulin 12/27/20 12/27/20 12/27/20 05:18 05:18 05:18 WBC 6.1 RBC 3.32 L Hgb 9.6 L Hct 29.4 L MCV 88.6 MCH 28.9 MCHC 32.7 RDW 14.5 Plt Count 112 L MPV 12.2 H Neut % (Auto) 83.0 Lymph % (Auto) 8.1 [place] % (Auto) 7.2 Eos % (Auto) 0.8 Baso % (Auto) 0.2 Neut # (Auto) 5.04 Lymph # (Auto) 0.5 L [place] # (Auto) 0.4 Eos # (Auto) 0.1 Baso # (Auto) 0.0 Nucleated RBC % (a uto) 0 Nucleated RBCs # 0.0 Sodium 128 L Potassium 4.5 Chloride 100 Carbon Dioxide 21 L Anion Gap 11.5 BUN 10 Creatinine 0.6 L GFR Calculation 139.4 H Glucose 260 H POC Glucose Calculated Osmolal ity 274 L Lactate 1.1 Calcium 7.8 L Phosphorus 3.4 Magnesium 1.7 Total Bilirubin 0.8 AST 31 ALT 19 Alkaline Phosphata se 215 H Creatine Kinase Total Protein 5.9 L Albumin 2.2 L Globulin 3.7 12/26/20 12/26/20 19:19 16:50 WBC RBC Hgb Hct MCV MCH MCHC RDW Plt Count MPV Neut % (Auto) Lymph % (Auto) Independence % (Auto) Eos % (Auto) Baso % (Auto) Neut # (Auto) Lymph # (Auto) [place] # (Auto) Eos # (Auto) Baso # (Auto) Nucleated RBC % (a uto) Nucleated RBCs # Sodium Potassium Chloride Carbon Dioxide Anion Gap BUN Creatinine GFR Calculation Glucose POC Glucose 254 H 198 H Calculated Osmolal ity Lactate Calcium Phosphorus Magnesium Total Bilirubin AST ALT Alkaline Phosphata se Creatine Kinase Total Protein Albumin Globulin Vitals: Last Vital Signs Temp 97.8 F 12/27/20 11:10 Pulse 98 12/27/20 11:10 Resp 18 12/27/20 11:49 BP 121/83 12/27/20 11:10 Pulse Ox 98 12/27/20 11:10 Discharge Plan Discharge Patient Disposition: Xfer SNF Condition: Stable Prescriptions: Continued pantoprazole [Protonix] 40 mg tablet,delayed release (DR/EC) 40 mg PO BID Qty: 60 RF: 0 Marinol 5 mg Capsule 5 mg PO BID PRN (Reason: appetite) RF: 0 sulfamethoxazole-trimethoprim 800-160 mg tablet 1 tab PO BID RF: 0 ondansetron 8 mg tablet,disintegrating 8 mg PO Q8H PRN (Reason: Nausea And Vomiting) RF: 0 lidocaine-prilocaine 2.5-2.5 % cream 1 applic topical . DIRECTED RF: 0 citalopram 20 mg tablet 20 mg PO QAM RF: 0 lorazepam 0.5 mg tablet 0.5 - 1 mg PO TID PRN (Reason: Nausea) Qty: 10 RF: 0 oxycodone 10 mg tablet 10 mg PO Q6H PRN (Reason: Pain) Qty: 10 RF: 0 Changed Levemir FlexTouch U-100 Insuln 100 unit/mL (3 mL) insulin pen 7 unit SUBCUT BEDTIME Qty: 0 RF: 0 Discharge Orders: Discharge Order (Routine); Ordered 12/27/20 Ordered By: Ernesto Fernando Other Ambulatory Orders: DME: Walker (Order) Location: None Selected Ordered By: Ernesto Fernando Referrals: SNF, doctor [Other] - 4-7 days Marcos Silver MD [Physician] - (Return to wound care center this coming Saturday) Casimiro Sommers [Primary Care Provider] - Discharge Diet: Cardiac and Diabetic Discharge Activity: Increase activity as tolerated, Limit activity as instructed and As per PT/OT instructions Patient Instructions: Ceftriaxone (Injection), Vancomycin (Injection), Osteomyelitis (GEN), Opioid Safety Activity Restrictions/Additional Instructions: For left foot wound, twice daily packing the wound with 4 x 4 using Dakin's quarter strength solution followed by ABDs Kerlix and Cl wrap. Nonweightbearing left hindfoot. Continue antibiotic therapy with ceftriaxone 1 g daily, vancomycin 1250 mg twice a day via port for 6 weeks at least. This may be extended depending on the condition of the wound and follow-up studies (CRP). Please recheck vancomycin level in 3 days. Target 15-20 mcg/mL therapeutic level, and if in range, continue vancomycin level checks weekly. Please discuss with wound care depending on wound healing, consideration of obtaining bone biopsy cultures to see if antibiotic course can be narrowed down to 1 agent once your wound is healing well and infection in the soft tissue is controlled. Subsequently please resume follow-up with your primary doctor with regards to chronic conditions including liver cirrhosis, anemia, low platelet level, continued optimization of control of diabetes. Discharge Attestations Time Spent in Discharge Care*: greater than 30 min Status at Discharge: Cognitive status at discharge: cognitively intact, Behavioral status at discharge: cooperative, Quality Metrics Clinical Quality Measures During this hospital stay, did patient experience: None Coding Level of Care Code Acute [facility] note Diagnoses Diabetic ulcer of left foot E11.621; L97.428 Diabetes mellitus type: type 2 Diabetic foot ulcer location: heel Non-pressure ulcer stage: with other severity Insulin dependent type 2 diabetes mellitus E11.9; Z79.4
[2020-12-27 18:20] LABS: Glucose Point of Care 252 mg/dL (70-110)
[2020-12-27 20:41] LABS: Glucose Point of Care 118 mg/dL (70-110)
[2020-12-27] MEDS: insulin glargine 100 units/1 mL 7 UNIT SUBCUT (21:17)
[2020-12-28] VITALS (10 sets, daily range): BP systolic 94–152; BP diastolic 60–84; PULSE 76–100; RESP 18–20; TEMP 36.5–36.9; O2SAT 96–98
[2020-12-28] MEDS: oxyCODONE 5 mg IR Tab/Cap 10 MG PO ×3 (00:50→14:40)
[2020-12-28] MEDS: dextrose 5%-sod chloride 0.9% 1,000 ML 75 ML IV ×2 (01:47→14:44)
[2020-12-28] MEDS: piperacillin-tazobactam 3.375 GM in sodium chloride 0.9% (plus) 50 ML IV ×2 (04:12→14:38)
[2020-12-28] MEDS: ondansetron 2 mg/ML SDV 2 mL 4 MG IVP (04:25)
[2020-12-28] MEDS: morphine 4 mg/mL SDV 1 mL 2 MG IVP ×2 (04:27→11:30)
[2020-12-28 05:53] LABS: Basophils % 0.2 %; Eosinophils # 0.1 10^3/uL (0.0-0.8); Eosinophils % 1.9 %; Hematocrit 30.9 % (42.0-52.0); Hemoglobin 9.9 g/dL (11.7-16.6); Lymphocytes # 0.6 10^3/uL (0.8-4.8); Lymphocytes % 14.7 %; Mean Corpuscular Hemoglobin 28.7 pg (28.0-34.0); Mean Corpuscular Volume 89.6 fL (80-94); Mean Platelet Volume 12.1 fL (7.4-10.4); Monocytes # 0.5 10^3/uL (0.2-0.9); Neutrophils # 3.08 10^3/uL (1.8-7.7); Neutrophils % 71.7 %; Nucleated Red Blood Cells % 0 %; Platelet Count 132 10^3/cmm (130-400); Red Blood Count 3.45 10^6/uL (4.1-5.3); Red Cell Distribution Width 14.6 % (12.1-15.1); White Blood Count 4.3 10^3/uL (4.0-10.0)
[2020-12-28 06:11] LABS: Alanine Aminotransferase 17 U/L (0-41); Albumin Level 2.3 g/dL (3.5-5.2); Alkaline Phosphatase 209 IU/L (40-130); Aspartate Amino Transferase 28 U/L (0-40); Blood Urea Nitrogen 10 mg/dL (6-20); Calcium 7.6 mg/dL (8.5-10.5); Carbon Dioxide 23 mmol/L (22-29); Chloride 105 mmol/L (98-107); Glucose 156 mg/dL (65-115); Osmolality Calculated 280 mOsm/kg (285-295); Sodium 134 mmol/L (136-145); Total Bilirubin 0.6 mg/dL (0.15-1.2); Total Protein 6.3 g/dL (6.6-8.7)
[2020-12-28] MEDS: heparin 5,000 unit/mL INJ 1 mL 5000 UNIT SUBCUT ×2 (06:11→14:39)
--- NOTE | 2020-12-28 06:17 | PC.NURSE ---
shift note patient stayed awake most of this shift, requested pain meds at time it is due, c/o nausea early in morning and c/o diarrhea this morning, expresses anger about not getting something to stop diarrhea nurse explained that physician requested to check stool for C-diff,patient stated forget it, I won't give you a stool sample and I want to talk to that doctor who ordered that .
[2020-12-28 06:25] LABS: Glucose Point of Care 223 mg/dL (70-110)
[2020-12-28] MEDS: sodium hypochlorite 0.25% Btl 473 mL 1 APPLIC TOPICAL (08:41)
[2020-12-28 11:46] LABS: Glucose Point of Care 92 mg/dL (70-110)
[2020-12-28 16:40] LABS: Glucose Point of Care 243 mg/dL (70-110)
--- NOTE | 2020-12-28 17:53 | PM.PN ---
Subjective Subjective: Interval history: Could not discharge yesterday as [facility]. Today accepted for additional treatment with IV antibiotics over at [facility]. Please see discharge summary from 12/27. Bothered by pain in the left foot, otherwise is doing well. Vitals/I&O/Wt Last Vital Signs Temp 98.0 F 12/28/20 17:38 Pulse 76 12/28/20 17:38 Resp 18 12/28/20 17:38 BP 140/72 12/28/20 17:38 Pulse Ox 96 12/28/20 17:38 12/28/20 12/28/20 12/28/20 06:59 14:59 22:59 Intake Total 1252.083 / 2813.000 1621.25 / 1621.25 240 / 1861.25 Output Total 200 / 600 Balance 1052.083 / 2213.000 1621.25 / 1621.25 240 / 1861.25 Physical Exam Const: COMMON NORMALS: no acute distress and patient oriented x3 HENMT: COMMON NORMALS: oropharynx normal Neck/C-Spine: COMMON NORMALS: no JVD Resp: COMMON NORMALS: normal respiratory effort and clear to auscultation bilaterally AUSCULTATION: clear to auscultation bilaterally Cardio: COMMON NORMALS: no JVD, regular rhythm, S1 normal heart sound present, S2 normal heart sound present and No murmurs present (Cardio) RHYTHM: regular rhythm HEART SOUNDS: S1 normal heart sound present and S2 normal heart sound present GI: COMMON NORMALS: Normal to inspection, nondistended, normoactive bowel sounds present, Soft to palpation and non-tender PALPATION: Yes Soft to palpation Extremity: COMMON NORMALS: no joint enlargement GENERAL: Yes edema (2+ LLE) OTHER: Foot/ankle in dressing Neuro: COMMON NORMALS: patient oriented x3 and moves all extremities Skin: COMMON NORMALS: no rashes or lesions noted GENERAL SKIN EXAM: no rashes or lesions noted OTHER: Chronic stasis dermatitis/hemosiderosis LE BL Data : 12/28/20 05:03 12/28/20 05:03 Micro: Microbiology 12/28/20 11:00 C.difficile Toxin B Gene (PCR) - Final Stool 12/25/20 08:15 Gram Stain - Final Other Source Wound Culture - Final Escherichia coli Staphylococcus aureus 12/26/20 14:35 MRSA Culture - Final Nose A&P Assessment and plan (1) Diabetic ulcer of left foot: Accepted for continued IV antibiotic therapy via chest port at [facility] where he will be transferring today. Continue IV antibiotics for 6 weeks. Wound care. Follow-up with wound care with Dr. Silver on Saturday. Discussed with surgery, with him, regarding antibiotic choices. We do not have bone samples, cultures from the wound appear mixed with gram-negative rods, but also some gram-positive's in there. 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 Unfortunate this point we will have no choice but to give coverage for both MRSA and gram-negative's. Most likely this will be with Rocephin 1 g once daily, vancomycin 1250 twice daily as currently, at least 6 weeks. He will follow up with wound care in office. Consideration may be given on reevaluation of the wound regarding obtaining additional samples including bone biopsy which may help guide therapy and reduce the number of required agents. DC planning is working on home IV antibiotics which she would be receiving via right chest port. Focal osteomyelitis of calcaneus deep to the hindfoot soft tissue ulceration. Discussed with him and his mother. He reports has had osteomyelitis previously for which required 6 weeks of antibiotics. Discussed with him we will need to repeat a course of therapy. He states he will not require PICC line as he has a port. Continue IV antibiotic at this time with Zosyn and vancomycin. Continue wound care. Follow-up cultures to help guide antibiotic course. Will need home health. States that his mother will be there to help him/supervise with infusions. Sporadic plaques but no significant stenosis noted on arterial duplex. Venous duplex negative for DVT. -ESR elevated 99, CRP 119 -A1c 7.1 Okay per surgery to resume DVT prophylaxis. He declined SCDs. Pain control. He stated IV morphine was not enough/too short acting. Added oral morphine, but he states also did nothing but taste terrible. Requests to restart his oxycodone which he states works very well for him at home. Status: Acute Qualifiers: Diabetes mellitus type: type 2 Diabetic foot ulcer location: heel Non-pressure ulcer stage: with other severity Qualified Code(s): E11.621 - Type 2 diabetes mellitus with foot ulcer; L97.428 - Non-pressure chronic ulcer of left heel and midfoot with other specified severity (2) Insulin dependent type 2 diabetes mellitus: Increase Lantus to 7 units. SSI Status: Acute Additional A&P Information History of liver cirrhosis with portal hypertension secondary to hep C which has been cured Thrombocytopenia secondary to liver cirrhosis Hyponatremia: liberal salt intake Anemia secondary to liver cirrhosis Attestations Medical Necessity Statement*: Discharge to LTAC for continued IV antibiotics for diabetic wound with infection, as well as osteomyelitis. Coding Level of Care Code Acute [facility] [employer] [facility] Fwd Diagnoses Diabetic ulcer of left foot E11.621; L97.428 Diabetes mellitus type: type 2 Diabetic foot ulcer location: heel Non-pressure ulcer stage: with other severity Insulin dependent type 2 diabetes mellitus E11.9; Z79.4
== END 2020-12-28 17:35 | disposition skilled nursing facility (03) | DRG 623 ==
LOC: ER 14:34 → MEDSURG 14:45
PROVIDERS: Surgery; Admitting Provider Family Medicine; Emergency Provider Family Medicine; PCP Family Medicine; Visit Provider Internal Medicine
PROC: 0KBW0ZZ Excision of Left Foot Muscle, Open Approach (ICD-10-PCS; principal; 2020-12-25 08:00)
DX: E11.621 Type 2 diabetes mellitus with foot ulcer (principal); L97.423 Non-pressure chronic ulcer of left heel and midfoot with necrosis of muscle; L02.612 Cutaneous abscess of left foot; K76.6 Portal hypertension; E87.1 Hypo-osmolality and hyponatremia; M86.172 Other acute osteomyelitis, left ankle and foot; M47.16 Other spondylosis with myelopathy, lumbar region; E11.69 Type 2 diabetes mellitus with other specified complication; E11.42 Type 2 diabetes mellitus with diabetic polyneuropathy; D69.6 Thrombocytopenia, unspecified; D63.8 Anemia in other chronic diseases classified elsewhere; K74.60 Unspecified cirrhosis of liver; K21.9 Gastro-esophageal reflux disease without esophagitis; B19.20 Unspecified viral hepatitis C without hepatic coma; B96.20 Unspecified Escherichia coli [E. coli] as the cause of diseases classified elsewhere; M48.061 Spinal stenosis, lumbar region without neurogenic claudication; Z85.01 Personal history of malignant neoplasm of esophagus; Z79.4 Long term (current) use of insulin; Z92.3 Personal history of irradiation; Z86.14 Personal history of Methicillin resistant Staphylococcus aureus infection; Z95.828 Presence of other vascular implants and grafts; Z87.891 Personal history of nicotine dependence; Z92.21 Personal history of antineoplastic chemotherapy
CPT/HCPCS: 36416; 36591; 73630; 73701; 80053; 80202; 82550; 82962; 83036; 83605; 83735; 84100; 84145; 85025; 85610; 85651; 86140; 87040; 87070; 87075; 87077; 87186; 87205; 87493; 87506; 87641; 93925; 93971; 96365; 96372; 96375; 97110; 97161; 99285; J1644; J1815 ×2; J2270; J2405; J2543; J3010; J3370; J7030; Q9967

== ENCOUNTER 2021-02-24 13:29 | Outpatient (CLI) | payer MEDICAID, SELFPAY | END 2021-02-24 13:30 | disposition home or self-care (01) | LOC: WOUND 13:30 | PROVIDERS: PCP Family Medicine; Visit Provider Surgery | DX: I96 Gangrene, not elsewhere classified (principal); E11.621 Type 2 diabetes mellitus with foot ulcer; L97.425 Non-pressure chronic ulcer of left heel and midfoot with muscle involvement without evidence of necrosis; F17.210 Nicotine dependence, cigarettes, uncomplicated | CPT/HCPCS: 11043; 11046 ==

== ENCOUNTER 2021-03-03 14:05 | Outpatient (CLI) | payer MEDICAID, SELFPAY | END 2021-03-03 14:06 | disposition home or self-care (01) | LOC: WOUND 14:06 | PROVIDERS: PCP Family Medicine; Visit Provider Surgery | DX: I96 Gangrene, not elsewhere classified (principal); E11.621 Type 2 diabetes mellitus with foot ulcer; L97.425 Non-pressure chronic ulcer of left heel and midfoot with muscle involvement without evidence of necrosis; F17.210 Nicotine dependence, cigarettes, uncomplicated | CPT/HCPCS: 11043; 11046 ==

== ENCOUNTER 2021-03-10 13:09 | Outpatient (CLI) | payer MEDICAID, SELFPAY | END 2021-03-10 13:10 | disposition home or self-care (01) | LOC: WOUND 13:09 | PROVIDERS: PCP Family Medicine; Visit Provider Surgery | DX: E11.621 Type 2 diabetes mellitus with foot ulcer (principal); L97.422 Non-pressure chronic ulcer of left heel and midfoot with fat layer exposed; F17.210 Nicotine dependence, cigarettes, uncomplicated | CPT/HCPCS: 11043; 11046 ==

== ENCOUNTER 2021-03-17 14:06 | Outpatient (CLI) | payer MEDICAID, SELFPAY | END 2021-03-17 14:07 | disposition home or self-care (01) | LOC: WOUND 14:07 | PROVIDERS: PCP Family Medicine; Visit Provider Surgery | DX: E11.621 Type 2 diabetes mellitus with foot ulcer (principal); L97.425 Non-pressure chronic ulcer of left heel and midfoot with muscle involvement without evidence of necrosis; F17.210 Nicotine dependence, cigarettes, uncomplicated | CPT/HCPCS: 11043; 11046 ==

== ENCOUNTER 2021-03-24 13:51 | Outpatient (CLI) | payer MEDICAID, SELFPAY | END 2021-03-24 13:52 | disposition home or self-care (01) | LOC: WOUND 13:52 | PROVIDERS: PCP Family Medicine; Visit Provider Surgery | DX: E11.621 Type 2 diabetes mellitus with foot ulcer (principal); L97.425 Non-pressure chronic ulcer of left heel and midfoot with muscle involvement without evidence of necrosis; F17.210 Nicotine dependence, cigarettes, uncomplicated | CPT/HCPCS: 11043; 11046 ==

== ENCOUNTER 2021-03-31 08:00 | Outpatient (CLI) | payer MEDICAID, SELFPAY | END 2021-03-31 08:01 | disposition home or self-care (01) | LOC: WOUND 08:01 | PROVIDERS: PCP Family Medicine; Visit Provider Surgery | DX: E11.621 Type 2 diabetes mellitus with foot ulcer (principal); L97.425 Non-pressure chronic ulcer of left heel and midfoot with muscle involvement without evidence of necrosis; F17.210 Nicotine dependence, cigarettes, uncomplicated | CPT/HCPCS: 11043; 11046; 97606; A6237; A6250 ==

== ENCOUNTER 2021-03-31 09:21 | Outpatient (CLI) | payer MEDICAID, SELFPAY ==
--- NOTE | 2021-03-31 09:34 | CT_ITS ---
WS: [id number] CT CHEST AND ABDOMEN TECHNIQUE: Contrast-enhanced CT of the chest and abdomen with coronal and sagittal reformatted images . CLINICAL INFORMATION: esophageal cancer, restaging evaluation, compare to last COMPARISON: CT abdomen pelvis November 17, 2020, PET/CT July 16, 2020, CT chest abdomen pelvis May 16, 2020 DLP: 1696.[address] scans at [facility] use at least one of these dose optimization techniques: automated e xposure control; mA and/or kV adjustment per patient size (includes targeted exams where dose is matc hed to clinical indication); or iterative reconstruction. CT CHEST: Both lungs are well aerated. No acute pulmonary infiltrates. No suspicious pulmonary parenchymal opac ities. No consolidation or pleural fluid. Normal thyroid gland. No additional or hilar lymphadenopath y. Coronary calcification. Normal caliber thoracic aorta. Small esophageal hiatal hernia. CT ABDOMEN: Cirrhotic liver. Region of heterogeneous enhancement in the dome of the liver likely related to cirrh osis and portal hypertension. This appears more prominent compared to the prior examinations and can be further evaluated with MRI. Recommend correlation with liver function studies. Cholelithiasis. Gallbladder is contracted. Splenomegaly. Spleen measures 14.0 CM. Evidence of portal venous hypertension. Fatty atrophy of the pancreas. Adrenal glands are normal. No hydronephrosis. A f ew prominent periaortic and retroperitoneal lymph nodes. Prominent cori hepatis and aortocaval lymph nodes. This is unchanged from previous. Chronic compression fractures T9, L4, and L5 compression fractures. Mild lumbar curve. CT/CT chest abdomen w con* IMPRESSION: 1. A few prominent periaortic, aortocaval, and retroperitoneal lymph nodes sim ilar to previous. A few prominent cori hepatis lymph nodes unchanged 2. Cirrhotic liver with splenomegaly. Evidence of portal venous hypertension. 3. Region of heterogeneous enhancement in the dome of the liver likely related to cirrhosis and portal hypertension. This appears more prominent compared to the prior examinations and can be further evaluated with MRI. Recommend correla tion with liver function studies. 4. Lungs are well aerated. No evidence of metastatic disease in the chest. 5. Stable chronic L4-L5 and T9 compression fractures.
[2021-03-31] MEDS: iohexol 300 mg/mL 50 mL Btl PO (09:39)
[2021-03-31] MEDS: iohexol 300 mg/mL 100 mL Btl IV (10:35)
[2021-03-31 10:44] LABS: Basophils % 0.2 %; Eosinophils # 0.1 10^3/uL (0.0-0.8); Eosinophils % 2.2 %; Hematocrit 33.6 % (42.0-52.0); Hemoglobin 10.7 g/dL (11.7-16.6); Lymphocytes # 0.9 10^3/uL (0.8-4.8); Mean Corpuscular HGB Conc 31.8 g/dL (30.0-36.0); Mean Corpuscular Hemoglobin 28.2 pg (28.0-34.0); Mean Corpuscular Volume 88.7 fl (80-94); Mean Platelet Volume 11.3 fL (7.4-10.4); Monocytes # 0.5 10^3/uL (0.2-0.9); Monocytes % 10.5 %; Neutrophils # 3.03 10^3/uL (1.8-7.7); Neutrophils % 67.9 %; Nucleated Red Blood Cells % 0 %; Platelet Count 85 10^3/cmm (130-400); Red Blood Count 3.79 10^6/uL (4.1-5.3); Red Cell Distribution Width 15.6 % (12.1-15.1); White Blood Count 4.5 10^3/uL (4.0-10.0)
[2021-03-31 11:08] LABS: Alanine Aminotransferase 33 U/L (0-41); Albumin Level 2.8 g/dL (3.5-5.2); Alkaline Phosphatase 287 IU/L (40-130); Anion Gap 10.5 (5-19); Aspartate Amino Transferase 45 U/L (0-40); Blood Urea Nitrogen 17 mg/dL (6-20); Calcium 8.5 mg/dL (8.5-10.5); Carbon Dioxide 24 mmol/L (22-29); Chloride 105 mmol/L (98-107); Globulin 4.7 g/dL (1.3-4.6); Glucose 181 mg/dL (65-115); Osmolality Calculated 286 mOsm/kg (285-295); Potassium 4.5 mmol/L (3.5-5.1); Sodium 135 mmol/L (136-145); Total Bilirubin 0.5 mg/dL (0.15-1.2); Total Protein 7.5 g/dL (6.6-8.7)
== END 2021-03-31 09:22 | disposition home or self-care (01) ==
PROVIDERS: PCP Family Medicine; Visit Provider Internal Medicine Hematology & Oncology
DX: C15.5 Malignant neoplasm of lower third of esophagus (principal); S22.079A Unspecified fracture of T9-T10 vertebra, initial encounter for closed fracture; S32.049A Unspecified fracture of fourth lumbar vertebra, initial encounter for closed fracture; S32.059A Unspecified fracture of fifth lumbar vertebra, initial encounter for closed fracture; X58.XXXA Exposure to other specified factors, initial encounter; K74.60 Unspecified cirrhosis of liver; R16.1 Splenomegaly, not elsewhere classified
CPT/HCPCS: 71260; 74160; 80053; 85025

== ENCOUNTER 2021-04-07 10:27 | Outpatient (CLI) | payer MEDICAID, SELFPAY | END 2021-04-07 10:28 | disposition home or self-care (01) | LOC: WOUND 10:27 | PROVIDERS: PCP Family Medicine; Visit Provider Nurse Practitioner Family | DX: E11.621 Type 2 diabetes mellitus with foot ulcer (principal); L97.422 Non-pressure chronic ulcer of left heel and midfoot with fat layer exposed; F17.210 Nicotine dependence, cigarettes, uncomplicated | CPT/HCPCS: 11042; 11045; 97605 ==

== ENCOUNTER 2021-04-13 10:50 | Outpatient (CLI) | payer MEDICAID, SELFPAY ==
[2021-04-13 11:28] LABS: Basophils % 0.6 %; Eosinophils # 0.1 10^3/uL (0.0-0.8); Eosinophils % 3.1 %; Hematocrit 32.9 % (42.0-52.0); Hemoglobin 10.4 g/dL (11.7-16.6); Lymphocytes # 0.5 10^3/uL (0.8-4.8); Lymphocytes % 14.7 %; Mean Corpuscular HGB Conc 31.6 g/dL (30.0-36.0); Mean Corpuscular Hemoglobin 28.3 pg (28.0-34.0); Mean Corpuscular Volume 89.6 fl (80-94); Mean Platelet Volume 12.1 fL (7.4-10.4); Monocytes # 0.3 10^3/uL (0.2-0.9); Monocytes % 9.4 %; Neutrophils % 72.2 %; Nucleated Red Blood Cells % 0 %; Platelet Count 103 10^3/cmm (130-400); Red Blood Count 3.67 10^6/uL (4.1-5.3); Red Cell Distribution Width 15.4 % (12.1-15.1); White Blood Count 3.6 10^3/uL (4.0-10.0)
[2021-04-13 12:03] LABS: Alanine Aminotransferase 24 U/L (0-41); Albumin Level 2.7 g/dL (3.5-5.2); Alkaline Phosphatase 218 IU/L (40-130); Anion Gap 11.4 (5-19); Aspartate Amino Transferase 37 U/L (0-40); Blood Urea Nitrogen 11 mg/dL (6-20); Carbon Dioxide 25 mmol/L (22-29); Chloride 106 mmol/L (98-107); Globulin 4.2 g/dL (1.3-4.6); Glucose 116 mg/dL (65-115); Osmolality Calculated 286 mOsm/kg (285-295); Potassium 4.4 mmol/L (3.5-5.1); Sodium 138 mmol/L (136-145); Total Bilirubin 0.4 mg/dL (0.15-1.2); Total Protein 6.9 g/dL (6.6-8.7)
--- NOTE | 2021-04-13 16:38 | ONC FU_ITS ---
Dr. Ocampo follow up note Patient: Loida Juares Unit #: [id number]: 1965 Dicatated By: Pablo Ocampo M.D.Date of Visit:Apr 13, 2021 Onc Med Follow-up/Prog Note History of Present Illness: Mr. Lioda Juares is a 55-year-old gentleman with history of abdominal pain recently underwent EGD and colonoscopy on 01/19/2019 which showed in the lower third esophagus, a partially obstructing, large sized, friable, fungating, submucosal, ulcerated mass and there was evidence of gastritis biopsy was obtained and came back moderately differentiated infiltrating adenocarcinoma. Colonoscopy was normal and follow-up CT scan of chest abdomen pelvis done on 01/29/2019 showed indeterminate but numerous celiac axis/upper mesenteric and retroperitoneal shoddy lymph nodes. No metastatic disease to lungs adrenal gland or liver Patient denies any history of weight loss in fact weight gain. No hemoptysis or hematemesis, no nausea or vomiting, no diarrhea constipation, no dysphagia. Or odynophagia. Patient has history of hepatitis C, as per patient he was treated by Dr. Canales about 2-3 years ago and was dormant and now active. History of cirrhosis and splenomegaly. No alcohol use but smoke. CT PET scan done on 02/21/2019 showed 1.3 cm segment of distal esophageal with SUV of 2.9 consistent with a primary esophageal carcinoma there is a no local or distance metastases Started on combined chemoradiation on 03/10/2019 with modified dose of weekly carboplatin and Taxol concurrent with radiation Patient completed combined chemoradiation with weekly carboplatin and Taxol on 05/10/2019 Was referred to death clearance coordinator in [place], [place] and he was seen on 04/03/2019. Impression and recommendation was to repeat hepatitis profile including hepatitis B core antigen, if is positive may require prophylaxis. And Dr. Manrique will also do further workup regarding hepatic cirrhosis and with PT/INR less than 1.7, patient has child tracy A and hepatitis C is a low risk for acute liver injury andsuggested to proceed with chemoradiation . May consider radiological transjugular liver biopsy and measurement of portal pressures, if esophageal surgery is under consideration. And medical management of portal hypertension if needed patient was referred to Cardiothoracic surgery at [facility] for evaluation for possible esophagectomy patient was seen and admitted on 06/25/2019 and esophagectomy was attempted during procedure, patient is liver appeared severely cirrhotic esophagectomy was canceled but during procedure underwent EGD and biopsy was obtained which showed no evidence of disease. Due to advanced stage hepatic cirrhosis, no further treatment was offered but observation and follow with death clearance coordinator. Follow-up CT PET scan done on February 13, 2020, showed resolution of abnormal esophageal activity, consistent with complete response to the therapy. Negative for local or distant metastatic disease. As per patient he underwent hemorrhoid surgery for infected hemorrhoids on January 15, 2020 and did develop postop complication requiring wound care till last week of April 2020. As Per patient he has seen death clearance coordinator in [place] and in December 2019 he was given prescription for Mavyret but patient said he got sick with his hemorrhoid so he did not get his prescription refilled until last week when he started taking his Mavyret for hepatitis C, now tolerating reasonably well. As per patient he was admitted to hospital on May 15, 2020 with hematemesis and melena hematochezia he was treated with supportive care and received blood transfusion and also underwent EGD which showed severe gastritis/esophagitis and also had CT scan chest done on May 15, 2020 which showed diffuse mucosal thickening of distal one third of esophagus without visible focal mass. And splenomegaly and cirrhosis of the liver Patient was discharged home on May 20, 2020 Follow-up CT PET scan done on July 16, 2020 showed no evidence of recurrent malignancy Follow-up CT scan of abdomen pelvis done on November 17, 2020 showed cirrhotic liver with splenomegaly and evidence of portal venous hypertension, few prominent para-aortic, aortocaval, retroperitoneal lymph node similar to previous, few prominent cori hepatis lymph nodes unchanged. New compression fracture involving L4 superior endplate with minimal retropulsion loss of approximately 25% vertebral body height. Chronic unchanged L5 compression fracture. Follow-up CT scan of chest abdomen done on March 31, 2021 showed a few prominent periaortic, aortocaval, retroperitoneal lymph nodes similar to previous. A few prominent croi hepatis lymph nodes unchanged. Cirrhotic liver with splenomegaly. Evidence of portal vein hypertension. Region of heterogeneous enhancement in the dome of liver likely related to cirrhosis and portal hypertension. Stable chronic L4 and 5 and T9 compression fractures. Came for follow-up, denies any specific complaint except trauma to his left heel now recovering. Denies any fever chills denies any nausea vomiting or diarrhea constipation denies any melena hematochezia denies any dysphagia denies any jaundice denies any hemoptysis or hematemesis denies any melena hematochezia, patient is noncompliant with his oral iron. Medications: CeleXA 1 Tablet (of 10 mg) Oral daily, Dronabinol 1 Capsule (of 10 mg) Oral b.i.d. PRN, Levemir 30 Units (of 100 Units/mL) Subcutaneous daily, LORazepam 0.5 - 1 Tablet (of 1 mg) Oral t.i.d. PRN, oxyCODONE HCl 1 Tablet (of 15 mg) Oral pc (tid), Protonix 1 Tablet (of 20 mg) Tablet, enteric coated Oral b.i.d., Zofran ODT 1 Tablet (of 8 mg) Tablet Dispersable Oral q 8 hours PRN Allergies: No Known Allergies. Review of Systems: Review of Systems is not available for this patient. Vital Signs: Performed on Apr 13, 2021 13:04 Height - 72.00 in Weight - 201.4 lbs (HIGH) BSA - 2.14 sq.m BMI - 27.31 Temperature - 97.9 F (LOW) Pulse - 81 /min Respiration - 18 /min BP - 145/80 mm(hg) (HIGH) O2 Sat - 98 % Pain - 7 Fatigue - 6 Performance Status: 1 - No physically strenuous activity, but ambulatory and able to carry out light or sedentary work (e.g. office work, light house work). (ECOG) Physical Examination: ENMT - No mouth sores, no thrush, no jaundice, Respiratory - Lungs are clear to auscultation, Cardiovascular - Regular rate and rhythm of heart, Abdomen - Soft, bowel sounds present. Lab/Imaging: Most recent lab results are not available for this patient. Impression: Moderately differentiated adenocarcinoma of distal esophagus per EGD/biopsy done on 01/19/2019 CT scan of chest abdomen pelvis done on 01/29/2019 showed mild thickening of right distal esophagus No metastatic disease to lungs, adrenal glands or liver Moderate cirrhosis with splenomegaly Indeterminate but numerous celiac axis/upper mesenteric and retroperitoneal shoddy lymph nodes CT PET scan done on 02/21/2019 showed there is a 1.3 cm segment of distal esophagus with SUV of 3.9 consistent with a primary esophageal carcinoma. No findings for local or distant metastatic disease seen. ? T1-T2,Nx,Mx Orthopedic fixation of left hip fracture Subacute to acute L5 compression fracture Colonoscopy done on 01/19/2019 showed normal exam. Started on combined chemoradiation with modified weekly carboplatin/Taxol concurrent with radiation therapy on 03/19/2019 last weekly chemotherapy with carbo/Taxol was given on 05/05/2019 Follow-up CT PET scan done on February 13, 2020 showed resolution of abnormal esophageal activity, consistent with complete response to therapy, no evidence of local or distant mets Follow-up CT PET scan done on July 16, 2020 showed no evidence of recurrence of disease Pancytopenia, etiology unclear but appears multifactorial including splenic sequestration as patient has hepatic cirrhosis and splenomegaly and his anemia could be due to chronic GI blood loss or malabsorption, Anemia resolved with oral iron, also resolution of mild leukopenia Follow-up CT scan of abdomen pelvis done on December 04, 2020 showed no evidence of recurrence of disease, persistent upper abdominal lymphadenopathy of unknown significance and cirrhotic liver with splenomegaly, New L4 compression fracture due to recent fall Follow-up CT scan of chest abdomen done on March 31, 2021 showed a few prominent periaortic, aortocaval, retroperitoneal lymph nodes similar to previous. A few prominent cori hepatis lymph nodes unchanged. Cirrhotic liver with splenomegaly. Evidence of portal vein hypertension. Region of heterogeneous enhancement in the dome of liver likely related to cirrhosis and portal hypertension. Stable chronic L4 and 5 and T9 compression fractures. Plan: Discussed with patient regarding his labs white blood count 3.6 hemoglobin 10.4 hematocrit 32.9 platelets 103,000 compared to 85,000 previously CMP within normal limits Clinically, patient is doing well with no signs symptoms just of recurrence of disease his follow-up CT scan of chest abdomen shows no new lesions but stable mild periaortic, aortocaval, retroperitoneal and cori hepatis lymphadenopathy and persistent splenomegaly due to cirrhotic liver, which is causing pancytopenia, his anemia could be multifactorial including iron deficiency and patient is noncompliant with oral iron, patient was advised to continue [id number] iron supplements and return to clinic in 3 months with CBC CMP while continue with monthly port maintenance Signed By: Pablo Ocampo M.D. <<Signature on File>>
== END 2021-04-13 10:51 | disposition home or self-care (01) ==
LOC: ONCMED 10:51
PROVIDERS: PCP Family Medicine; Visit Provider Internal Medicine Hematology & Oncology
DX: C15.5 Malignant neoplasm of lower third of esophagus (principal); D61.818 Other pancytopenia; E11.9 Type 2 diabetes mellitus without complications; Z79.899 Other long term (current) drug therapy; Z91.14 Patient's other noncompliance with medication regimen
CPT/HCPCS: 36591; 80053; 85025; 99214

== ENCOUNTER 2021-04-21 10:51 | Outpatient (CLI) | payer MEDICAID, SELFPAY | END 2021-04-21 10:52 | disposition home or self-care (01) | LOC: WOUND 10:52 | PROVIDERS: PCP Family Medicine; Visit Provider Nurse Practitioner Family | DX: E11.621 Type 2 diabetes mellitus with foot ulcer (principal); L97.422 Non-pressure chronic ulcer of left heel and midfoot with fat layer exposed; F17.210 Nicotine dependence, cigarettes, uncomplicated | CPT/HCPCS: 11042; 11045; 97605; A6237; A6250 ==

== ENCOUNTER 2021-04-28 11:26 | Outpatient (CLI) | payer MEDICAID, SELFPAY | END 2021-04-28 11:27 | disposition home or self-care (01) | LOC: WOUND 11:26 | PROVIDERS: PCP Family Medicine; Visit Provider Surgery | DX: E11.621 Type 2 diabetes mellitus with foot ulcer (principal); L97.425 Non-pressure chronic ulcer of left heel and midfoot with muscle involvement without evidence of necrosis; F17.210 Nicotine dependence, cigarettes, uncomplicated | CPT/HCPCS: 11043; 11046; A6252 ==

== ENCOUNTER 2021-05-05 11:34 | Outpatient (CLI) | payer MEDICAID, SELFPAY | END 2021-05-05 11:35 | disposition home or self-care (01) | LOC: ONCMED 11:36 | PROVIDERS: PCP Family Medicine; Visit Provider Internal Medicine Hematology & Oncology | DX: Z45.2 Encounter for adjustment and management of vascular access device (principal) | CPT/HCPCS: 96523 ==

== ENCOUNTER 2021-05-05 13:08 | Outpatient (CLI) | payer MEDICAID, SELFPAY | END 2021-05-05 13:09 | disposition home or self-care (01) | LOC: WOUND 13:08 | PROVIDERS: PCP Family Medicine; Visit Provider Surgery | DX: E11.621 Type 2 diabetes mellitus with foot ulcer (principal); L97.525 Non-pressure chronic ulcer of other part of left foot with muscle involvement without evidence of necrosis; F17.210 Nicotine dependence, cigarettes, uncomplicated | CPT/HCPCS: 15271; 15272; 97605; A6237; A6250; Q4186 ==

== ENCOUNTER 2021-05-12 13:21 | Outpatient (CLI) | payer MEDICAID, SELFPAY | END 2021-05-12 13:22 | disposition home or self-care (01) | LOC: WOUND 13:21 | PROVIDERS: PCP Family Medicine; Visit Provider Surgery | DX: E11.621 Type 2 diabetes mellitus with foot ulcer (principal); L97.422 Non-pressure chronic ulcer of left heel and midfoot with fat layer exposed; F17.210 Nicotine dependence, cigarettes, uncomplicated | CPT/HCPCS: 15271; 15272; A6250; Q4186 ==

== ENCOUNTER 2021-05-26 09:46 | Outpatient (CLI) | payer MEDICAID, SELFPAY | END 2021-05-26 09:47 | disposition home or self-care (01) | PROVIDERS: PCP Family Medicine; Visit Provider Internal Medicine Hematology & Oncology | DX: Z45.2 Encounter for adjustment and management of vascular access device (principal) | CPT/HCPCS: 96523 ==

== ENCOUNTER 2021-05-26 10:06 | Outpatient (CLI) | payer MEDICAID, SELFPAY | END 2021-05-26 10:07 | disposition home or self-care (01) | LOC: WOUND 10:07 | PROVIDERS: PCP Family Medicine; Visit Provider Surgery | DX: E11.621 Type 2 diabetes mellitus with foot ulcer (principal); L97.422 Non-pressure chronic ulcer of left heel and midfoot with fat layer exposed; F17.210 Nicotine dependence, cigarettes, uncomplicated | CPT/HCPCS: 11042; 15271; 15272; Q4186 ==

== ENCOUNTER 2021-05-31 14:49 | Outpatient (CLI) | payer MEDICAID, SELFPAY | END 2021-05-31 14:50 | disposition home or self-care (01) | LOC: WOUND 14:50 | PROVIDERS: PCP Family Medicine; Visit Provider Nurse Practitioner Family | DX: E11.621 Type 2 diabetes mellitus with foot ulcer (principal); L97.422 Non-pressure chronic ulcer of left heel and midfoot with fat layer exposed; F17.210 Nicotine dependence, cigarettes, uncomplicated | CPT/HCPCS: 15275; 15276; A6250; Q4186 ==

== ENCOUNTER 2021-06-09 14:37 | Outpatient (CLI) | payer MEDICAID, SELFPAY | END 2021-06-09 14:38 | disposition home or self-care (01) | LOC: WOUND 14:37 | PROVIDERS: PCP Family Medicine; Visit Provider Surgery | DX: E11.621 Type 2 diabetes mellitus with foot ulcer (principal); L97.422 Non-pressure chronic ulcer of left heel and midfoot with fat layer exposed; F17.210 Nicotine dependence, cigarettes, uncomplicated | CPT/HCPCS: 15271; 15272; 97605; A6237; A6250; Q4186 ==

== ENCOUNTER 2021-06-16 13:40 | Outpatient (CLI) | payer MEDICAID, SELFPAY | END 2021-06-16 13:41 | disposition home or self-care (01) | LOC: WOUND 13:41 | PROVIDERS: PCP Family Medicine; Visit Provider Surgery | DX: E11.621 Type 2 diabetes mellitus with foot ulcer (principal); L97.422 Non-pressure chronic ulcer of left heel and midfoot with fat layer exposed; F17.210 Nicotine dependence, cigarettes, uncomplicated | CPT/HCPCS: 15271; 15272; Q4186 ==

== ENCOUNTER 2021-06-23 11:14 | Outpatient (CLI) | payer MEDICAID, SELFPAY | END 2021-06-23 11:15 | disposition home or self-care (01) | LOC: WOUND 11:14 | PROVIDERS: PCP Family Medicine; Visit Provider Surgery | DX: E11.621 Type 2 diabetes mellitus with foot ulcer (principal); L97.422 Non-pressure chronic ulcer of left heel and midfoot with fat layer exposed; F17.210 Nicotine dependence, cigarettes, uncomplicated | CPT/HCPCS: 11042; 11045 ==

== ENCOUNTER 2021-06-28 15:17 | Outpatient (CLI) | payer MEDICAID, SELFPAY | END 2021-06-28 15:18 | disposition home or self-care (01) | LOC: WOUND 15:18 | PROVIDERS: PCP Family Medicine; Visit Provider Nurse Practitioner Family | DX: E11.621 Type 2 diabetes mellitus with foot ulcer (principal); L97.422 Non-pressure chronic ulcer of left heel and midfoot with fat layer exposed; F17.210 Nicotine dependence, cigarettes, uncomplicated | CPT/HCPCS: 11042; 11045 ==

== ENCOUNTER 2021-07-08 16:11 | Inpatient (IN) | payer MEDICAID, SELFPAY ==
[2021-07-08] VITALS (9 sets, daily range): BP systolic 70–168; BP diastolic 48–82; PULSE 92–112; RESP 18–20; TEMP 35.7–36.9; O2SAT 100; BMI 27.6
[2021-07-08 16:48] LABS: Basophils % 0.2 %; Hematocrit 21.5 % (42.0-52.0); Hemoglobin 6.8 g/dL (11.7-16.6); Lymphocytes # 0.6 10^3/uL (0.8-4.8); Lymphocytes % 9.2 %; Mean Corpuscular HGB Conc 31.6 g/dL (30.0-36.0); Mean Corpuscular Hemoglobin 28.8 pg (28.0-34.0); Mean Corpuscular Volume 91.1 fl (80-94); Mean Platelet Volume 13.5 fL (7.4-10.4); Monocytes # 0.2 10^3/uL (0.2-0.9); Monocytes % 3.5 %; Neutrophils # 5.76 10^3/uL (1.8-7.7); Neutrophils % 86.6 %; Nucleated Red Blood Cells % 0 %; Platelet Count 90 10^3/cmm (130-400); Red Blood Count 2.36 10^6/uL (4.1-5.3); Red Cell Distribution Width 16.1 % (12.1-15.1); White Blood Count 6.6 10^3/uL (4.0-10.0)
--- NOTE | 2021-07-08 17:08 | ED_ITS ---
Documented by User: Jean Paul Lewis DO 07/10/21 05:56 HPI - GI Bleed General: Chief complaint: GI Bleed Stated complaint: BLOOD IN STOOL; HYPOTENSION Time Seen by Provider: 07/08/21 16:23 History of Present Illness: HPI Narrative: 55-year-old male who began having coffee-ground emesis and gross hematochezia melena last night around midnight. He states he lost track of him at times he thrown up and has had about 4 dark maroonish stools. He has a history of esophageal CA and is previously had radiation to it. He finished treatments several years ago and has been considered to be in remission. He has been lightheaded and dizzy. He has a history of diabetes as well denies any history of coronary artery disease. MD complaint: coffee ground emesis, melena and gross hematochezia Onset (ago): hour(s) Relieving factors: none Exacerbating factors: none Context: history of GI bleed and other (Esophageal cancer) Associated symptoms: Reports abdominal pain, easy bruising, malaise, nausea, poor appetite, vomiting and weakness; Denies chills, epistaxis, fever(s), headache(s), other bleeding, rash or syncope Treatments Prior to Arrival: none Review of Systems Const: Reports: malaise; Denies: fever(s) or chills ENMT: Denies: epistaxis Card: Denies: syncope Resp: Denies: dyspnea, productive cough or non-productive cough GI: Reports: abdominal pain, nausea and vomiting : Denies: flank pain, dysuria, urinary frequency or urinary urgency Skin/Breast: Denies: rash Neuro: Denies: headache(s) Huan/Lymph: Reports: easy bruising [facility] PFSH: Medical History Acute upper GI bleed Adenocarcinoma of esophagus Chronic hepatitis C Chronic neck pain Cirrhosis of liver DDD (degenerative disc disease), lumbar Diabetic ulcer of left foot Dysphagia -appears to be an intermittent issue 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 No evidence of disease occurrence on endoscopy and no focal mass on CT Encounter for long-term use of opiate analgesic Esophagitis determined by endoscopy Insulin dependent type 2 diabetes mellitus Lumbar pain Neuropathy due to secondary diabetes Osteomyelitis Portal hypertension S/p left hip fracture November 2018 Spinal stenosis of lumbar region Spondylosis of lumbar spine with myelopathy Ulcer of left heel Surgical History H/O circumcision H/O colonoscopy 2019 H/O esophagogastroduodenoscopy 2018 History of knee surgery Port-A-Cath in place 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 Family History Mother Diabetes Father Diabetes Denies family history of Anesthesia complication Bleeding disorder Cancer Social History Smoking and tobacco status: current every day smoker Quit status (tobacco): has quit using tobacco Year quit tobacco: 06/2019 Alcohol intake: former Lives independently: Yes Marital status: Single Current occupational status: disabled History of recent travel: Yes ([place]) Out of state: No Out of country: No Physical Exam Const: GENERAL APPEARANCE: cooperative and comfortable ORIENTATION/CONSCIOUSNESS: Yes awake, Yes oriented to person, Yes oriented to place and Yes oriented to time OTHER: Pale in appearance HENMT: COMMON NORMALS: normocephalic, atraumatic, hearing grossly normal bilaterally, external ears normal, EAC's normal, TM's normal bilaterally, Normal nasal mucous membranes and turbinates present, moist oral mucous membranes and oropharynx normal HEAD & SCALP: normocephalic and atraumatic NOSE: Normal nasal mucous membranes and turbinates present EXTERNAL EAR: Yes external ears normal EXTERNAL AUDITORY CANAL: EAC's normal TYMPANIC MEMBRANE: TM's normal bilaterally Eye: COMMON NORMALS: Equal, round and reactive pupils present, EOMs intact bilaterally, conjunctivae normal and no scleral icterus CONJUNCTIVA: Yes conjunctivae normal PUPIL: Yes Equal, round and reactive pupils present OTHER: No vascular pattern in the inner aspect of the eyelids Neck/C-Spine: COMMON NORMALS: full ROM, no lymphadenopathy, supple and no JVD Lymph: LYMPHATIC: no lymphadenopathy noted and no lymphedema noted Resp: COMMON NORMALS: normal respiratory effort, No retractions, No use of accessory muscles and clear to auscultation bilaterally AUSCULTATION: clear to auscultation bilaterally Cardio: COMMON NORMALS: no JVD, regular rhythm and No murmurs present (Cardio) RATE: tachycardic RHYTHM: regular rhythm GI: COMMON NORMALS: No hepatosplenomegaly present AUSCULTATION: Yes Hypoactive bowel sounds present PALPATION: Yes Tenderness to palpation present (GI) (Epigastric), No Guarding due to palpation present (GI) and Yes No hepatosplenomegaly present Extremity: COMMON NORMALS: normal to inspection, no clubbing, cyanosis or edema, no calf tenderness and no pedal edema Neuro: SENSORIUM/ORIENTATION: Yes oriented to person, Yes oriented to place and Yes oriented to time Skin: COMMON NORMALS: no rashes or lesions noted GENERAL SKIN EXAM: no rashes or lesions noted Course Vital Signs: Vital signs: Vital Signs Temperature 98.5 F 07/08/21 21:04 Pulse Rate 106 H 07/08/21 21:04 Respiratory Rate 18 07/08/21 21:04 Blood Pressure 144/74 07/08/21 21:04 Pulse Oximetry 100 07/08/21 21:04 MDM - GI Bleed MDM Narrative: Medical decision making narrative: Patient has acute GI bleed. We [facility] did not have any availability at the time for transfer. I contacted Dr. Mckeon as well as Dr. Christensen. Patient continued to have coffee-ground emesis. There was a delay in getting blood products patient was given uncrossed matched blood FFP and platelets were also ordered. Levophed initiated. Discussed case with Dr. Pena at change of shift. Lab Data: Labs: Lab Results 07/08/21 07/08/21 07/08/21 16:25 16:25 16:50 WBC 6.6 10^3/uL 10^3/ uL (4.0-10.0) RBC 2.36 10^6/uL L 10 ^6/uL (4.1-5.3) Hgb 6.8 g/dL L g/dL (11.7-16.6) Hct 21.5 % L % (42.0-52.0) MCV 91.1 fl fl (80-94) MCH 28.8 pg pg (28.0-34.0) MCHC 31.6 g/dL g/dL (30.0-36.0) RDW 16.1 % H % (12.1-15.1) Plt Count 90 10^3/cmm L 10^ 3/cmm (130-400) MPV 13.5 fL H fL (7.4-10.4) Neut % (Auto) 86.6 % % Lymph % (Auto) 9.2 % % Schley % (Auto) 3.5 % % Eos % (Auto) 0.0 % % Baso % (Auto) 0.2 % % Neut # (Auto) 5.76 10^3/uL 10^3 /uL (1.8-7.7) Lymph # (Auto) 0.6 10^3/uL L 10^ 3/uL (0.8-4.8) Schley # (Auto) 0.2 10^3/uL 10^3/ uL (0.2-0.9) Eos # (Auto) 0.0 10^3/uL 10^3/ uL (0.0-0.8) Baso # (Auto) 0.0 10^3/uL 10^3/ uL (0.0-0.1) Nucleated RBC % (a uto) 0 % % Nucleated RBCs # 0.0 /100WBC /100W BC PT 19.80 SECONDS H S ECONDS (12.1-14.9) INR 1.64 H (0.8-1.2) APTT 31.0 SECONDS SECO NDS (23.9-36.7) Sodium 135 mmol/L L mmol /L (136-145) Potassium 4.6 mmol/L mmol/L (3.5-5.1) Chloride 101 mmol/L mmol/L (98-107) Carbon Dioxide 17 mmol/L L mmol/ L (22-29) Anion Gap 21.6 H (5-19) BUN 43 mg/dL H mg/dL (6-20) Creatinine 0.9 mg/dL mg/dL (0.7-1.2) GFR Calculation 87.3 mL/min L mL/ min (90-130) Glucose 286 mg/dL H mg/dL (65-115) Calculated Osmolal ity 301 mOsm/kg H mOs m/kg (285-295) Calcium 7.5 mg/dL L mg/dL (8.5-10.5) Total Bilirubin 0.5 mg/dL mg/dL (0.15-1.2) AST 34 U/L U/L (0-40) ALT 25 U/L U/L (0-41) Alkaline Phosphata se 156 IU/L H IU/L (40-130) Total Protein 5.6 g/dL L g/dL (6.6-8.7) Albumin 2.5 g/dL L g/dL (3.5-5.2) Globulin 3.1 g/dL g/dL (1.3-4.6) Blood Type Rho(D) Type Antibody Screen Crossmatch 07/08/21 18:15 WBC RBC Hgb Hct MCV MCH MCHC RDW Plt Count MPV Neut % (Auto) Lymph % (Auto) Schley % (Auto) Eos % (Auto) Baso % (Auto) Neut # (Auto) Lymph # (Auto) Schley # (Auto) Eos # (Auto) Baso # (Auto) Nucleated RBC % (a uto) Nucleated RBCs # PT INR APTT Sodium Potassium Chloride Carbon Dioxide Anion Gap BUN Creatinine GFR Calculation Glucose Calculated Osmolal ity Calcium Total Bilirubin AST ALT Alkaline Phosphata se Total Protein Albumin Globulin Blood Type O Positive Rho(D) Type Positive Antibody Screen Negative Crossmatch See Detail Discharge Plan Discharge Patient Disposition: Xfer Short-Term Hosp Clinical Impression: Upper gastrointestinal hemorrhage, Cirrhosis of liver, Anemia, History of esophageal cancer Condition: Stable Coding Level of Care Code ED Suction Worker for Chg Fwd Exam Comprehensive Documented by User: Devon Pena MD 07/08/21 20:34 HPI - GI Bleed General: Chief complaint: GI Bleed Stated complaint: BLOOD IN STOOL; HYPOTENSION Time Seen by Provider: 07/08/21 16:23 PFSH ED PFSH: Medical History Acute upper GI bleed Adenocarcinoma of esophagus Chronic hepatitis C Chronic neck pain Cirrhosis of liver DDD (degenerative disc disease), lumbar Diabetic ulcer of left foot Dysphagia -appears to be an intermittent issue 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 No evidence of disease occurrence on endoscopy and no focal mass on CT Encounter for long-term use of opiate analgesic Esophagitis determined by endoscopy Insulin dependent type 2 diabetes mellitus Lumbar pain Neuropathy due to secondary diabetes Osteomyelitis Portal hypertension S/p left hip fracture November 2018 Spinal stenosis of lumbar region Spondylosis of lumbar spine with myelopathy Ulcer of left heel Surgical History H/O circumcision H/O colonoscopy 2018 H/O esophagogastroduodenoscopy 2018 History of knee surgery Port-A-Cath in place 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 Family History Mother Diabetes Father Diabetes Denies family history of Anesthesia complication Bleeding disorder Cancer Social History Smoking and tobacco status: current every day smoker Quit status (tobacco): has quit using tobacco Year quit tobacco: 06/2019 Alcohol intake: former Lives independently: Yes Marital status: Single Current occupational status: disabled History of recent travel: Yes ([place]) Out of state: No Out of country: No Course Vital Signs: Vital signs: Vital Signs Temperature 98.5 F 07/08/21 21:04 Pulse Rate 106 H 07/08/21 21:04 Respiratory Rate 18 07/08/21 21:04 Blood Pressure 144/74 07/08/21 21:04 Pulse Oximetry 100 07/08/21 21:04 MDM - GI Bleed MDM Narrative: Medical decision making narrative: Patient presents here with an upper GI bleed I did speak to Dr. Christensen he is concerned with his previous cancer history and cirrhosis I did call [facility] they do have ICU availability and will transfer there for higher level of care for GI. Lab Data: Labs: Lab Results 07/08/21 07/08/21 07/08/21 16:25 16:25 16:50 WBC 6.6 10^3/uL 10^3/ uL (4.0-10.0) RBC 2.36 10^6/uL L 10 ^6/uL (4.1-5.3) Hgb 6.8 g/dL L g/dL (11.7-16.6) Hct 21.5 % L % (42.0-52.0) MCV 91.1 fl fl (80-94) MCH 28.8 pg pg (28.0-34.0) MCHC 31.6 g/dL g/dL (30.0-36.0) RDW 16.1 % H % (12.1-15.1) Plt Count 90 10^3/cmm L 10^ 3/cmm (130-400) MPV 13.5 fL H fL (7.4-10.4) Neut % (Auto) 86.6 % % Lymph % (Auto) 9.2 % % Schley % (Auto) 3.5 % % Eos % (Auto) 0.0 % % Baso % (Auto) 0.2 % % Neut # (Auto) 5.76 10^3/uL 10^3 /uL (1.8-7.7) Lymph # (Auto) 0.6 10^3/uL L 10^ 3/uL (0.8-4.8) Schley # (Auto) 0.2 10^3/uL 10^3/ uL (0.2-0.9) Eos # (Auto) 0.0 10^3/uL 10^3/ uL (0.0-0.8) Baso # (Auto) 0.0 10^3/uL 10^3/ uL (0.0-0.1) Nucleated RBC % (a uto) 0 % % Nucleated RBCs # 0.0 /100WBC /100W BC PT 19.80 SECONDS H S ECONDS (12.1-14.9) INR 1.64 H (0.8-1.2) APTT 31.0 SECONDS SECO NDS (23.9-36.7) Sodium 135 mmol/L L mmol /L (136-145) Potassium 4.6 mmol/L mmol/L (3.5-5.1) Chloride 101 mmol/L mmol/L (98-107) Carbon Dioxide 17 mmol/L L mmol/ L (22-29) Anion Gap 21.6 H (5-19) BUN 43 mg/dL H mg/dL (6-20) Creatinine 0.9 mg/dL mg/dL (0.7-1.2) GFR Calculation 87.3 mL/min L mL/ min (90-130) Glucose 286 mg/dL H mg/dL (65-115) Calculated Osmolal ity 301 mOsm/kg H mOs m/kg (285-295) Calcium 7.5 mg/dL L mg/dL (8.5-10.5) Total Bilirubin 0.5 mg/dL mg/dL (0.15-1.2) AST 34 U/L U/L (0-40) ALT 25 U/L U/L (0-41) Alkaline Phosphata se 156 IU/L H IU/L (40-130) Total Protein 5.6 g/dL L g/dL (6.6-8.7) Albumin 2.5 g/dL L g/dL (3.5-5.2) Globulin 3.1 g/dL g/dL (1.3-4.6) Blood Type Rho(D) Type Antibody Screen Crossmatch 07/08/21 18:15 WBC RBC Hgb Hct MCV MCH MCHC RDW Plt Count MPV Neut % (Auto) Lymph % (Auto) Schley % (Auto) Eos % (Auto) Baso % (Auto) Neut # (Auto) Lymph # (Auto) Schley # (Auto) Eos # (Auto) Baso # (Auto) Nucleated RBC % (a uto) Nucleated RBCs # PT INR APTT Sodium Potassium Chloride Carbon Dioxide Anion Gap BUN Creatinine GFR Calculation Glucose Calculated Osmolal ity Calcium Total Bilirubin AST ALT Alkaline Phosphata se Total Protein Albumin Globulin Blood Type O Positive Rho(D) Type Positive Antibody Screen Negative Crossmatch See Detail Critical Care Time Critical Care Time: Critical Care Time: Yes Total Critical Care Time: 35 Attestation: The high probability of a clinically significant, sudden or life threatening deterioration of the patient's [] system(s) required my full and direct attention, intervention and personal management. The critical care time is as shown. This time is in addition to time spent performing any reported procedures but includes the following: [x] Data and vital sign review and interpretation [x] Patient assessment, examination and intervention [x] Documentation [x] Medication orders and management Discharge Plan Discharge Patient Disposition: Xfer Short-Term Hosp Clinical Impression: Upper gastrointestinal hemorrhage, Cirrhosis of liver, Anemia, History of esophageal cancer Condition: Stable Coding Level of Care Code ED Suction Worker for Alex Fwd Exam Comprehensive
[2021-07-08 17:25] LABS: INR 1.64 (0.8-1.2)
[2021-07-08 17:29] LABS: Alanine Aminotransferase 25 U/L (0-41); Albumin Level 2.5 g/dL (3.5-5.2); Alkaline Phosphatase 156 IU/L (40-130); Anion Gap 21.6 (5-19); Aspartate Amino Transferase 34 U/L (0-40); Blood Urea Nitrogen 43 mg/dL (6-20); Calcium 7.5 mg/dL (8.5-10.5); Carbon Dioxide 17 mmol/L (22-29); Chloride 101 mmol/L (98-107); Globulin 3.1 g/dL (1.3-4.6); Glomerular Filtration Rate 87.3 mL/min (90-130); Glucose 286 mg/dL (65-115); Osmolality Calculated 301 mOsm/kg (285-295); Potassium 4.6 mmol/L (3.5-5.1); Sodium 135 mmol/L (136-145); Total Bilirubin 0.5 mg/dL (0.15-1.2); Total Protein 5.6 g/dL (6.6-8.7)
[2021-07-08] MEDS: pantoprazole 40 mg SDV 80 MG IVP (17:51)
[2021-07-08] MEDS: sodium chloride 0.9% 1,000 ML 999 ML IV ×2 (17:56→19:27)
[2021-07-08] MEDS: ondansetron 2 mg/ML SDV 2 mL 8 MG IVP (18:18)
[2021-07-08] MEDS: promethazine 25 mg/mL SDV 1 mL IM (18:30)
[2021-07-08] MEDS: albumin 12.5 GM/250 ML VIAL IV (18:30)
--- NOTE | 2021-07-08 18:42 | PM.HP ---
Providers/Chief Complaint Primary Care Provider: Casimiro Sommers Chief Complaint: BLOOD IN STOOL; HYPOTENSION History of Present Illness Loida Juares is a 55 year old male with past medical history of insulin-dependent type 2 diabetes mellitus, diabetic peripheral neuropathy, history of left foot diabetic ulcer managed with wound care, history of GI bleed, history of hepatitis C, status post treatment, according to patient he was cured of it, history of liver cirrhosis, history of portal hypertension, history of adenocarcinoma of the esophagus status post radiation therapy, who presents to [facility] presents to the ER today complaining of hematemesis and melena since last night. Patient states he has had multiple episodes of both hematemesis and melena. He started having dizziness so he came to the ER. Blood work in the ER showed a white count 6.6, hemoglobin 6.8, platelet count of 90,000, INR of 1.6, sodium of 135, BUN of 43, creatinine of 0.9, calcium 7.5. Treatment in the ER: Tylenol patient has received D5 NS at 100 cc an hour, 80 mg of Protonix IV, transemic acid 1 g IV. He has been ordered 2 units of PRBC and FFP and is getting first unit of PRBC currently. Patient had one episode of hematemesis during my examination during which he vomited around 300 cc of dark red vomitus. Patient's blood pressure dropped after which he was started on Levophed of 5. I have requested patient to have 5% 12.5 g of albumin, octreotide drip, Protonix drip, bolus 500 cc of fluid, 2 units of blood and FFP. Review of Systems General: Reports: 10 or more systems reviewed and unremarkable except in HPI and below Const: Denies: fever(s), chills, body aches, change in appetite, change in weight, malaise, night sweats, diaphoresis, change in sleep pattern, daytime sleepiness or snoring Eyes: Denies: change in vision, blurry vision, photophobia, eye discomfort or eye discharge ENMT: Denies: throat pain, enlarged tonsils, hoarseness, mouth pain, oral sores, dry mouth, tinnitus, nasal congestion or post nasal drip Card: Denies: chest pain, palpitations, irregular heart rhythm, edema, swelling of feet/ankles, lightheadedness, syncope, pre-syncope, dyspnea on exertion, orthopnea, leg pain with exertion or acrocyanosis Resp: Denies: dyspnea, productive cough, non-productive cough, wheezing, stridor, pain on inspiration, change in phlegm color, hemoptysis or chest congestion GI: Denies: abdominal pain, nausea, vomiting, hematemesis, coffee ground emesis, dysphagia, heartburn, diarrhea, constipation, bloating, GI cramping, change in bowel habits, pain on defecation, hematochezia or melena : Denies: flank pain, difficulty urinating, dysuria, urinary frequency, urinary urgency, urinary hesitancy, urinary dribbling, difficulty starting urination, change in urine stream, nocturia or hematuria Musc: Denies: neck pain, back pain, extremity pain, joint pain, joint swelling, joint redness, joint stiffness or limited range of motion Neuro: Denies: headache(s), numbness in extremities, weakness in extremities, sensory changes, lack of coordination, difficulty walking, frequent falls, dizziness, vertigo, confusion, Slurred speech present, difficulty communicating thoughts or seizure-like activity Psych: Denies: anxiety, depression, mood swings, panic attacks, hopelessness or irritability Endo: Denies: polyuria, polydipsia, tired all the time, cold intolerance, excessive sweating, flushing or heat intolerance Huan/Lymph: Denies: easy bruising or easy bleeding All/Imm: Denies: tongue swelling, facial swelling or acute wheezing Medications/Allergies Home Medications Medication Instructions Recorded Confirmed Last Taken Type pantoprazole [Protonix] 40 mg PO BID #60 tab 05/19/20 07/08/21 07/08/21 Rx citalopram 20 mg PO QAM 12/26/20 07/08/21 07/08/21 History dronabinol [Marinol] 5 mg PO BID PRN 12/26/20 07/08/21 Unknown History lidocaine-prilocaine 1 applic TOPICAL . DIRECTED 12/26/20 07/08/21 Unknown History ondansetron 8 mg PO Q8H PRN 12/26/20 07/08/21 Unknown History lorazepam 0.5 - 1 mg PO TID PRN #10 tab 12/27/20 07/08/21 Unknown Rx oxycodone 10 mg PO Q6H PRN #10 tab 12/27/20 07/08/21 07/08/21 10:00 Rx Levemir FlexTouch U-100 Insuln 30 unit SUBCUT BEDTIME 07/08/21 07/08/21 07/07/21 History Allergies Allergy/AdvReac Type Severity Reaction Status Date / Time acetaminophen [From Tylenol] Allergy Unknown Verified 02/20/21 10:27 NSAIDS (Non-Steroidal Allergy ALGY-Joint Verified 02/20/21 10:27 Anti-Inflamma Pain tramadol [From Ultram] Allergy Unknown Verified 02/20/21 10:27 PFSH Acute PFSH: Medical History (Updated 07/08/21 @ 18:56 by Freddie Mckeon MD) Acute upper GI bleed Adenocarcinoma of esophagus Chronic hepatitis C Chronic neck pain Cirrhosis of liver DDD (degenerative disc disease), lumbar Diabetic ulcer of left foot Dysphagia -appears to be an intermittent issue 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 No evidence of disease occurrence on endoscopy and no focal mass on CT Encounter for long-term use of opiate analgesic Esophagitis determined by endoscopy Insulin dependent type 2 diabetes mellitus Lumbar pain Neuropathy due to secondary diabetes Osteomyelitis Portal hypertension S/p left hip fracture November 2018 Spinal stenosis of lumbar region Spondylosis of lumbar spine with myelopathy Ulcer of left heel Surgical History H/O circumcision H/O colonoscopy 2018 H/O esophagogastroduodenoscopy 2018 History of knee surgery Port-A-Cath in place 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 Family History Mother Diabetes Father Diabetes Denies family history of Anesthesia complication Bleeding disorder Cancer Social History Smoking and tobacco status: current every day smoker Quit status (tobacco): has quit using tobacco Year quit tobacco: 06/2019 Alcohol intake: former Lives independently: Yes Marital status: Single Current occupational status: disabled History of recent travel: Yes ([place]) Out of state: No Out of country: No Vitals/I&O/Wt Last Vital Signs Temp 96.3 F L 07/08/21 18:21 Pulse 93 07/08/21 18:21 Resp 18 01/01/22 18:21 BP 93/62 07/08/21 18:21 Pulse Ox 100 07/08/21 18:21 Weight last 48 hrs Weight 92.533 kg Physical Exam Narrative: EXAM NARRATIVE: General: Acute distress because of back pain, pale, sick appearing, icteric, AO x3 HEENT: PERRLA, pupils bilaterally equal and reactive Chest: Normal vesicular breath sounds, no added sounds, equal good air entry bilaterally, port present in right hemithorax CVS: S1-S2 regular, no murmurs, no tachycardia, no gallops, no rubs Abdomen: Soft, nontender, no organomegaly, bowel sounds present Neuro: No focal deficits, no facial deformity, AO x3, power 5/5 in all limbs Data : 07/08/21 16:25 07/08/21 16:25 A&P Assessment and plan (1) Hypovolemic shock: Status: Acute (2) Acute upper GI bleed: Status: Acute (3) Portal hypertension: Status: Acute (4) Adenocarcinoma of esophagus: Status: Acute (5) Cirrhosis of liver: Status: Acute Qualifiers: Hepatic cirrhosis type: other cirrhosis Qualified Code(s): K74.69 - Other cirrhosis of liver (6) Insulin dependent type 2 diabetes mellitus: Status: Acute Additional A&P Information Hypovolemic shock secondary to acute upper GI bleed: History of portal hypertension, adenocarcinoma of the esophagus. Keep mean arterial pressure around 65. Wean off Levophed accordingly. Continue half NS at 100 cc an hour after 500 cc bolus. Operative prep, Protonix drip. Order 2 units of PRBC, FFP. Surgery consulted from ER for urgent endoscopy. Hemoglobin hematocrit every 6 hourly. Zofran and Phenergan as needed. -Diabetes mellitus: Insulin sliding scale every 4 hourly. Check HbA1c. Severely guarded prognosis. Admit to ICU. CODE STATUS: Discussed in detail with the patient. Full code. Mother would be DPOA. NPO. SCDs for DVT prophylaxis. Attestations Medical Necessity Statement*: Admission for more than 2 midnights for management of hypovolemic shock secondary to acute upper GI bleed in setting of portal hypertension adenocarcinoma of the esophagus. Critical Care Time: The high probability of a clinically significant, sudden or life threatening deterioration of the patient's [GI, hematological, cardiac] system(s) required my full and direct attention, intervention and personal management. The critical care time is as shown. 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
[2021-07-08] MEDS: HYDROmorphone 1 mg/mL INJ 1 mL 0.5 MG IVP (19:52)
[2021-07-08] MEDS: pantoprazole 40 MG in sodium chloride 0.9% (plus) 100 ML 20 MG IV (20:08)
[2021-07-08] MEDS: octreotide 500 MCG in sodium chloride 0.9% (100 ml) 100 ML 10.1 MCG IV (20:12)
[2021-07-08] MEDS: sodium chloride 0.9% 1,000 ML 125 ML IV (20:17)
[2021-07-08] MEDS: insulin lispro 100 unit/1 mL SUBCUT (20:25)
[2021-07-08 20:26] LABS: Glucose Point of Care 293 mg/dL (70-110)
== END 2021-07-08 21:04 | disposition short-term general hospital (02) | DRG 377 ==
LOC: ER 19:02 → ER IP 20:07
PROVIDERS: Admitting Provider Student in an Organized Health Care Education/Training Program; Emergency Provider Family Medicine; PCP Family Medicine; Visit Provider Student in an Organized Health Care Education/Training Program
DX: K92.0 Hematemesis (principal); R57.1 Hypovolemic shock; K76.6 Portal hypertension; K92.1 Melena; E11.42 Type 2 diabetes mellitus with diabetic polyneuropathy; K74.69 Other cirrhosis of liver; F17.200 Nicotine dependence, unspecified, uncomplicated; Z79.4 Long term (current) use of insulin; Z86.31 Personal history of diabetic foot ulcer; Z86.19 Personal history of other infectious and parasitic diseases; Z87.19 Personal history of other diseases of the digestive system; Z92.3 Personal history of irradiation; Z85.01 Personal history of malignant neoplasm of esophagus
CPT/HCPCS: 36416; 36430; 80053; 82962; 85025; 85610; 85730; 86850; 86900; 86920; 86927; 96365; 96366; 96372; 96375; 99285; 99291; 99292; C9113; J1170; J1815; J2405; J2550; J7030; P9016; P9017; P9041

== ENCOUNTER 2021-07-14 10:31 | Outpatient (CLI) | payer MEDICAID, SELFPAY | END 2021-07-14 10:32 | disposition home or self-care (01) | LOC: WOUND 10:32 | PROVIDERS: PCP Family Medicine; Visit Provider Surgery | DX: I96 Gangrene, not elsewhere classified (principal); E11.621 Type 2 diabetes mellitus with foot ulcer; L97.422 Non-pressure chronic ulcer of left heel and midfoot with fat layer exposed; L97.512 Non-pressure chronic ulcer of other part of right foot with fat layer exposed; F17.210 Nicotine dependence, cigarettes, uncomplicated | CPT/HCPCS: 11042; 11045 ==

== ENCOUNTER 2021-07-21 06:36 | Outpatient (CLI) | payer MEDICAID, SELFPAY ==
[2021-07-21 10:25] LABS: Basophils % 0.3 %; Eosinophils # 0.1 10^3/uL (0.0-0.8); Hematocrit 25.3 % (42.0-52.0); Hemoglobin 7.9 g/dL (11.7-16.6); Lymphocytes # 0.5 10^3/uL (0.8-4.8); Lymphocytes % 14.6 %; Mean Corpuscular HGB Conc 31.2 g/dL (30.0-36.0); Mean Corpuscular Hemoglobin 28.6 pg (28.0-34.0); Mean Corpuscular Volume 91.7 fl (80-94); Mean Platelet Volume 12.4 fL (7.4-10.4); Monocytes # 0.4 10^3/uL (0.2-0.9); Monocytes % 11.6 %; Neutrophils # 2.36 10^3/uL (1.8-7.7); Neutrophils % 70.2 %; Nucleated Red Blood Cells % 0 %; Platelet Count 79 10^3/cmm (130-400); Red Blood Count 2.76 10^6/uL (4.1-5.3); Red Cell Distribution Width 16.4 % (12.1-15.1); White Blood Count 3.4 10^3/uL (4.0-10.0)
[2021-07-21 10:43] LABS: Alanine Aminotransferase 23 U/L (0-41); Albumin Level 2.8 g/dL (3.5-5.2); Alkaline Phosphatase 217 IU/L (40-130); Anion Gap 11.5 (5-19); Aspartate Amino Transferase 33 U/L (0-40); Blood Urea Nitrogen 15 mg/dL (6-20); Calcium 7.6 mg/dL (8.5-10.5); Carbon Dioxide 22 mmol/L (22-29); Chloride 106 mmol/L (98-107); Globulin 2.8 g/dL (1.3-4.6); Glomerular Filtration Rate 139.4 mL/min (90-130); Glucose 156 mg/dL (65-115); Osmolality Calculated 284 mOsm/kg (285-295); Potassium 4.5 mmol/L (3.5-5.1); Sodium 135 mmol/L (136-145); Total Bilirubin 0.5 mg/dL (0.15-1.2); Total Protein 5.6 g/dL (6.6-8.7)
--- NOTE | 2021-07-21 11:23 | ECG_ITS ---
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
[2021-07-21 11:37] LABS: Erythrocyte Sedimentation Rate 11 mm/hr (0-10)
[2021-07-21 11:39] LABS: Ferritin 27 ng/mL (30-400); Iron 41 ug/dL (59-158); Percent Saturation 13.3 % (20-50); Total Iron Binding Capacity 308 mcg/dl; Unsaturated Iron Binding 267 ug/dL (112-347)
[2021-07-21 11:40] LABS: C Reactive Protein 8.2 mg/L (0.0-4.9)
[2021-07-21 12:12] LABS: Estmated Average Glucose 94; Hemoglobin A1C 4.9 % (4.0-6.0)
== END 2021-07-21 06:37 | disposition home or self-care (01) ==
LOC: ONCMED 06:37
PROVIDERS: Surgery; PCP Family Medicine; Visit Provider Nurse Practitioner Family
DX: Z08 Encounter for follow-up examination after completed treatment for malignant neoplasm (principal); Z85.01 Personal history of malignant neoplasm of esophagus; K74.60 Unspecified cirrhosis of liver; R16.1 Splenomegaly, not elsewhere classified; K90.0 Celiac disease; R59.0 Localized enlarged lymph nodes; D61.818 Other pancytopenia; D50.9 Iron deficiency anemia, unspecified; Z96.642 Presence of left artificial hip joint; Z92.21 Personal history of antineoplastic chemotherapy; Z92.3 Personal history of irradiation; Z79.899 Other long term (current) drug therapy
CPT/HCPCS: 36591; 80053; 82728; 83036; 83540; 83550; 85025; 85651; 86140; 93005; 99214

== ENCOUNTER 2021-07-21 09:02 | Outpatient (CLI) | payer MEDICAID, SELFPAY ==
--- NOTE | 2021-07-21 09:18 | XR_ITS ---
WS: [id number] XR foot LT min 3V* [id number] REASON FOR EXAM: DM W/FOOT ULCER/CHRONIC ULCER W/FAT EXPOSED FINDINGS: Osteoarthritis with dorsal flexions and subluxations in the left forefoot, unchanged compared to 12/24. No significant abnormality in the left midfoot. Compared to the previous examination of 12/24/2020 there is sclerosis/lucency and loss of cortical def inition in the anterior plantar region of the calcaneus. XR/XR foot LT min 3V* [id number] IMPRESSION: Findings in the left calcaneus compatible with chronic osteomyelitis.
--- NOTE | 2021-07-21 11:16 | XR_ITS ---
WS: [id number] XR chest 2V* [id number] REASON FOR EXAM: ?BULLOUS DZ/CHRONIC NON PRESSURE FOOT ULCER FINDINGS: Chemotherapy infusion port over the anterior right chest with transvenous right subclavian infusion c atheter with the tip just within the superior vena cava. The heart and mediastinum are within normal limits. Calcified granulomatous disease in both hemithoraces. No active pulmonary parenchymal or pleural disease is noted. Mild thoracic scoliosis convex right. Mild wedge-shaped chronic compression deformity of presumed T8. Calcified granulomatous disease. XR/XR chest 2V* [id number] IMPRESSION: No acute chest abnormality.
== END 2021-07-21 09:03 | disposition home or self-care (01) ==
PROVIDERS: PCP Family Medicine; Visit Provider Surgery
DX: E11.621 Type 2 diabetes mellitus with foot ulcer (principal); L97.522 Non-pressure chronic ulcer of other part of left foot with fat layer exposed
CPT/HCPCS: 71046; 73630

== ENCOUNTER 2021-07-21 10:19 | Outpatient (CLI) | payer MEDICAID, SELFPAY | END 2021-07-21 10:20 | disposition home or self-care (01) | LOC: WOUND 10:19 | PROVIDERS: PCP Family Medicine; Visit Provider Surgery | DX: E11.621 Type 2 diabetes mellitus with foot ulcer (principal); L97.422 Non-pressure chronic ulcer of left heel and midfoot with fat layer exposed; L97.512 Non-pressure chronic ulcer of other part of right foot with fat layer exposed; F17.210 Nicotine dependence, cigarettes, uncomplicated | CPT/HCPCS: 11042; 15271; Q4186 ==

== ENCOUNTER 2021-07-25 10:44 | Outpatient (CLI) | payer MEDICAID, SELFPAY | END 2021-07-25 10:45 | disposition home or self-care (01) | LOC: WOUND 10:45 | PROVIDERS: PCP Family Medicine; Visit Provider Emergency Medicine | DX: E11.621 Type 2 diabetes mellitus with foot ulcer (principal); L97.422 Non-pressure chronic ulcer of left heel and midfoot with fat layer exposed; L97.512 Non-pressure chronic ulcer of other part of right foot with fat layer exposed; F17.210 Nicotine dependence, cigarettes, uncomplicated | CPT/HCPCS: G0277 ==

== ENCOUNTER 2021-07-26 09:50 | Outpatient (CLI) | payer MEDICAID, SELFPAY | END 2021-07-26 09:51 | disposition home or self-care (01) | LOC: WOUND 09:50 | PROVIDERS: PCP Family Medicine; Visit Provider Nurse Practitioner Family | DX: E11.621 Type 2 diabetes mellitus with foot ulcer (principal); L97.426 Non-pressure chronic ulcer of left heel and midfoot with bone involvement without evidence of necrosis; M86.672 Other chronic osteomyelitis, left ankle and foot | CPT/HCPCS: G0277 ==

== ENCOUNTER 2021-07-27 09:32 | Outpatient (CLI) | payer MEDICAID, SELFPAY | END 2021-07-27 09:33 | disposition home or self-care (01) | LOC: WOUND 09:32 | PROVIDERS: PCP Family Medicine; Visit Provider Emergency Medicine | DX: E11.621 Type 2 diabetes mellitus with foot ulcer (principal); L97.426 Non-pressure chronic ulcer of left heel and midfoot with bone involvement without evidence of necrosis; M86.672 Other chronic osteomyelitis, left ankle and foot | CPT/HCPCS: G0277 ==

== ENCOUNTER 2021-07-28 09:26 | Outpatient (CLI) | payer MEDICAID, SELFPAY | END 2021-07-28 09:27 | disposition home or self-care (01) | LOC: WOUND 09:27 | PROVIDERS: PCP Family Medicine; Visit Provider Nurse Practitioner Family | DX: I96 Gangrene, not elsewhere classified (principal); E11.621 Type 2 diabetes mellitus with foot ulcer; L97.422 Non-pressure chronic ulcer of left heel and midfoot with fat layer exposed; L97.529 Non-pressure chronic ulcer of other part of left foot with unspecified severity; F17.210 Nicotine dependence, cigarettes, uncomplicated | CPT/HCPCS: 15275; A6250; Q4186 ==

== ENCOUNTER 2021-08-01 09:57 | Outpatient (CLI) | payer MEDICAID, SELFPAY | END 2021-08-01 09:58 | disposition home or self-care (01) | LOC: WOUND 09:58 | PROVIDERS: PCP Family Medicine; Visit Provider Emergency Medicine | DX: E11.621 Type 2 diabetes mellitus with foot ulcer (principal); L97.426 Non-pressure chronic ulcer of left heel and midfoot with bone involvement without evidence of necrosis; M86.672 Other chronic osteomyelitis, left ankle and foot | CPT/HCPCS: G0277 ==

== ENCOUNTER 2021-08-01 13:02 | Outpatient (CLI) | payer MEDICAID, SELFPAY ==
--- NOTE | 2021-08-01 13:14 | CT_ITS ---
WS: [id number] CT CHEST, ABDOMEN, AND PELVIS TECHNIQUE: Contrast-enhanced CT of the chest, abdomen, and pelvis with coronal and sagittal reformatt ed images. CLINICAL INFORMATION: ESOPHAGEAL CANCER COMPARISON: 03/31/2021 and 11/17/2020. PET/CT July 16, 2020 DLP: 687.[address] scans at [facility] use at least one of these dose optimization techniques: automated e xposure control; mA and/or kV adjustment per patient size (includes targeted exams where dose is matc hed to clinical indication); or iterative reconstruction. CT CHEST: Lungs are well aerated. No acute pulmonary infiltrates. No suspicious pulmonary parenchymal opacities. No consolidation or pleural fluid. No mediastinal or hilar lymphadenopathy. Normal calibe r thoracic aorta. Aortic and coronary calcification. Mild thickening of the GE junction unchanged fro m previous likely due to treatment-related changes. CT ABDOMEN AND PELVIS: Diffuse body wall anasarca. Cirrhotic liver with splenomegaly. Evidence of por lillie venous hypertension. Heterogeneous enhancement involving the dome of the liver is unchanged gualberto red to the prior examination. Gallbladder is contracted. Cholelithiasis. Fluid in the gallbladder fos sa due to hepatic disease. Splenomegaly. Fatty atrophy of the pancreas. Adrenal glands are normal. No hydronephrosis. A few prominent periaortic and retroperitoneal lymph nodes. Prominent cori hepatis and aortocaval ly mph nodes. This is unchanged from previous. Small esophageal hiatal hernia. Adrenal glands are normal . Normal renal parenchymal enhancement. No hydronephrosis. Normal caliber abdominal aorta. Prior post operative changes intramedullary sree and screw fixation left hip. Small amount of perihepatic and per isplenic ascites. Small amount of free fluid in the pelvis. Tiny fat-containing umbilical hernia. Stable chronic L4, L5, and T9 compression fractures. CT/CT chest abd pel w con* IMPRESSION: 1. Prominent periaortic, aortocaval, retroperitoneal lymph nodes similar to th e prior examination. A few prominent cori hepatis lymph nodes are unchanged. 2. No mediastinal or hilar lymphadenopathy. 3. Area of heterogeneous enhancement in the dome of the liver is unchanged. 4. Cirrhotic liver with splenomegaly. Evidence of portal venous hypertension. 5. Stable chronic L4, L5, and T9 compression fractures. 6. Diffuse body wall anasarca has progressed compared to previous with a small amount of perisplenic and perihepatic ascites. Small amount of free fluid in t he pelvis.
[2021-08-01] MEDS: iohexol 300 mg/mL 50 mL Btl PO (15:44)
[2021-08-01] MEDS: iohexol 300 mg/mL 100 mL Btl IV (15:45)
== END 2021-08-01 13:03 | disposition home or self-care (01) ==
PROVIDERS: PCP Family Medicine; Visit Provider Nurse Practitioner Family
DX: C15.5 Malignant neoplasm of lower third of esophagus (principal); K74.60 Unspecified cirrhosis of liver; R16.1 Splenomegaly, not elsewhere classified; S32.049A Unspecified fracture of fourth lumbar vertebra, initial encounter for closed fracture; S32.059A Unspecified fracture of fifth lumbar vertebra, initial encounter for closed fracture; S22.079A Unspecified fracture of T9-T10 vertebra, initial encounter for closed fracture; X58.XXXA Exposure to other specified factors, initial encounter; R60.1 Generalized edema
CPT/HCPCS: 71260; 74177

== ENCOUNTER 2021-08-02 09:42 | Outpatient (CLI) | payer MEDICAID, SELFPAY | END 2021-08-02 09:43 | disposition home or self-care (01) | LOC: WOUND 09:43 | PROVIDERS: PCP Family Medicine; Visit Provider Thoracic Surgery (Cardiothoracic Vascular Surgery) | DX: E11.621 Type 2 diabetes mellitus with foot ulcer (principal); L97.426 Non-pressure chronic ulcer of left heel and midfoot with bone involvement without evidence of necrosis; M86.672 Other chronic osteomyelitis, left ankle and foot | CPT/HCPCS: G0277 ==

== ENCOUNTER 2021-08-03 09:52 | Outpatient (CLI) | payer MEDICAID, SELFPAY | END 2021-08-03 09:53 | disposition home or self-care (01) | LOC: WOUND 09:53 | PROVIDERS: PCP Family Medicine; Visit Provider Emergency Medicine | DX: E11.621 Type 2 diabetes mellitus with foot ulcer (principal); L97.426 Non-pressure chronic ulcer of left heel and midfoot with bone involvement without evidence of necrosis; M86.672 Other chronic osteomyelitis, left ankle and foot | CPT/HCPCS: G0277 ==

== ENCOUNTER 2021-08-04 09:17 | Outpatient (CLI) | payer MEDICAID, SELFPAY | END 2021-08-04 09:18 | disposition home or self-care (01) | LOC: WOUND 09:18 | PROVIDERS: PCP Family Medicine; Visit Provider Surgery | DX: E11.621 Type 2 diabetes mellitus with foot ulcer (principal); L97.422 Non-pressure chronic ulcer of left heel and midfoot with fat layer exposed; F17.210 Nicotine dependence, cigarettes, uncomplicated | CPT/HCPCS: 15271; A6250; Q4186 ==

== ENCOUNTER 2021-08-08 09:50 | Outpatient (CLI) | payer MEDICAID, SELFPAY | END 2021-08-08 09:51 | disposition home or self-care (01) | LOC: WOUND 09:50 | PROVIDERS: PCP Family Medicine; Visit Provider Emergency Medicine | DX: E11.621 Type 2 diabetes mellitus with foot ulcer (principal); L97.429 Non-pressure chronic ulcer of left heel and midfoot with unspecified severity; M86.672 Other chronic osteomyelitis, left ankle and foot | CPT/HCPCS: G0277 ==

== ENCOUNTER 2021-08-25 09:34 | Outpatient (CLI) | payer MEDICAID, SELFPAY | END 2021-08-25 09:35 | disposition home or self-care (01) | LOC: WOUND 09:35 | PROVIDERS: PCP Family Medicine; Visit Provider Thoracic Surgery (Cardiothoracic Vascular Surgery) | DX: E11.621 Type 2 diabetes mellitus with foot ulcer (principal); L97.421 Non-pressure chronic ulcer of left heel and midfoot limited to breakdown of skin | CPT/HCPCS: 15275; A6250; Q4186 ==

== ENCOUNTER 2021-08-28 09:50 | Outpatient (CLI) | payer MEDICAID, SELFPAY | END 2021-08-28 09:51 | disposition home or self-care (01) | LOC: WOUND 09:50 | PROVIDERS: PCP Family Medicine; Visit Provider Thoracic Surgery (Cardiothoracic Vascular Surgery) | DX: E11.621 Type 2 diabetes mellitus with foot ulcer (principal); M86.9 Osteomyelitis, unspecified; L97.426 Non-pressure chronic ulcer of left heel and midfoot with bone involvement without evidence of necrosis | CPT/HCPCS: G0277 ==

== ENCOUNTER 2021-08-29 10:10 | Outpatient (CLI) | payer MEDICAID, SELFPAY | END 2021-08-29 10:11 | disposition home or self-care (01) | LOC: WOUND 10:11 | PROVIDERS: PCP Family Medicine; Visit Provider Emergency Medicine | DX: E11.621 Type 2 diabetes mellitus with foot ulcer (principal); L97.429 Non-pressure chronic ulcer of left heel and midfoot with unspecified severity; M86.9 Osteomyelitis, unspecified | CPT/HCPCS: G0277 ==

== ENCOUNTER 2021-09-07 09:49 | Outpatient (CLI) | payer MEDICAID, SELFPAY | END 2021-09-07 09:50 | disposition home or self-care (01) | LOC: WOUND 09:50 | PROVIDERS: PCP Family Medicine; Visit Provider Emergency Medicine | DX: E11.621 Type 2 diabetes mellitus with foot ulcer (principal); L97.429 Non-pressure chronic ulcer of left heel and midfoot with unspecified severity; M86.8X7 Other osteomyelitis, ankle and foot | CPT/HCPCS: G0277 ==

== ENCOUNTER 2021-09-08 09:26 | Outpatient (CLI) | payer MEDICAID, SELFPAY | END 2021-09-08 09:27 | disposition home or self-care (01) | LOC: WOUND 09:27 | PROVIDERS: PCP Family Medicine; Visit Provider Surgery | DX: E11.621 Type 2 diabetes mellitus with foot ulcer (principal); L97.423 Non-pressure chronic ulcer of left heel and midfoot with necrosis of muscle | CPT/HCPCS: 11042; 11045 ==

== ENCOUNTER 2021-09-11 09:49 | Outpatient (CLI) | payer MEDICAID, SELFPAY | END 2021-09-11 09:50 | disposition home or self-care (01) | LOC: WOUND 09:50 | PROVIDERS: PCP Family Medicine; Visit Provider Thoracic Surgery (Cardiothoracic Vascular Surgery) | DX: E11.621 Type 2 diabetes mellitus with foot ulcer (principal); L97.423 Non-pressure chronic ulcer of left heel and midfoot with necrosis of muscle; M86.9 Osteomyelitis, unspecified | CPT/HCPCS: G0277 ==

== ENCOUNTER 2021-09-12 09:59 | Outpatient (CLI) | payer MEDICAID, SELFPAY | END 2021-09-12 10:00 | disposition home or self-care (01) | LOC: WOUND 10:00 | PROVIDERS: PCP Family Medicine; Visit Provider Emergency Medicine | DX: E11.621 Type 2 diabetes mellitus with foot ulcer (principal); L97.429 Non-pressure chronic ulcer of left heel and midfoot with unspecified severity; M86.9 Osteomyelitis, unspecified | CPT/HCPCS: G0277 ==

== ENCOUNTER 2021-09-15 11:18 | Outpatient (CLI) | payer MEDICAID, SELFPAY | END 2021-09-15 11:19 | disposition home or self-care (01) | LOC: WOUND 11:18 | PROVIDERS: PCP Family Medicine; Visit Provider Surgery | DX: E11.621 Type 2 diabetes mellitus with foot ulcer (principal); L97.423 Non-pressure chronic ulcer of left heel and midfoot with necrosis of muscle; M86.9 Osteomyelitis, unspecified | CPT/HCPCS: 11042 ==

== ENCOUNTER 2021-09-22 13:56 | Outpatient (CLI) | payer MEDICAID, SELFPAY | END 2021-09-22 13:57 | disposition home or self-care (01) | LOC: WOUND 13:56 | PROVIDERS: PCP Family Medicine; Visit Provider Surgery | DX: E11.621 Type 2 diabetes mellitus with foot ulcer (principal); L97.423 Non-pressure chronic ulcer of left heel and midfoot with necrosis of muscle | CPT/HCPCS: 15271; A6250; Q4186 ==

== ENCOUNTER → 2021-09-29 10:16 | Outpatient (BNVA) | payer MEDICAID, SELFPAY | PROVIDERS: PCP Family Medicine; Visit Provider Nurse Practitioner Family | DX: E11.621 Type 2 diabetes mellitus with foot ulcer (principal); L97.423 Non-pressure chronic ulcer of left heel and midfoot with necrosis of muscle; I96 Gangrene, not elsewhere classified | CPT/HCPCS: 11042; 11045 ==

== ENCOUNTER → 2021-10-06 10:12 | Outpatient (BNVA) | payer MEDICAID, SELFPAY | PROVIDERS: PCP Family Medicine; Visit Provider Surgery | DX: E11.621 Type 2 diabetes mellitus with foot ulcer (principal); I96 Gangrene, not elsewhere classified; L97.423 Non-pressure chronic ulcer of left heel and midfoot with necrosis of muscle | CPT/HCPCS: 15271; 15272; A6207; Q4186 ==

== ENCOUNTER → 2021-10-13 14:06 | Outpatient (BNVA) | payer MEDICAID, SELFPAY | PROVIDERS: PCP Family Medicine; Visit Provider Surgery | DX: E11.621 Type 2 diabetes mellitus with foot ulcer (principal); L97.423 Non-pressure chronic ulcer of left heel and midfoot with necrosis of muscle; I96 Gangrene, not elsewhere classified | CPT/HCPCS: 15271; A6207; A6252; Q4186 ==

== ENCOUNTER → 2021-10-20 15:08 | Outpatient (BNVA) | payer MEDICAID, SELFPAY | PROVIDERS: PCP Family Medicine; Visit Provider Emergency Medicine | DX: E11.621 Type 2 diabetes mellitus with foot ulcer (principal); L97.423 Non-pressure chronic ulcer of left heel and midfoot with necrosis of muscle; I96 Gangrene, not elsewhere classified | CPT/HCPCS: 15275; 15276; A6250; Q4186 ==

== ENCOUNTER → 2021-10-27 10:13 | Outpatient (BNVA) | payer MEDICAID, SELFPAY | PROVIDERS: PCP Family Medicine; Visit Provider Surgery | DX: E11.621 Type 2 diabetes mellitus with foot ulcer (principal); L97.423 Non-pressure chronic ulcer of left heel and midfoot with necrosis of muscle; I96 Gangrene, not elsewhere classified | CPT/HCPCS: 15271; A6207; A6252 ==

== ENCOUNTER → 2021-11-03 09:32 | Outpatient (BNVA) | payer MEDICAID, SELFPAY | PROVIDERS: PCP Family Medicine; Visit Provider Nurse Practitioner Family | DX: E11.621 Type 2 diabetes mellitus with foot ulcer (principal); L97.423 Non-pressure chronic ulcer of left heel and midfoot with necrosis of muscle; I96 Gangrene, not elsewhere classified | CPT/HCPCS: 11042; 11045 ==

== ENCOUNTER → 2021-11-10 09:41 | Outpatient (BNVA) | payer MEDICAID, SELFPAY | PROVIDERS: PCP Family Medicine; Visit Provider Surgery | DX: E11.621 Type 2 diabetes mellitus with foot ulcer (principal); L97.423 Non-pressure chronic ulcer of left heel and midfoot with necrosis of muscle; I96 Gangrene, not elsewhere classified | CPT/HCPCS: 15271; Q4186 ==

== ENCOUNTER → 2021-11-17 14:29 | Outpatient (BNVA) | payer MEDICAID, SELFPAY | PROVIDERS: PCP Family Medicine; Visit Provider Surgery | DX: E11.621 Type 2 diabetes mellitus with foot ulcer (principal); L97.423 Non-pressure chronic ulcer of left heel and midfoot with necrosis of muscle; I96 Gangrene, not elsewhere classified | CPT/HCPCS: 15271; A6206; A6250; Q4186 ==

== ENCOUNTER → 2021-11-24 13:57 | Outpatient (BNVA) | payer MEDICAID, SELFPAY | PROVIDERS: PCP Family Medicine; Visit Provider Surgery | DX: E11.621 Type 2 diabetes mellitus with foot ulcer (principal); L97.423 Non-pressure chronic ulcer of left heel and midfoot with necrosis of muscle; I96 Gangrene, not elsewhere classified | CPT/HCPCS: 15271; Q4186 ==

== ENCOUNTER → 2021-12-01 11:49 | Outpatient (BNVA) | payer MEDICAID, SELFPAY | PROVIDERS: PCP Family Medicine; Visit Provider Surgery | DX: I96 Gangrene, not elsewhere classified (principal); E11.621 Type 2 diabetes mellitus with foot ulcer; L97.423 Non-pressure chronic ulcer of left heel and midfoot with necrosis of muscle | CPT/HCPCS: 15271; A6207; Q4186 ==

== ENCOUNTER → 2021-12-08 08:24 | Outpatient (BNVA) | payer MEDICAID, SELFPAY | PROVIDERS: PCP Family Medicine; Visit Provider Surgery | DX: E11.621 Type 2 diabetes mellitus with foot ulcer (principal); L97.423 Non-pressure chronic ulcer of left heel and midfoot with necrosis of muscle; I96 Gangrene, not elsewhere classified | CPT/HCPCS: 15271 ==

== ENCOUNTER 2021-12-08 10:36 | Outpatient (CLI) | payer MEDICAID, SELFPAY ==
[2021-12-08] VITALS (10 sets, daily range): BP systolic 117–202; BP diastolic 62–99; PULSE 71–79; RESP 16–20; TEMP 36.6–36.8; O2SAT 99; BMI 30.1
--- NOTE | 2021-12-08 11:30 | ED_ITS ---
HPI - Recheck/Abnormal Lab/Rx General: Chief Complaint: Recheck/Abnormal Lab/Rx Stated Complaint: blood transfusion per Dr. Ocampo Time Seen by Provider: 12/08/21 10:42 Source: patient Mode of arrival: ambulatory Limitations: no limitations History of Present Illness: 56-year-old male with known history of anemia liver cirrhosis and malignant esophageal tumor. Referred to ER for transfusion of blood his hemoglobin is 4.9 he is stable his vital signs are normal. Is otherwise feeling fine. I called and discussed with Dr. Ocampo he did not request any admission or any further evaluation just 1 blood transfusion he will do the remainder the work-up as an outpatient Returns today for: called because of abnormal lab/test Review of Systems Const: Reports: fatigue and malaise; Denies: fever(s), chills, body aches or change in appetite ENMT: Denies: throat pain, ear or mastoid pain, nasal discharge or nasal congestion Card: Denies: chest pain, edema, dyspnea on exertion or orthopnea Resp: Denies: dyspnea, productive cough or non-productive cough GI: Denies: abdominal pain, nausea, vomiting, hematemesis, coffee ground emesis, diarrhea, constipation, bloating, hematochezia or melena : Denies: flank pain, dysuria, urinary frequency or urinary urgency Skin/Breast: Denies: rash or pruritus PFSH ED PFSH: Medical History Acute upper GI bleed Adenocarcinoma of esophagus Chronic hepatitis C Chronic neck pain Cirrhosis of liver DDD (degenerative disc disease), lumbar Diabetic ulcer of left foot Dysphagia -appears to be an intermittent issue 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 No evidence of disease occurrence on endoscopy and no focal mass on CT Encounter for long-term use of opiate analgesic Esophagitis determined by endoscopy Insulin dependent type 2 diabetes mellitus Iron deficiency anemia Lumbar pain Neuropathy due to secondary diabetes Osteomyelitis Portal hypertension S/p left hip fracture November 2018 Spinal stenosis of lumbar region Spondylosis of lumbar spine with myelopathy Ulcer of left heel Surgical History H/O circumcision H/O colonoscopy 2018 H/O esophagogastroduodenoscopy 2018 History of knee surgery Port-A-Cath in place 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 Family History Mother Diabetes Father Diabetes Other CAD (coronary artery disease) Hyperlipidemia Hypertension Lung disease Stroke Denies family history of Clotting disorder Dementia Psychiatric illness Chronic kidney disease (CKD) Suicide Anesthesia complication Bleeding disorder Cancer Social History Smoking and tobacco status: current every day smoker (0.5ppd) Quit status (tobacco): has quit using tobacco Year quit tobacco: 06/2019 Alcohol intake: former Lives independently: Yes Marital status: Single Current occupational status: disabled History of recent travel: Yes ([place]) Out of state: No Out of country: No Physical Exam Const: GENERAL APPEARANCE: cooperative and comfortable ORIENTATION/CONSCIOUSNESS: Yes awake, Yes oriented to person, Yes oriented to p lace and Yes oriented to time HENMT: COMMON NORMALS: normocephalic, atraumatic and hearing grossly normal bilaterally HEAD & SCALP: normocephalic and atraumatic Resp: COMMON NORMALS: normal respiratory effort, No retractions, No use of accessory muscles and clear to auscultation bilaterally AUSCULTATION: clear to auscultation bilaterally Cardio: COMMON NORMALS: regular rate, regular rhythm and No murmurs present (Cardio) RATE: regular rate RHYTHM: regular rhythm GI: COMMON NORMALS: Soft to palpation and No hepatosplenomegaly present AUSCULTATION: Yes normoactive bowel sounds PALPATION: Yes Soft to palpation, No Tenderness to palpation present (GI), No Guarding due to palpation present (GI) and Yes No hepatosplenomegaly present Extremity: COMMON NORMALS: normal to inspection, capillary refill normal, no clubbing, cyanosis or edema, no calf tenderness and no pedal edema Neuro: SENSORIUM/ORIENTATION: Yes oriented to person, Yes oriented to place and Yes oriented to time Skin: COMMON NORMALS: no rashes or lesions noted GENERAL SKIN EXAM: no rashes or lesions noted Course Vital Signs: Vital signs: Vital Signs Temperature 98.2 F 12/08/21 19:52 Pulse Rate 72 12/08/21 19:52 Respiratory Rate 20 H 12/08/21 19:52 Blood Pressure 202/99 12/08/21 19:52 Pulse Oximetry 99 12/08/21 19:45 MDM - Recheck/Abnormal Lab/Rx Medical Decision Making Transfuse outpatient bed discussed Dr. Gutierrez is where patient will be on the floor Lab Data Laboratory Results Blood Type O Positive 12/08/21 11:13 Rho(D) Type Positive 12/08/21 11:13 Antibody Screen Negative 12/08/21 11:13 Crossmatch See Detail 12/08/21 11:13 Discharge Plan Discharge Patient Disposition: Placed in Observation Clinical Impression: Anemia, Cirrhosis of liver, Adenocarcinoma of esophagus Condition: Stable Coding Level of Care Code ED Ophthalmology Assistant for Alex Robles
[2021-12-08] MEDS: sodium chloride 0.9% (100 ml) 100 ML (19:25)
== END 2021-12-08 19:45 | disposition home or self-care (01) ==
LOC: ER 11:31 → OPMS 12:22 → MEDSURG 12:24
PROVIDERS: Emergency Provider Family Medicine; PCP Family Medicine; Visit Provider Internal Medicine
DX: D64.9 Anemia, unspecified (principal)
CPT/HCPCS: 36430; 86850; 86900; 86920; J1642; P9016

== ENCOUNTER → 2021-12-15 10:46 | Outpatient (BNVA) | payer MEDICAID, SELFPAY | PROVIDERS: PCP Family Medicine; Visit Provider Nurse Practitioner Family | DX: E11.621 Type 2 diabetes mellitus with foot ulcer (principal); L97.523 Non-pressure chronic ulcer of other part of left foot with necrosis of muscle; I96 Gangrene, not elsewhere classified | CPT/HCPCS: 11042; 11045 ==

== ENCOUNTER 2021-12-19 10:08 | Day surgery (SDC) | payer MEDICAID, SELFPAY ==
[2021-12-18 12:09] VITALS: BMI 29.8
[2021-12-19] VITALS (11 sets, daily range): BP systolic 150–195; BP diastolic 83–101; PULSE 68–95; RESP 16–128; TEMP 36.2–36.9; O2SAT 92–98
[2021-12-19] MEDS: sodium chloride 0.9% 1,000 ML 30 ML IV (11:20)
[2021-12-19] MEDS: fentaNYL 50 mcg/mL INJ 2mL IVP ×3 (11:31→13:54)
--- NOTE | 2021-12-19 11:39 | P.ANESASSM_ITS ---
Pre-Anesthetic Assessment Height/Weight: Height 1.83 m Weight 99.79 kg Temp Pulse Resp BP Pulse Ox 98.5 F 84 18 177/101 98 12/19/21 10:30 12/19/21 10:30 12/19/21 10:30 12/19/21 10:30 12/19/21 10:30 Preop Diagnosis: Left diabetic foot ulcer Operation Date: 12/19/21 11:35 Proposed Procedures p Debridement:sub Q tissue (includes epidermis and dermis,if performed)first 20sqcm or less 48812/E11.621/L97.522(Not Applicable) - Marcos Silver MD Familial anesthetic complications: None Was Beta Lexie taken within 24 hours: N/A Was Clonidine taken within 24 hours: N/A Last intake: Intake Last Liquid Date 12/18/21 Last Liquid Time 23:00 Last Solid Date 12/18/21 Last Solid Time 23:00 Social Tobacco and No alcohol Exam alert, oriented x 3 and regular rate & rhythm rhonchi Airway Submandibular: within normal limits Cervical ROM: within normal limits Mallampati: Class I Dentition: false Pulmonary Chronic Obstructive Pulmonary Disease and Othopnea CV/HEM Anemia (severe) INR 1.6, thrombocytopenia (80k) Hepatic Cirrhosis and Hepatitis (C) GI Gastroesophageal Reflux Disease Metabolic Diabetes Mellitus [facility] [place] Lower Back Pain Chronic pain/opioid Anesthetic Plan ASA status: 4 Anesthesia: MAC Medications/Allergies Home Medications Medication Instructions Recorded Confirmed Last Taken Type pantoprazole 40 mg tablet,delayed 40 mg PO BID #60 tab 05/19/20 12/18/21 12/18/21 07:00 Rx release (Protonix) citalopram 20 mg tablet 20 mg PO QAM 12/26/20 12/18/21 12/18/21 07:00 History dronabinol 5 mg capsule (Marinol) 5 mg PO BID PRN 12/26/20 12/18/21 12/12/21 History ondansetron 8 mg disintegrating 8 mg PO Q8H PRN 12/26/20 12/18/21 12/18/21 History tablet oxycodone 10 mg tablet 10 mg PO Q6H PRN #10 tab 12/27/20 12/18/21 12/18/21 07:00 Rx baclofen 10 mg tablet 10 mg PO TID PRN 12/08/21 12/18/21 12/17/21 History lidocaine-prilocaine 2.5 %-2.5 % 1 applic TOPICAL . DIRECTED #5 g 12/08/21 12/18/21 12/15/21 Rx topical cream Allergies Allergy/AdvReac Type Severity Reaction Status Date / Time acetaminophen [From Tylenol] Allergy Unknown Verified 12/08/21 11:55 NSAIDS (Non-Steroidal Allergy ALGY-Joint Verified 12/08/21 11:55 Anti-Inflamma Pain tramadol [From Ultram] Allergy Unknown Verified 12/08/21 11:55 Current Medications Generic Name Dose Route Start Last Admin Trade Name Freq PRN Reason Stop Dose Admin Fentanyl 50 mcg 12/19/21 10:17 12/19/21 11:31 Fentanyl 50 Mcg/Ml Inj 2ml IVP 50 mcg Q10M PRN Administration Preop Pain Sodium Chloride 1,000 mls @ 30 mls/hr 12/19/21 10:30 12/19/21 11:20 Sodium Chloride 0.9% IV 12/20/21 10:29 30 mls/hr .Q24H MAHNAZ Administration PFSH Anesthesia Medical History Acute upper GI bleed Adenocarcinoma of esophagus Chronic hepatitis C Chronic neck pain Cirrhosis of liver DDD (degenerative disc disease), lumbar Diabetic ulcer of left foot Dysphagia -appears to be an intermittent issue 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 No evidence of disease occurrence on endoscopy and no focal mass on CT Encounter for long-term use of opiate analgesic Esophagitis determined by endoscopy Insulin dependent type 2 diabetes mellitus Iron deficiency anemia Lumbar pain Neuropathy due to secondary diabetes Osteomyelitis Portal hypertension S/p left hip fracture November 2018 Spinal stenosis of lumbar region Spondylosis of lumbar spine with myelopathy Ulcer of left heel Surgical History H/O circumcision H/O colonoscopy 2018 H/O esophagogastroduodenoscopy 2018 History of knee surgery Port-A-Cath in place 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 Family History Mother Diabetes Father Diabetes Other CAD (coronary artery disease) Hyperlipidemia Hypertension Lung disease Stroke Denies family history of Clotting disorder Dementia Psychiatric illness Chronic kidney disease (CKD) Suicide Anesthesia complication Bleeding disorder Cancer Social History Smoking and tobacco status: current every day smoker (0.5ppd) Quit status (tobacco): has quit using tobacco Year quit tobacco: 06/2019 Alcohol intake: former Lives independently: Yes Marital status: Single Current occupational status: disabled History of recent travel: Yes ([place]) Out of state: No Out of country: No Data Anesthesia Cardiac Studies: No Data to Display
--- NOTE | 2021-12-19 12:22 | W.PM.OPSUD ---
Surgery/Procedure H&P Update DATE OF PROCEDURE: December 19, 2021 DATE H&P PERFORMED: 12/01/21 H&P UPDATE INFORMATION: I have reviewed H&P completed within last 30 days, I have examined patient prior to procedure and No changes to prior documentation PREOP DIAGNOSIS: Left diabetic foot ulcer PRIMARY INDICATION FOR PROCEDURE: The same PLANNED PROCEDURE: Operation Date: 12/19/21 11:35 Proposed Procedures p Debridement:sub Q tissue (includes epidermis and dermis,if performed)first 20sqcm or less 55116/E11.621/L97.522(Not Applicable) - Marcos Silver MD
--- NOTE | 2021-12-19 13:26 | PM.OP ---
Operative Report Date of procedure: December 19, 2021 Pre-op diagnosis: Preop Diagnosis Left diabetic foot ulcer Post-op findings: Left diabetic foot ulcer Procedure done: 1-sharp and excisional debridement of left diabetic foot ulcer 2-Placement of amnio fix skin substitute Implants: Amnio fix skin substitute Surgeon: Marcos Silver MD Sales Representative [facility]: critical care technician Jess Circulating nurse Sarah Anesthesia: MAC (BUTTON RIVETER. Page) Estimated blood loss (mL): 5 IV fluids (mL): 500 Procedure: Patient after being identified in the holding area and his left lower extremity was marked by me, an informed consent per chart ,patient was then taken back to the OR placed in supine position and all pressure points were padded. Time-out was done verifying the patient's name/date of /planned procedure and destination after the procedure, all were in agreement.preoperative antibiotics administered per protocol, and beta deedee protocol was confirmed. prep and drape of the left lower extremity was done under the usual sterile technique. Started by incising the unhealthy edges of the wound and overall wound showed pale granulation tissue that was sharply debrided all the way to the underlying granulation tissue. And fatty component. Predebridement measurements 7.4 x 4.3 x 0.3 cm Post debridement measurements 7.5 x 4.4 x 0.4 cm Copious and thorough irrigation using Pulsavac 1 L of warm saline was achieved followed by appropriate hemostasis then a piece of amnio fix 4 x 6 cm was placed and benzoin was put at the periwound area followed by a piece of Adaptic and Steri-Strips complemented by 4 x 4's ABDs and then Kerlix and Cl wrap. Count was completed at the end of the procedure I was present for the whole entire procedure Patient was then taken to the recovery in stable condition
--- NOTE | 2021-12-20 17:06 | ANE.PACU2 ---
Inpatient post-anesthesia follow up: Airway intact: Yes Vital signs: Temperature 97.2 F Pulse Rate 68 Respiratory Rate 128 Blood Pressure 171/88 Pulse Oximetry 94 Oxygen Delivery Me thod Room Air Oxygen Flow Rate Fraction of Inspir ed Oxygen Hydration adequate: Yes Nausea and vomiting: No Pain level: 1 Mental status: Baseline
== END 2021-12-19 15:10 | disposition home or self-care (01) ==
PROVIDERS: PCP Family Medicine; Visit Provider Surgery
PROC: (CPT 11043; principal; 2021-12-19 11:35)
DX: E11.621 Type 2 diabetes mellitus with foot ulcer (principal); L97.522 Non-pressure chronic ulcer of other part of left foot with fat layer exposed; J44.9 Chronic obstructive pulmonary disease, unspecified; K21.9 Gastro-esophageal reflux disease without esophagitis; Z86.19 Personal history of other infectious and parasitic diseases; E11.9 Type 2 diabetes mellitus without complications; G89.29 Other chronic pain; Z79.891 Long term (current) use of opiate analgesic; Z79.4 Long term (current) use of insulin; F17.210 Nicotine dependence, cigarettes, uncomplicated
CPT/HCPCS: 11043; 11046; 17999; C1762; J2250; J2704; J3010; J3490; J7030

== ENCOUNTER → 2021-12-22 11:28 | Outpatient (BNVA) | payer MEDICAID, SELFPAY | PROVIDERS: PCP Family Medicine; Visit Provider Nurse Practitioner Family | DX: E11.621 Type 2 diabetes mellitus with foot ulcer (principal); L97.423 Non-pressure chronic ulcer of left heel and midfoot with necrosis of muscle; I96 Gangrene, not elsewhere classified | CPT/HCPCS: 99213 ==

== ENCOUNTER → 2021-12-29 10:33 | Outpatient (BNVA) | payer MEDICAID, SELFPAY | PROVIDERS: PCP Family Medicine; Visit Provider Nurse Practitioner Family | DX: E11.621 Type 2 diabetes mellitus with foot ulcer (principal); L97.423 Non-pressure chronic ulcer of left heel and midfoot with necrosis of muscle; I96 Gangrene, not elsewhere classified | CPT/HCPCS: 11042; 11045; A6197 ==

== ENCOUNTER 2022-01-04 10:00 | Oncology outpatient (recurring) (ONCR) | payer MEDICAID, SELFPAY ==
[2021-12-08 08:19] VITALS: BMI 30.1
[2021-12-08 08:28] LABS: Basophils % 0.4 %; Eosinophils # 0.1 10^3/uL (0.0-0.8); Eosinophils % 2.8 %; Lymphocytes # 0.4 10^3/uL (0.8-4.8); Mean Corpuscular HGB Conc 28.8 g/dL (30.0-36.0); Mean Corpuscular Hemoglobin 17.8 pg (28.0-34.0); Mean Corpuscular Volume 61.6 fl (80-94); Monocytes # 0.2 10^3/uL (0.2-0.9); Monocytes % 9.8 %; Neutrophils # 1.77 10^3/uL (1.8-7.7); Nucleated Red Blood Cells % 0 %; Platelet Count 80 10^3/cmm (130-400); Red Blood Count 2.76 10^6/uL (4.1-5.3); Red Cell Distribution Width 19.4 % (12.1-15.1); White Blood Count 2.5 10^3/uL (4.0-10.0)
[2021-12-08 08:45] LABS: Alanine Aminotransferase 14 U/L (0-41); Albumin Level 2.8 g/dL (3.5-5.2); Alkaline Phosphatase 173 IU/L (40-130); Anion Gap 12.4 (5-19); Aspartate Amino Transferase 26 U/L (0-40); Blood Urea Nitrogen 18 mg/dL (6-20); Carbon Dioxide 25 mmol/L (22-29); Chloride 103 mmol/L (98-107); Globulin 4.1 g/dL (1.3-4.6); Glucose 129 mg/dL (65-115); Osmolality Calculated 286 mOsm/kg (285-295); Potassium 4.4 mmol/L (3.5-5.1); Sodium 136 mmol/L (136-145); Total Bilirubin 0.4 mg/dL (0.15-1.2); Total Protein 6.9 g/dL (6.6-8.7)
[2021-12-08 08:51] LABS: Hemoglobin 4.9 g/dL (11.7-16.6)
[2021-12-08 10:53] LABS: Ferritin 10 ng/mL (30-400); Iron 19 ug/dL (59-158); Percent Saturation 5.7 % (20-50); Total Iron Binding Capacity 331 mcg/dl; Unsaturated Iron Binding 312 ug/dL (112-347)
[2022-01-04] VITALS (11 sets, daily range): BP systolic 144–188; BP diastolic 73–104; PULSE 73–98; RESP 18; TEMP 36–36.7; O2SAT 83–99; BMI 4178.9
[2022-01-04] MEDS: dexamethasone 10 mg/mL INJ IVP (10:28)
[2022-01-04] MEDS: diphenhydrAMINE 50 mg/mL SDV 1mL 25 MG IVP (10:28)
[2022-01-04] MEDS: sodium chloride 0.9% 500 ML 75 ML IV (10:28)
[2022-01-04 10:37] LABS: Eosinophils # 0.1 10^3/uL (0.0-0.8); Eosinophils % 2.5 %; Hematocrit 21.6 % (42.0-52.0); Hemoglobin 6.6 g/dL (11.7-16.6); Lymphocytes # 0.4 10^3/uL (0.8-4.8); Lymphocytes % 13.9 %; Mean Corpuscular HGB Conc 30.6 g/dL (30.0-36.0); Mean Corpuscular Hemoglobin 22.3 pg (28.0-34.0); Monocytes # 0.3 10^3/uL (0.2-0.9); Monocytes % 10.4 %; Neutrophils # 2.04 10^3/uL (1.8-7.7); Neutrophils % 72.8 %; Nucleated Red Blood Cells % 0 %; Platelet Count 69 10^3/cmm (130-400); Red Blood Count 2.96 10^6/uL (4.1-5.3); White Blood Count 2.8 10^3/uL (4.0-10.0)
[2022-01-04] MEDS: iron dextran 25 MG in SYRINGE 1 EACH 30 MG IVP (10:56)
[2022-01-04 12:05] LABS: Add RBC Morph Yes; Slide Review Slide Review Perform
[2022-01-04 12:06] LABS: RBC Morph Comp No
[2022-01-04 12:14] LABS: Macrocytosis 1+; Microcytosis 3+
[2022-01-04] MEDS: diphenhydrAMINE 25 mg Capsule PO (14:48)
[2022-01-04] MEDS: FUROsemide 10 mg/mL SDV 2mL 20 MG IVP (14:48)
== END 2022-01-04 23:59 | disposition home or self-care (01) ==
PROVIDERS: Nurse Practitioner Family; PCP Family Medicine; Visit Provider Internal Medicine Hematology & Oncology
DX: D50.9 Iron deficiency anemia, unspecified (principal)
CPT/HCPCS: 15271; 36430; 36591; 80053; 82728; 83540; 83550; 85025; 86850; 86900; 86920; 96375; 99214; A6207; J1100; J1200; J1750; J1940; J7040; P9016; Q4186

== ENCOUNTER → 2022-01-05 13:21 | Outpatient (BNVA) | payer MEDICAID, SELFPAY | PROVIDERS: PCP Family Medicine; Visit Provider Surgery | DX: I96 Gangrene, not elsewhere classified (principal); L97.423 Non-pressure chronic ulcer of left heel and midfoot with necrosis of muscle; E11.621 Type 2 diabetes mellitus with foot ulcer | CPT/HCPCS: 11042; 11045; 15271; 15272 ==

== ENCOUNTER 2022-01-11 09:44 | Oncology outpatient (recurring) (ONCR) | payer MEDICAID, SELFPAY ==
[2022-01-11 10:08] VITALS: BMI 27.7
[2022-01-11 10:12] LABS: Basophils % 0.3 %; Eosinophils # 0.1 10^3/uL (0.0-0.8); Eosinophils % 3.5 %; Hematocrit 29.6 % (42.0-52.0); Hemoglobin 8.9 g/dL (11.7-16.6); Lymphocytes # 0.6 10^3/uL (0.8-4.8); Lymphocytes % 15.9 %; Mean Corpuscular HGB Conc 30.1 g/dL (30.0-36.0); Mean Corpuscular Hemoglobin 24.1 pg (28.0-34.0); Mean Corpuscular Volume 80.2 fl (80-94); Monocytes # 0.3 10^3/uL (0.2-0.9); Monocytes % 9.9 %; Neutrophils # 2.42 10^3/uL (1.8-7.7); Neutrophils % 70.1 %; Nucleated Red Blood Cells % 0 %; Platelet Count 38 10^3/cmm (130-400); Red Blood Count 3.69 10^6/uL (4.1-5.3); Red Cell Distribution Width 27.6 % (12.1-15.1); White Blood Count 3.5 10^3/uL (4.0-10.0)
[2022-01-11 10:28] LABS: Ferritin 57 ng/mL (30-400); Iron 97 ug/dL (59-158); Percent Saturation 38.8 % (20-50); Total Iron Binding Capacity 250 mcg/dl; Unsaturated Iron Binding 153 ug/dL (112-347)
[2022-01-11 10:36] LABS: Slide Review Slide Review Perform
[2022-01-11] MEDS: sodium chloride 0.9% 500 ML 75 ML IV (10:56)
[2022-01-11] MEDS: diphenhydrAMINE 50 mg/mL SDV 1mL IVP (10:56)
[2022-01-11 11:12] VITALS: BP 132/92; PULSE 76; RESP 18; TEMP 36.2; O2SAT 99
[2022-01-11] MEDS: iron dextran 1,500 MG in sodium chloride 0.9% 1,000 ML 250.75 MG IV (11:19)
--- NOTE | 2022-01-11 11:25 | PC.NURSE ---
Test dose of Iron Dextran not given, patient received test dose last week and tolerated well. Tylenol also no given to patient refusal and states he is allergic to the medication.
--- NOTE | 2022-01-11 12:44 | PC.PHAR ---
Nurse Elyssa requested that test dose be skipped. patient received test dose last week without any adverse effects
[2022-01-11 15:35] VITALS: BP 159/89; PULSE 69; RESP 18; TEMP 36.2; O2SAT 99
== END 2022-02-04 23:59 | disposition home or self-care (01) ==
PROVIDERS: PCP Family Medicine; Visit Provider Internal Medicine Hematology & Oncology
DX: D50.9 Iron deficiency anemia, unspecified (principal); K92.2 Gastrointestinal hemorrhage, unspecified; E11.9 Type 2 diabetes mellitus without complications; Z79.4 Long term (current) use of insulin; K76.6 Portal hypertension; K74.60 Unspecified cirrhosis of liver; D61.818 Other pancytopenia; M51.36 Other intervertebral disc degeneration, lumbar region; F17.210 Nicotine dependence, cigarettes, uncomplicated; Z85.01 Personal history of malignant neoplasm of esophagus; Z79.899 Other long term (current) drug therapy
CPT/HCPCS: 82728; 83540; 83550; 85025; 96365; 96366; 96375; J1200; J1750; J7030; J7040

== ENCOUNTER → 2022-01-12 13:23 | Outpatient (BNVA) | payer MEDICAID, SELFPAY | PROVIDERS: PCP Family Medicine; Visit Provider Surgery | DX: E11.621 Type 2 diabetes mellitus with foot ulcer (principal); L97.423 Non-pressure chronic ulcer of left heel and midfoot with necrosis of muscle; I96 Gangrene, not elsewhere classified | CPT/HCPCS: 15271; 15272; 15275; 15276; A6206; Q4186 ==

== ENCOUNTER → 2022-01-19 13:45 | Outpatient (BNVA) | payer MEDICAID, SELFPAY | PROVIDERS: PCP Family Medicine; Visit Provider Surgery | DX: E11.621 Type 2 diabetes mellitus with foot ulcer (principal); L97.423 Non-pressure chronic ulcer of left heel and midfoot with necrosis of muscle; I96 Gangrene, not elsewhere classified | CPT/HCPCS: 15271; Q4186 ==

== ENCOUNTER → 2022-01-26 13:13 | Outpatient (BNVA) | payer MEDICAID, SELFPAY | PROVIDERS: PCP Family Medicine; Visit Provider Nurse Practitioner Family | DX: E11.621 Type 2 diabetes mellitus with foot ulcer (principal); L97.423 Non-pressure chronic ulcer of left heel and midfoot with necrosis of muscle | CPT/HCPCS: 97597; 97598 ==

== ENCOUNTER → 2022-02-02 10:42 | Outpatient (BNVA) | payer MEDICAID, SELFPAY | PROVIDERS: PCP Family Medicine; Visit Provider Nurse Practitioner Family | DX: E11.621 Type 2 diabetes mellitus with foot ulcer (principal); L97.423 Non-pressure chronic ulcer of left heel and midfoot with necrosis of muscle; I96 Gangrene, not elsewhere classified | CPT/HCPCS: 11042; 11045; 87070; 87077; 87176; 87186; 87205 ==

== ENCOUNTER → 2022-02-09 13:30 | Outpatient (BNVA) | payer MEDICAID, SELFPAY | PROVIDERS: PCP Family Medicine; Visit Provider Nurse Practitioner Family | DX: E11.621 Type 2 diabetes mellitus with foot ulcer (principal); L97.423 Non-pressure chronic ulcer of left heel and midfoot with necrosis of muscle; I96 Gangrene, not elsewhere classified | CPT/HCPCS: 11042 ==

== ENCOUNTER → 2022-02-16 10:49 | Outpatient (BNVA) | payer MEDICAID, SELFPAY | PROVIDERS: PCP Family Medicine; Visit Provider Nurse Practitioner Family | DX: E11.621 Type 2 diabetes mellitus with foot ulcer (principal); L97.423 Non-pressure chronic ulcer of left heel and midfoot with necrosis of muscle; I96 Gangrene, not elsewhere classified | CPT/HCPCS: 11042; 11045; A6252 ==

== ENCOUNTER 2022-03-02 10:00 | Oncology outpatient (recurring) (ONCR) | payer MEDICAID, SELFPAY | END 2022-03-07 23:59 | disposition home or self-care (01) | PROVIDERS: PCP Family Medicine; Visit Provider Internal Medicine Hematology & Oncology | DX: D50.9 Iron deficiency anemia, unspecified; Z85.01 Personal history of malignant neoplasm of esophagus | CPT/HCPCS: 11042; 11045; 96523 ==

== ENCOUNTER → 2022-03-09 10:45 | Outpatient (BNVA) | payer MEDICAID, SELFPAY | PROVIDERS: PCP Family Medicine; Visit Provider Surgery | DX: I96 Gangrene, not elsewhere classified (principal); E11.621 Type 2 diabetes mellitus with foot ulcer; L97.423 Non-pressure chronic ulcer of left heel and midfoot with necrosis of muscle | CPT/HCPCS: 15271; A6206; Q4205 ==

== ENCOUNTER → 2022-03-16 13:46 | Outpatient (BNVA) | payer MEDICAID, SELFPAY | PROVIDERS: PCP Family Medicine; Visit Provider Surgery | DX: I96 Gangrene, not elsewhere classified (principal); E11.621 Type 2 diabetes mellitus with foot ulcer; L97.423 Non-pressure chronic ulcer of left heel and midfoot with necrosis of muscle | CPT/HCPCS: 15271; 15272; A6207; A6250; Q4205 ==

== ENCOUNTER → 2022-03-23 10:58 | Outpatient (BNVA) | payer MEDICAID, SELFPAY | PROVIDERS: PCP Family Medicine; Visit Provider Nurse Practitioner Family | DX: I96 Gangrene, not elsewhere classified (principal); E11.621 Type 2 diabetes mellitus with foot ulcer; L97.523 Non-pressure chronic ulcer of other part of left foot with necrosis of muscle | CPT/HCPCS: 11042; 11045; A6252 ==

== ENCOUNTER → 2022-03-26 12:12 | Outpatient (BNVA) | payer MEDICAID, SELFPAY | PROVIDERS: PCP Family Medicine; Visit Provider Internal Medicine Hematology & Oncology | DX: D64.9 Anemia, unspecified (principal) | CPT/HCPCS: 85025; 86850; 86900 ==

== ENCOUNTER 2022-03-27 10:00 | Oncology outpatient (recurring) (ONCR) | payer MEDICAID, SELFPAY ==
[2022-03-21 12:27] LABS: Basophils % 0.3 %; Eosinophils # 0.1 10^3/uL (0.0-0.8); Eosinophils % 1.7 %; Hematocrit 24.3 % (42.0-52.0); Hemoglobin 7.4 g/dL (11.7-16.6); Lymphocytes # 0.5 10^3/uL (0.8-4.8); Lymphocytes % 16.3 %; Mean Corpuscular HGB Conc 30.5 g/dL (30.0-36.0); Mean Corpuscular Hemoglobin 24.4 pg (28.0-34.0); Mean Corpuscular Volume 80.2 fl (80-94); Monocytes # 0.3 10^3/uL (0.2-0.9); Monocytes % 10.4 %; Neutrophils # 2.05 10^3/uL (1.8-7.7); Neutrophils % 71.3 %; Nucleated Red Blood Cells % 0 %; Platelet Count 105 10^3/cmm (130-400); Red Blood Count 3.03 10^6/uL (4.1-5.3); Red Cell Distribution Width 17.9 % (12.1-15.1); White Blood Count 2.9 10^3/uL (4.0-10.0)
[2022-03-21 12:36] LABS: INR 1.36 (0.8-1.2); Slide Review Slide Review Perform
[2022-03-21 12:37] LABS: Mean Platelet Volume 11.6 fL (7.4-10.4)
[2022-03-21 12:47] LABS: Alanine Aminotransferase 11 U/L (0-41); Albumin Level 2.4 g/dL (3.5-5.2); Alkaline Phosphatase 138 U/L (40-130); Anion Gap 9.2 (5-19); Aspartate Amino Transferase 22 U/L (0-40); Blood Urea Nitrogen 13 mg/dL (6-20); Calcium 7.6 mg/dL (8.5-10.5); Carbon Dioxide 29 mmol/L (22-29); Chloride 109 mmol/L (98-107); Ferritin 21 ng/mL (30-400); Globulin 3.9 g/dL (1.3-4.6); Glomerular Filtration Rate 99.6 mL/min (90-130); Glucose 149 mg/dL (65-115); Iron 27 ug/dL (59-158); Osmolality Calculated 299 mOsm/kg (285-295); Potassium 4.2 mmol/L (3.5-5.1); Sodium 143 mmol/L (136-145); Total Bilirubin 0.3 mg/dL (0.15-1.2); Total Iron Binding Capacity 224 mcg/dl; Total Protein 6.3 g/dL (6.6-8.7); Unsaturated Iron Binding 197 ug/dL (112-347)
[2022-03-21 13:01] LABS: 25 Hydroxy Vitamin D 7 ng/mL (30-100)
[2022-03-21 18:41] LABS: Tumor Marker Alpha Fetoprotein 3.1 ng/mL (0-8.3)
[2022-03-25 15:34] LABS: Zinc Level, Serum or Plasma 32 mcg/dL (60-130)
[2022-03-27] VITALS (11 sets, daily range): BP systolic 117–165; BP diastolic 67–90; PULSE 60–78; RESP 16–18; TEMP 35.9–36.6; O2SAT 98–99
[2022-03-27 10:03] LABS: Eosinophils # 0.1 10^3/uL (0.0-0.8); Eosinophils % 2.9 %; Hematocrit 23.6 % (42.0-52.0); Hemoglobin 7.1 g/dL (11.7-16.6); Lymphocytes # 0.5 10^3/uL (0.8-4.8); Lymphocytes % 19.2 %; Mean Corpuscular HGB Conc 30.1 g/dL (30.0-36.0); Mean Corpuscular Hemoglobin 24.2 pg (28.0-34.0); Mean Corpuscular Volume 80.5 fl (80-94); Monocytes # 0.3 10^3/uL (0.2-0.9); Monocytes % 11.7 %; Neutrophils # 1.58 10^3/uL (1.8-7.7); Neutrophils % 66.2 %; Nucleated Red Blood Cells % 0 %; Platelet Count 101 10^3/cmm (130-400); Red Blood Count 2.93 10^6/uL (4.1-5.3); Red Cell Distribution Width 18.6 % (12.1-15.1); White Blood Count 2.4 10^3/uL (4.0-10.0)
[2022-03-27 10:06] LABS: Mean Platelet Volume 12.6 fL (7.4-10.4)
[2022-03-27] MEDS: diphenhydrAMINE 25 mg Capsule PO (11:06)
[2022-03-27] MEDS: sodium chloride 0.9% 100 mL Bag 250 ML IV (11:06)
[2022-03-27] MEDS: FUROsemide 10 mg/mL SDV 2mL 20 MG IVP (12:45)
== END 2022-04-06 23:59 | disposition home or self-care (01) ==
PROVIDERS: PCP Family Medicine; Visit Provider Internal Medicine Hematology & Oncology
DX: C15.9 Malignant neoplasm of esophagus, unspecified (principal)
CPT/HCPCS: 36430; 36591; 80053; 82105; 82306; 82728; 83540; 83550; 84630; 85025; 85610; 86850; 86900; 86920; 96375; 99214; J1940; P9040

== ENCOUNTER → 2022-03-30 10:30 | Outpatient (BNVA) | payer MEDICAID, SELFPAY | PROVIDERS: PCP Family Medicine; Visit Provider Surgery | DX: I96 Gangrene, not elsewhere classified (principal); E11.621 Type 2 diabetes mellitus with foot ulcer; L97.423 Non-pressure chronic ulcer of left heel and midfoot with necrosis of muscle | CPT/HCPCS: 15275; A6206; A6250; A6252; Q4205 ==

== ENCOUNTER → 2022-04-06 10:20 | Outpatient (BNVA) | payer MEDICAID, SELFPAY | PROVIDERS: PCP Family Medicine; Visit Provider Surgery | DX: I96 Gangrene, not elsewhere classified (principal); E11.621 Type 2 diabetes mellitus with foot ulcer; L97.423 Non-pressure chronic ulcer of left heel and midfoot with necrosis of muscle | CPT/HCPCS: 15275; A6207; A6252 ==

== ENCOUNTER → 2022-04-13 10:16 | Outpatient (BNVA) | payer MEDICAID, SELFPAY | PROVIDERS: PCP Family Medicine; Visit Provider Nurse Practitioner Family | DX: I96 Gangrene, not elsewhere classified (principal); E11.621 Type 2 diabetes mellitus with foot ulcer; L97.423 Non-pressure chronic ulcer of left heel and midfoot with necrosis of muscle | CPT/HCPCS: 11042; 11045; A6021; A6252 ==

== ENCOUNTER 2022-04-16 10:42 | Day surgery (SDC) | payer MEDICAID, SELFPAY ==
[2022-04-13 16:01] VITALS: BMI 29.8
[2022-04-16] VITALS (7 sets, daily range): BP systolic 95–149; BP diastolic 54–88; PULSE 68–85; RESP 12–20; TEMP 36.3–36.7; O2SAT 90–95
--- NOTE | 2022-04-16 11:08 | W.PM.OPSUD ---
Surgery/Procedure H&P Update DATE OF PROCEDURE: April 16, 2022 DATE H&P PERFORMED: 04/13/22 H&P UPDATE INFORMATION: I have reviewed H&P completed within last 30 days, I have examined patient prior to procedure and No changes to prior documentation PREOP DIAGNOSIS: Left diabetic foot ulcer PRIMARY INDICATION FOR PROCEDURE: The same PLANNED PROCEDURE: Operation Date: 04/16/22 12:10 Proposed Procedures p Debridement left foot(Left) - Marcos Silver MD
--- NOTE | 2022-04-16 11:35 | P.ANESASSM_ITS ---
Pre-Anesthetic Assessment Height/Weight: Height 1.83 m Weight 99.79 kg Preop Diagnosis: Right diabetic foot ulcer Operation Date: 04/16/22 12:10 Proposed Procedures p Debridement left foot(Left) - Marcos Silver MD Familial anesthetic complications: None Was Beta Lexie taken within 24 hours: N/A Was Clonidine taken within 24 hours: N/A Last intake: Intake Last Liquid Date 04/15/22 Last Liquid Time 23:00 Last Solid Date 04/15/22 Last Solid Time 20:30 Social No alcohol and No tobacco Exam alert, oriented x 3, clear to auscultation bilaterally and regular rate & rhythm Airway Mallampati: Class III Dentition: false Pulmonary Chronic Obstructive Pulmonary Disease CV/HEM Anemia (chronic) plts 101 Hepatic cirrhosis, hep c - no current ascites GI Gastroesophageal Reflux Disease Metabolic Diabetes Mellitus [facility] [place]/skel Lower Back Pain Anesthetic Plan ASA status: 4 Anesthesia: MAC Risk of > 500 ml blood loss (7ml/kg in children): No Medications/Allergies Home Medications Medication Instructions Recorded Confirmed Last Taken Type pantoprazole 40 mg tablet,delayed 40 mg PO BID #60 tabs 05/19/20 04/13/22 12/18/21 07:00 Rx release (Protonix) dronabinol 5 mg capsule (Marinol) 5 mg PO BID PRN appetite 12/26/20 04/16/22 12/12/21 History oxycodone 10 mg tablet 10 mg PO Q6H PRN Pain #10 tabs 12/27/20 04/16/22 04/16/22 Rx baclofen 10 mg tablet 10 mg PO TID PRN Muscle Pain 12/08/21 04/16/22 04/13/22 History lidocaine-prilocaine 2.5 %-2.5 % 1 applic topical . DIRECTED #5 12/08/21 04/13/22 12/15/21 Rx topical cream grams gentamicin 0.1 % topical ointment 1 applic topical BID Wound 14 days 02/05/22 04/13/22 Unknown Rx #15 grams albuterol 90 mcg/actuation aerosol See Rx Instructions inhalation Q4H 03/21/22 04/16/22 04/15/22 History inhaler PRN Allergic Reaction furosemide 40 mg tablet 40 mg PO DAILY 03/21/22 04/16/22 Unknown History naloxone 4 mg/actuation nasal spray 4 mg intranasal ONCE PRN 03/21/22 03/21/22 Unknown History spironolactone 100 mg tablet 100 mg PO DAILY 03/21/22 04/13/22 Unknown History ondansetron 8 mg disintegrating 8 mg PO Q8H PRN Nausea And 04/16/22 04/16/22 Unknown Rx tablet Vomiting #90 tabs Allergies Allergy/AdvReac Type Severity Reaction Status Date / Time acetaminophen [From Tylenol] Allergy Unknown Verified 03/21/22 12:30 NSAIDS (Non-Steroidal Allergy ALGY-Joint Verified 03/21/22 12:30 Anti-Inflamma Pain tramadol [From Ultram] Allergy Unknown Verified 03/21/22 12:30 PFSH Anesthesia Medical History Acute upper GI bleed Adenocarcinoma of esophagus Chronic hepatitis C Chronic neck pain Cirrhosis of liver DDD (degenerative disc disease), lumbar Diabetic ulcer of left foot Dysphagia -appears to be an intermittent issue 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 No evidence of disease occurrence on endoscopy and no focal mass on CT Encounter for long-term use of opiate analgesic Esophagitis determined by endoscopy Insulin dependent type 2 diabetes mellitus Iron deficiency anemia Lumbar pain Neuropathy due to secondary diabetes Osteomyelitis Portal hypertension S/p left hip fracture November 2018 Spinal stenosis of lumbar region Spondylosis of lumbar spine with myelopathy Ulcer of left heel Surgical History H/O circumcision H/O colonoscopy 2018 H/O esophagogastroduodenoscopy 2018 History of knee surgery Port-A-Cath in place 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 Family History Mother Diabetes Father Diabetes Other CAD (coronary artery disease) Hyperlipidemia Hypertension Lung disease Stroke Denies family history of Clotting disorder Dementia Psychiatric illness Chronic kidney disease (CKD) Suicide Anesthesia complication Bleeding disorder Cancer Social History Smoking and tobacco status: former smoker (smoked 30+ years) Quit status (tobacco): has quit using tobacco Year quit tobacco: 06/2019 Alcohol intake: former Lives independently: Yes Marital status: Single Current occupational status: disabled History of recent travel: Yes ([place]) Out of state: No Out of country: No Data Anesthesia Cardiac Studies: No Data to Display
[2022-04-16] MEDS: sodium chloride 0.9% 1,000 ML 30 ML IV (11:49)
[2022-04-16] MEDS: ceFAZolin 2,000 MG in sodium chloride 0.9% (plus) 50 ML 100 MG IV (11:56)
[2022-04-16 12:00] LABS: Basophils % 0.3 %; Eosinophils # 0.1 10^3/uL (0.0-0.8); Eosinophils % 3.3 %; Hematocrit 30.6 % (42.0-52.0); Hemoglobin 9.6 g/dL (11.7-16.6); Lymphocytes # 0.6 10^3/uL (0.8-4.8); Lymphocytes % 14.8 %; Mean Corpuscular HGB Conc 31.4 g/dL (30.0-36.0); Mean Corpuscular Hemoglobin 25.9 pg (28.0-34.0); Mean Corpuscular Volume 82.5 fl (80-94); Monocytes # 0.3 10^3/uL (0.2-0.9); Neutrophils # 2.97 10^3/uL (1.8-7.7); Neutrophils % 74.3 %; Nucleated Red Blood Cells % 0 %; Platelet Count 109 10^3/cmm (130-400); Red Blood Count 3.71 10^6/uL (4.1-5.3); Red Cell Distribution Width 22.9 % (12.1-15.1)
[2022-04-16 12:36] LABS: Anion Gap 10.3 (5-19); Blood Urea Nitrogen 18 mg/dL (6-20); Calcium 7.8 mg/dL (8.5-10.5); Carbon Dioxide 25 mmol/L (22-29); Chloride 106 mmol/L (98-107); Glucose 119 mg/dL (65-115); Osmolality Calculated 287 mOsm/kg (285-295); Potassium 4.3 mmol/L (3.5-5.1); Sodium 137 mmol/L (136-145)
[2022-04-16] MEDS: lidocaine 2% INJ 20 mL INJECTION (12:36)
--- NOTE | 2022-04-16 12:51 | P.OP_ITS ---
Operative Report Date of procedure: April 16, 2022 Pre-op diagnosis: Preop Diagnosis Right diabetic foot ulcer Post-op diagnosis: Chronic left diabetic foot ulcer Post-op findings: The same Procedure done: 1-sharp and excisional debridement of left diabetic foot ulcer 2-Placement of Integra meshed bilayer 10 x 12.5 cm xenograft Implants: Xenograft Surgeon: Marcos Silver MD Psychiatry Instructor: engineering technology instructor Jocy Circulating nurse Charlotte Anesthesia: MAC (electrical design technologist Louis) Estimated blood loss (mL): 5 IV fluids (mL): 300 Procedure: Patient after being identified in the holding area and his left lower extremity was marked by me, an informed consent per chart ,patient was then taken back to the OR placed in supine position and all pressure points were padded. Time-out was done verifying the patient's name/date of /planned procedure and destination after the procedure, all were in agreement.preoperative antibiotics administered per protocol, and beta deedee protocol was confirmed. prep and drape of the left lower extremity was done under the usual sterile technique. Started by incising the unhealthy edges of the wound and overall wound showed pale granulation tissue that was sharply debrided all the way to the underlying granulation tissue. All the way to the fatty component. Sharp debridement used 10 blade knife as well as curved Barton scissor Predebridement measurements 7 x 4.2 x 0.4 cm Post debridement measurements 7.3 x 4.6 x 0.4 cm Copious and thorough irrigation using Pulsavac 1 L Vashe solution followed by warm saline was achieved followed by appropriate hemostasis then a piece of a xenograft measured 10 x 12.5 cm , but I was able to scrape the active ingredients and confined it to a smaller piece of silicone and then applied it onto the wound what the active ingredients were placed at the wound bed. A continuous 3-0 PDS suture was applied circumferentially to keep the graft in place. Followed by Adaptic 4 x 4's ABDs Kerlix and Cl wrap Count was completed at the end of the procedure I was present for the whole entire procedure Patient was then taken to the recovery in stable condition. Industry rep was present at the time of using the Xenograft.
--- NOTE | 2022-04-16 12:58 | P.PCN_ITS ---
PACU note Narrative: VSS, Good respiratory effort, report to VOLLEYBALL COACH Exam: awake
--- NOTE | 2022-04-16 12:58 | PM.PACU ---
PACU note Narrative: VSS, Good respiratory effort, report to FINAL CIGAR AND BOX EXAMINER Exam: awake
[2022-04-16] MEDS: ondansetron 2 mg/ML SDV 2 mL 4 MG IVP (13:04)
--- NOTE | 2022-04-16 13:20 | ANE.PACU2 ---
Inpatient post-anesthesia follow up: Airway intact: Yes Vital signs: Temperature 97.5 F Pulse Rate 72 Respiratory Rate 18 Blood Pressure 104/60 Pulse Oximetry 90 Oxygen Delivery Me thod Room Air Oxygen Flow Rate Fraction of Inspir ed Oxygen Hydration adequate: Yes Nausea and vomiting: No Pain level: 1 Mental status: Baseline
== END 2022-04-16 14:03 | disposition home or self-care (01) ==
PROVIDERS: Anesthesiology; PCP Family Medicine; Visit Provider Surgery
PROC: (CPT 11043; principal; 2022-04-16 12:00)
DX: E11.621 Type 2 diabetes mellitus with foot ulcer (principal); J44.9 Chronic obstructive pulmonary disease, unspecified; Z86.19 Personal history of other infectious and parasitic diseases; K21.9 Gastro-esophageal reflux disease without esophagitis; E11.9 Type 2 diabetes mellitus without complications; Z87.891 Personal history of nicotine dependence
CPT/HCPCS: 11043; 11046; 15277; 15278; 36415; 80048; 85025; C1763; J2405; J2704; J3010; J7030

== ENCOUNTER → 2022-04-20 09:47 | Outpatient (BNVA) | payer MEDICAID, SELFPAY | PROVIDERS: PCP Family Medicine; Visit Provider Nurse Practitioner Family | DX: E11.621 Type 2 diabetes mellitus with foot ulcer (principal); L97.522 Non-pressure chronic ulcer of other part of left foot with fat layer exposed; M86.672 Other chronic osteomyelitis, left ankle and foot; E11.40 Type 2 diabetes mellitus with diabetic neuropathy, unspecified | CPT/HCPCS: 99212; A6252 ==

== ENCOUNTER 2022-04-23 12:03 | Oncology outpatient (recurring) (ONCR) | payer MEDICAID, SELFPAY ==
[2022-04-23 12:56] LABS: Basophils % 0.3 %; Eosinophils # 0.1 10^3/uL (0.0-0.8); Eosinophils % 2.6 %; Hemoglobin 9.3 g/dL (11.7-16.6); Lymphocytes # 0.5 10^3/uL (0.8-4.8); Lymphocytes % 16.4 %; Mean Corpuscular Hemoglobin 25.7 pg (28.0-34.0); Mean Corpuscular Volume 82.9 fl (80-94); Monocytes # 0.3 10^3/uL (0.2-0.9); Neutrophils # 2.19 10^3/uL (1.8-7.7); Neutrophils % 70.4 %; Nucleated Red Blood Cells % 0 %; Platelet Count 114 10^3/cmm (130-400); Positive M 1; Red Blood Count 3.62 10^6/uL (4.1-5.3); Red Cell Distribution Width 23.9 % (12.1-15.1); White Blood Count 3.1 10^3/uL (4.0-10.0)
[2022-04-23 13:34] LABS: Ferritin 49 ng/mL (30-400); Iron 102 ug/dL (59-158); Percent Saturation 47.4 % (20-50); Total Iron Binding Capacity 215 mcg/dl; Unsaturated Iron Binding 113 ug/dL (112-347)
== END 2022-05-07 23:59 | disposition home or self-care (01) ==
PROVIDERS: PCP Family Medicine; Visit Provider Internal Medicine Hematology & Oncology
DX: K76.6 Portal hypertension; Z79.899 Other long term (current) drug therapy; Z87.891 Personal history of nicotine dependence; K74.60 Unspecified cirrhosis of liver; Z08 Encounter for follow-up examination after completed treatment for malignant neoplasm; Z85.01 Personal history of malignant neoplasm of esophagus; D61.818 Other pancytopenia; Z92.3 Personal history of irradiation; Z92.21 Personal history of antineoplastic chemotherapy; D50.0 Iron deficiency anemia secondary to blood loss (chronic)
CPT/HCPCS: 36415; 36591; 82728; 83540; 83550; 85025; 99214

== ENCOUNTER → 2022-04-27 10:22 | Outpatient (BNVA) | payer MEDICAID, SELFPAY | PROVIDERS: PCP Family Medicine; Visit Provider Nurse Practitioner Family | DX: E11.621 Type 2 diabetes mellitus with foot ulcer (principal); L97.522 Non-pressure chronic ulcer of other part of left foot with fat layer exposed; M86.672 Other chronic osteomyelitis, left ankle and foot; E11.40 Type 2 diabetes mellitus with diabetic neuropathy, unspecified | CPT/HCPCS: 99213; A6252 ==

== ENCOUNTER → 2022-05-04 10:08 | Outpatient (BNVA) | payer MEDICAID, SELFPAY | PROVIDERS: PCP Family Medicine; Visit Provider Nurse Practitioner Family | DX: E11.621 Type 2 diabetes mellitus with foot ulcer (principal); L97.423 Non-pressure chronic ulcer of left heel and midfoot with necrosis of muscle | CPT/HCPCS: 11042; A6252 ==

== ENCOUNTER → 2022-05-11 10:45 | Outpatient (BNVA) | payer MEDICAID, SELFPAY | PROVIDERS: PCP Family Medicine; Visit Provider Surgery | DX: E11.621 Type 2 diabetes mellitus with foot ulcer (principal); L97.423 Non-pressure chronic ulcer of left heel and midfoot with necrosis of muscle | CPT/HCPCS: 97597; 97598; A6021 ==

== ENCOUNTER 2022-05-24 09:54 | Oncology outpatient (recurring) (ONCR) | payer MEDICAID, SELFPAY ==
[2022-05-24 10:21] LABS: Basophils % 0.3 %; Eosinophils # 0.1 10^3/uL (0.0-0.8); Eosinophils % 2.8 %; Hemoglobin 8.8 g/dL (11.7-16.6); Lymphocytes # 0.4 10^3/uL (0.8-4.8); Lymphocytes % 15.3 %; Mean Corpuscular HGB Conc 31.4 g/dL (30.0-36.0); Mean Corpuscular Hemoglobin 28.2 pg (28.0-34.0); Mean Corpuscular Volume 89.7 fl (80-94); Monocytes # 0.3 10^3/uL (0.2-0.9); Monocytes % 11.5 %; Neutrophils # 2.01 10^3/uL (1.8-7.7); Neutrophils % 69.8 %; Nucleated Red Blood Cells % 0 %; Platelet Count 75 10^3/cmm (130-400); Red Blood Count 3.12 10^6/uL (4.1-5.3); Red Cell Distribution Width 21.8 % (12.1-15.1); White Blood Count 2.9 10^3/uL (4.0-10.0)
[2022-05-24 10:41] LABS: Ferritin 77 ng/mL (30-400); Iron 93 ug/dL (59-158); Total Iron Binding Capacity 216 mcg/dl; Unsaturated Iron Binding 123 ug/dL (112-347)
== END 2022-06-06 23:59 | disposition home or self-care (01) ==
PROVIDERS: PCP Family Medicine; Visit Provider Internal Medicine Hematology & Oncology
DX: D50.0 Iron deficiency anemia secondary to blood loss (chronic); I85.01 Esophageal varices with bleeding; D61.818 Other pancytopenia; F10.11 Alcohol abuse, in remission; Z79.899 Other long term (current) drug therapy; Z86.2 Personal history of diseases of the blood and blood-forming organs and certain disorders involving the immune mechanism; Z87.891 Personal history of nicotine dependence
CPT/HCPCS: 11042; 11045; 82728; 83540; 83550; 85025; 99214; A6021; A6252

== ENCOUNTER → 2022-06-08 10:47 | Outpatient (BNVA) | payer MEDICAID, SELFPAY | PROVIDERS: PCP Family Medicine; Visit Provider Nurse Practitioner Family | DX: I96 Gangrene, not elsewhere classified (principal); E11.621 Type 2 diabetes mellitus with foot ulcer; L97.423 Non-pressure chronic ulcer of left heel and midfoot with necrosis of muscle | CPT/HCPCS: 11042; 11045 ==

== ENCOUNTER → 2022-06-15 13:03 | Outpatient (BNVA) | payer MEDICAID, SELFPAY | PROVIDERS: PCP Family Medicine; Visit Provider Surgery | DX: I96 Gangrene, not elsewhere classified (principal); E11.621 Type 2 diabetes mellitus with foot ulcer; L97.423 Non-pressure chronic ulcer of left heel and midfoot with necrosis of muscle | CPT/HCPCS: 11042; 11045 ==

== ENCOUNTER → 2022-06-22 10:52 | Outpatient (BNVA) | payer MEDICAID, SELFPAY | PROVIDERS: PCP Family Medicine; Visit Provider Surgery | DX: I96 Gangrene, not elsewhere classified (principal); E11.621 Type 2 diabetes mellitus with foot ulcer; L97.422 Non-pressure chronic ulcer of left heel and midfoot with fat layer exposed | CPT/HCPCS: 11042; 11045 ==

== ENCOUNTER → 2022-07-06 10:50 | Outpatient (BNVA) | payer MEDICAID, SELFPAY | PROVIDERS: PCP Family Medicine; Visit Provider Thoracic Surgery (Cardiothoracic Vascular Surgery) | DX: I96 Gangrene, not elsewhere classified (principal); E11.621 Type 2 diabetes mellitus with foot ulcer; L97.423 Non-pressure chronic ulcer of left heel and midfoot with necrosis of muscle | CPT/HCPCS: 11042 ==

== ENCOUNTER → 2022-07-13 13:43 | Outpatient (BNVA) | payer MEDICAID, SELFPAY | PROVIDERS: PCP Family Medicine; Visit Provider Thoracic Surgery (Cardiothoracic Vascular Surgery) | DX: I96 Gangrene, not elsewhere classified (principal); E11.621 Type 2 diabetes mellitus with foot ulcer; L97.423 Non-pressure chronic ulcer of left heel and midfoot with necrosis of muscle | CPT/HCPCS: 11042 ==

== ENCOUNTER → 2022-07-27 10:45 | Outpatient (BNVA) | payer MEDICAID, SELFPAY | PROVIDERS: PCP Family Medicine; Visit Provider Thoracic Surgery (Cardiothoracic Vascular Surgery) | DX: I96 Gangrene, not elsewhere classified (principal); E11.621 Type 2 diabetes mellitus with foot ulcer; L97.422 Non-pressure chronic ulcer of left heel and midfoot with fat layer exposed; M86.672 Other chronic osteomyelitis, left ankle and foot; E11.42 Type 2 diabetes mellitus with diabetic polyneuropathy; M84.475S Pathological fracture, left foot, sequela; X58.XXXS Exposure to other specified factors, sequela | CPT/HCPCS: 11042; 99204 ==

== ENCOUNTER → 2022-08-03 10:30 | Outpatient (BNVA) | payer MEDICAID, SELFPAY | PROVIDERS: PCP Family Medicine; Visit Provider Thoracic Surgery (Cardiothoracic Vascular Surgery) | DX: I96 Gangrene, not elsewhere classified (principal); E11.621 Type 2 diabetes mellitus with foot ulcer; L97.423 Non-pressure chronic ulcer of left heel and midfoot with necrosis of muscle | CPT/HCPCS: 11042; A6252 ==

== ENCOUNTER → 2022-08-10 10:09 | Outpatient (BNVA) | payer MEDICAID, SELFPAY | PROVIDERS: PCP Family Medicine; Visit Provider Thoracic Surgery (Cardiothoracic Vascular Surgery) | DX: I96 Gangrene, not elsewhere classified (principal); E11.621 Type 2 diabetes mellitus with foot ulcer; L97.423 Non-pressure chronic ulcer of left heel and midfoot with necrosis of muscle | CPT/HCPCS: 11042; A6252 ==

== ENCOUNTER → 2022-08-24 10:32 | Outpatient (BNVA) | payer MEDICAID, SELFPAY | PROVIDERS: PCP Family Medicine; Visit Provider Thoracic Surgery (Cardiothoracic Vascular Surgery) | DX: E11.621 Type 2 diabetes mellitus with foot ulcer (principal); L97.422 Non-pressure chronic ulcer of left heel and midfoot with fat layer exposed | CPT/HCPCS: 11042; A6252 ==

== ENCOUNTER → 2022-08-31 10:56 | Outpatient (BNVA) | payer MEDICAID, SELFPAY | PROVIDERS: PCP Family Medicine; Visit Provider Thoracic Surgery (Cardiothoracic Vascular Surgery) | DX: I96 Gangrene, not elsewhere classified (principal); E11.621 Type 2 diabetes mellitus with foot ulcer; L97.422 Non-pressure chronic ulcer of left heel and midfoot with fat layer exposed | CPT/HCPCS: 11042; A6021 ==

== ENCOUNTER 2022-09-03 14:55 | Oncology outpatient (recurring) (ONCR) | payer MEDICAID, SELFPAY ==
[2022-09-03 15:37] LABS: Alanine Aminotransferase 12 U/L (0-41); Albumin Level 2.4 g/dL (3.5-5.2); Alkaline Phosphatase 144 U/L (40-130); Anion Gap 9.3 (5-19); Aspartate Amino Transferase 33 U/L (0-40); Blood Urea Nitrogen 28 mg/dL (6-20); Calcium 7.9 mg/dL (8.5-10.5); Carbon Dioxide 25 mmol/L (22-29); Chloride 108 mmol/L (98-107); Ferritin 35 ng/mL (30-400); Globulin 4.2 g/dL (1.3-4.6); Glomerular Filtration Rate 86.7 mL/min (90-130); Glucose 103 mg/dL (65-115); Iron 35 ug/dL (59-158); Osmolality Calculated 292 mOsm/kg (285-295); Potassium 4.3 mmol/L (3.5-5.1); Sodium 138 mmol/L (136-145); Total Bilirubin 0.6 mg/dL (0.15-1.2); Total Iron Binding Capacity 233 mcg/dl; Total Protein 6.6 g/dL (6.6-8.7); Unsaturated Iron Binding 198 ug/dL (112-347)
[2022-09-03 17:11] LABS: Basophils % 0.3 %; Eosinophils % 1.4 %; Hematocrit 28.6 % (42.0-52.0); Lymphocytes # 0.5 10^3/uL (0.8-4.8); Lymphocytes % 16.6 %; Mean Corpuscular HGB Conc 31.5 g/dL (30.0-36.0); Mean Corpuscular Hemoglobin 29.2 pg (28.0-34.0); Mean Corpuscular Volume 92.9 fl (80-94); Mean Platelet Volume 12.4 fL (7.4-10.4); Monocytes # 0.3 10^3/uL (0.2-0.9); Monocytes % 10.7 %; Neutrophils # 2.05 10^3/uL (1.8-7.7); Neutrophils % 70.7 %; Nucleated Red Blood Cells % 0 %; Platelet Count 90 10^3/cmm (130-400); Red Blood Count 3.08 10^6/uL (4.1-5.3); Red Cell Distribution Width 14.2 % (12.1-15.1); White Blood Count 2.9 10^3/uL (4.0-10.0)
== END 2022-09-04 23:59 | disposition home or self-care (01) ==
PROVIDERS: PCP Family Medicine; Visit Provider Internal Medicine Hematology & Oncology
DX: D50.9 Iron deficiency anemia, unspecified (principal); K74.60 Unspecified cirrhosis of liver; Z85.01 Personal history of malignant neoplasm of esophagus; Z87.891 Personal history of nicotine dependence; Z79.899 Other long term (current) drug therapy
CPT/HCPCS: 11042; 11045; 36415; 36591; 80053; 82728; 83540; 83550; 85025; 99214

== ENCOUNTER → 2022-09-07 10:56 | Outpatient (BNVA) | payer MEDICAID, SELFPAY | PROVIDERS: PCP Family Medicine; Visit Provider Thoracic Surgery (Cardiothoracic Vascular Surgery) | DX: I96 Gangrene, not elsewhere classified (principal); E11.621 Type 2 diabetes mellitus with foot ulcer; L97.422 Non-pressure chronic ulcer of left heel and midfoot with fat layer exposed | CPT/HCPCS: 11042; A6021; A6252 ==

== ENCOUNTER → 2022-09-14 11:23 | Outpatient (BNVA) | payer MEDICAID, SELFPAY | PROVIDERS: PCP Family Medicine; Visit Provider Thoracic Surgery (Cardiothoracic Vascular Surgery) | DX: I96 Gangrene, not elsewhere classified (principal); E11.621 Type 2 diabetes mellitus with foot ulcer; L97.422 Non-pressure chronic ulcer of left heel and midfoot with fat layer exposed | CPT/HCPCS: 11042; A6252 ==

== ENCOUNTER → 2022-09-21 11:36 | Outpatient (BNVA) | payer MEDICAID, SELFPAY | PROVIDERS: PCP Family Medicine; Visit Provider Thoracic Surgery (Cardiothoracic Vascular Surgery) | DX: E11.621 Type 2 diabetes mellitus with foot ulcer (principal); L97.421 Non-pressure chronic ulcer of left heel and midfoot limited to breakdown of skin | CPT/HCPCS: 11042; A6252 ==

== ENCOUNTER → 2022-09-28 13:07 | Outpatient (BNVA) | payer MEDICAID, SELFPAY | PROVIDERS: PCP Family Medicine; Visit Provider Thoracic Surgery (Cardiothoracic Vascular Surgery) | DX: I96 Gangrene, not elsewhere classified (principal); E11.621 Type 2 diabetes mellitus with foot ulcer; L97.423 Non-pressure chronic ulcer of left heel and midfoot with necrosis of muscle | CPT/HCPCS: 11042; A6021; A6252 ==

== ENCOUNTER 2022-10-01 12:00 | Oncology outpatient (recurring) (ONCR) | payer MEDICAID, SELFPAY ==
[2022-09-10 13:17] LABS: INR 1.39 (0.8-1.2)
[2022-09-10 14:29] LABS: Tumor Marker Alpha Fetoprotein 2.4 ng/mL (0-8.3)
[2022-09-10 23:17] LABS: 25 Hydroxy Vitamin D < 6 ng/mL (30-100)
[2022-09-13 21:15] LABS: Zinc Level, Serum or Plasma 30 mcg/dL (60-130)
[2022-10-01 12:18] VITALS: BP 103/70; PULSE 71; RESP 16; TEMP 36.4; O2SAT 99
[2022-10-01 12:34] LABS: Basophils % 0.5 %; Eosinophils # 0.1 10^3/uL (0.0-0.8); Eosinophils % 2.9 %; Hematocrit 26.9 % (42.0-52.0); Hemoglobin 8.6 g/dL (11.7-16.6); Lymphocytes # 0.6 10^3/uL (0.8-4.8); Lymphocytes % 14.8 %; Mean Corpuscular Hemoglobin 28.6 pg (28.0-34.0); Mean Corpuscular Volume 89.4 fl (80-94); Monocytes # 0.4 10^3/uL (0.2-0.9); Monocytes % 9.4 %; Neutrophils # 2.98 10^3/uL (1.8-7.7); Neutrophils % 72.2 %; Nucleated Red Blood Cells % 0 %; Platelet Count 127 10^3/cmm (130-400); Red Blood Count 3.01 10^6/uL (4.1-5.3); Red Cell Distribution Width 13.6 % (12.1-15.1); White Blood Count 4.1 10^3/uL (4.0-10.0)
[2022-10-01 12:49] LABS: Alanine Aminotransferase 12 U/L (0-41); Albumin Level 2.6 g/dL (3.5-5.2); Alkaline Phosphatase 150 U/L (40-130); Anion Gap 15.9 (5-19); Aspartate Amino Transferase 21 U/L (0-40); Blood Urea Nitrogen 38 mg/dL (6-20); Calcium 7.8 mg/dL (8.5-10.5); Carbon Dioxide 20 mmol/L (22-29); Chloride 105 mmol/L (98-107); Ferritin 20 ng/mL (30-400); Globulin 4.4 g/dL (1.3-4.6); Glomerular Filtration Rate 68.8 mL/min (90-130); Glucose 109 mg/dL (65-115); Iron 23 ug/dL (59-158); Osmolality Calculated 292 mOsm/kg (285-295); Percent Saturation 8.5 % (20-50); Potassium 4.9 mmol/L (3.5-5.1); Sodium 136 mmol/L (136-145); Total Bilirubin 0.5 mg/dL (0.15-1.2); Total Iron Binding Capacity 268 mcg/dl; Unsaturated Iron Binding 245 ug/dL (112-347)
[2022-10-03 22:28] LABS: HEP C RNA Viral Load Quant 1690000 IU/mL (NOT DETECTED); HEP C RNA Viral Load Quant 6.23 Log IU/mL (NOT DETECTED)
[2022-10-05 22:50] LABS: Hepatitis C Genotype RNA 1a
== END 2022-10-05 23:59 | disposition home or self-care (01) ==
PROVIDERS: Nurse Practitioner Adult Health; PCP Family Medicine; Visit Provider Internal Medicine Hematology & Oncology
DX: D50.0 Iron deficiency anemia secondary to blood loss (chronic) (principal); I85.01 Esophageal varices with bleeding; D61.818 Other pancytopenia; F10.11 Alcohol abuse, in remission; Z79.899 Other long term (current) drug therapy; Z86.2 Personal history of diseases of the blood and blood-forming organs and certain disorders involving the immune mechanism; Z87.891 Personal history of nicotine dependence; Z85.01 Personal history of malignant neoplasm of esophagus; Z92.21 Personal history of antineoplastic chemotherapy; Z92.3 Personal history of irradiation
CPT/HCPCS: 36591; 80053; 82105; 82306; 82728; 83540; 83550; 84630; 85025; 85610; 87522; 87902; 99204; 99214

== ENCOUNTER → 2022-10-05 14:03 | Outpatient (BNVA) | payer MEDICAID, SELFPAY | PROVIDERS: PCP Family Medicine; Visit Provider Thoracic Surgery (Cardiothoracic Vascular Surgery) | DX: E11.621 Type 2 diabetes mellitus with foot ulcer (principal); L97.422 Non-pressure chronic ulcer of left heel and midfoot with fat layer exposed | CPT/HCPCS: 11042 ==

== ENCOUNTER → 2022-10-12 10:24 | Outpatient (BNVA) | payer MEDICAID, SELFPAY | PROVIDERS: PCP Family Medicine; Visit Provider Thoracic Surgery (Cardiothoracic Vascular Surgery) | DX: I96 Gangrene, not elsewhere classified (principal); E11.621 Type 2 diabetes mellitus with foot ulcer; L97.422 Non-pressure chronic ulcer of left heel and midfoot with fat layer exposed | CPT/HCPCS: 11042; A6252 ==

== ENCOUNTER → 2022-11-02 10:31 | Outpatient (BNVA) | payer MEDICAID, SELFPAY | PROVIDERS: PCP Family Medicine; Visit Provider Nurse Practitioner Family | DX: E11.621 Type 2 diabetes mellitus with foot ulcer (principal); L97.422 Non-pressure chronic ulcer of left heel and midfoot with fat layer exposed | CPT/HCPCS: 11042; A6021; A6252 ==

== ENCOUNTER → 2022-11-09 10:53 | Outpatient (BNVA) | payer MEDICAID, SELFPAY | PROVIDERS: PCP Family Medicine; Visit Provider Nurse Practitioner Family | DX: E11.621 Type 2 diabetes mellitus with foot ulcer (principal); L97.422 Non-pressure chronic ulcer of left heel and midfoot with fat layer exposed | CPT/HCPCS: 11042; A6021; A6252 ==

== ENCOUNTER → 2022-11-16 10:57 | Outpatient (BNVA) | payer MEDICAID, SELFPAY | PROVIDERS: PCP Family Medicine; Visit Provider Thoracic Surgery (Cardiothoracic Vascular Surgery) | DX: E11.621 Type 2 diabetes mellitus with foot ulcer (principal); I96 Gangrene, not elsewhere classified; L97.411 Non-pressure chronic ulcer of right heel and midfoot limited to breakdown of skin | CPT/HCPCS: 97597; A6252 ==

== ENCOUNTER → 2022-11-23 09:59 | Outpatient (BNVA) | payer MEDICAID, SELFPAY | PROVIDERS: PCP Family Medicine; Visit Provider Thoracic Surgery (Cardiothoracic Vascular Surgery) | DX: I96 Gangrene, not elsewhere classified (principal); E11.621 Type 2 diabetes mellitus with foot ulcer; L97.422 Non-pressure chronic ulcer of left heel and midfoot with fat layer exposed | CPT/HCPCS: 97597; A6252 ==

== ENCOUNTER 2022-11-29 11:00 | Oncology outpatient (recurring) (ONCR) | payer MEDICAID, SELFPAY ==
[2022-11-06 11:40] LABS: Basophils % 0.2 %; Eosinophils % 0.8 %; Hematocrit 26.4 % (42.0-52.0); Hemoglobin 8.4 g/dL (11.7-16.6); Lymphocytes # 0.6 10^3/uL (0.8-4.8); Lymphocytes % 10.7 %; Mean Corpuscular HGB Conc 31.8 g/dL (30.0-36.0); Mean Corpuscular Hemoglobin 26.7 pg (28.0-34.0); Mean Corpuscular Volume 83.8 fl (80-94); Monocytes # 0.6 10^3/uL (0.2-0.9); Monocytes % 10.7 %; Neutrophils # 3.97 10^3/uL (1.8-7.7); Neutrophils % 77.2 %; Nucleated Red Blood Cells % 0 %; Platelet Count 114 10^3/cmm (130-400); Red Blood Count 3.15 10^6/uL (4.1-5.3); Red Cell Distribution Width 15.3 % (12.1-15.1); White Blood Count 5.1 10^3/uL (4.0-10.0)
[2022-11-06 12:16] LABS: Alanine Aminotransferase 15 U/L (0-41); Albumin Level 2.7 g/dL (3.5-5.2); Alkaline Phosphatase 139 U/L (40-130); Anion Gap 12.7 (5-19); Aspartate Amino Transferase 25 U/L (0-40); Blood Urea Nitrogen 38 mg/dL (6-20); Calcium 8.1 mg/dL (8.5-10.5); Carbon Dioxide 21 mmol/L (22-29); Chloride 104 mmol/L (98-107); Ferritin 19 ng/mL (30-400); Globulin 4.7 g/dL (1.3-4.6); Glomerular Filtration Rate 68.8 mL/min (90-130); Glucose 148 mg/dL (65-115); Iron 29 ug/dL (59-158); Osmolality Calculated 288 mOsm/kg (285-295); Percent Saturation 9.4 % (20-50); Potassium 4.7 mmol/L (3.5-5.1); Sodium 133 mmol/L (136-145); Total Bilirubin 0.4 mg/dL (0.15-1.2); Total Iron Binding Capacity 307 mcg/dl; Total Protein 7.4 g/dL (6.6-8.7); Unsaturated Iron Binding 278 ug/dL (112-347)
[2022-11-15] MEDS: iron sucrose 200 MG in sodium chloride 0.9% (100 ml) 100 ML 220 MG IV (13:07)
[2022-11-15] MEDS: sodium chloride 0.9% (100 ml) 100 ML 50 ML (13:07)
[2022-11-15 13:45] VITALS: BP 107/71; PULSE 80; TEMP 36.7; O2SAT 97
[2022-11-19] MEDS: iron sucrose 200 MG in sodium chloride 0.9% (100 ml) 100 ML 220 MG IV (11:07)
[2022-11-19 11:40] VITALS: BP 116/68; PULSE 80; TEMP 36.5; O2SAT 98
[2022-11-21 12:30] VITALS: BP 121/69; PULSE 81; RESP 18; TEMP 36.8; O2SAT 99
[2022-11-21] MEDS: iron sucrose 200 MG in sodium chloride 0.9% (100 ml) 100 ML 220 MG IV (13:05)
[2022-11-21 13:50] VITALS: BP 100/60; PULSE 71; RESP 18; TEMP 36.2; O2SAT 98
[2022-11-27 13:10] VITALS: BP 141/78; PULSE 84; RESP 18; TEMP 36.6; O2SAT 98
[2022-11-27] MEDS: iron sucrose 200 MG in sodium chloride 0.9% (100 ml) 100 ML 220 MG IV (14:05)
[2022-11-29 11:25] VITALS: BP 114/68; PULSE 61; RESP 18; TEMP 36.6; O2SAT 99
[2022-11-29] MEDS: iron sucrose 200 MG in sodium chloride 0.9% (100 ml) 100 ML 220 MG IV (12:45)
== END 2022-12-05 23:59 | disposition home or self-care (01) ==
PROVIDERS: PCP Family Medicine; Visit Provider Internal Medicine Hematology & Oncology
DX: D50.0 Iron deficiency anemia secondary to blood loss (chronic) (principal); Z79.899 Other long term (current) drug therapy
CPT/HCPCS: 36591; 80053; 82728; 83540; 83550; 85025; 96365; 96523; 99213; J1642; J1756

== ENCOUNTER → 2022-11-30 10:54 | Outpatient (BNVA) | payer MEDICAID, SELFPAY | PROVIDERS: PCP Family Medicine; Visit Provider Thoracic Surgery (Cardiothoracic Vascular Surgery) | DX: E11.621 Type 2 diabetes mellitus with foot ulcer (principal); I96 Gangrene, not elsewhere classified; L97.423 Non-pressure chronic ulcer of left heel and midfoot with necrosis of muscle | CPT/HCPCS: 97597; A6252 ==

== ENCOUNTER → 2022-12-14 10:56 | Outpatient (BNVA) | payer MEDICAID, SELFPAY | PROVIDERS: PCP Family Medicine; Visit Provider Thoracic Surgery (Cardiothoracic Vascular Surgery) | DX: I96 Gangrene, not elsewhere classified (principal); E11.621 Type 2 diabetes mellitus with foot ulcer; L97.422 Non-pressure chronic ulcer of left heel and midfoot with fat layer exposed | CPT/HCPCS: 11042; A6252 ==

== ENCOUNTER → 2022-12-21 10:58 | Outpatient (BNVA) | payer MEDICAID, SELFPAY | PROVIDERS: PCP Family Medicine; Visit Provider Thoracic Surgery (Cardiothoracic Vascular Surgery) | DX: E11.52 Type 2 diabetes mellitus with diabetic peripheral angiopathy with gangrene (principal); L97.422 Non-pressure chronic ulcer of left heel and midfoot with fat layer exposed | CPT/HCPCS: 97597; A6252 ==

== ENCOUNTER → 2022-12-28 10:46 | Outpatient (BNVA) | payer MEDICAID, SELFPAY | PROVIDERS: PCP Family Medicine; Visit Provider Thoracic Surgery (Cardiothoracic Vascular Surgery) | DX: E11.52 Type 2 diabetes mellitus with diabetic peripheral angiopathy with gangrene (principal); L97.422 Non-pressure chronic ulcer of left heel and midfoot with fat layer exposed | CPT/HCPCS: 11042; A6021 ==

== ENCOUNTER 2023-01-04 08:03 | Oncology outpatient (recurring) (ONCR) | payer MEDICAID, SELFPAY ==
[2023-01-04 08:23] VITALS: BP 113/74; PULSE 89; RESP 18; TEMP 36.8; O2SAT 98
[2023-01-04 08:36] LABS: Basophils % 0.2 %; Eosinophils # 0.1 10^3/uL (0.0-0.8); Eosinophils % 2.1 %; Hematocrit 31.8 % (42.0-52.0); Hemoglobin 10.2 g/dL (11.7-16.6); Lymphocytes # 0.6 10^3/uL (0.8-4.8); Lymphocytes % 13.6 %; Mean Corpuscular HGB Conc 32.1 g/dL (30.0-36.0); Mean Corpuscular Hemoglobin 28.3 pg (28.0-34.0); Mean Corpuscular Volume 88.1 fl (80-94); Mean Platelet Volume 10.8 fL (7.4-10.4); Monocytes # 0.5 10^3/uL (0.2-0.9); Monocytes % 10.8 %; Neutrophils # 3.11 10^3/uL (1.8-7.7); Neutrophils % 72.8 %; Nucleated Red Blood Cells % 0 %; Platelet Count 109 10^3/cmm (130-400); Red Blood Count 3.61 10^6/uL (4.1-5.3); Red Cell Distribution Width 17.6 % (12.1-15.1); White Blood Count 4.3 10^3/uL (4.0-10.0)
[2023-01-04 09:11] LABS: Ferritin 83 ng/mL (30-400); Iron 41 ug/dL (59-158); Percent Saturation 19.2 % (20-50); Total Iron Binding Capacity 213 mcg/dl; Unsaturated Iron Binding 172 ug/dL (112-347)
== END 2023-01-04 23:59 | disposition home or self-care (01) ==
PROVIDERS: PCP Family Medicine; Visit Provider Internal Medicine Hematology & Oncology
DX: D50.0 Iron deficiency anemia secondary to blood loss (chronic) (principal); D61.818 Other pancytopenia; F10.11 Alcohol abuse, in remission; Z79.899 Other long term (current) drug therapy; Z86.2 Personal history of diseases of the blood and blood-forming organs and certain disorders involving the immune mechanism; Z87.891 Personal history of nicotine dependence; I85.11 Secondary esophageal varices with bleeding; Z85.01 Personal history of malignant neoplasm of esophagus
CPT/HCPCS: 36591; 82728; 83540; 83550; 85025; 97597; 99214; A6021; A6251; J1642

== ENCOUNTER → 2023-01-18 10:47 | Outpatient (BNVA) | payer MEDICAID, SELFPAY | PROVIDERS: PCP Family Medicine; Visit Provider Thoracic Surgery (Cardiothoracic Vascular Surgery) | DX: E11.52 Type 2 diabetes mellitus with diabetic peripheral angiopathy with gangrene (principal); L97.422 Non-pressure chronic ulcer of left heel and midfoot with fat layer exposed | CPT/HCPCS: 97597; A6021; A6252 ==

== ENCOUNTER 2023-01-31 08:54 | Oncology outpatient (recurring) (ONCR) | payer MEDICAID, SELFPAY ==
[2023-01-31 09:27] VITALS: BP 103/70; PULSE 79; RESP 18; TEMP 36.6; O2SAT 98
[2023-01-31 09:38] LABS: Basophils % 0.2 %; Eosinophils # 0.1 10^3/uL (0.0-0.8); Eosinophils % 1.5 %; Hematocrit 32.4 % (42.0-52.0); Hemoglobin 10.5 g/dL (11.7-16.6); Lymphocytes # 0.5 10^3/uL (0.8-4.8); Lymphocytes % 11.3 %; Mean Corpuscular HGB Conc 32.4 g/dL (30.0-36.0); Mean Corpuscular Hemoglobin 29.2 pg (28.0-34.0); Mean Platelet Volume 11.7 fL (7.4-10.4); Monocytes # 0.4 10^3/uL (0.2-0.9); Monocytes % 9.6 %; Neutrophils # 3.54 10^3/uL (1.8-7.7); Neutrophils % 77.2 %; Nucleated Red Blood Cells % 0 %; Platelet Count 120 10^3/cmm (130-400); White Blood Count 4.6 10^3/uL (4.0-10.0)
[2023-01-31 10:04] LABS: Ferritin 65 ng/mL (30-400); Iron 41 ug/dL (59-158); Percent Saturation 17.9 % (20-50); Total Iron Binding Capacity 229 mcg/dl; Unsaturated Iron Binding 188 ug/dL (112-347)
[2023-01-31 10:21] LABS: Alanine Aminotransferase 13 U/L (0-41); Albumin Level 2.7 g/dL (3.5-5.2); Alkaline Phosphatase 139 U/L (40-130); Aspartate Amino Transferase 25 U/L (0-40); Blood Urea Nitrogen 33 mg/dL (6-20); Calcium 7.6 mg/dL (8.5-10.5); Carbon Dioxide 21 mmol/L (22-29); Chloride 103 mmol/L (98-107); Globulin 4.3 g/dL (1.3-4.6); Glomerular Filtration Rate 48.1 mL/min (90-130); Glucose 124 mg/dL (65-115); Osmolality Calculated 283 mOsm/kg (285-295); Sodium 132 mmol/L (136-145); Total Bilirubin 0.5 mg/dL (0.15-1.2)
[2023-01-31 10:29] LABS: Tumor Marker Alpha Fetoprotein 2.9 ng/mL (0-8.3)
[2023-01-31 10:37] LABS: 25 Hydroxy Vitamin D 7 ng/mL (30-100)
[2023-02-04 14:59] LABS: Zinc Level, Serum or Plasma 39 mcg/dL (60-130)
== END 2023-02-04 23:59 | disposition home or self-care (01) ==
PROVIDERS: Nurse Practitioner Adult Health; PCP Family Medicine; Visit Provider Internal Medicine Hematology & Oncology
DX: D50.0 Iron deficiency anemia secondary to blood loss (chronic) (principal); D69.6 Thrombocytopenia, unspecified; Z79.899 Other long term (current) drug therapy; Z86.2 Personal history of diseases of the blood and blood-forming organs and certain disorders involving the immune mechanism; Z87.891 Personal history of nicotine dependence; I85.11 Secondary esophageal varices with bleeding; Z85.01 Personal history of malignant neoplasm of esophagus; Z92.21 Personal history of antineoplastic chemotherapy; Z92.3 Personal history of irradiation; D61.818 Other pancytopenia
CPT/HCPCS: 36591; 80053; 82105; 82306; 82728; 83540; 83550; 84630; 85025; 85610; 99214; J1642

== ENCOUNTER → 2023-02-01 10:51 | Outpatient (BNVA) | payer MEDICAID, SELFPAY | PROVIDERS: PCP Family Medicine; Visit Provider Thoracic Surgery (Cardiothoracic Vascular Surgery) | DX: E11.52 Type 2 diabetes mellitus with diabetic peripheral angiopathy with gangrene (principal); L97.422 Non-pressure chronic ulcer of left heel and midfoot with fat layer exposed | CPT/HCPCS: 11042; A6251 ==

== ENCOUNTER → 2023-02-22 11:00 | Outpatient (BNVA) | payer MEDICAID, SELFPAY | PROVIDERS: PCP Family Medicine; Visit Provider Thoracic Surgery (Cardiothoracic Vascular Surgery) | DX: E11.52 Type 2 diabetes mellitus with diabetic peripheral angiopathy with gangrene (principal); L97.422 Non-pressure chronic ulcer of left heel and midfoot with fat layer exposed | CPT/HCPCS: 11042 ==

== ENCOUNTER → 2023-03-01 10:52 | Outpatient (BNVA) | payer MEDICAID, SELFPAY | PROVIDERS: PCP Family Medicine; Visit Provider Thoracic Surgery (Cardiothoracic Vascular Surgery) | DX: E11.52 Type 2 diabetes mellitus with diabetic peripheral angiopathy with gangrene (principal); L97.422 Non-pressure chronic ulcer of left heel and midfoot with fat layer exposed | CPT/HCPCS: 97597; A6021; A6252 ==

== ENCOUNTER → 2023-03-08 11:03 | Outpatient (BNVA) | payer MEDICAID, SELFPAY | PROVIDERS: PCP Family Medicine; Visit Provider Thoracic Surgery (Cardiothoracic Vascular Surgery) | DX: E11.52 Type 2 diabetes mellitus with diabetic peripheral angiopathy with gangrene (principal); L97.422 Non-pressure chronic ulcer of left heel and midfoot with fat layer exposed | CPT/HCPCS: 97597; A6021; A6252 ==

== ENCOUNTER → 2023-03-12 11:09 | Outpatient (BNVA) | payer MEDICAID, SELFPAY | PROVIDERS: PCP Family Medicine; Visit Provider Surgery | DX: K22.70 Barrett's esophagus without dysplasia (principal); I85.00 Esophageal varices without bleeding; K80.20 Calculus of gallbladder without cholecystitis without obstruction; Z85.01 Personal history of malignant neoplasm of esophagus | CPT/HCPCS: 99203 ==

== ENCOUNTER → 2023-03-22 10:48 | Outpatient (BNVA) | payer MEDICAID, SELFPAY | PROVIDERS: PCP Family Medicine; Visit Provider Nurse Practitioner Family | DX: E11.52 Type 2 diabetes mellitus with diabetic peripheral angiopathy with gangrene (principal); L97.422 Non-pressure chronic ulcer of left heel and midfoot with fat layer exposed | CPT/HCPCS: 97597; A6021; A6252 ==

== ENCOUNTER 2023-03-27 08:24 | Day surgery (SDC) | payer MEDICAID, SELFPAY ==
[2023-03-25 10:17] VITALS: BMI 25.0
[2023-03-27] VITALS (8 sets, daily range): BP systolic 117–171; BP diastolic 81–104; PULSE 93–100; RESP 14–22; TEMP 36.1–36.5; O2SAT 95–100; BMI 25.0
[2023-03-27] MEDS: sodium chloride 0.9% 1,000 ML 30 ML IV (08:48)
--- NOTE | 2023-03-27 09:05 | W.PM.OPSUD ---
Surgery/Procedure H&P Update DATE OF PROCEDURE: March 27, 2023 DATE H&P PERFORMED: 03/12/23 H&P UPDATE INFORMATION: I have reviewed H&P completed within last 30 days, I have examined patient prior to procedure and No changes to prior documentation PLANNED PROCEDURE: Operation Date: 03/27/23 09:15 Proposed Procedures p EGD [id number]<k22.70,I85.00(Not Applicable) - Sivakumar Norwood, DO
--- NOTE | 2023-03-27 09:10 | P.ANESASSM_ITS ---
Pre-Anesthetic Assessment Height/Weight: Height 1.83 m Weight 83.915 kg Temp Pulse Resp BP Pulse Ox O2 Del Method 97 F L 97 14 119/85 97 Room Air 03/27/23 08:40 03/27/23 08:40 03/27/23 08:40 03/27/23 08:40 03/27/23 08:40 03/27/23 08:40 Preop Diagnosis: Esophageal Varices, Burris's Esophagus Operation Date: 03/27/23 09:15 Proposed Procedures p EGD [id number]<k22.70,I85.00(Not Applicable) - Sivakumar Norwood DO Familial anesthetic complications: none Was Beta Lexie taken within 24 hours: N/A Was Clonidine taken within 24 hours: N/A Last intake: Intake Last Liquid Date 03/26/23 Last Liquid Time 23:00 Last Solid Date 03/26/23 Last Solid Time 22:00 Social No alcohol and No tobacco Exam alert, oriented x 3, clear to auscultation bilaterally and regular rate & rhythm Airway Submandibular: within normal limits Cervical ROM: within normal limits Mallampati: Class I Dentition: false (top and bottom (removed)) Pulmonary None reported CV/HEM Anemia Chronic Renal Insufficiency Hepatic Cirrhosis and Hepatitis TIPS procedure in near future date not given patient under going work up for procedure. Ascites noted patient reports drainage every 3 weeks, last drained 6 days prior. Liver failure, portal htn noted. GI Gastroesophageal Reflux Disease esophageal varicies, Burris's esophagus. Metabolic Diabetes Mellitus Musc/skel Lower Back Pain, Osteoarthritis/DJD and Weakness (cane use) Neuropsych None reported Anesthetic Plan ASA status: 4 Anesthesia: General Other: RSI aspiration risk explained - risk of bleeding explained d/t varices. Anesthetic plan discussed with Dr. Terry. Medications/Allergies Home Medications Medication Instructions Recorded Confirmed Last Taken Type pantoprazole 40 mg tablet,delayed 40 mg PO BID #60 tabs 05/19/20 03/27/23 03/26/23 Rx release (Protonix) dronabinol 5 mg capsule (Marinol) 5 mg PO BID PRN appetite 12/26/20 03/27/23 03/22/23 History oxycodone 10 mg tablet 10 mg PO Q6H PRN Pain #10 tabs 12/27/20 03/27/23 03/26/23 Rx albuterol 90 mcg/actuation aerosol 90 mcg inhalation Q4H PRN 03/21/22 03/27/23 03/26/23 History inhaler Shortness Of Breath spironolactone 100 mg tablet 100 mg PO DAILY 03/21/22 03/27/23 03/26/23 History furosemide 40 mg tablet 40 mg PO BID 05/24/22 03/27/23 03/26/23 History ondansetron 8 mg disintegrating 8 mg PO Q8H PRN Nausea And 12/18/22 03/27/23 03/27/23 Rx tablet Vomiting #90 tabs Allergies Allergy/AdvReac Type Severity Reaction Status Date / Time acetaminophen [From Tylenol] Allergy Unknown Verified 03/12/23 11:15 NSAIDS (Non-Steroidal Allergy ALGY-Joint Verified 03/12/23 11:15 Anti-Inflamma Pain tramadol [From Ultram] Allergy Unknown Verified 03/12/23 11:15 PFSH Anesthesia Medical History Acute upper GI bleed Adenocarcinoma of esophagus Chronic hepatitis C Chronic neck pain Cirrhosis of liver DDD (degenerative disc disease), lumbar Diabetic ulcer of left foot Dysphagia -appears to be an intermittent issue 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 No evidence of disease occurrence on endoscopy and no focal mass o n CT Encounter for long-term use of opiate analgesic Esophagitis determined by endoscopy Insulin dependent type 2 diabetes mellitus Iron deficiency anemia Lumbar pain Neuropathy due to secondary diabetes Osteomyelitis Portal hypertension S/p left hip fracture November 2018 Spinal stenosis of lumbar region Spondylosis of lumbar spine with myelopathy Ulcer of left heel Surgical History H/O circumcision H/O colonoscopy 2018 H/O esophagogastroduodenoscopy 2018 History of knee surgery Port-A-Cath in place 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 Family History Mother Diabetes Father Diabetes Other CAD (coronary artery disease) Hyperlipidemia Hypertension Lung disease Stroke Denies family history of Clotting disorder Dementia Psychiatric illness Chronic kidney disease (CKD) Suicide Anesthesia complication Bleeding disorder Cancer Social History Smoking and tobacco status: former smoker (smoked 30+ years) Quit status (tobacco): has quit using tobacco Year quit tobacco: 06/2019 Former quit date comment: 40 years Alcohol intake: former Substance/Drug Use: never Lives independently: Yes Marital status: Single Current occupational status: disabled Data Anesthesia Cardiac Studies: No Data to Display
--- NOTE | 2023-03-27 09:21 | ECG_ITS ---
[facility] Test Date: 2023-03-27 Pat Name: Loida Juares Department: Room: Gender: Male Contracts Law Professor: : 1965 Requested By: Keira Ramos Order Number: [id number] Molina MD: Azbe Martinez M.D. Measurements Intervals [place] Rate: 83 P: 29 IA: 166 QRS: 19 QRSD: 83 T: 51 QT: 355 QTc: 418 Interpretive Statements SINUS RHYTHM LOW QRS VOLTAGE IN PRECORDIAL LEADS [QRS DEFLECTION < 1.0 mV IN CHEST LEADS] SEPTAL MYOCARDIAL INFARCTION , PROBABLY OLD [40+ ms Q WAVE IN V1/V2] Compared to ECG 07/21/2021 11:28:50 Low QRS voltage now present Myocardial infarct finding now present Electronically Signed On 03-28-2023 7:59:31 CDT by Azeb Martinez M.D. [id number]
[2023-03-27 09:45] LABS: Basophils % 0.2 %; Eosinophils # 0.1 10^3/uL (0.0-0.8); Eosinophils % 1.8 %; Hematocrit 30.6 % (37-53); Lymphocytes # 0.7 10^3/uL (0.8-4.8); Mean Corpuscular HGB Conc 32.4 g/dL (30-55); Mean Corpuscular Hemoglobin 28.4 pg (27-33); Mean Corpuscular Volume 87.9 fl (82-101); Mean Platelet Volume 11.9 fL (7.4-10.4); Monocytes # 0.5 10^3/uL (0.2-0.9); Monocytes % 10.3 %; Neutrophils # 3.23 10^3/uL (1.8-7.7); Neutrophils % 72.5 %; Nucleated Red Blood Cells % 0 %; Platelet Count 130 10^3/cmm (157-399); Red Blood Count 3.48 10^6/uL (3.85-5.65); Red Cell Distribution Width 14.5 % (12.1-15.1); White Blood Count 4.46 10^3/uL (3.29-11.43)
[2023-03-27 10:03] LABS: Anion Gap 11.7 (5-19); Blood Urea Nitrogen 28 mg/dL (6-20); Calcium 8.1 mg/dL (8.5-10.5); Carbon Dioxide 24 mmol/L (22-29); Chloride 101 mmol/L (98-107); Glomerular Filtration Rate 44.6 mL/min (90-130); Glucose 146 mg/dL (65-115); Osmolality Calculated 282 mOsm/kg (285-295); Potassium 4.7 mmol/L (3.5-5.1); Sodium 132 mmol/L (136-145)
--- NOTE | 2023-03-27 10:40 | PC.NURSE ---
patients cane given to prior to taking to procedure room
[2023-03-27] MEDS: ondansetron 2 mg/ML SDV 2 mL 4 MG IVP (11:05)
--- NOTE | 2023-03-27 11:17 | PC.NURSE ---
Addendum entered by Panchito Thomas RN 03/27/23 11:21: RN has visual of patient safely on toilet Original Note: 1115 vitals not recorded, patient insisted on going to the bathroom. get this shit off me . Patient a/o x 4, able to ambulate to bathroom with minimal assistance.
--- NOTE | 2023-03-27 11:20 | PC.NURSE ---
1120 vitals not recorded, patient still in bathroom. RN has visual of patient at this time
--- NOTE | 2023-03-27 11:28 | PC.NURSE ---
Patient required moderate assistance to return to bed, complained of being lightheaded when going from seated to standing position. Patient returned to bed at this time
== END 2023-03-27 11:57 | disposition home or self-care (01) ==
PROVIDERS: PCP Family Medicine; Visit Provider Surgery
PROC: 0DJ08ZZ Inspection of Upper Intestinal Tract, Via Natural or Artificial Opening Endoscopic (ICD-10-PCS; CPT 43235; principal; 2023-03-27 09:15)
DX: K22.70 Barrett's esophagus without dysplasia (principal); I85.00 Esophageal varices without bleeding; K31.89 Other diseases of stomach and duodenum; E11.9 Type 2 diabetes mellitus without complications; Z85.01 Personal history of malignant neoplasm of esophagus; Z79.891 Long term (current) use of opiate analgesic; Z87.891 Personal history of nicotine dependence
CPT/HCPCS: 36415; 43239; 80048; 85025; 88305; 93005; J0330; J2405; J2704; J3490; J7030

== ENCOUNTER 2023-03-29 11:07 | Outpatient (CLI) | payer MEDICAID, SELFPAY ==
--- NOTE | 2023-03-29 11:17 | CT_ITS ---
WS: [id number] CT CHEST AND ABDOMEN WITH CONTRAST HISTORY: Esophageal cancer. TECHNIQUE: Axial imaging is performed through the chest and abdomen with IV and oral contrast.. Sagit lillie and coronal reformats. All CT scans at [facility] use at least one of these dose optimiza tion techniques: automated exposure control; mA and/or kV adjustment per patient size (includes targe bhupinder exams where dose is matched to clinical indication); or iterative reconstruction. CONTRAST: Omnipaque 350; 100 mL IV. DLP: 1000.25 mGy.cm COMPARISON: 08/01/[address]: No pulmonary mass or nodule. No pneumonia. Heart size is normal. No mediastinal or hilar lymph nodes. There is oral contrast in the distal esophagus. Very mild thickening at the GE junction. Patient has a right-sided Mediport. Mild atherosclerosis aorta. Normal sized pulmonary artery. Mild soft tissue anasarca. Mild anterior wedging of T9 is stable. Abdomen CT: Since the prior examination of 08/01/2021 patient has developed severe diffuse soft tissue anasarca an d ascites noted within the abdomen. Cirrhotic liver. Small caliber liver. No interval change in the superior RIGHT lobe of the liver. Courtney n portal vein is patent. Normally distended gallbladder with cholelithiasis. Spleen is enlarged at 17 .5 cm. Severe pancreatic atrophy and fatty replacement. No adrenal mass. Numerous collateral vessels in the LEFT upper abdomen. Mild atherosclerosis aorta. No renal obstruction. Stomach is not well dist ended with oral contrast. The exam would not be adequate to evaluate the esophagus or stomach for raegan plasm. Reidentified are the small lymph nodes around the celiac axis and retroperitoneal. These are shotty l ymph nodes which have not significantly changed. No omental carcinomatosis identified. Chronic mild anterior wedging of L4 and L5. IMPRESSION: 1. Interval development of a large amount of peritoneal ascites since 08/01/2021. 2. Cirrhosis with portal venous hypertension. 3. No pulmonary masses or nodules. 4. Small celiac axis and retroperitoneal lymph nodes. These may be reactive from patient's cirrhosis. Patient also has a history of esophageal cancer.
[2023-03-29] MEDS: iohexol 350 mg/mL 500 mL Btl (per mL) PO (12:00)
[2023-03-29] MEDS: iohexol 350 mg/mL 500 mL Btl (per mL) IV (12:54)
== END 2023-03-29 11:08 | disposition home or self-care (01) ==
PROVIDERS: PCP Family Medicine; Visit Provider Internal Medicine Hematology & Oncology
DX: C15.9 Malignant neoplasm of esophagus, unspecified (principal); R18.8 Other ascites; K74.60 Unspecified cirrhosis of liver; K76.6 Portal hypertension
CPT/HCPCS: 11042; 71260; 74160; A6251; Q9967

== ENCOUNTER → 2023-04-05 10:48 | Outpatient (BNVA) | payer MEDICAID, SELFPAY | PROVIDERS: PCP Family Medicine; Visit Provider Thoracic Surgery (Cardiothoracic Vascular Surgery) | DX: E11.52 Type 2 diabetes mellitus with diabetic peripheral angiopathy with gangrene (principal); L97.422 Non-pressure chronic ulcer of left heel and midfoot with fat layer exposed | CPT/HCPCS: 97597; A6251 ==

== ENCOUNTER 2023-04-09 09:43 | Oncology outpatient (recurring) (ONCR) | payer MEDICAID, SELFPAY ==
[2023-04-09 09:54] VITALS: BP 137/86; PULSE 91; RESP 16; TEMP 36.3; O2SAT 98
[2023-04-09 10:11] LABS: Basophils % 0.2 %; Eosinophils % 0.9 %; Hematocrit 30.6 % (37-53); Lymphocytes # 0.5 10^3/uL (0.8-4.8); Lymphocytes % 11.8 %; Mean Corpuscular Hemoglobin 28.1 pg (27-33); Mean Corpuscular Volume 87.7 fl (82-101); Mean Platelet Volume 11.7 fL (7.4-10.4); Monocytes # 0.4 10^3/uL (0.2-0.9); Monocytes % 9.3 %; Neutrophils % 77.3 %; Nucleated Red Blood Cells % 0 %; Platelet Count 140 10^3/cmm (157-399); Red Blood Count 3.49 10^6/uL (3.85-5.65); Red Cell Distribution Width 14.2 % (12.1-15.1)
[2023-04-09 10:37] LABS: Alanine Aminotransferase 14 U/L (0-41); Albumin Level 2.1 g/dL (3.5-5.2); Alkaline Phosphatase 183 U/L (40-130); Anion Gap 11.4 (5-19); Aspartate Amino Transferase 20 U/L (0-40); Blood Urea Nitrogen 30 mg/dL (6-20); Calcium 7.7 mg/dL (8.5-10.5); Carbon Dioxide 22 mmol/L (22-29); Chloride 104 mmol/L (98-107); Ferritin 49 ng/mL (30-400); Globulin 4.9 g/dL (1.3-4.6); Glomerular Filtration Rate 52.1 mL/min (90-130); Glucose 212 mg/dL (65-115); Iron 38 ug/dL (59-158); Osmolality Calculated 288 mOsm/kg (285-295); Potassium 4.4 mmol/L (3.5-5.1); Sodium 133 mmol/L (136-145); Total Bilirubin 0.5 mg/dL (0.15-1.2); Total Iron Binding Capacity 223 mcg/dl; Unsaturated Iron Binding 185 ug/dL (112-347)
== END 2023-05-07 23:59 | disposition home or self-care (01) ==
PROVIDERS: PCP Family Medicine; Visit Provider Internal Medicine Medical Oncology
DX: D50.0 Iron deficiency anemia secondary to blood loss (chronic) (principal); D50.9 Iron deficiency anemia, unspecified; I85.01 Esophageal varices with bleeding; D61.818 Other pancytopenia; F10.11 Alcohol abuse, in remission; Z79.899 Other long term (current) drug therapy; Z86.2 Personal history of diseases of the blood and blood-forming organs and certain disorders involving the immune mechanism; Z87.891 Personal history of nicotine dependence; I85.11 Secondary esophageal varices with bleeding; K74.60 Unspecified cirrhosis of liver; B18.2 Chronic viral hepatitis C; R11.12 Projectile vomiting; Z53.9 Procedure and treatment not carried out, unspecified reason
CPT/HCPCS: 36591; 80053; 82728; 83540; 83550; 85025; 99213; 99214; J1642

== ENCOUNTER 2023-04-10 12:59 | Day surgery (SDC) | payer MEDICAID, SELFPAY ==
--- NOTE | 2023-04-10 13:02 | US_ITS ---
WS: [id number] ULTRASOUND-GUIDED THERAPEUTIC PARACENTESIS Procedure, risks, and complications have been explained to the patient. Consent is obtained. Utilizing aseptic technique and 1% buffered lidocaine, a small dermatome was made through which a 5 F rench Yueh catheter was inserted. Approximately 8000 ml of clear peritoneal fluid was obtained witho ut difficulty. No complications encountered. IMPRESSION: Uncomplicated paracentesis yielding 8000 ml of peritoneal fluid.
[2023-04-10 13:10] VITALS: BMI 25.3
[2023-04-10 13:14] VITALS: BP 166/103; PULSE 93; RESP 18; TEMP 36.6; O2SAT 98
== END 2023-04-10 14:20 | disposition home or self-care (01) ==
LOC: GILAB 13:01
PROVIDERS: PCP Family Medicine; Visit Provider Internal Medicine Medical Oncology
PROC: (CPT 49082; principal; 2023-04-10 14:00)
DX: R18.8 Other ascites (principal)
CPT/HCPCS: 49083

== ENCOUNTER → 2023-04-19 11:08 | Outpatient (BNVA) | payer MEDICAID, SELFPAY | PROVIDERS: PCP Family Medicine; Visit Provider Thoracic Surgery (Cardiothoracic Vascular Surgery) | DX: E11.52 Type 2 diabetes mellitus with diabetic peripheral angiopathy with gangrene (principal); E11.621 Type 2 diabetes mellitus with foot ulcer; L97.421 Non-pressure chronic ulcer of left heel and midfoot limited to breakdown of skin | CPT/HCPCS: 97597; A6021; A6251 ==

== ENCOUNTER 2023-04-25 12:51 | Day surgery (SDC) | payer MEDICAID, SELFPAY ==
[2023-04-24 14:00] VITALS: BMI 27.1
[2023-04-25 13:00] VITALS: BP 129/84; PULSE 97; RESP 16; TEMP 36.3; O2SAT 97
--- NOTE | 2023-04-25 13:09 | US_ITS ---
WS: [email or web address] ULTRASOUND-GUIDED THERAPEUTIC PARACENTESIS Procedure, risks, and complications have been explained to the patient. Consent is obtained. Utilizing aseptic technique and 1% buffered lidocaine, a small dermatome was made through which a 5 F rench Yueh catheter was inserted. Approximately 10,500 ml of clear peritoneal fluid was obtained wit hout difficulty. No complications encountered. IMPRESSION: Uncomplicated paracentesis yielding 10,500 ml of peritoneal fluid.
[2023-04-25] MEDS: albumin 50 G/200 ML BAG 60 G IV (14:11)
[2023-04-25 14:24] VITALS: BP 127/77; PULSE 84; RESP 16; O2SAT 95
== END 2023-04-25 15:10 | disposition home or self-care (01) ==
LOC: GILAB 12:51
PROVIDERS: Radiology Diagnostic Radiology; PCP Family Medicine; Visit Provider Nurse Practitioner Adult Health
PROC: (CPT 49082; principal; 2023-04-25 13:00)
DX: K74.60 Unspecified cirrhosis of liver (principal)
CPT/HCPCS: 49083; 96365; P9046

== ENCOUNTER → 2023-04-26 10:57 | Outpatient (BNVA) | payer MEDICAID, SELFPAY | PROVIDERS: PCP Family Medicine; Visit Provider Thoracic Surgery (Cardiothoracic Vascular Surgery) | DX: E11.52 Type 2 diabetes mellitus with diabetic peripheral angiopathy with gangrene (principal); E11.621 Type 2 diabetes mellitus with foot ulcer; L97.521 Non-pressure chronic ulcer of other part of left foot limited to breakdown of skin | CPT/HCPCS: 97597; A6251 ==

== ENCOUNTER → 2023-05-03 10:56 | Outpatient (BNVA) | payer MEDICAID, SELFPAY | PROVIDERS: PCP Family Medicine; Visit Provider Nurse Practitioner Family | DX: E11.52 Type 2 diabetes mellitus with diabetic peripheral angiopathy with gangrene (principal); E11.621 Type 2 diabetes mellitus with foot ulcer; L97.421 Non-pressure chronic ulcer of left heel and midfoot limited to breakdown of skin | CPT/HCPCS: 97597; A6021; A6251 ==

== ENCOUNTER → 2023-05-08 11:51 | Day surgery (SDC) | payer MEDICAID, SELFPAY ==
[2023-05-08 12:04] VITALS: BMI 27.1
[2023-05-08 12:05] VITALS: BP 146/91; PULSE 85; RESP 17; TEMP 36.1; O2SAT 98
--- NOTE | 2023-05-08 12:12 | US_ITS ---
WS: [email or web address] ULTRASOUND-GUIDED THERAPEUTIC PARACENTESIS Procedure, risks, and complications have been explained to the patient. Consent is obtained. Utilizing aseptic technique and 1% buffered lidocaine, a small dermatome was made through which a 5 F rench Yueh catheter was inserted. Approximately 4000 ml of clear peritoneal fluid was obtained witho ut difficulty. No complications encountered. IMPRESSION: Uncomplicated paracentesis yielding 4000 ml of peritoneal fluid. Note: Study was ordered for only 4000 mL to be removed. There is significantly more fluid in 4000 mL present. Consider larger volume paracentesis.
[2023-05-08] MEDS: albumin 50 G/200 ML BAG 60 G IV (12:59)
[2023-05-08 13:20] VITALS: BP 141/91; PULSE 76; RESP 1; O2SAT 99
== END ==
PROVIDERS: Radiology Diagnostic Radiology; PCP Family Medicine; Visit Provider Nurse Practitioner Adult Health
PROC: (CPT 49082; principal; 2023-05-08 13:00)
DX: K74.60 Unspecified cirrhosis of liver (principal); R18.8 Other ascites
CPT/HCPCS: 49083; 96365; P9046

== ENCOUNTER → 2023-05-10 10:56 | Outpatient (BNVA) | payer MEDICAID, SELFPAY | PROVIDERS: PCP Family Medicine; Visit Provider Thoracic Surgery (Cardiothoracic Vascular Surgery) | DX: E11.52 Type 2 diabetes mellitus with diabetic peripheral angiopathy with gangrene (principal); E11.621 Type 2 diabetes mellitus with foot ulcer; L97.421 Non-pressure chronic ulcer of left heel and midfoot limited to breakdown of skin | CPT/HCPCS: 97597; A6251 ==

== ENCOUNTER → 2023-05-17 10:52 | Outpatient (BNVA) | payer MEDICAID, SELFPAY | PROVIDERS: PCP Family Medicine; Visit Provider Thoracic Surgery (Cardiothoracic Vascular Surgery) | DX: E11.52 Type 2 diabetes mellitus with diabetic peripheral angiopathy with gangrene (principal); E11.621 Type 2 diabetes mellitus with foot ulcer; L97.421 Non-pressure chronic ulcer of left heel and midfoot limited to breakdown of skin | CPT/HCPCS: 97597; A6251 ==

== ENCOUNTER 2023-05-23 11:57 | Day surgery (SDC) | payer MEDICAID, SELFPAY ==
--- NOTE | 2023-05-23 11:59 | US_ITS ---
WS: [email or web address] ULTRASOUND-GUIDED THERAPEUTIC PARACENTESIS Procedure, risks, and complications have been explained to the patient. Consent is obtained. Utilizing aseptic technique and 1% buffered lidocaine, a small dermatome was made through which a 5 F rench Yueh catheter was inserted. Approximately 6000 ml of clear peritoneal fluid was obtained witho ut difficulty. No complications encountered. IMPRESSION: Uncomplicated paracentesis yielding 6000 ml of peritoneal fluid.
[2023-05-23 12:17] VITALS: BMI 29.8
[2023-05-23 12:22] VITALS: BP 154/96; PULSE 93; RESP 16; TEMP 36.3; O2SAT 97
[2023-05-23] MEDS: albumin 50 G/200 ML BAG 60 G IV (12:43)
== END 2023-05-23 13:26 | disposition home or self-care (01) ==
LOC: GILAB 11:58
PROVIDERS: PCP Family Medicine; Visit Provider Nurse Practitioner Adult Health
PROC: (CPT 49082; principal; 2023-05-23 13:00)
DX: R18.8 Other ascites (principal)
CPT/HCPCS: 49083; P9046

== ENCOUNTER → 2023-05-24 11:03 | Outpatient (BNVA) | payer MEDICAID, SELFPAY | PROVIDERS: PCP Family Medicine; Visit Provider Thoracic Surgery (Cardiothoracic Vascular Surgery) | DX: E11.52 Type 2 diabetes mellitus with diabetic peripheral angiopathy with gangrene (principal); E11.621 Type 2 diabetes mellitus with foot ulcer; L97.421 Non-pressure chronic ulcer of left heel and midfoot limited to breakdown of skin | CPT/HCPCS: 97597; A6251 ==

== ENCOUNTER 2023-05-27 08:05 | Outpatient (CLI) | payer MEDICAID, SELFPAY ==
--- NOTE | 2023-05-27 08:14 | US_ITS ---
WS: [email or web address] RIGHT UPPER QUADRANT ULTRASOUND HISTORY: NAUSEA VOMITING/CHRONIC HEPATITIS C, cirrhosis COMPARISON: 01/22/2019 Liver: 15.8 cm in length. Nodular surface of the liver. Liver is small caliber. No mass identified. Portal Vein: Normal hepatopetal flow with monophasic waveform. Gallbladder: Gallbladder is well distended and contains low-level echoes. Most consistent with a smal l amount of sludge. No shadowing stones identified. CBD: 0.4 cm Pancreas: Completely obscured. Right kidney: 10.1 cm in length. Poorly visualized RIGHT kidney. No obstruction. Aorta and IVC: Unremarkable abdominal aorta and IVC. Moderate amount of ascites throughout the abdomen. IMPRESSION: 1. Moderate amount of ascites. 2. Cirrhotic liver. 3. Low-level echoes in the gallbladder. Probably a small amount of sludge. No stones.
--- NOTE | 2023-05-27 08:16 | USCV_ITS ---
Loida Juares Age: 57 Gender: M : 1965 Exam Date: 05/27/2023 08:31 Ordering Phys: Technologist: PEPE Exam Location: [facility] [place]_ Indication: HEP C Vein Flow Artery Peak Velocity RHV Seen MHA 52/14 MHV Seen RHA 29/10 LHV Seen LHA 30/8 MPV Seen SPA 114/36 RPV Seen LPV Seen Liver Length: 16.3 cm SPV Seen Spleen Length: 16.3 cm IVC Seen PV Diameter: 12.0 mm Fluid Collection/Ascites: YES Location: All 4 quads Findings Adequate vascular flow identified in the hepatic arteries and veins. Normal portal vein flow without reversal. Moderate ascites. Conclusions No arterial or venous occlusions of the hepatic vasculature. Normal portal vein flow. Ascites. Dr. Wanda Salas DO (Electronically Signed) Final Date: 27 May 2023 09:04 S
== END 2023-05-27 08:06 | disposition home or self-care (01) ==
LOC: RAD 08:05
PROVIDERS: PCP Family Medicine; Visit Provider Nurse Practitioner Adult Health
DX: K74.60 Unspecified cirrhosis of liver (principal); B18.2 Chronic viral hepatitis C; R18.8 Other ascites; D50.8 Other iron deficiency anemias; I85.11 Secondary esophageal varices with bleeding; R11.2 Nausea with vomiting, unspecified
CPT/HCPCS: 76705

== ENCOUNTER 2023-05-29 12:08 | Day surgery (SDC) | payer MEDICAID, SELFPAY ==
--- NOTE | 2023-05-29 12:11 | US_ITS ---
WS: [email or web address] ULTRASOUND-GUIDED PARACENTESIS CLINICAL INFORMATION: ASCITES COMPARISON: None. Procedure Informed consent: The risks, benefits, and alternatives of the procedure were discussed with the ava ent. Verbal and written consent was obtained. Timeout: A timeout was performed to confirm the correct patient, procedure, and site. Preparation: A suitable skin site was identified. The patient was prepped and draped in usual sterile fashion. Lidocaine 1% was used for local anesthesia. Catheter: 4 Arabic One-step Yueh catheter. Side: LEFT lower quadrant. Fluid Volume: 6000 ml Color: Yellow and blood tinged DISPOSITION: Discarded safely. Complications: None. Patient disposition: Discharged from the department in stable condition. IMPRESSION: Uncomplicated ultrasound-guided paracentesis. Removal of 6000 cc
[2023-05-29 13:01] VITALS: BP 123/88; PULSE 87; RESP 18; TEMP 36.6; O2SAT 97; BMI 29.8
[2023-05-29] MEDS: albumin 50 G/200 ML BAG 60 G IV (13:11)
[2023-05-29 13:28] LABS: Anion Gap 13.4 (5-19); Blood Urea Nitrogen 28 mg/dL (6-20); Calcium 8.2 mg/dL (8.5-10.5); Carbon Dioxide 20 mmol/L (22-29); Chloride 105 mmol/L (98-107); Creatinine Clr Calc Pharmacy 70.3475; Glomerular Filtration Rate 52.1 mL/min (90-130); Glucose 121 mg/dL (65-115); Osmolality Calculated 283 mOsm/kg (285-295); Potassium 5.4 mmol/L (3.5-5.1); Sodium 133 mmol/L (136-145)
[2023-05-29 13:58] LABS: Color, Body Fluid PALE YELLOW; Cyto Order Verification Order Verified
[2023-05-29 13:59] LABS: Apprearance, Body Fluid CLEAR; Fluid Laterality PERITONEAL FLUID
[2023-05-29 14:04] LABS: Body Fluid Polynuclear #Cells 0.003; Body Fluid WBC 85 /uL; Monocytes # Body Fluid 0.082; RBC, Body Fluid 0 10^3/uL
[2023-05-29 14:18] LABS: PATH Referral YES
== END 2023-05-29 13:40 | disposition home or self-care (01) ==
LOC: GILAB 12:09
PROVIDERS: Student in an Organized Health Care Education/Training Program; PCP Family Medicine; Visit Provider Internal Medicine Medical Oncology
PROC: (CPT 49082; principal; 2023-05-29 13:00)
DX: R18.8 Other ascites (principal)
CPT/HCPCS: 49083; 80048; 80503; 89050; P9046

== ENCOUNTER → 2023-06-05 10:26 | Outpatient (BNVA) | payer MEDICAID, SELFPAY | PROVIDERS: PCP Family Medicine; Visit Provider Nurse Practitioner Family | DX: E11.52 Type 2 diabetes mellitus with diabetic peripheral angiopathy with gangrene (principal); E11.621 Type 2 diabetes mellitus with foot ulcer; L97.421 Non-pressure chronic ulcer of left heel and midfoot limited to breakdown of skin | CPT/HCPCS: 97597; A6251 ==

== ENCOUNTER 2023-06-06 12:07 | Day surgery (SDC) | payer MEDICAID, SELFPAY ==
[2023-06-06 12:16] VITALS: BMI 29.8
[2023-06-06 12:21] VITALS: BP 136/87; PULSE 82; RESP 17; TEMP 36.3; O2SAT 100
[2023-06-06] MEDS: albumin 25 G/100 ML BAG 60 G IV (13:13)
== END 2023-06-06 13:51 | disposition home or self-care (01) ==
LOC: GILAB 12:09
PROVIDERS: Radiology Diagnostic Radiology; PCP Family Medicine; Visit Provider Student in an Organized Health Care Education/Training Program
PROC: 0W9G3ZZ Drainage of Peritoneal Cavity, Percutaneous Approach (ICD-10-PCS; principal; 2023-06-06 13:00)
DX: K74.60 Unspecified cirrhosis of liver (principal); R18.8 Other ascites
CPT/HCPCS: 49083; P9046

== ENCOUNTER → 2023-06-14 11:35 | Day surgery (SDC) | payer MEDICAID, SELFPAY ==
[2023-06-14 11:51] VITALS: BP 118/89; PULSE 100; RESP 18; TEMP 36.2; O2SAT 98; BMI 31.1
--- NOTE | 2023-06-14 11:53 | US_ITS ---
WS: [id number] ULTRASOUND-GUIDED PARACENTESIS CLINICAL INFORMATION: cirrhosis of liver with ascites COMPARISON: None. Procedure Informed consent: The risks, benefits, and alternatives of the procedure were discussed with the ava ent. Verbal and written consent was obtained. Timeout: A timeout was performed to confirm the correct patient, procedure, and site. Preparation: A suitable skin site was identified. The patient was prepped and draped in usual sterile fashion. Lidocaine 1% was used for local anesthesia. Catheter: 4 English One-step OSOYOU.comeh catheter. Side: LEFT lower quadrant. Fluid Volume: 11,000 ml Color: Clear yellow DISPOSITION: Discarded safely. Complications: None. Patient disposition: Discharged from the department in stable condition. IMPRESSION: Uncomplicated ultrasound-guided paracentesis. Removal of 11,000 cc ascites
[2023-06-14 12:57] LABS: Apprearance, Body Fluid CLEAR; Color, Body Fluid PALE YELLOW
[2023-06-14 12:57] LABS: Cyto Order Verification Order Verified
[2023-06-14 12:58] LABS: Fluid Laterality PERITONEAL FLUID
[2023-06-14 13:00] LABS: Anion Gap 13.1 (5-19); Blood Urea Nitrogen 35 mg/dL (6-20); Calcium 8.4 mg/dL (8.5-10.5); Carbon Dioxide 19 mmol/L (22-29); Chloride 104 mmol/L (98-107); Glomerular Filtration Rate 56.7 mL/min (90-130); Glucose 171 mg/dL (65-115); Osmolality Calculated 284 mOsm/kg (285-295); Potassium 5.1 mmol/L (3.5-5.1); Sodium 131 mmol/L (136-145)
[2023-06-14 13:01] LABS: Body Fluid Polynuclear #Cells 0.005; Body Fluid WBC 69 /uL; Monocytes # Body Fluid 0.064; RBC, Body Fluid 0 10^3/uL
[2023-06-14 13:15] LABS: Albumin Body Fluid 0.9 g/dL; Amylase Body Fluid 5 U/L; Cholesterol Body Fluid 15 mg/dL (0-200); Fluid Alkaline Phos. 36 IU/L; LDH Body Fluid 65 U/L; Total Protein Body Fluid 2.1 g/dL; Triglycerides Body Fluid 12 mg/dL (0-150)
[2023-06-14 13:16] LABS: Uric Acid Body Fluid 6 mg/dL
[2023-06-14] MEDS: ALBUMIN IV (13:26)
--- NOTE | 2023-06-14 14:18 | PC.NURSE ---
Patient refused last bag of albumin. Remaining bag was wasted.
== END ==
PROVIDERS: Radiology Neuroradiology; PCP Family Medicine; Visit Provider Nurse Practitioner Adult Health
PROC: (CPT 49082; principal; 2023-06-14 12:00)
DX: K74.60 Unspecified cirrhosis of liver (principal); R18.8 Other ascites
CPT/HCPCS: 36415; 49083; 80048; 80503; 82042; 82150; 82465; 82945; 83615; 83986; 84075; 84157; 84315; 84478; 84560; 87015; 87070; 87075; 87116; 87205; 87206; 87801; 88112; 88305; 89050; 96365; 97597; P9046

== ENCOUNTER 2023-06-20 12:00 | Day surgery (SDC) | payer MEDICAID, SELFPAY ==
--- NOTE | 2023-06-20 12:05 | US_ITS ---
WS: [id number] ULTRASOUND-GUIDED PARACENTESIS CLINICAL INFORMATION: ascities COMPARISON: None. Procedure Informed consent: The risks, benefits, and alternatives of the procedure were discussed with the ava ent. Verbal and written consent was obtained. Timeout: A timeout was performed to confirm the correct patient, procedure, and site. Preparation: A suitable skin site was identified. The patient was prepped and draped in usual sterile fashion. Lidocaine 1% was used for local anesthesia. Catheter: 4 Ugandan One-step Yueh catheter. Side: LEFT lower quadrant. Fluid Volume: 10,000 ml Color: Clear yellow DISPOSITION: Discarded safely. Complications: None. Patient disposition: Discharged from the department in stable condition. IMPRESSION: Uncomplicated ultrasound-guided paracentesis. Removal of 10,000 cc
[2023-06-20 12:32] VITALS: BP 130/85; PULSE 83; RESP 16; TEMP 36.7; O2SAT 97
[2023-06-20 12:52] LABS: Anion Gap 12.9 (5-19); Blood Urea Nitrogen 36 mg/dL (6-20); Calcium 8.1 mg/dL (8.5-10.5); Carbon Dioxide 21 mmol/L (22-29); Chloride 105 mmol/L (98-107); Glomerular Filtration Rate 52.1 mL/min (90-130); Glucose 113 mg/dL (65-115); Osmolality Calculated 285 mOsm/kg (285-295); Potassium 5.9 mmol/L (3.5-5.1); Sodium 133 mmol/L (136-145)
[2023-06-20 13:49] VITALS: BMI 29.8
[2023-06-20] MEDS: ALBUMIN 60 G IV (13:51)
[2023-06-20 14:43] LABS: Cyto Order Verification No Order
[2023-06-20 14:44] LABS: Appearance, Peritoneal Fluid Clear (Clear); Color, Peritoneal Fluid Pale Yellow (Pale Yellow)
[2023-06-20 14:50] LABS: Mononuclear #, Pertinoneal Fl 0.068 10^3/uL; Polynuclear # Cells, Perit 0.002 10^3/uL
[2023-06-20 14:57] LABS: Pathology Referral Yes
[2023-06-20 15:06] LABS: RBC Pertioneal Fluid 0 10^3/uL; WBC Peritoneal Fluid 70 /uL
== END 2023-06-20 15:00 | disposition home or self-care (01) ==
LOC: GILAB 12:02
PROVIDERS: Nurse Practitioner Adult Health; Radiology Neuroradiology; PCP Family Medicine; Visit Provider Student in an Organized Health Care Education/Training Program
PROC: (CPT 49082; principal; 2023-06-20 13:00)
DX: R18.8 Other ascites (principal)
CPT/HCPCS: 49083; 80048; 80503; 89050; 96365; P9046

== ENCOUNTER 2023-06-27 11:57 | Day surgery (SDC) | payer MEDICAID, SELFPAY ==
--- NOTE | 2023-06-27 12:03 | US_ITS ---
WS: [id number] ULTRASOUND-GUIDED THERAPEUTIC AND DIAGNOSTIC PARACENTESIS Procedure, risks, and complications have been explained to the patient. Consent is obtained. Utilizing aseptic technique and 1% buffered lidocaine, a small dermatome was made through which a 5 F rench Yueh catheter was inserted. Approximately 3900 ml of clear peritoneal fluid was obtained witho ut difficulty. No complications encountered. IMPRESSION: Uncomplicated paracentesis yielding 3900 ml of peritoneal fluid.
[2023-06-27 12:11] VITALS: BP 122/77; PULSE 76; RESP 18; TEMP 36.1; O2SAT 98
[2023-06-27 12:59] VITALS: BMI 29.8
[2023-06-27 13:03] LABS: Cyto Order Verification No Order
[2023-06-27 13:05] LABS: Body Fluid Polynuclear #Cells 0.002; Body Fluid WBC 77 /uL; Monocytes # Body Fluid 0.075; RBC, Body Fluid 0 10^3/uL
[2023-06-27] MEDS: ALBUMIN 60 G IV (13:07)
[2023-06-27 13:19] LABS: Anion Gap 12.4 (5-19); Blood Urea Nitrogen 29 mg/dL (6-20); Calcium 8.2 mg/dL (8.5-10.5); Carbon Dioxide 21 mmol/L (22-29); Chloride 105 mmol/L (98-107); Glomerular Filtration Rate 56.7 mL/min (90-130); Glucose 116 mg/dL (65-115); Osmolality Calculated 283 mOsm/kg (285-295); Potassium 5.4 mmol/L (3.5-5.1); Sodium 133 mmol/L (136-145)
[2023-06-27 13:22] LABS: Apprearance, Body Fluid CLEAR; Color, Body Fluid PALE YELLOW; Fluid Laterality PERITONEAL FLUID
== END 2023-06-27 14:03 | disposition home or self-care (01) ==
LOC: GILAB 11:57
PROVIDERS: Radiology Diagnostic Radiology; PCP Family Medicine; Visit Provider Nurse Practitioner Adult Health
PROC: (CPT 49082; principal; 2023-06-27 13:00)
DX: R18.8 Other ascites (principal)
CPT/HCPCS: 49083; 80048; 80503; 89050; 96365; P9046

== ENCOUNTER → 2023-06-28 10:40 | Outpatient (BNVA) | payer MEDICAID, SELFPAY | PROVIDERS: PCP Family Medicine; Visit Provider Thoracic Surgery (Cardiothoracic Vascular Surgery) | DX: E11.52 Type 2 diabetes mellitus with diabetic peripheral angiopathy with gangrene (principal); E11.621 Type 2 diabetes mellitus with foot ulcer; L97.421 Non-pressure chronic ulcer of left heel and midfoot limited to breakdown of skin | CPT/HCPCS: 97597; A6251 ==

== ENCOUNTER 2023-07-04 12:02 | Day surgery (SDC) | payer MEDICAID, SELFPAY ==
--- NOTE | 2023-07-04 12:10 | US_ITS ---
WS: [id number] ULTRASOUND-GUIDED PARACENTESIS CLINICAL INFORMATION: cirrhosis of liver with ascites COMPARISON: None. Procedure Informed consent: The risks, benefits, and alternatives of the procedure were discussed with the ava ent. Verbal and written consent was obtained. Timeout: A timeout was performed to confirm the correct patient, procedure, and site. Preparation: A suitable skin site was identified. The patient was prepped and draped in usual sterile fashion. Lidocaine 1% was used for local anesthesia. Catheter: 4 Amharic One-step MediaSpikeeh catheter. Side: RIGHT lower quadrant. Fluid Volume: 10,000 ml Color: Clear yellow DISPOSITION: Discarded safely. Complications: None. Patient disposition: Discharged from the department in stable condition. IMPRESSION: Uncomplicated ultrasound-guided paracentesis. Removal of 10,000 cc
[2023-07-04 12:19] VITALS: BP 141/90; PULSE 75; RESP 18; TEMP 36.2; O2SAT 99; BMI 28.5
[2023-07-04 13:01] LABS: Anion Gap 14.6 (5-19); Blood Urea Nitrogen 36 mg/dL (6-20); Calcium 8.1 mg/dL (8.5-10.5); Carbon Dioxide 19 mmol/L (22-29); Chloride 105 mmol/L (98-107); Glomerular Filtration Rate 48.1 mL/min (90-130); Glucose 153 mg/dL (65-115); Osmolality Calculated 289 mOsm/kg (285-295); Potassium 4.6 mmol/L (3.5-5.1); Sodium 134 mmol/L (136-145)
[2023-07-04 13:39] LABS: Appearance, Pleural Fluid CLEAR (CLEAR); Color, Pleural Fluid Pale Yellow (Pale Yellow); PATH Referal YES
[2023-07-04] MEDS: ALBUMIN 200 G IV (13:50)
[2023-07-04 13:56] LABS: Cyto Order Verification No Order
[2023-07-04 13:56] LABS: Cells Counted 61; Mononuclear %, Pleural Fluid 98 %; Polynuclear Cells, Pleural % 2 %
== END 2023-07-04 14:39 | disposition home or self-care (01) ==
PROVIDERS: Nurse Practitioner Adult Health; Radiology Neuroradiology; PCP Family Medicine; Visit Provider Student in an Organized Health Care Education/Training Program
PROC: (CPT 49082; principal; 2023-07-04 13:00)
DX: K74.60 Unspecified cirrhosis of liver (principal); R18.8 Other ascites
CPT/HCPCS: 36415; 49083; 80048; 80503; 89050; 96365; P9046

== ENCOUNTER → 2023-07-05 10:42 | Outpatient (BNVA) | payer MEDICAID, SELFPAY | PROVIDERS: PCP Family Medicine; Visit Provider Nurse Practitioner Family | DX: E11.52 Type 2 diabetes mellitus with diabetic peripheral angiopathy with gangrene (principal); E11.621 Type 2 diabetes mellitus with foot ulcer; L97.421 Non-pressure chronic ulcer of left heel and midfoot limited to breakdown of skin | CPT/HCPCS: 97597 ==

== ENCOUNTER → 2023-07-11 12:13 | Day surgery (SDC) | payer MEDICAID, SELFPAY ==
--- NOTE | 2023-07-11 12:18 | US_ITS ---
WS: [email or web address] ULTRASOUND-GUIDED PARACENTESIS CLINICAL INFORMATION: ascities COMPARISON: None. Procedure Informed consent: The risks, benefits, and alternatives of the procedure were discussed with the ava ent. Verbal and written consent was obtained. Timeout: A timeout was performed to confirm the correct patient, procedure, and site. Preparation: A suitable skin site was identified. The patient was prepped and draped in usual sterile fashion. Lidocaine 1% was used for local anesthesia. Catheter: 4 Emirati One-step Yueh catheter. Side: LEFT lower quadrant. Fluid Volume: 10,000 ml Color: Clear yellow DISPOSITION: Discarded safely. Complications: None. Patient disposition: Discharged from the department in stable condition. IMPRESSION: Uncomplicated ultrasound-guided paracentesis. Removal of 10,000 cc
[2023-07-11 12:25] VITALS: BP 139/85; PULSE 75; RESP 18; TEMP 36.1; O2SAT 100; BMI 25.7
[2023-07-11 13:11] LABS: Anion Gap 11.9 (5-19); Carbon Dioxide 21 mmol/L (22-29); Chloride 104 mmol/L (98-107); Glucose 179 mg/dL (65-115); Potassium 4.9 mmol/L (3.5-5.1); Sodium 132 mmol/L (136-145)
[2023-07-11 13:27] LABS: Blood Urea Nitrogen 41 mg/dL (6-20); Calcium 8.1 mg/dL (8.5-10.5); Glomerular Filtration Rate 68.8 mL/min (90-130); Osmolality Calculated 289 mOsm/kg (285-295)
[2023-07-11] MEDS: ALBUMIN 60 G IV (14:06)
[2023-07-11 14:31] LABS: Color, Pleural Fluid Pale Yellow (Pale Yellow); Cyto Order Verification No Order
[2023-07-11 14:32] LABS: Appearance, Pleural Fluid CLEAR (CLEAR); PATH Referal YES
[2023-07-11 14:38] LABS: Mononuclear %, Pleural Fluid 99 %; Polynuclear Cells, Pleural % 1 %
--- NOTE | 2023-07-11 14:59 | PC.NURSE ---
port de-accessed per ankit loving per protocol
== END ==
LOC: GILAB 12:13
PROVIDERS: Radiology Neuroradiology; PCP Family Medicine; Visit Provider Nurse Practitioner Adult Health
PROC: (CPT 49082; principal; 2023-07-11 13:00)
DX: R18.8 Other ascites (principal)
CPT/HCPCS: 49083; 80048; 80503; 89050; 96365; P9046

== ENCOUNTER 2023-07-18 12:13 | Day surgery (SDC) | payer MEDICAID, SELFPAY ==
--- NOTE | 2023-07-18 12:22 | US_ITS ---
WS: [id number] ULTRASOUND-GUIDED THERAPEUTIC AND DIAGNOSTIC PARACENTESIS Procedure, risks, and complications have been explained to the patient. Consent is obtained. Utilizing aseptic technique and 1% buffered lidocaine, a small dermatome was made through which a 5 F rench Yueh catheter was inserted. Approximately 10,000 ml of clear peritoneal fluid was obtained wit hout difficulty. No complications encountered. IMPRESSION: Uncomplicated paracentesis yielding 10,000 ml of peritoneal fluid.
[2023-07-18 12:52] VITALS: BP 129/88; PULSE 84; RESP 18; TEMP 36.1; O2SAT 99; BMI 27.1
[2023-07-18] MEDS: ALBUMIN 300 G IV (13:10)
[2023-07-18 13:11] LABS: Anion Gap 12.6 (5-19); Blood Urea Nitrogen 33 mg/dL (6-20); Calcium 8.2 mg/dL (8.5-10.5); Carbon Dioxide 21 mmol/L (22-29); Chloride 107 mmol/L (98-107); Creatinine Clr Calc Pharmacy 72.5798; Glomerular Filtration Rate 56.7 mL/min (90-130); Glucose 129 mg/dL (65-115); Osmolality Calculated 291 mOsm/kg (285-295); Potassium 4.6 mmol/L (3.5-5.1); Sodium 136 mmol/L (136-145)
[2023-07-18 14:15] LABS: Apprearance, Body Fluid CLEAR; Color, Body Fluid PALE YELLOW
[2023-07-18 14:16] LABS: Fluid Laterality PERITONEAL FLUID
[2023-07-18 14:40] LABS: Body Fluid Polynuclear #Cells 0.001; Body Fluid WBC 63 /uL; Monocytes # Body Fluid 0.062; RBC, Body Fluid 0 10^3/uL
[2023-07-18 14:42] LABS: PATH Referral YES
[2023-07-18 14:43] LABS: Cyto Order Verification No Order
== END 2023-07-18 14:34 | disposition home or self-care (01) ==
PROVIDERS: Radiology Diagnostic Radiology; PCP Family Medicine; Visit Provider Student in an Organized Health Care Education/Training Program
PROC: (CPT 49082; principal; 2023-07-18 13:00)
DX: K74.60 Unspecified cirrhosis of liver (principal); R18.8 Other ascites
CPT/HCPCS: 36591; 49083; 80048; 80503; 89050; 96365; P9046

== ENCOUNTER → 2023-07-25 11:49 | Day surgery (SDC) | payer MEDICAID, SELFPAY ==
[2023-07-25 12:07] VITALS: BP 151/90; PULSE 79; RESP 18; TEMP 36.3; O2SAT 99
[2023-07-25 12:09] VITALS: BMI 24.4
--- NOTE | 2023-07-25 12:14 | US_ITS ---
WS: [email or web address] ULTRASOUND-GUIDED PARACENTESIS CLINICAL INFORMATION: alcoholic cirrhosis of liver with ascites COMPARISON: None. Procedure Informed consent: The risks, benefits, and alternatives of the procedure were discussed with the ava ent. Verbal and written consent was obtained. Timeout: A timeout was performed to confirm the correct patient, procedure, and site. Preparation: A suitable skin site was identified. The patient was prepped and draped in usual sterile fashion. Lidocaine 1% was used for local anesthesia. Catheter: 4 Ukrainian One-step StatusNeteh catheter. Side: LEFT lower quadrant. Fluid Volume: 9300 ml Color: Clear yellow DISPOSITION: Discarded safely. Complications: None. Patient disposition: Discharged from the department in stable condition. IMPRESSION: Uncomplicated ultrasound-guided paracentesis. Removal of 9300 cc
[2023-07-25] MEDS: albumin 50 G/200 ML BAG 60 G IV (13:07)
== END ==
PROVIDERS: Radiology Neuroradiology; PCP Family Medicine; Visit Provider Nurse Practitioner Adult Health
PROC: (CPT 49082; principal; 2023-07-25 13:00)
DX: K70.31 Alcoholic cirrhosis of liver with ascites (principal)
CPT/HCPCS: 49083; P9046

== ENCOUNTER → 2023-07-26 11:05 | Outpatient (BNVA) | payer MEDICAID, SELFPAY | PROVIDERS: PCP Family Medicine; Visit Provider Thoracic Surgery (Cardiothoracic Vascular Surgery) | DX: E11.52 Type 2 diabetes mellitus with diabetic peripheral angiopathy with gangrene (principal); L97.422 Non-pressure chronic ulcer of left heel and midfoot with fat layer exposed; E11.621 Type 2 diabetes mellitus with foot ulcer | CPT/HCPCS: 11042 ==

== ENCOUNTER 2023-08-01 12:03 | Day surgery (SDC) | payer MEDICAID, SELFPAY ==
[2023-08-01 12:16] VITALS: BP 134/84; PULSE 69; RESP 16; TEMP 36.1; O2SAT 99; BMI 25.7
--- NOTE | 2023-08-01 12:27 | US_ITS ---
WS: [id number] ULTRASOUND-GUIDED THERAPEUTIC PARACENTESIS Procedure, risks, and complications have been explained to the patient. Consent is obtained. Utilizing aseptic technique and 1% buffered lidocaine, a small dermatome was made through which a 5 F rench Yueh catheter was inserted. Approximately 8400 ml of clear peritoneal fluid was obtained witho ut difficulty. No complications encountered. IMPRESSION: Uncomplicated paracentesis yielding 8400 ml of peritoneal fluid.
[2023-08-01] MEDS: albumin 50 G/200 ML BAG 60 G IV (12:57)
== END 2023-08-01 14:10 | disposition home or self-care (01) ==
LOC: GILAB 12:04
PROVIDERS: Radiology Diagnostic Radiology; PCP Family Medicine; Visit Provider Student in an Organized Health Care Education/Training Program
PROC: (CPT 49082; principal; 2023-08-01 13:00)
DX: K70.31 Alcoholic cirrhosis of liver with ascites (principal)
CPT/HCPCS: 49083; 96365; P9046

== ENCOUNTER → 2023-08-02 10:52 | Outpatient (BNVA) | payer MEDICAID, SELFPAY | PROVIDERS: PCP Family Medicine; Visit Provider Thoracic Surgery (Cardiothoracic Vascular Surgery) | DX: E11.52 Type 2 diabetes mellitus with diabetic peripheral angiopathy with gangrene (principal); E11.621 Type 2 diabetes mellitus with foot ulcer; L97.421 Non-pressure chronic ulcer of left heel and midfoot limited to breakdown of skin | CPT/HCPCS: 11042 ==

== ENCOUNTER → 2023-08-07 10:58 | Day surgery (SDC) | payer MEDICAID, SELFPAY ==
[2023-08-07 11:06] VITALS: BP 149/85; PULSE 72; RESP 18; TEMP 36.1; O2SAT 100; BMI 25.7
--- NOTE | 2023-08-07 11:11 | US_ITS ---
WS: [email or web address] ULTRASOUND-GUIDED PARACENTESIS CLINICAL INFORMATION: ASCITES COMPARISON: None. Procedure Informed consent: The risks, benefits, and alternatives of the procedure were discussed with the ava ent. Verbal and written consent was obtained. Timeout: A timeout was performed to confirm the correct patient, procedure, and site. Preparation: A suitable skin site was identified. The patient was prepped and draped in usual sterile fashion. Lidocaine 1% was used for local anesthesia. Catheter: 4 Tamaz[place] One-step Yueh catheter. Side: RIGHT lower quadrant. Fluid Volume: 9800 ml Color: Clear yellow DISPOSITION: Discarded safely. Complications: None. Patient disposition: Discharged from the department in stable condition. IMPRESSION: Uncomplicated ultrasound-guided paracentesis. Removal of 9800 cc
== END ==
LOC: GILAB 11:02
PROVIDERS: Radiology Neuroradiology; PCP Family Medicine; Visit Provider Nurse Practitioner Adult Health
PROC: (CPT 49082; principal; 2023-08-07 12:00)
DX: R18.8 Other ascites (principal)
CPT/HCPCS: 49083; 96365; P9047

== ENCOUNTER → 2023-08-09 10:52 | Outpatient (BNVA) | payer MEDICAID, SELFPAY | PROVIDERS: PCP Family Medicine; Visit Provider Thoracic Surgery (Cardiothoracic Vascular Surgery) | DX: E11.52 Type 2 diabetes mellitus with diabetic peripheral angiopathy with gangrene (principal); E11.621 Type 2 diabetes mellitus with foot ulcer; L97.422 Non-pressure chronic ulcer of left heel and midfoot with fat layer exposed | CPT/HCPCS: 11042; A6251 ==

== ENCOUNTER 2023-08-15 11:42 | Day surgery (SDC) | payer MEDICAID, SELFPAY ==
--- NOTE | 2023-08-15 11:52 | US_ITS ---
WS: [id number] ULTRASOUND-GUIDED THERAPEUTIC PARACENTESIS Procedure, risks, and complications have been explained to the patient. Consent is obtained. Utilizing aseptic technique and 1% buffered lidocaine, a small dermatome was made through which a 5 F rench Yueh catheter was inserted. Approximately 3000 ml of clear peritoneal fluid was obtained witho ut difficulty. No complications encountered. IMPRESSION: Uncomplicated paracentesis yielding 3000 ml of peritoneal fluid.
[2023-08-15 12:10] VITALS: BP 125/81; PULSE 82; RESP 18; TEMP 36.6; O2SAT 99; BMI 23.7
[2023-08-15] MEDS: albumin 50 G/200 ML BAG 60 G IV (12:30)
== END 2023-08-15 13:14 | disposition home or self-care (01) ==
LOC: GILAB 11:43
PROVIDERS: Radiology Diagnostic Radiology; PCP Family Medicine; Visit Provider Nurse Practitioner Adult Health
PROC: (CPT 49082; principal; 2023-08-15 13:00)
DX: K70.31 Alcoholic cirrhosis of liver with ascites (principal)
CPT/HCPCS: 49083; 96365; P9046

== ENCOUNTER → 2023-08-16 11:00 | Outpatient (BNVA) | payer MEDICAID, SELFPAY | PROVIDERS: PCP Family Medicine; Visit Provider Thoracic Surgery (Cardiothoracic Vascular Surgery) | DX: E11.52 Type 2 diabetes mellitus with diabetic peripheral angiopathy with gangrene (principal); E11.621 Type 2 diabetes mellitus with foot ulcer; L97.422 Non-pressure chronic ulcer of left heel and midfoot with fat layer exposed | CPT/HCPCS: 99213 ==

== ENCOUNTER → 2023-08-22 11:56 | Day surgery (SDC) | payer MEDICAID, SELFPAY ==
[2023-08-22 12:05] VITALS: BP 133/79; PULSE 81; RESP 16; TEMP 36.4; O2SAT 100
[2023-08-22 12:11] VITALS: BMI 24.4
--- NOTE | 2023-08-22 12:11 | US_ITS ---
WS: [email or web address] ULTRASOUND-GUIDED PARACENTESIS CLINICAL INFORMATION: alcoholic cirrhosis of liver with ascites COMPARISON: None. Procedure Informed consent: The risks, benefits, and alternatives of the procedure were discussed with the ava ent. Verbal and written consent was obtained. Timeout: A timeout was performed to confirm the correct patient, procedure, and site. Preparation: A suitable skin site was identified. The patient was prepped and draped in usual sterile fashion. Lidocaine 1% was used for local anesthesia. Catheter: 4 Irish One-step Arachnyseh catheter. Side: LEFT lower quadrant. Fluid Volume: 9450 ml Color: Clear yellow DISPOSITION: Discarded safely. Complications: None. Patient disposition: Discharged from the department in stable condition. IMPRESSION: Uncomplicated ultrasound-guided paracentesis. Removal of 9450 cc
[2023-08-22] MEDS: albumin 50 G/200 ML BAG 60 G IV (13:00)
== END ==
PROVIDERS: Radiology Neuroradiology; PCP Family Medicine; Visit Provider Nurse Practitioner Adult Health
PROC: (CPT 49082; principal; 2023-08-22 13:00)
DX: K70.31 Alcoholic cirrhosis of liver with ascites (principal)
CPT/HCPCS: 49083; P9046

== ENCOUNTER 2023-08-29 12:33 | Day surgery (SDC) | payer MEDICAID, SELFPAY ==
[2023-08-29 12:38] VITALS: BP 163/103; PULSE 97; RESP 16; TEMP 36.3; O2SAT 100; BMI 25.7
[2023-08-29] MEDS: albumin 50 G/200 ML BAG 60 G IV (13:11)
== END 2023-08-29 14:06 | disposition home or self-care (01) ==
LOC: GILAB 12:33
PROVIDERS: Radiology Diagnostic Radiology; PCP Family Medicine; Visit Provider Nurse Practitioner Adult Health
PROC: (CPT 49082; principal; 2023-08-29 13:00)
DX: R18.8 Other ascites (principal)
CPT/HCPCS: 49083; 96365; P9046

== ENCOUNTER 2023-08-30 10:00 | Oncology outpatient (recurring) (ONCR) | payer MEDICAID, SELFPAY ==
[2023-08-13 12:10] LABS: Basophils % 0.2 %; Eosinophils % 0.7 %; Hematocrit 30.6 % (37-53); Lymphocytes # 0.5 10^3/uL (0.8-4.8); Lymphocytes % 8.7 %; Mean Corpuscular HGB Conc 32.7 g/dL (30-55); Mean Corpuscular Hemoglobin 27.7 pg (27-33); Mean Corpuscular Volume 84.8 fl (82-101); Mean Platelet Volume 12.1 fL (7.4-10.4); Monocytes # 0.6 10^3/uL (0.2-0.9); Monocytes % 10.2 %; Nucleated Red Blood Cells % 0 %; Platelet Count 146 10^3/cmm (157-399); Red Blood Count 3.61 10^6/uL (3.85-5.65); Red Cell Distribution Width 16.2 % (12.1-15.1); White Blood Count 5.38 10^3/uL (3.29-11.43)
[2023-08-13 12:38] LABS: Alanine Aminotransferase 60 U/L (0-41); Albumin Level 2.6 g/dL (3.5-5.2); Alkaline Phosphatase 512 U/L (40-130); Anion Gap 10.5 (5-19); Aspartate Amino Transferase 69 U/L (0-40); Blood Urea Nitrogen 38 mg/dL (6-20); Calcium 7.9 mg/dL (8.5-10.5); Carbon Dioxide 22 mmol/L (22-29); Chloride 102 mmol/L (98-107); Ferritin 32 ng/mL (30-400); Globulin 4.1 g/dL (1.3-4.6); Glomerular Filtration Rate 62.2 mL/min (90-130); Glucose 186 mg/dL (65-115); Iron 23 ug/dL (59-158); Osmolality Calculated 284 mOsm/kg (285-295); Percent Saturation 10.2 % (20-50); Potassium 4.5 mmol/L (3.5-5.1); Sodium 130 mmol/L (136-145); Total Bilirubin 0.6 mg/dL (0.15-1.2); Total Iron Binding Capacity 224 mcg/dl; Total Protein 6.7 g/dL (6.6-8.7); Unsaturated Iron Binding 201 ug/dL (112-347)
== END 2023-09-02 23:59 | disposition home or self-care (01) ==
PROVIDERS: Nurse Practitioner Family; PCP Family Medicine; Visit Provider Internal Medicine Medical Oncology
DX: Z53.9 Procedure and treatment not carried out, unspecified reason (principal); E11.621 Type 2 diabetes mellitus with foot ulcer; L97.421 Non-pressure chronic ulcer of left heel and midfoot limited to breakdown of skin
CPT/HCPCS: 36591; 80053; 82728; 83540; 83550; 85025; 97597; 99214; A6251